=== PATIENT | female | born 1950 | race Caucasian/White ===

== ENCOUNTER 2024-05-22 04:17 | Inpatient (IN) | payer MEDICARE ==
[2024-05-22 04:29] LABS: Glucose,Whole Blood 70 mg/dL (70-110)
[2024-05-22 04:31] VITALS: TEMP 97.7
[2024-05-22] MEDS: SODIUM CHLORIDE 0.9% 1,000 ML IV STA (05:37)
[2024-05-22 05:43] LABS: Basophils % (A) 1 %; Eosinophils % (A) 7 %; HCT 45.9 % (34.0-46.0); HGB 14.8 gm/dL (11.4-16.0); Lymphocytes # (A) 1.2 k/uL (1.0-4.8); Lymphocytes % (A) 15 %; MCH 30.6 pg (25.0-35.0); MCHC 32.4 g/dL (31.0-37.0); MCV 94.7 fL (80.0-100.0); Mean Platelet Volume 9.1; Monocytes # (A) 0.5 k/uL (0-1.0); Monocytes % (A) 7 %; Neutrophils # (A) 5.3 k/uL (1.3-7.7); Neutrophils % (A) 68 %; Platelet Count 304 k/uL (150-450); RBC 4.85 m/uL (3.80-5.40); RDW 13.4 % (11.5-15.5); WBC 7.8 k/uL (3.8-10.6)
[2024-05-22 05:44] LABS: Basophils # (A) 0.1 k/uL (0-0.2); Eosinophils # (A) 0.5 k/uL (0-0.7)
--- NOTE | 2024-05-22 05:48 | ED ---
Weakness HPI <Carlos Lazaro - Last Filed: 05/22/24 09:23> <Deep Brower - Last Filed: 05/23/24 00:20> - General Source: EMS Mode of arrival: EMS <Rosa Condon - Last Filed: 05/23/24 23:30> - General Chief complaint: Weakness Stated complaint: Weakness Time Seen by Provider: 05/22/24 04:54 - History of Present Illness Initial comments: 73-year-old female who presents to the emergency department with weakness. States that it has been increasing over the past couple of weeks. She has been falling daily. Patient states that she is so weak she cannot keep her balance. Tonight her roommate called because she has been so weak. Patient denies any chest pain or shortness of breath. No abdominal pain. Does admit to a mild headache. No vision changes. Patient does not take any medications. Denies any sick contacts. No lateralizing weakness. No changes in her bowel or bladder habits. States that she has a very poor appetite. No other alleviating, precipitating or modifying factors (Rosa Condon) - Related Data Home Medications Medication Instructions Recorded Confirmed No Known Home Medications 05/22/24 05/22/24 Allergies Allergy/AdvReac Type Severity Reaction Status Date / Time iodine Allergy Anaphylaxis Verified 05/22/24 09:49 Review of Systems ROS Other: All systems not noted in ROS Statement are negative. <Carlos Lazaro - Last Filed: 05/22/24 09:23> ROS Other: All systems not noted in ROS Statement are negative. <Deep Brower - Last Filed: 05/23/24 00:20> ROS Other: All systems not noted in ROS Statement are negative. <Rosa Condon - Last Filed: 05/23/24 23:30> ROS Statement: Those systems with pertinent positive or pertinent negative responses have been documented in the HPI. Past Medical History Additional Past Medical History / Comment(s): hypothyroidism History of Any Multi-Drug Resistant Organisms: None Reported Past Surgical History: Tonsillectomy Additional Past Surgical History / Comment(s): Trigeminal nerve decompression 2003 Past Psychological History: Depression Smoking Status: Current some day smoker Past Alcohol Use History: None Reported Past Drug Use History: None Reported <Rosa Condon - Last Filed: 05/23/24 23:30> General Exam General appearance: alert, in no apparent distress Head exam: Present: atraumatic, normocephalic, normal inspection Eye exam: Present: normal appearance, PERRL, EOMI. Absent: scleral icterus, conjunctival injection, periorbital swelling ENT exam: Present: normal exam, mucous membranes moist Neck exam: Present: normal inspection. Absent: tenderness, meningismus, lymphadenopathy Respiratory exam: Present: normal lung sounds bilaterally. Absent: respiratory distress, wheezes, rales, rhonchi, stridor Cardiovascular Exam: Present: regular rate, normal rhythm, normal heart sounds. Absent: systolic murmur, diastolic murmur, rubs, gallop, clicks GI/Abdominal exam: Present: soft, normal bowel sounds. Absent: distended, tenderness, guarding, rebound, rigid Extremities exam: Present: normal inspection, full ROM, normal capillary refill. Absent: tenderness, pedal edema, joint swelling, calf tenderness Back exam: Present: normal inspection Neurological exam: Present: alert, oriented X3, CN II-XII intact Psychiatric exam: Present: normal affect, normal mood Skin exam: Present: warm, dry, intact, normal color. Absent: rash <Rosa Condon - Last Filed: 05/23/24 23:30> Course <Deep Brower - Last Filed: 05/23/24 00:20> Vital Signs 05/22/24 05/22/24 05/22/24 04:20 08:00 10:00 Temperature 97.7 F Pulse Rate 80 55 L 60 Pulse Rate [ Fisheries Technical Officer ] Respiratory 16 16 16 Rate Blood Pressure 131/68 98/55 95/60 O2 Sat by Pulse 94 L 96 98 Oximetry 05/22/24 05/22/24 05/22/24 12:00 13:00 15:00 Temperature Pulse Rate 70 64 68 Pulse Rate [ Fisheries Technical Officer ] Respiratory 16 16 16 Rate Blood Pressure 96/50 106/56 108/57 O2 Sat by Pulse 98 96 98 Oximetry 05/22/24 05/22/24 05/22/24 16:00 16:53 18:00 Temperature Pulse Rate 68 60 68 Pulse Rate [ Fisheries Technical Officer ] Respiratory 16 20 16 Rate Blood Pressure 108/67 104/62 90/46 O2 Sat by Pulse 98 95 96 Oximetry 05/22/24 05/22/24 05/23/24 19:00 23:16 01:38 Temperature Pulse Rate 67 53 L 56 L Pulse Rate [ Fisheries Technical Officer ] Respiratory 20 16 16 Rate Blood Pressure 119/97 87/54 101/54 O2 Sat by Pulse 96 96 Oximetry 05/23/24 05/23/24 05/23/24 05:07 06:14 07:00 Temperature Pulse Rate 49 L 50 L 50 L Pulse Rate [ Fisheries Technical Officer ] Respiratory 16 17 18 Rate Blood Pressure 100/59 110/59 103/52 O2 Sat by Pulse 95 Oximetry 05/23/24 05/23/24 08:00 11:25 Temperature Pulse Rate 48 L Pulse Rate [ 62 Fisheries Technical Officer ] Respiratory 18 18 Rate Blood Pressure 111/61 O2 Sat by Pulse 95 Oximetry - Reevaluation(s) Reevaluation #1: 05/22/24 17:15 I received call from Dr. Arguello regarding patient's head CT that had been ordered by the admitting service. There suspected metastatic lesions with some subfalcine herniation. [employer] message sent for admitting service (Deep Brower) Reevaluation #2: 05/23/24 00:21 mL attempt to facilitate the patient's transfer, and because Dr. Mayers was not in the facility when the CT report came, I did discuss with the patient the findings and asked about choice of transfer hospital, the patient stated she would like to go to [facility] in [place]. I did discuss case with the transfer team, and [facility] did accept the patient for transfer, pending insurance approval. (Deep Brower) Medical Decision Making - Lab Data Result diagrams: 05/22/24 05:26 05/22/24 05:26 <Carlos Lazaro - Last Filed: 05/22/24 09:23> - Lab Data Result diagrams: 05/22/24 05:26 05/22/24 05:26 <Deep Brower - Last Filed: 05/23/24 00:20> - Lab Data Result diagrams: 05/22/24 05:26 05/22/24 05:26 <Rosa Condon - Last Filed: 05/23/24 23:30> - Medical Decision Making CT interpreted by me (1pt min.). @ -Patient CT of the chest abdomen pelvis showed a 6 cm right upper lobe mass U/S interpreted by me (1pt. min.). @ -None done What testing was considered but not performed or refused? (CT, X-rays, U/S, labs)? Why? @ -None What meds were considered but not given or refused? Why? @ -None Did you discuss the management of the patient with other professionals (professionals i.e. , PA, CARCASS WASHER, lab, RT, psych nurse, director of social media marketing, communications technician, teacher, corporate trust officer, manager civil)? Give summary @ -Dr. Mayers agreed to admit the patient after I spoke with him about the case Was smoking cessation discussed for >3mins.? @ -No Was critical care preformed (if so, how long)? @ -No Were there social determinants of health that impacted care today? How? (Homelessness, low income, unemployed, alcoholism, drug addiction, transportation, low edu. Level, literacy, decrease access to med. care, mcc, rehab)? @ -No Was there de-escalation of care discussed even if they declined (Discuss DNR or withdrawal of care, Hospice)? DNR status @ -No What co-morbidities impacted this encounter? (DM, HTN, Smoking, COPD, CAD, Cancer, CVA, ARF, Chemo, Hep., AIDS, mental health diagnosis, sleep apnea, morbid obesity)? @ -None Was patient admitted / discharged? Hospital course, mention meds given and route, prescriptions, significant lab abnormalities, going to OR and other pertinent info. @ -Patient still felt too weak to go home and she states she has been falling at least every day. I spoke with Dr. Mayers he agreed to admit the patient admit the patient recommending orders Undiagnosed new problem with uncertain prognosis? @ -No Drug Therapy requiring intensive monitoring for toxicity (Heparin, Nitro, Insulin, Cardizem)? @ -No Were any procedures done? @ -No Diagnosis/symptom? @ -Lung mass Acute, or Chronic, or Acute on Chronic? @ -Acute Uncomplicated (without systemic symptoms) or Complicated (systemic symptoms)? @ -Complicated Side effects of treatment? @ -No Exacerbation, Progression, or Severe Exacerbation? @ -No Poses a threat to life or bodily function? How? (Chest pain, [place], [place], pneumonia, PE, COPD, DKA, ARF, appy, cholecystitis, CVA, Diverticulitis, Homicidal, Suicidal, threat to staff... and all critical care pts) @ -Yes this could be a neoplasm and lead to metastatic disease. Diagnosis/symptom? @ -Generalized weakness Acute, or Chronic, or Acute on Chronic? @ -Acute Uncomplicated (without systemic symptoms) or Complicated (systemic symptoms)? @ -Complicated Side effects of treatment? @ -None Exacerbation, Progression, or Severe Exacerbation] @ -No Poses a threat to life or bodily function? @ -No Diagnosis/symptom? @ -Multiple falls Acute, or Chronic, or Acute on Chronic? @ -Acute Uncomplicated (without systemic symptoms) or Complicated (systemic symptoms)? @ -Uncomplicated Side effects of treatment? @ -None Exacerbation, Progression, or Severe Exacerbation] @ -No Poses a threat to life or bodily function? @ -No (Carlos Lazaro) Was pt. sent in by a medical professional or institution (, PA, CARCASS WASHER, urgent care, hospital, or detention...) When possible be specific @ -No Did you speak to anyone other than the patient for history (EMS, parent, family, police, friend...)? What history was obtained from this source @ -Spoke with EMS for history Did you review nursing and triage notes (agree or disagree)? Why? @ -I reviewed and agree with nursing and triage notes Were old charts reviewed (outside hosp., previous admission, EMS record, old EKG, old radiological studies, urgent care reports/EKG's, detention records)? Report findings @ -No old charts were reviewed Differential Diagnosis (chest pain, altered mental status, abdominal pain women, abdominal pain men, vaginal bleeding, weakness, fever, dyspnea, syncope, h eadache, dizziness, GI bleed, back pain, seizure, CVA, palpatations, mental health, musculoskeletal)? @ -Differential Weakness: Hypoglycemia, shock, sepsis, hyponatremia, anemia, infection, [place], ETOH, adverse medicine reaction, overdose, stroke, this is not meant to be an all-inclusive list. EKG interpreted by me (3pts min.). @ -Yes and demonstrates sinus rhythm with a rate of 69. FL interval 151. QRS 90. QTc of 442. No acute ST segment elevations or depressions X-rays interpreted by me (1pt min.). @ -Pending at this time CT interpreted by me (1pt min.). @ -None done U/S interpreted by me (1pt. min.). @ -None done What testing was considered but not performed or refused? (CT, X-rays, U/S, labs)? Why? @ -None What meds were considered but not given or refused? Why? @ -None Did you discuss the management of the patient with other professionals (professionals i.e. Dr., PA, CARCASS WASHER, lab, RT, psych nurse, director of social media marketing, communications technician, teacher, corporate trust officer, manager civil)? Give summary @ -Spoke with Dr. Lazaro who will take over care of this patient Was smoking cessation discussed for >3mins.? @ -No Was critical care preformed (if so, how long)? @ -No Were there social determinants of health that impacted care today? How? (Homelessness, low income, unemployed, alcoholism, drug addiction, transportation, low edu. Level, literacy, decrease access to med. care, mcc, rehab)? @ -No Was there de-escalation of care discussed even if they declined (Discuss DNR or withdrawal of care, Hospice)? DNR status @ -No What co-morbidities impacted this encounter? (DM, HTN, Smoking, COPD, CAD, Cancer, CVA, ARF, Chemo, Hep., AIDS, mental health diagnosis, sleep apnea, morbid obesity)? @ -Hypothyroidism Was patient admitted / discharged? Hospital course, mention meds given and route, prescriptions, significant lab abnormalities, going to OR and other pertinent info. @ -Upon arrival patient seen and evaluated in room 18. Thorough history and physical exam was performed. IV access was established. Laboratory studies were conducted. Testing is pending at this time and will be [facility] out [facility] - Lab Data Lab Results 05/22/24 05/22/24 05/22/24 Range/Units 04:27 05:26 05:26 WBC 7.8 (3.8-10.6) k/uL RBC 4.85 (3.80-5.40) m/uL Hgb 14.8 (11.4-16.0) gm/dL Hct 45.9 (34.0-46.0) % MCV 94.7 (80.0-100.0) fL MCH 30.6 (25.0-35.0) pg MCHC 32.4 (31.0-37.0) g/dL RDW 13.4 (11.5-15.5) % Plt Count 304 (150-450) k/uL MPV 9.1 Neutrophils % 68 % Lymphocytes % 15 % Monocytes % 7 % Eosinophils % 7 % Basophils % 1 % Neutrophils # 5.3 (1.3-7.7) k/uL Lymphocytes # 1.2 (1.0-4.8) k/uL Monocytes # 0.5 (0-1.0) k/uL Eosinophils # 0.5 (0-0.7) k/uL Basophils # 0.1 (0-0.2) k/uL PT 10.5 (10.0-12.5) sec INR 1.0 (<1.2) APTT 22.1 (22.0-30.0) sec Sodium (137-145) mmol/L Potassium (3.5-5.1) mmol/L Chloride (98-107) mmol/L Carbon Dioxide (22-30) mmol/L Anion Gap mmol/L BUN (7-17) mg/dL Creatinine (0.52-1.04) mg/dL Est GFR (CKD-EPI)AfAm (>60 ml/min/1.73 sqM) Est GFR (CKD-EPI)NonAf (>60 ml/min/1.73 sqM) Glucose (74-99) mg/dL POC Glucose (mg/dL) 70 (70-110) mg/dL POC Glu [place] Measurer ID Raymond Joyce Plasma Lactic Acid Antonio (0.7-2.0) mmol/L Calcium (8.4-10.2) mg/dL Magnesium (1.6-2.3) mg/dL Total Bilirubin (0.2-1.3) mg/dL AST (14-36) U/L ALT (4-34) U/L Alkaline Phosphatase (38-126) U/L Troponin I (0.000-0.034) ng/mL Total Protein (6.3-8.2) g/dL Albumin (3.5-5.0) g/dL TSH (0.465-4.680) mIU/L Urine Color Urine Appearance (Clear) Urine pH (5.0-8.0) Ur Specific [place] (1.001-1.035) Urine Protein (Negative) Urine Glucose (UA) (Negative) Urine Ketones (Negative) Urine Blood (Negative) Urine Nitrite (Negative) Urine Bilirubin (Negative) Urine Urobilinogen (<2.0) mg/dL Ur Leukocyte Esterase (Negative) Urine WBC (0-5) /hpf Ur Squamous Epith Cells (0-4) /hpf Urine Bacteria (None) /hpf Urine Mucus (None) /hpf Influenza Type A (PCR) (Not Detectd) Influenza Type B (PCR) (Not Detectd) RSV (PCR) (Not Detectd) SARS-CoV-2 (PCR) (Not Detectd) 05/22/24 05/22/24 05/22/24 Range/Units 05:26 05:26 05:26 WBC (3.8-10.6) k/uL RBC (3.80-5.40) m/uL Hgb (11.4-16.0) gm/dL Hct (34.0-46.0) % MCV (80.0-100.0) fL MCH (25.0-35.0) pg MCHC (31.0-37.0) g/dL RDW (11.5-15.5) % Plt Count (150-450) k/uL MPV Neutrophils % % Lymphocytes % % Monocytes % % Eosinophils % % Basophils % % Neutrophils # (1.3-7.7) k/uL Lymphocytes # (1.0-4.8) k/uL Monocytes # (0-1.0) k/uL Eosinophils # (0-0.7) k/uL Basophils # (0-0.2) k/uL PT (10.0-12.5) sec INR (<1.2) APTT (22.0-30.0) sec Sodium 134 L (137-145) mmol/L Potassium 4.2 (3.5-5.1) mmol/L Chloride 106 (98-107) mmol/L Carbon Dioxide 20 L (22-30) mmol/L Anion Gap 8 mmol/L BUN 14 (7-17) mg/dL Creatinine 0.59 (0.52-1.04) mg/dL Est GFR (CKD-EPI)AfAm >90 (>60 ml/min/1.73 sqM) Est GFR (CKD-EPI)NonAf >90 (>60 ml/min/1.73 sqM) Glucose 63 L (74-99) mg/dL POC Glucose (mg/dL) (70-110) mg/dL POC Glu [place] Measurer ID Plasma Lactic Acid Antonio 1.2 (0.7-2.0) mmol/L Calcium 8.9 (8.4-10.2) mg/dL Magnesium 2.0 (1.6-2.3) mg/dL Total Bilirubin 0.9 (0.2-1.3) mg/dL AST 30 (14-36) U/L ALT 13 (4-34) U/L Alkaline Phosphatase 92 (38-126) U/L Troponin I <0.012 (0.000-0.034) ng/mL Total Protein 6.3 (6.3-8.2) g/dL Albumin 4.0 (3.5-5.0) g/dL TSH 2.840 (0.465-4.680) mIU/L Urine Color Urine Appearance (Clear) Urine pH (5.0-8.0) Ur Specific [place] (1.001-1.035) Urine Protein (Negative) Urine Glucose (UA) (Negative) Urine Ketones (Negative) Urine Blood (Negative) Urine Nitrite (Negative) Urine Bilirubin (Negative) Urine Urobilinogen (<2.0) mg/dL Ur Leukocyte Esterase (Negative) Urine WBC (0-5) /hpf Ur Squamous Epith Cells (0-4) /hpf Urine Bacteria (None) /hpf Urine Mucus (None) /hpf Influenza Type A (PCR) (Not Detectd) Influenza Type B (PCR) (Not Detectd) RSV (PCR) (Not Detectd) SARS-CoV-2 (PCR) (Not Detectd) 05/22/24 05/22/24 05/22/24 Range/Units 05:26 05:26 09:31 WBC (3.8-10.6) k/uL RBC (3.80-5.40) m/uL Hgb (11.4-16.0) gm/dL Hct (34.0-46.0) % MCV (80.0-100.0) fL MCH (25.0-35.0) pg MCHC (31.0-37.0) g/dL RDW (11.5-15.5) % Plt Count (150-450) k/uL MPV Neutrophils % % Lymphocytes % % Monocytes % % Eosinophils % % Basophils % % Neutrophils # (1.3-7.7) k/uL Lymphocytes # (1.0-4.8) k/uL Monocytes # (0-1.0) k/uL Eosinophils # (0-0.7) k/uL Basophils # (0-0.2) k/uL PT (10.0-12.5) sec INR (<1.2) APTT (22.0-30.0) sec Sodium (137-145) mmol/L Potassium (3.5-5.1) mmol/L Chloride (98-107) mmol/L Carbon Dioxide (22-30) mmol/L Anion Gap mmol/L BUN (7-17) mg/dL Creatinine (0.52-1.04) mg/dL Est GFR (CKD-EPI)AfAm (>60 ml/min/1.73 sqM) Est GFR (CKD-EPI)NonAf (>60 ml/min/1.73 sqM) Glucose (74-99) mg/dL POC Glucose (mg/dL) 63 L (70-110) mg/dL POC Glu [place] Measurer ID Vin, Robert Plasma Lactic Acid Antonio (0.7-2.0) mmol/L Calcium (8.4-10.2) mg/dL Magnesium (1.6-2.3) mg/dL Total Bilirubin (0.2-1.3) mg/dL AST (14-36) U/L ALT (4-34) U/L Alkaline Phosphatase (38-126) U/L Troponin I (0.000-0.034) ng/mL Total Protein (6.3-8.2) g/dL Albumin (3.5-5.0) g/dL TSH (0.465-4.680) mIU/L Urine Color Light Yellow Urine Appearance Cloudy H (Clear) Urine pH 5.5 (5.0-8.0) Ur Specific [place] 1.014 (1.001-1.035) Urine Protein Negative (Negative) Urine Glucose (UA) Negative (Negative) Urine Ketones 2+ H (Negative) Urine Blood Negative (Negative) Urine Nitrite Negative (Negative) Urine Bilirubin Negative (Negative) Urine Urobilinogen <2.0 (<2.0) mg/dL Ur Leukocyte Esterase Small H (Negative) Urine WBC 5 (0-5) /hpf Ur Squamous Epith Cells <1 (0-4) /hpf Urine Bacteria Many H (None) /hpf Urine Mucus Rare H (None) /hpf Influenza Type A (PCR) Not Detected (Not Detectd) Influenza Type B (PCR) Not Detected (Not Detectd) RSV (PCR) Not Detected (Not Detectd) SARS-CoV-2 (PCR) Not Detected (Not Detectd) Disposition Time of Disposition: 09:25 <Carlos Lazaro - Last Filed: 05/22/24 09:23> <Deep Brower - Last Filed: 05/23/24 00:20> <Rosa Condon - Last Filed: 05/23/24 23:30> Clinical Impression: Multiple falls, Lung mass, Generalized weakness Disposition: ADMITTED IP TO THIS HOSP
[2024-05-22 05:55] LABS: Prothrombin Time 10.5 sec (10.0-12.5)
[2024-05-22 06:02] LABS: ALT 13 U/L (4-34); African American GFR (CKD) >90 (>60 ml/min/1.73 sqM); Anion Gap 8 mmol/L; Blood Urea Nitrogen 14 mg/dL (7-17); Calcium 8.9 mg/dL (8.4-10.2); Carbon Dioxide 20 mmol/L (22-30); Chloride 106 mmol/L (98-107); Glucose 63 mg/dL (74-99); Non-African American GFR(CKD) >90 (>60 ml/min/1.73 sqM); Partial Thromboplastin Time 22.1 sec (22.0-30.0); Sodium 134 mmol/L (137-145); Total Bilirubin 0.9 mg/dL (0.2-1.3); Total Protein 6.3 g/dL (6.3-8.2)
[2024-05-22 06:03] LABS: Potassium 4.2 mmol/L (3.5-5.1)
[2024-05-22 06:04] LABS: AST 30 U/L (14-36); Alkaline Phosphatase 92 U/L (38-126)
--- NOTE | 2024-05-22 06:12 | XR ---
EXAM: XR Chest, 2 Views CLINICAL HISTORY: Pt complains of weakness that has been increasing over the last few weeks and states she has been falling daily for the last month. Pt also complains of a headache x2 days current some day smoker TECHNIQUE: Frontal and lateral views of the chest. COMPARISON: No relevant prior studies available. FINDINGS: Lungs: 6.5 cm mass or consolidation of medial anterior aspect of right upper lobe, arising from or and protruding into the superior mediastinum, highly suspicious for neoplasm/metastasis versus lymphadenopathy. Pleural space: Unremarkable. Mediastinum: Calcified aorta. Bones/joints: No acute findings. Upper abdomen: Moderate dilatation of the colon at hepatic flexure measuring up to 7.5 cm suggest focal ileus and less likely colonic obstruction. IMPRESSION: 1. 6.5 cm mass or consolidation of medial anterior aspect of right upper lobe, arising from or and protruding into the superior mediastinum, highly suspicious for neoplasm/metastasis versus lymphadenopathy. 2. Moderate dilatation of the colon at hepatic flexure measuring up to 7.5 cm suggest focal ileus and less likely colonic obstruction.
[2024-05-22] MEDS: methylPREDNISolone SOD SUCCI 125 MG/2 ML VIAL IV STA (06:34)
[2024-05-22] MEDS: FAMOTIDINE 20 MG/2 ML VIAL IV STA (06:34)
[2024-05-22] MEDS: diphenhydrAMINE 50 MG/ML 1 ML VIAL IVP STA (06:34)
--- NOTE | 2024-05-22 08:44 | CT ---
EXAMINATION TYPE: CT ChestAbdPelvis wo con DATE OF EXAM: 05/22/2024 INDICATION: MASS CHEST COMPARISON: Chest x-ray same date CT DLP: 460.8 mGycm CONTRAST: Performed without Oral Contrast . Due to prior anaphylaxis, no intravenous contrast was utilized toda y. TECHNIQUE: Axial images at 5 mm thick sections. Reconstructed images in the coronal plane. Delayed images through the kidneys. FINDINGS: CT CHEST: Portion of the thyroid visualized is normal. There is a 5.7 x 6.7 cm spiculated mass at the medial right apex suspicious for neoplasm. Some minimal compressive atelectasis may be at the dependent left lung base. There are several scattered small pretracheal lymph nodes present. Enlarged lymphadenopathy by measur ement criteria is not evident. The ascending aorta diameter at the level of the main pulmonary artery is 3.4 cm. The main pulmonary artery diameter at the bifurcation is 2.[address] ABDOMEN: Liver: Normal Spleen: Normal Pancreas: Normal Adrenal glands: The adrenal glands are normal. Gallbladder: Normal Kidneys: No masses are evident. No hydronephrosis is present. There is a large right mid lateral re nal cyst measuring 4.7 cm 3 Hounsfield units. Smaller cortical renal cysts present on the right poste rior inferior pole. Delayed images were obtained through the kidneys, which remain unremarkable. Aorta: After calcifications within the aorta. Inferior vena cava: Normal. CT PELVIS: Loops of bowel within the abdomen and pelvis are normal. Study is without oral contrast limits osvaldo wel evaluation. Appendix: Normal as visualized Urinary bladder: Normal. Genitourinary structures: Uterus is unremarkable. Adnexa are normal. Osseous structures: No suspicious lytic or sclerotic lesions. IMPRESSION: 1. Medial right upper lobe 6 cm mass suspicious for neoplasm. [facility], , 05/22/2024 8:42 AM
[2024-05-22] MEDS: SODIUM CHLORIDE 0.9% 1,000 ML IV ONE (09:33)
[2024-05-22 09:43] LABS: Glucose,Whole Blood 63 mg/dL (70-110)
--- NOTE | 2024-05-22 14:14 | P.CNPUL ---
History of Present Illness Consult date: 05/22/24 Requesting physician: Darren Mayers Reason for consult: abnormal CXR/CT Chief complaint: Weakness, falls History of present illness: This is a 73-year-old female patient with a known history of hypothyroidism, chronic and ongoing tobacco dependence. Over the past several weeks she has been having increasing weakness and daily falls. Her roommate finally called EMS early this morning due to her excessive weakness. 0.8. Platelets 304. Sodium 134. Potassium 4.2. Bicarb 20. BUN 14. Creatinine 0.59. Glucose 63. Troponin negative x 1. TSH 2.84. Viral screen negative. Chest x-ray reveals a 6.5 cm mass or consolidation of medial anterior aspect of the right upper lobe arising from or and protruding into the superior mediastinum, highly suspicious for neoplasm/metastasis versus lymphadenopathy. Moderate dilatation of the colon at hepatic flexure measuring up to 7.5 cm suggest focal ileus and less likely colonic obstruction. CT scan of the chest abdomen pelvis revealed a medial right upper lobe 6 cm mass suspicious for neoplasm. Loops of bowel within the abdomen and pelvis are normal. Normal saline at 75 mL/h. She is seen today in consultation in the emergency department. She is currently resting on the stretcher. She is awake and alert. She is quite disheveled. De nies any specific injury. Denies any shortness of breath. No cough or congestion. No hemoptysis. She is quite frail and cachectic. Review of Systems REVIEW OF SYSTEMS: CONSTITUTIONAL: Generalized weakness and falls. Positive for weight loss. EYES: Denies change in vision. EARS, NOSE, MOUTH, THROAT: Denies headaches, denies sore throat. CARDIOVASCULAR: Denies chest pain, palpitations or syncopal episodes. RESPIRATORY: Denies shortness of breath, cough, congestion or hemoptysis. GASTROINTESTINAL: Denies change in appetite, denies abdominal pain GENITOURINARY: Denies hematuria, denies infections. MUSKULOSKELETAL: Denies pain, denies swelling. INTEGUMENTARY: Denies rash, denies eczema. NEUROLOGICAL: Denies recent memory loss, no recent seizure activity. PSYCHIATRIC: Denies anxiety, denies depression. HEMATOLOGIC/LYMPHATIC: Denies anemia, denies enlarged lymph nodes. Past Medical History Additional Past Medical History / Comment(s): hypothyroidism History of Any Multi-Drug Resistant Organisms: None Reported Past Surgical History: Tonsillectomy Additional Past Surgical History / Comment(s): Trigeminal nerve decompression 2003 Past Psychological History: Depression Smoking Status: Current some day smoker Past Alcohol Use History: None Reported Past Drug Use History: None Reported Medications and Allergies Home Medications Medication Instructions Recorded Confirmed Type No Known Home Medications 05/22/24 05/22/24 History Allergies Allergy/AdvReac Type Severity Reaction Status Date / Time iodine Allergy Anaphylaxis Verified 05/22/24 09:49 Physical Exam Vitals: Vital Signs Temp Pulse Resp BP Pulse Ox 05/22/24 13:00 64 16 106/56 96 05/22/24 12:00 70 16 96/50 98 05/22/24 10:00 60 16 95/60 98 05/22/24 08:00 55 L 16 98/55 96 05/22/24 04:20 97.7 F 80 16 131/68 94 L Intake and Output 05/21/24 05/22/24 05/22/24 22:59 06:59 14:59 Other: Weight 56.699 kg GENERAL EXAM: Alert, disheveled, 73-year-old female, on room air, comfortable in no apparent distress. HEAD: Normocephalic. EYES: Normal reaction of pupils, equal size. NOSE: Clear with pink turbinates. THROAT: No erythema or exudates. NECK: No masses, no JVD. CHEST: No chest wall deformity. LUNGS: Equal air entry with no crackles, wheeze, rhonchi or dullness. CVS: S1 and S2 normal with no audible murmur, regular rhythm. ABDOMEN: No hepatosplenomegaly, normal bowel sounds, no guarding or rigidity. SPINE: No scoliosis or deformity SKIN: No rashes CENTRAL NERVOUS SYSTEM: No focal deficits, tone is normal in all 4 extremities. EXTREMITIES: There is no peripheral edema. No clubbing, no cyanosis. Peripheral pulses are intact. Results - Laboratory Findings CBC and BMP: 05/22/24 05:26 05/22/24 05:26 PT/INR, D-dimer PT 10.5 sec (10.0-12.5) 05/22/24 05:26 INR 1.0 (<1.2) 05/22/24 05:26 Abnormal lab findings: Abnormal Labs 05/22/24 05/22/24 05:26 09:31 Sodium 134 L Carbon Dioxide 20 L Glucose 63 L POC Glucose (mg/dL) 63 L - Diagnostic Findings Chest x-ray: image reviewed CT scan - chest: image reviewed Assessment and Plan Assessment: Generalized weakness and falls suspect secondary to malignancy Lung mass measuring 5.7 x 6.7 cm spiculated at the medial right apex suspicious for neoplasm Chronic and ongoing tobacco dependence Hypothyroidism Plan: The patient was seen and evaluated Chest x-ray, CAT scan, labs and medications reviewed Continue normal saline at 75 mL/h Recommend CT scan of the brain Will need an outpatient PET scan The patient was informed of her lung mass Educated regarding the importance of smoking cessation We will continue to follow and make further recommendations based on his clinical status I have personally seen and examined the patient, performed the documentation and the assessment and plan as written. Number of minutes spent on the visit: 20.
[2024-05-22 14:24] LABS: Appearance,Urine Cloudy (Clear); Bacteria,Urine Many /hpf; Bilirubin,Urine Negative (Negative); Blood,Urine Negative (Negative); Color,Urine Light Yellow; Glucose,Urine (UA) Negative (Negative); Ketones,Urine 2+ (Negative); Leukocyte Esterase,Urine Small (Negative); Mucus,Urine Rare /hpf; Nitrite,Urine Negative (Negative); PH, Urine 5.5 (5.0-8.0); Protein,Urine Negative (Negative); Specific Gravity,Urine 1.014 (1.001-1.035); Squamous Epithelial Cell,Urine <1 /hpf (0-4); Urobilinogen,Urine <2.0 mg/dL (<2.0); WBC,Urine 5 /hpf (0-5)
--- NOTE | 2024-05-22 17:15 | CT ---
EXAMINATION TYPE: CT brain wo con DATE OF EXAM: 05/22/2024 COMPARISON: 07/30/2012 INDICATION: ams DLP: 2178.4 mGycm, Automated exposure control for dose reduction was used. CONTRAST: None CT of the brain is performed utilizing 3 mm thick sections through the posterior fossa and 3 mm thick sections through the remaining calvarium. Study is performed within 24 hours of arrival to the hosp [facility]. There is a large area of vasogenic edema within the right parietal-occipital region. There is effacem ent of the right lateral ventricle. Subfalcine herniation and midline shift is evident estimated at 0.8 cm. There is effacement of the sulci. Some temporal horn surrounding is present suggesting early hydrocephalus. Fourth ventricle is midline. Third ventricle is shifted to the left. Quadrigeminal julee te and ambient cistern are patent. Foramen magnum appears normal. There is some mild. Ventricular white matter changes adjacent to the left lateral ventricle. No tento rial herniation is evident. No acute hemorrhage is identified. No calvarial lytic lesions identified. Note is made of prior crani otomy in the right cerebellar region. Paranasal sinuses and mastoid air cells are clear. IMPRESSION: 1. Large area of vasogenic edema extending through the right proximal temporal lobe, right parietal lobe and extending into the occipital lobe with effacement of sulci and subfalcine herniation with 0 .8 cm of midline shift to the left. Report was called to the emergency room by Dr. Arguello by telepho ernsetina at the time of interpretation. [facility], , 05/22/2024 5:13 PM
[2024-05-22] MEDS: DEXAMETHASONE SOD PHOSPHATE 10 MG/ML 1 ML VIAL IVP STA (18:54)
[2024-05-22] MEDS: levETIRAcetam IV 500 MG/5 ML VIAL IVP STA (19:54)
--- NOTE | 2024-05-22 20:19 | P.CNNES ---
History of Present Illness Consult date: 05/22/24 Requesting physician: Julian Licona Reason for Consult: Brain mass History of Present Illness: Patient is a 73-year-old right-handed female with history of tobacco use, has presented with increased imbalance, and recurrent falls. Patient's significant other was present, who provided with a history. Patient and her significant other mentions that patient has been very unsteady in the last 1 month. However in the last 1 week, patient has been having frequent falls. She has fell about 6 times in the last 1 week. She does not get dizzy or lightheaded, does not pass out, does not blackout but falls. Once she falls to the ground, she has to be picked up from the floor. Patient denies any numbness or tingling. Denies any facial droop, slurred speech. For these frequent falls, patient was brought to the hospital, and arrived today at 4:17 AM. Vital signs on arrival blood pressure 131/68, pulse 83 temperature 97.7. Blood test shows normal CBC, PT PTT, normal potassium, sodium 134. Renal functions are normal. Hepatic panel, troponin is normal. TSH normal. UA shows small amount of leukocyte Estrace. Influenza screen, RSV and coronavirus PCR negative. Patient had an EKG, which revealed sinus rhythm with occasional ventricular premature complexes. Chest x-ray revealed 6 cm mass or con solidation of the medial anterior aspect of the right upper lobe, arising from or and protruding into the superior mediastinum, highly suspicious for neoplasm/metastasis versus lymphadenopathy. Moderate dilation of the colon at the hepatic flexure measuring up to 7.5 cm, suggest focal ileus and less likely a colonic obstruction. CT of the chest abdomen and pelvis revealed medial right upper lobe 6 cm mass suspicious for neoplasm patient was seen by oil tanker captain, and patient underwent CT scan of the head, which revealed large area of vasogenic edema extending through the right proximal temporal lobe, right parietal lobe and extending into the occipital lobe with effacement of the sulci and subfalcine herniation with 0.8 cm of midline shift to the left. Stat neurology consultation was initiated. Patient states that for the last 3 weeks she has been having headache off and on, rating 4.5-5/10. Denies any nausea vomiting dysphagia, dysarthria or any visual disturbance. Patient has history of smoking less than half pack per day since age 15. She did quit for 5 years at 1 point but has resumed smoking in the last 20 years. Does not drink alcohol. Review of Systems As per HPI. All pertinent positive and negatives mentioned. Past Medical History Additional Past Medical History / Comment(s): hypothyroidism History of Any Multi-Drug Resistant Organisms: None Reported Past Surgical History: Tonsillectomy Additional Past Surgical History / Comment(s): Trigeminal nerve decompression 2004 Past Psychological History: Depression Smoking Status: Current some day smoker Past Alcohol Use History: None Reported Past Drug Use History: None Reported Medications and Allergies Home Medications Medication Instructions Recorded Confirmed Type No Known Home Medications 05/22/24 05/22/24 History Allergies Allergy/AdvReac Type Severity Reaction Status Date / Time iodine Allergy Anaphylaxis Verified 05/22/24 09:49 Physical Examination - Vital Signs Vital Signs: Vital Signs Temp Pulse Resp BP Pulse Ox 05/22/24 19:00 67 20 119/97 96 05/22/24 18:00 68 16 90/46 96 05/22/24 16:53 60 20 104/62 95 05/22/24 16:00 68 16 108/67 98 05/22/24 15:00 68 16 108/57 98 05/22/24 13:00 64 16 106/56 96 05/22/24 12:00 70 16 96/50 98 05/22/24 10:00 60 16 95/60 98 05/22/24 08:00 55 L 16 98/55 96 05/22/24 04:20 97.7 F 80 16 131/68 94 L Intake and Output 05/22/24 05/22/24 05/22/24 06:59 14:59 22:59 Other: Weight 56.699 kg Patient is an elderly female, very pleasant, in no acute distress. Patient is alert awake oriented to time place and person. Speech and language functions are normal. Patient can name and repeat very well. No aphasia or d ysarthria. Attention, concentration and fund of knowledge is adequate. On cranial nerve examination, pupils are equal, round and reacting to light, visual maya revealed complete left homonymous hemianopia. Extraocular muscles are intact with no nystagmus. Face is symmetric, tongue protrudes to the midline. Palatal elevation and sensation normal, hearing and shoulder shrug normal, facial sensation normal. On muscle strength testing, there is left sided pronation, with left elbow flexion. Patient has slight weakness of the left deltoid 5-but the biceps, triceps and digital editor are normal. Hip flexion are 4+5-bilaterally, ankle dorsiflexion are normal. Deep tendon reflexes are 2+ at the biceps, 2+ brachioradialis, 2+ at the knees and plantars are flexor. Sensory to touch reveals complete sensory loss on the left side. Cerebellar function showed no ataxia for supfhy-lt-glmi testing. No dysdiadochokinesia. Tone and bulk of muscles normal. Gait deferred.. On general examination, there is no carotid bruit or murmur, S1-S2 audible. Chest is clear on consultation. Abdomen is soft nontender. No organomegaly, bowel sounds present. Peripheral pulses are present. No peripheral edema. Results - Laboratory Findings CBC and BMP: 05/22/24 05:26 05/22/24 05:26 Abnormal Lab Findings: Abnormal Labs 05/22/24 05/22/24 05/22/24 05:26 05:26 09:31 Sodium 134 L Carbon Dioxide 20 L Glucose 63 L POC Glucose (mg/dL) 63 L Urine Appearance Cloudy H Urine Ketones 2+ H Ur Leukocyte Esterase Small H Urine Bacteria Many H Urine Mucus Rare H Assessment and Plan Assessment: * 73-year-old female admitted with worsening balance over past 1 month, and frequent falls, in the last 1 week. Examination reveals left homonymous hemianopia, left sensory loss, and very mild left-sided weakness. CT head revealed large area of vasogenic edema involving the right hemispheric region. Suspect metastatic disease. * Lung mass measuring 5.7 x 6.7 cm, spiculated at the medial right apex, suspicious for neoplasm. * Chronic tobacco use * Hypothyroidism Plan: * Patient given dexamethasone 10 mg IV stat. Patient needs to be continued on dexamethasone 4 mg IV every 6 hours. * Patient given Keppra 1000 mg IV stat, followed by Keppra 500 mg p.o. twice daily. * Patient needs stat MRI of the brain with and without contrast to evaluate for metastatic disease. * Recommend patient transfer to higher level of care for neurosurgical consultation. * Pulmonary medicine also on board, evaluated for possible primary lung cancer. * Recommend complete tobacco cessation. * CT head results reviewed with the patient and family. * Thank you for the consultation. Time with Patient: Greater than 30
[2024-05-23 07:40] VITALS: RESP 18
--- NOTE | 2024-05-23 09:24 | P.HPIM ---
History of Present Illness H&P Date: 05/23/24 This is a 73-year-old female with a history of tobacco use who presented to the emergency department with complaints of recurrent falls over the last month. Patient reports for the last month she has felt very unsteady and noticed an increase in imbalance. More frequent falls have been occurring in the last week. Patient denies any dizziness or lightheadedness, and reports no loss of consciousness. Patient has been not been seen in our office since 2019. Chest x-ray on admission showed 6 cm mass or consolidation of the medial anterior aspect of the right upper lobe, arising from or and protruding into the superior mediastinum, highly suspicious for neoplasm. Patient underwent a CT scan of the head which revealed a large area of vasogenic edema extending through the right proximal temporal lobe, right parietal lobe and extending into the occipital lobe with effacement of the sulci and subfalcine herniation with 0.8 cm of midline shift to the left. Patient has been seen and evaluated by pulmonology and neurology. Neurology is recommending a transfer to a facility with higher level of care. Review of Systems Constitutional: Denies chills, Denies fever Cardiovascular: Denies chest pain, Denies dyspnea on exertion Respiratory: Denies cough, Denies dyspnea Gastrointestinal: Denies abdominal pain, Denies nausea, Denies vomiting Musculoskeletal: Reports frequent falls, Denies arm numbness/tingling, Denies leg numbness/tingling Neurological: Reports balance difficulties, Reports lack of coordination, Denies headaches Past Medical History Additional Past Medical History / Comment(s): hypothyroidism History of Any Multi-Drug Resistant Organisms: None Reported Past Surgical History: Tonsillectomy Additional Past Surgical History / Comment(s): Trigeminal nerve decompression 2004 Past Psychological History: Depression Smoking Status: Current some day smoker Past Alcohol Use History: None Reported Past Drug Use History: None Reported Medications and Allergies Home Medications Medication Instructions Recorded Confirmed Type No Known Home Medications 05/22/24 05/22/24 History Allergies Allergy/AdvReac Type Severity Reaction Status Date / Time iodine Allergy Anaphylaxis Verified 05/22/24 09:49 Physical Exam Vitals: Vital Signs Pulse Resp BP Pulse Ox 05/23/24 07:00 50 L 18 103/52 95 05/23/24 06:14 50 L 17 110/59 05/23/24 05:07 49 L 16 100/59 05/23/24 01:38 56 L 16 101/54 96 05/22/24 23:16 53 L 16 87/54 05/22/24 19:00 67 20 119/97 96 05/22/24 18:00 68 16 90/46 96 05/22/24 16:53 60 20 104/62 95 05/22/24 16:00 68 16 108/67 98 05/22/24 15:00 68 16 108/57 98 05/22/24 13:00 64 16 106/56 96 05/22/24 12:00 70 16 96/50 98 05/22/24 10:00 60 16 95/60 98 - Constitutional General appearance: cooperative, no acute distress - EENT Eyes: PERRLA - Neck Neck: no lymphadenopathy, normal ROM, no rigidity - Respiratory Respiratory: bilateral: CTA - Cardiovascular Rhythm: regular Heart sounds: normal: S1, S2 - Gastrointestinal General gastrointestinal: soft, no tenderness - Integumentary Integumentary: normal, normal turgor - Musculoskeletal Musculoskeletal: generalized weakness - Psychiatric Psychiatric: A&O x's 3 Results CBC & Chem 7: 05/22/24 05:26 05/22/24 05:26 Labs: Abnormal Lab Results - Last 24 Hours (Table) 05/22/24 05/22/24 Range/Units 05:26 09:31 POC Glucose (mg/dL) 63 L (70-110) mg/dL Urine Appearance Cloudy H (Clear) Urine Ketones 2+ H (Negative) Ur Leukocyte Esterase Small H (Negative) Urine Bacteria Many H (None) /hpf Urine Mucus Rare H (None) /hpf Assessment and Plan (1) Generalized weakness Current Visit: Yes Status: Acute Code(s): R53.1 - WEAKNESS SNOMED Code(s): 17933192 (2) Lung mass Current Visit: Yes Status: Acute Code(s): R91.8 - OTHER NONSPECIFIC ABNORMAL FINDING OF LUNG FIELD SNOMED Code(s): 259679024 (3) Multiple falls Current Visit: Yes Status: Acute Code(s): R29.6 - REPEATED FALLS SNOMED Code(s): 875748074 Plan: Will start process of transferring to [facility]. Patient seen and evaluated by nurse practitioner, physician in agreement with plan
--- NOTE | 2024-05-23 09:26 | P.DS ---
Providers Date of admission: 05/22/24 09:25 Attending physician: Darren Mayers Consults: 05/22/24 09:25 Consult Physician Urgent Consulting Provider: Julian Licona Consult Reason/Comments: Lung mass Do you want consulting provider notified?: Yes 05/22/24 20:05 Consult Physician Routine Consulting Provider: Doreen Tang Consult Reason/Comments: Brain mass Do you want consulting provider notified?: Yes, Notify in am Primary care physician: Darren Mayers - Discharge Diagnosis(es) (1) Generalized weakness Current Visit: Yes Status: Acute (2) Lung mass Current Visit: Yes Status: Acute (3) Multiple falls Current Visit: Yes Status: Acute Hospital Course: This is a 73-year-old female with a history of tobacco use who presented to the emergency department with complaints of recurrent falls over the last month. Patient reports for the last month she has felt very unsteady and noticed an increase in imbalance. More frequent falls have been occurring in the last week. Patient denies any dizziness or lightheadedness, and reports no loss of consciousness. Patient has been not been seen in our office since 2019. Chest x-ray on admission showed 6 cm mass or consolidation of the medial anterior aspect of the right upper lobe, arising from or and protruding into the superior mediastinum, highly suspicious for neoplasm. Patient underwent a CT scan of the head which revealed a large area of vasogenic edema extending through the right proximal temporal lobe, right parietal lobe and extending into the occipital lobe with effacement of the sulci and subfalcine herniation with 0.8 cm of midline shift to the left. Patient has been seen and evaluated by pulmonology and neurology. Neurology is recommending a transfer to a facility with higher level of care and patient will be transferred once accepted and bed is available. Plan - Discharge Summary New Discharge Prescriptions: No Action No Known Home Medications Discharge Medication List No Known Home Medications 05/22/24 [History] Follow up Appointment(s)/Referral(s): None,Stated [REFERRING] - 1-2 days Discharge Disposition: OTHER INSTITUTION NOT DEFINED
[2024-05-23] MEDS: DEXAMETHASONE SOD PHOSPHATE 4 MG/ML 1 ML VIAL IVP SCH (11:35)
[2024-05-23] MEDS ORDERED: dexAMETHasone ORAL SOLUTION 4 MG/ML VIAL PO SCH (12:00)
[2024-05-23 13:08] VITALS: BP 116/87; PULSE 52
--- NOTE | 2024-05-23 13:11 | P.PN ---
Subjective Progress Note Date: 05/23/24 This is a 73-year-old female patient with a known history of hypothyroidism, chronic and ongoing tobacco dependence. Over the past several weeks she has been having increasing weakness and daily falls. Her roommate finally called EMS early this morning due to her excessive weakness. 0.8. Platelets 304. Sodium 134. Potassium 4.2. Bicarb 20. BUN 14. Creatinine 0.59. Glucose 63. Troponin negative x 1. TSH 2.84. Viral screen negative. Chest x-ray reveals a 6.5 cm mass or consolidation of medial anterior aspect of the right upper lobe arising from or and protruding into the superior mediastinum, highly suspicious for neoplasm/metastasis versus lymphadenopathy. Moderate dilatation of the colon at hepatic flexure measuring up to 7.5 cm suggest focal ileus and less likely colonic obstruction. CT scan of the chest abdomen pelvis revealed a medial right upper lobe 6 cm mass suspicious for neoplasm. Loops of bowel within the abdomen and pelvis are normal. Normal saline at 75 mL/h. She is seen today in consultation in the emergency department. She is currently resting on the stretcher. She is awake and alert. She is quite disheveled. Denies any specific injury. Denies any shortness of breath. No cough or congestion. No hemoptysis. She is quite frail and cachectic. The patient is seen today May 23, 2024 in follow-up in the emergency department. She is currently awake and alert in no acute distress. She is maintaining O2 saturations in the 90s on room air. She has normal saline at 75 mL/h. She was unfortunately found to have a large area of vasogenic edema extending throughout the right proximal temporal lobe, right parietal lobe and extending into the occipital lobe with effacement of sulci and subfell seen herniation with 0.8 cm of midline shift to the left. She has been seen and evaluated by neurology. The plan is for urgent transfer to a tertiary care facility with neurosurgery backup. She has been initiated on Decadron 4 mg IVP every 6 hours and Keppra 500 mg p.o. every 12 hours. Objective - Vital Signs Vital signs: Vital Signs Temp 97.7 F 05/22/24 04:20 Pulse 48 L 05/23/24 11:25 Resp 18 05/23/24 11:25 BP 111/61 05/23/24 11:25 Pulse Ox 95 05/23/24 11:25 FiO2 - Exam GENERAL EXAM: Alert, 73-year-old female, on room air, fairly comfortable in no apparent distress. HEAD: Normocephalic. EYES: Normal reaction of pupils, equal size. NOSE: Clear with pink turbinates. THROAT: No erythema or exudates. NECK: No masses, no JVD. CHEST: No chest wall deformity. LUNGS: Equal air entry with no crackles, wheeze, rhonchi or dullness. Diminished. CVS: S1 and S2 normal with no audible murmur, regular rhythm. ABDOMEN: No hepatosplenomegaly, normal bowel sounds, no guarding or rigidity. SPINE: No scoliosis or deformity SKIN: No rashes CENTRAL NERVOUS SYSTEM: No focal deficits, tone is normal in all 4 extremities. EXTREMITIES: There is no peripheral edema. No clubbing, no cyanosis. Peripheral pulses are intact. - Labs CBC & Chem 7: 05/22/24 05:26 05/22/24 05:26 Labs: Abnormal Lab Results - Last 24 Hours (Table) 05/22/24 Range/Units 05:26 Urine Appearance Cloudy H (Clear) Urine Ketones 2+ H (Negative) Ur Leukocyte Esterase Small H (Negative) Urine Bacteria Many H (None) /hpf Urine Mucus Rare H (None) /hpf Assessment and Plan Assessment: Generalized weakness and falls suspect secondary to malignancy. CT scan of the brain revealed a large area of vasogenic edema extending throughout the right proximal temporal lobe, right parietal lobe and extending into the occipital lobe with effacement of sulci and subfell seen herniation with 0.8 cm of midline shift to the left Lung mass measuring 5.7 x 6.7 cm spiculated at the medial right apex suspicious for neoplasm Chronic and ongoing tobacco dependence Hypothyroidism Plan: The patient was seen and evaluated CT scan of the brain and medications reviewed Neurology consulted Initiated on Decadron and Keppra Plan is for transfer to [facility] in [place] I have personally seen and examined the patient, performed the documentation and the assessment and plan as written. Number of minutes spent on the visit: 10.
[2024-05-23] MEDS ORDERED: levETIRAcetam 500 MG TAB PO SCH (21:00)
== END 2024-05-23 14:04 | disposition short-term general hospital (02) | DRG 947 ==
LOC: EC 04:17 → 5NMEDONC 09:25 → OBSVTOIN 05-23 09:35
PROVIDERS: ADMIT Family Medicine; ATTEND Family Medicine
DX: R53.1 Weakness (principal); G93.5 Compression of brain; G93.6 Cerebral edema; K59.39 Other megacolon; R64 Cachexia; Z68.1 Body mass index [BMI] 19.9 or less, adult; G93.89 Other specified disorders of brain; R91.8 Other nonspecific abnormal finding of lung field; E03.9 Hypothyroidism, unspecified; F17.210 Nicotine dependence, cigarettes, uncomplicated; F32.A Depression, unspecified; R29.6 Repeated falls; Z79.890 Hormone replacement therapy; Z71.6 Tobacco abuse counseling; Z91.81 History of falling
CPT/HCPCS: 36415; 70450; 71046; 71250; 74176; 80053; 81001; 83605; 83735; 84443; 84484; 85025; 85610; 85730; 87636; 93005; 96361; 96374; 96375; 99285

== ENCOUNTER → 2024-06-30 | Outpatient (CLI) | payer MEDICARE ==
--- NOTE | 2024-06-30 16:34 | PE ---
EXAMINATION TYPE: PET CT fusion skull to thigh DATE OF EXAM: 06/30/2024 CLINICAL INDICATION:Female, 73 years old with history of C34.11 LUNG CANCER; TECHNIQUE: Following the intravenous administration of 13.58 mCi of F-18 FDG, whole body images are performed from the skull base to the midthigh. Images are reviewed on the computer in the coronal, axial, and sagittal planes. Reconstructed rotating images are created on independent workstation and reviewed on the computer. A non-contrast CT is performed in conjunction with the PET scan. Glucose level 91 mg/dL CT DLP: 218.45 mGycm, Automated exposure control for dose reduction was used. COMPARISON: CT 05/22/2024, PET/CT None, MRI: 05/11/2012 FINDINGS: Mediastinal SUV mean is 1.9. Hepatic parenchyma SUV mean is 2.3. SKULL BASE AND NECK: No suspicious radiotracer activity. CHEST, MEDIASTINUM, AND HILAR REGION: Medial right upper lobe spiculated heterogenous 5.7 x 5.6 cm mass redemonstrated which invades into t he mediastinum abutting the brachiocephalic vein and trachea. This demonstrates ringlike FDG radiotra cer activity with a maximum SUV of 14.9. Probable central necrosis. Additional right enlarged pericarinal 1.2 cm enlarged lymph node with a maximum SUV of 9.3. ABDOMEN AND PELVIS: Focus of increased radiotracer activity within the medial right hepatic lobe/right adrenal gland kia on with a maximum SUV of 5.4. No noncontrast CT evidence of a lesion. Scattered regions of physiologic uptake within the bowel. MUSCULOSKELETAL STRUCTURES: No suspicious radiotracer activity. OTHER CT: Postsurgical changes from right occipital craniotomy defect with wedge-shaped low attenuati on region identified. No focal FDG activity in this region. Remainder of the cerebral parenchyma demo nstrates symmetric FDG activity. Bilateral aphakia. Bilateral carotid bulb calcifications. Mild centr ilobular emphysematous changes. Dependent right mid to lower lung atelectatic change. Atherosclerotic calcification of the aorta and its branches. Redemonstration of right exophytic 4.6 cm cyst. IMPRESSION: 1. FDG avid 5.7 cm medial right upper lobe spiculated mass most consistent with reported lung cancer . This partially invades into the mediastinum with abutment of the right brachiocephalic vein and tra isidro. 2. Metastasis with enlarged right pericarinal FDG avid lymph node. 3. Focal FDG avid focus within the medial right hepatic lobe margin/right adrenal gland without defi nitive CT correlate on noncontrast imaging. This demonstrates mild FDG activity above background and could represent metastasis. Consider further evaluation with CT abdomen with IV contrast. 4. Postsurgical changes from right occipital craniotomy with resection of previously seen. No focal FDG activity identified within the surgical bed. Residual disease is not excluded. [facility], , 06/30/2024 4:32 PM
== END | disposition home or self-care (01) ==
LOC: RADPETMAIN 13:20
PROVIDERS: ATTEND Internal Medicine Hematology & Oncology
CPT/HCPCS: 78815

== ENCOUNTER → 2024-07-03 | Outpatient (CLI) | payer MEDICARE, OTHER ==
--- NOTE | 2024-07-05 15:08 | MR ---
EXAMINATION TYPE: MR brain wo/w con DATE OF EXAM: 07/03/2024 8:21 PM COMPARISON: 05/22/2024, MRI 05/11/2012. CLINICAL INDICATION: Female, 73 years old with history of C79.31; PHH, Brain cancer removal , L eft side weakness, Memory loss TECHNIQUE: Multi planar, multi sequence imaging was performed through the brain including: T1, T2, In version recovery, susceptibility weighted imaging and gradient echo imaging and Diffusion weighted im aging. The patient was then given intravenous contrast and multi planar, T1 fat-saturation images wer e obtained. IV Contrast: 6 cc Gadobutrol FINDINGS: Postsurgical changes to the right posterior cerebrum. There is cystic CSF no cavity present measuring 27 x 19 mm. postcontrast imaging demonstrates minimal enhancement along the right lateral wall of the cystic cavity series 701 image 71 measuring 6 x 5 mm. Hemosiderin deposition on susceptib ility weighted imaging is demonstrated. There is some increased FLAIR signal around this region likel y postsurgical in etiology. Diffusion-weighted imaging shows no evidence of restricted diffusion to suggest acute/subacute infarc t. Intracranial arterial flow voids are maintained. Midline structures show no abnormality. Scattered foci of high T2 signal intensity are seen within the periventricular white matter. The bone marrow signal is within normal limits. Paranasal sinuses and mastoid air cells: No significant paranasal sinus disease. Visualized orbits: Orbital contents are intact. IMPRESSION: 1. Post surgical changes with small cystic cavity in the area of prior surgery. There is enhancement along the right lateral margin of this cyst. Consider short-term follow-up recurrence. No evidence o f acute/subacute infarct. 2. Nonspecific white matter changes, likely related to small vessel ischemic disease. [facility], , 07/05/2024 3:06 PM
== END | disposition home or self-care (01) ==
LOC: RADMRIMAIN 19:45
PROVIDERS: ATTEND Radiology Radiation Oncology
DX: C79.31 Secondary malignant neoplasm of brain (principal)
CPT/HCPCS: 70553

== ENCOUNTER → 2024-09-18 | Outpatient (CLI) | payer MEDICARE, OTHER ==
--- NOTE | 2024-09-18 16:39 | MR ---
EXAMINATION TYPE: MR brain wo/w con DATE OF EXAM: 09/18/2024 4:31 PM COMPARISON: 07/03/2024. CLINICAL INDICATION: Female, 74 years old with history of C79.31 SECONDARY MALIGNANT NEOPLASM OF BRAI N; PHH, Brain cancer removal , dizziness, Memory loss TECHNIQUE: Multi planar, multi sequence imaging was performed through the brain including: T1, T2, In version recovery, susceptibility weighted imaging and gradient echo imaging and Diffusion weighted im aging. The patient was then given intravenous contrast and multi planar, T1 fat-saturation images wer e obtained. IV Contrast: 5.5 mL Gadobutrol FINDINGS: FINDINGS: Postsurgical changes to the right posterior cerebrum are not significantly changed from kelvin or. There is cystic CSF signal cavity present measuring 25 x 17 mm, previously 27 x [address] imaging demonstrates decrease in enhancement along the right lateral wall of the cystic cavitycomp ared to prior. Hemosiderin deposition on susceptibility weighted imaging is demonstrated. There is so me increased FLAIR signal around this region likely postsurgical in etiology. Lesions visualized.r Diffusion-weighted imaging shows no evidence of restricted diffusion to suggest acute/subacute infarc t. Intracranial arterial flow voids are maintained. Midline structures show no abnormality. Scattered foci of high T2 signal intensity are seen within the periventricular white matter. The bone marrow signal is within normal limits. Postsurgical changes to the surgical bed in the right posterior skull. Paranasal sinuses and mastoid air cells: No significant paranasal sinus disease. Visualized orbits: Orbital contents are intact. IMPRESSION: 1. Post surgical changes with small cystic cavity in the area of prior surgery. There has been decre ase in enhancement in the area of concern compared to prior. Continued surveillance recommended. No n ew lesions. 2. Nonspecific white matter changes, likely related to small vessel ischemic disease. 3. [facility], , 09/18/2024 4:37 PM
== END | disposition home or self-care (01) ==
LOC: RADMRIMAIN 15:26
PROVIDERS: ATTEND Radiology Radiation Oncology
DX: C79.31 Secondary malignant neoplasm of brain (principal); C77.1 Secondary and unspecified malignant neoplasm of intrathoracic lymph nodes; C34.11 Malignant neoplasm of upper lobe, right bronchus or lung; R90.82 White matter disease, unspecified; Z98.890 Other specified postprocedural states
CPT/HCPCS: 70553; A9585

== ENCOUNTER → 2024-10-05 | Outpatient (CLI) | payer MEDICARE, OTHER ==
--- NOTE | 2024-10-07 15:42 | PE ---
EXAMINATION TYPE: PET CT fusion skull to thigh DATE OF EXAM: 10/05/2024 CLINICAL INDICATION:Female, 74 years old with history of C34.11 LUNG CANCER; TECHNIQUE: Following the intravenous administration of 10.23 mCi of F-18 FDG, whole body images are performed from the skull base to the midthigh. Images are reviewed on the computer in the coronal, axial, and sagittal planes. Reconstructed rotating images are created on independent workstation and reviewed on the computer. A non-contrast CT is performed in conjunction with the PET scan. Glucose level 91 mg/dL CT DLP: 285.05 mGycm, Automated exposure control for dose reduction was used. COMPARISON: CT 05/22/2024, PET/CT 06/30/2024, MRI: 09/18/2024, 07/03/2024 FINDINGS: Mediastinal SUV mean is 1.8. Hepatic parenchyma SUV mean is 2.5. SKULL BASE AND NECK: No suspicious radiotracer activity. CHEST, MEDIASTINUM, AND HILAR REGION: Decreased size of the medial right upper lobe spiculated heterogenous mass measuring 3.5 x 3.4 cm, pr eviously 5.7 x 5.6 cm. There is peripheral FDG activity identified likely due to central necrosis. De monstrates a maximum SUV of 4.3, previously 14.9. Decreased size of right pericarinal lymph node now measuring 0.9 cm short axis, previously 1.2 cm. Th is demonstrates a maximum SUV of 3.8, previously 9.3. Additional smaller right hilar lymph nodes iden tified with a maximum SUV of 3.8. Previously measured 3.7 maximum SUV. There is a focal opacity measuring 0.9 cm along the right major fissure within the right lower lobe w ith FDG activity. This demonstrates a maximum SUV of 5.6. No previous corresponding FDG activity. ABDOMEN AND PELVIS: No suspicious radiotracer activity. Previously seen radiotracer activity within the medial right hepatic lobe/right adrenal gland region is no longer visualized. MUSCULOSKELETAL STRUCTURES: No suspicious radiotracer activity. OTHER CT: Postsurgical changes from right occipital craniotomy defect with wedge-shaped low attenuati on region identified. No focal FDG activity in this region. Remainder of the cerebral parenchyma demo nstrates symmetric FDG activity. Bilateral aphakia. Bilateral carotid bulb calcifications. Mild centr ilobular emphysematous changes. Dependent right mid to lower lung atelectatic change. Atherosclerotic calcification of the aorta and its branches. Redemonstration of right exophytic 4.6 cm cyst. IMPRESSION: 1. Positive response to therapy with decreased size and FDG activity of right upper lobe pulmonary m ass and mediastinal/right hilar adenopathy. However there is a more prominent appearing opacity withi n the right lower lobe abutting the fissure with increasing FDG activity. This may represent an infec tious/inflammatory opacity however new metastasis is not excluded. Follow-up CT chest in 3 months is recommended. 2. No other new suspicious regions of radiotracer uptake identified. [facility], , 10/07/2024 3:39 PM
== END | disposition home or self-care (01) ==
LOC: RADPETMAIN 14:00
PROVIDERS: ATTEND Internal Medicine Hematology & Oncology
DX: C34.11 Malignant neoplasm of upper lobe, right bronchus or lung (principal); R91.8 Other nonspecific abnormal finding of lung field; R59.0 Localized enlarged lymph nodes
CPT/HCPCS: 78815; A9552

== ENCOUNTER 2024-10-17 14:37 | Inpatient (IN) | payer MEDICARE, OTHER ==
[2024-10-17] MEDS: ONDANSETRON 4 MG/2 ML VIAL IVP STA (16:20)
[2024-10-17] MEDS: SODIUM CHLORIDE 0.9% 500 ML 500 ML IV ONE (16:24)
[2024-10-17] MEDS: HYDROmorphone 0.5 MG/0.5 ML SYRINGE IVP STA ×2 (16:26→18:18)
[2024-10-17 16:48] LABS: Anisocytosis Slight; Basophils % (A) 0 %; Eosinophils % (A) 1 %; HCT 29.5 % (34.0-46.0); HGB 9.8 gm/dL (11.4-16.0); Lymphocytes # (A) 0.6 k/uL (1.0-4.8); Lymphocytes % (A) 14 %; MCH 33.6 pg (25.0-35.0); MCHC 33.2 g/dL (31.0-37.0); MCV 101.4 fL (80.0-100.0); Macrocytosis Moderate; Mean Platelet Volume 8.7; Monocytes # (A) 0.4 k/uL (0-1.0); Monocytes % (A) 9 %; Neutrophils # (A) 3.1 k/uL (1.3-7.7); Neutrophils % (A) 73 %; Platelet Count 110 k/uL (150-450); RBC 2.91 m/uL (3.80-5.40); RDW 18.9 % (11.5-15.5); WBC 4.3 k/uL (3.8-10.6)
[2024-10-17 16:52] LABS: AST 37 U/L (14-36); African American GFR (CKD) 74 (>60 ml/min/1.73 sqM); Albumin 3.2 g/dL (3.5-5.0); Alkaline Phosphatase 87 U/L (38-126); Anion Gap 10 mmol/L; Blood Urea Nitrogen 36 mg/dL (7-17); Calcium 7.9 mg/dL (8.4-10.2); Carbon Dioxide 24 mmol/L (22-30); Chloride 98 mmol/L (98-107); Glucose 118 mg/dL (74-99); Lipase 78 U/L (23-300); Non-African American GFR(CKD) 64 (>60 ml/min/1.73 sqM); Potassium 3.3 mmol/L (3.5-5.1); Sodium 132 mmol/L (137-145); Total Bilirubin 0.9 mg/dL (0.2-1.3); Total Protein 5.7 g/dL (6.3-8.2)
--- NOTE | 2024-10-17 16:59 | ED ---
General Adult HPI - General Chief complaint: Abdominal Pain Stated complaint: abd pain Time Seen by Provider: 10/17/24 15:19 Source: patient, RN notes reviewed, old records reviewed Mode of arrival: EMS Limitations: no limitations - History of Present Illness Initial comments: 74-year-old female presenting with generalized abdominal pain over the past s everal days. Several episodes of vomiting and decreased stool output. Patient reports the pain is throughout her entire abdomen. No fever. - Related Data Home Medications Medication Instructions Recorded Confirmed No Known Home Medications 05/22/24 05/22/24 Allergies Allergy/AdvReac Type Severity Reaction Status Date / Time iodine Allergy Anaphylaxis Verified 10/17/24 14:48 Review of Systems ROS Statement: Those systems with pertinent positive or pertinent negative responses have been documented in the HPI. ROS Other: All systems not noted in ROS Statement are negative. Past Medical History Past Medical History: Cancer, Thyroid Disorder Additional Past Medical History / Comment(s): hypothyroidism. lung CA with mets to brain History of Any Multi-Drug Resistant Organisms: None Reported Past Surgical History: Tonsillectomy Additional Past Surgical History / Comment(s): Trigeminal nerve decompression 2003 Past Psychological History: Depression Smoking Status: Current some day smoker Past Alcohol Use History: None Reported Past Drug Use History: None Reported General Exam Limitations: no limitations General appearance: alert, in no apparent distress Head exam: Present: atraumatic, normocephalic Eye exam: Present: normal appearance, PERRL ENT exam: Present: mucous membranes dry Neck exam: Present: normal inspection. Absent: tenderness, meningismus Respiratory exam: Present: normal lung sounds bilaterally. Absent: respiratory distress, wheezes Cardiovascular Exam: Present: regular rate, normal rhythm GI/Abdominal exam: Present: distended, tenderness, guarding Neurological exam: Present: alert, oriented X3, CN II-XII intact. Absent: motor sensory deficit Psychiatric exam: Present: normal affect, normal mood Skin exam: Present: warm, dry Course Vital Signs 10/17/24 10/17/24 14:43 18:24 Temperature 97.9 F 97.9 F Pulse Rate 89 91 Respiratory 18 15 Rate Blood Pressure 116/74 120/82 O2 Sat by Pulse 95 96 Oximetry Medical Decision Making - Medical Decision Making Was pt. sent in by a medical professional or institution (, PA, QUALITY MANAGEMENT COORDINATOR, urgent care, hospital, or half-way...) When possible be specific @ -No Did you speak to anyone other than the patient for history (EMS, parent, family, police, friend...)? What history was obtained from this source @ -No Did you review nursing and triage notes (agree or disagree)? Why? @ -I reviewed and agree with nursing and triage notes Were old charts reviewed (outside hosp., previous admission, EMS record, old EKG, old radiological studies, urgent care reports/EKG's, half-way records)? Report findings @ -No old charts were reviewed Differential Abdominal Pain Women: Appendicitis, Cholecystitis, diverticulosis, ischemic bowel, pancreatitis, hepatitis, UTI, gastroenteritis, AAA, incarcerated hernia, bowel obstruction, constipation, inflammatory bowel, hepatitis, peptic ulcer disease, splenic infarction, perforated viscus, vulvitis, ovarian torsion, PID, kidney stone, placenta abruption, this is not meant to be an all-inclusive list EKG interpreted by me (3pts min.). @ -As above X-rays interpreted by me (1pt min.). @ -None done CT interpreted by me (1pt min.). @ -CT shows small bowel obstruction with intraperitoneal air U/S interpreted by me (1pt. min.). @ -None done What testing was considered but not performed or refused? (CT, X-rays, U/S, labs)? Why? @ -None What meds were considered but not given or refused? Why? @ -None Did you discuss the management of the patient with other professionals (professionals i.e. , PA, QUALITY MANAGEMENT COORDINATOR, lab, RT, psych nurse, social work specialist, police or patrol park officer, teacher, enforcement officer, geriatric case manager)? Give summary @ -Case discussed with Dr. Rojas covering for general surgery able to evaluate the patient in the emergency department Was smoking cessation discussed for >3mins.? @ -No Was critical care preformed (if so, how long)? @ -[Yes, 35 minutes Were there social determinants of health that impacted care today? How? (Homelessness, low income, unemployed, alcoholism, drug addiction, transportation, low edu. Level, literacy, decrease access to med. care, long-term, rehab)? @ -No Was there de-escalation of care discussed even if they declined (Discuss DNR or withdrawal of care, Hospice)? DNR status @ -No What co-morbidities impacted this encounter? (DM, HTN, Smoking, COPD, CAD, Cancer, CVA, ARF, Chemo, Hep., AIDS, mental health diagnosis, sleep apnea, morbid obesity)? @ -None Was patient admitted / discharged? Hospital course, mention meds given and route, prescriptions, significant lab abnormalities, going to OR and other pertinent info. @ -74-year-old female with generalized abdominal pain and distention. Patient has severe abdominal pain, guarding, distention. CT shows small bowel obstruction with intraperitoneal free air. Patient is started on antibiotics Case is discussed with general surgery Dr. Rojas who is able to evaluate the patient in the emergency department. Will be admitted for operative evaluation. Undiagnosed new problem with uncertain prognosis? @ -No Drug Therapy requiring intensive monitoring for toxicity (Heparin, Nitro, Insulin, Cardizem)? @ -No Were any procedures done? @ -No Diagnosis/symptom? @ -Small bowel obstruction, intraperitoneal free air Acute, or Chronic, or Acute on Chronic? @ -[Acute Uncomplicated (without systemic symptoms) or Complicated (systemic symptoms)? @ -Complicated Side effects of treatment? @ -No Exacerbation, Progression, or Severe Exacerbation? @ -No Poses a threat to life or bodily function? How? (Chest pain, USA, AR, pneumonia, PE, COPD, DKA, ARF, appy, cholecystitis, CVA, Diverticulitis, Homicidal, Suicidal, threat to staff... and all critical care pts) @ -Yes, sepsis - Lab Data Result diagrams: 10/17/24 16:15 10/17/24 16:15 Lab Results 10/17/24 10/17/24 10/17/24 Range/Units 16:15 16:15 16:15 WBC 4.3 (3.8-10.6) k/uL RBC 2.91 L (3.80-5.40) m/uL Hgb 9.8 L (11.4-16.0) gm/dL Hct 29.5 L (34.0-46.0) % MCV 101.4 H (80.0-100.0) fL MCH 33.6 (25.0-35.0) pg MCHC 33.2 (31.0-37.0) g/dL RDW 18.9 H (11.5-15.5) % Plt Count 110 L (150-450) k/uL MPV 8.7 Neutrophils % 73 % Lymphocytes % 14 % Monocytes % 9 % Eosinophils % 1 % Basophils % 0 % Neutrophils # 3.1 (1.3-7.7) k/uL Lymphocytes # 0.6 L (1.0-4.8) k/uL Monocytes # 0.4 (0-1.0) k/uL Eosinophils # 0.0 (0-0.7) k/uL Basophils # 0.0 (0-0.2) k/uL Anisocytosis Slight Macrocytosis Moderate Sodium 132 L (137-145) mmol/L Potassium 3.3 L (3.5-5.1) mmol/L Chloride 98 (98-107) mmol/L Carbon Dioxide 24 (22-30) mmol/L Anion Gap 10 mmol/L BUN 36 H (7-17) mg/dL Creatinine 0.89 (0.52-1.04) mg/dL Est GFR (CKD-EPI)AfAm 74 (>60 ml/min/1.73 sqM) Est GFR (CKD-EPI)NonAf 64 (>60 ml/min/1.73 sqM) Glucose 118 H (74-99) mg/dL Plasma Lactic Acid Antonio 2.6 H* (0.7-2.0) mmol/L Calcium 7.9 L (8.4-10.2) mg/dL Total Bilirubin 0.9 (0.2-1.3) mg/dL AST 37 H (14-36) U/L ALT 31 (4-34) U/L Alkaline Phosphatase 87 (38-126) U/L Total Protein 5.7 L (6.3-8.2) g/dL Albumin 3.2 L (3.5-5.0) g/dL Lipase 78 (23-300) U/L Critical Care Time Critical Care Time: Yes Total Critical Care Time: 35 Disposition Clinical Impression: Acute abdomen, Small bowel obstruction, Free intraperitoneal air Disposition: ADMITTED IP TO THIS [facility] Condition: Serious Is patient prescribed a controlled substance at d/c from ED?: No Referrals: None,Stated [Primary Care Provider] - 1-2 days Time of Disposition: 18:38
[2024-10-17 17:02] LABS: ALT 31 U/L (4-34)
[2024-10-17] MEDS: SODIUM CHLORIDE 0.9% 1,000 ML IV SCH (17:37)
[2024-10-17] MEDS: POTASSIUM CHLORIDE 10 MEQ in WATER FOR INJECTION 1 100ML.BAG IVPB SCH (17:46)
--- NOTE | 2024-10-17 18:08 | CT ---
EXAMINATION TYPE: CT abdomen pelvis wo con DATE OF EXAM: 10/17/2024 4:50 PM COMPARISON: None. CLINICAL INDICATION: Female, 74 years old with history of pain and distention, abdominal pain and dis tention TECHNIQUE: Axial images were obtained from above the diaphragm to the pubic rami in the axial plane a t 5 mm thick sections. Reconstructed images are reviewed on the computer in the coronal plane. CONTRAST: mL of . Study performed without Oral Contrast DLP: 419 mGycm, Automated exposure control for dose reduction was used. FINDINGS: Limited CT sections are obtained the lung bases. Minimal atelectasis may be in the posterior left abundio ng base.. CT ABDOMEN: Free air is present adjacent to the liver. Multiple dilated small bowel loops are present . Air-fluid levels are present. Distal ileum is decompressed. Normal-appearing colon is present. The zone of transition is not identified Liver: Normal Spleen: Normal Pancreas: Normal Adrenal glands: The adrenal glands are normal. Gallbladder: Not identified Kidneys: No masses are evident. No hydronephrosis is present. There is a 4.4 cm cyst on the lateral right kidney. Smaller cortical renal cyst measuring 1.9 cm the posterior mid right kidney. No renal stones are evident. Aorta: Vascular calcification is within the aorta. Inferior vena cava: Normal. CT PELVIS: Free air is adjacent to the liver. Multiple small bowel loops are dilated. Some free air appears to b e adjacent to the sigmoid colon. Appendix: Normal as visualized. Urinary bladder: Normal. Genitourinary structures: Uterus appears normal. Adnexa appear within normal limits. Small amount felton e fluid is within the pelvis. Osseous structures: No suspicious lytic or sclerotic lesions. IMPRESSION: 1. Small to moderate amount of free air scattered within the upper abdomen and within the mid pelvis . Report was called to the emergency room by Dr. Arguello by telephone at the time of interpretation. 2. Small amount of free fluid within the pelvis. 3. Dilated small bowel loops to at least the proximal ileum. Partial small bowel obstruction should b e considered. 4 Right renal cysts. [facility], Workstation: [facility], 10/17/2024 6:06 PM
[2024-10-17] MEDS ORDERED: ONDANSETRON 4 MG/2 ML VIAL IVP PRN (18:28)
[2024-10-17] MEDS ORDERED: NALOXONE 0.4 MG/ML 1 ML VIAL IV PRN (18:28)
[2024-10-17 19:42] LABS: INR 0.8 (<1.2); Prothrombin Time 9.4 sec (10.0-12.5)
[2024-10-17 19:53] LABS: Partial Thromboplastin Time 21.3 sec (22.0-30.0)
[2024-10-17] MEDS ORDERED: PROPOFOL 10 MG/ML 20 ML VIAL IV ONE (19:53)
[2024-10-17] MEDS ORDERED: SUCCINYLCHOLINE CHLORIDE 200 MG/10 ML VIAL IV ONE (19:53)
[2024-10-17] MEDS ORDERED: LIDOCAINE 1% INJ 10MG/ML (20 ML MDV) ONE (19:53)
[2024-10-17] MEDS ORDERED: KETAMINE HCL IN 0.9 % NACL 50 MG/5 ML SYRINGE ONE (19:53)
[2024-10-17] MEDS ORDERED: MIDAZOLAM 2 MG/2 ML VIAL ONE (19:53)
[2024-10-17] MEDS: IV FLUID CONTINUATION 1,000 ML IV ONE (19:53)
[2024-10-17] MEDS ORDERED: fentaNYL (PF) 50 MCG/ML 2 ML AMP ONE (19:53)
[2024-10-17] MEDS ORDERED: PHENYLEPHRINE 10 MG/ML VIAL ONE (19:53)
[2024-10-17] MEDS ORDERED: ROCURONIUM 10 MG/ML (5 ML VIAL) IV ONE (19:53)
[2024-10-17] MEDS: LACTATED RINGERS 1,000 ML IV ONE ×2 (20:51→21:32)
--- NOTE | 2024-10-17 21:06 | P.ANPRN ---
Procedure Note - Anesthesia - Invasive Line Right Central Line Time Out Performed: Yes (2014) Date of Procedure: 10/17/24 Time of Procedure: 20:16 Location of Patient: OR Preparation: Sterile Prep, Sterile Dressing Central Line Location: Internal Jugular (right IJ) Ultrasound Used: Yes Purpose - Visualization and Identification of Vasculature: Yes Needle Guage: 18g angio Image Stored and Saved: Yes Narrative: Invasive line placement per sterile protocol utilized. Anesthesia note Procedure: Right internal jugular central venous catheter insertion: Triple- lumen catheter Sterile protocol followed. Right neck prepped. Ultrasound used. Lidocaine 1% used. Using ultrasound local anesthetic was instilled site over right Internal Jugular vein. Angiocath was used to gain access via ultrasound. Once free flow non-pulsatile blood flow was confirmed, 12 inch extension tubing was then placed on Angiocath. Once central venous pressure was confirmed, J-wire was then placed through Angiocath. Angiocath was then withdrawn. Local was instilled at J-wire site. Small skin jayro was then made with provided sterile scalpel. Triple-lumen catheter was then inserted over the wire while maintaining control of wire at all times. Uneventful insertion with dilation. Free flow nonpulsatile blood flow through triple-lumen catheter. All lumens bled and flushed. Hooked up to IV tubing. Secured with suture. Dressings applied. Drapes Removed. Attempts x1.
[2024-10-17 22:08] LABS: Glucose,Whole Blood 109 mg/dL (70-110)
--- NOTE | 2024-10-17 22:15 | P.GSHP ---
History of Present Illness H&P Date: 10/17/24 74-year-old female presents to the emergency department with complaint of abdominal pain over the past 5 days that has been worsening in intensity. She has a history of lung cancer and had last chemotherapy dose about 2 weeks ago. She states that her abdomen is significantly distended. She is very hesitant about allowing anybody to touch her abdomen. States that she has been significantly constipated. CT of the abdomen and pelvis was performed with finding of pneumoperitoneum and distended small bowel. There is concern for rupture near the sigmoid colon. Patient denies any fevers, chills, chest pain or shortness of breath. - Review of Systems All systems: negative Past Medical History Past Medical History: Cancer, Thyroid Disorder Additional Past Medical History / Comment(s): hypothyroidism. lung CA with mets to brain History of Any Multi-Drug Resistant Organisms: None Reported Past Surgical History: Tonsillectomy Additional Past Surgical History / Comment(s): Trigeminal nerve decompression 2003 Past Psychological History: Depression Smoking Status: Current some day smoker Past Alcohol Use History: None Reported Past Drug Use History: None Reported Medications and Allergies Home Medications Medication Instructions Recorded Confirmed Type No Known Home Medications 05/22/24 05/22/24 History Allergies Allergy/AdvReac Type Severity Reaction Status Date / Time iodine Allergy Anaphylaxis Verified 10/17/24 14:48 Surgical - Exam Osteopathic Statement: *. No significant issues noted on an osteopathic structural exam other than those noted in the History and Physical/Consult. Vital Signs Temp Pulse Resp BP Pulse Ox 97.9 F 89 18 116/74 95 10/17/24 14:43 10/17/24 14:43 10/17/24 14:43 10/17/24 14:43 10/17/24 14:43 - General moderate distress - Eyes normal ocular movement - ENT normal mucosa, no hearing loss - Neck trachea midline - Respiratory normal respiratory effort - Abdomen Distended, significant tenderness with rebounding and guarding - Psychiatric oriented to time, oriented to person, oriented to place Results - Labs 10/17/24 16:15 10/17/24 16:15 Abnormal Lab Results - Last 24 Hours (Table) 10/17/24 10/17/24 10/17/24 Range/Units 16:15 16:15 16:15 RBC 2.91 L (3.80-5.40) m/uL Hgb 9.8 L (11.4-16.0) gm/dL Hct 29.5 L (34.0-46.0) % MCV 101.4 H (80.0-100.0) fL RDW 18.9 H (11.5-15.5) % Plt Count 110 L (150-450) k/uL Lymphocytes # 0.6 L (1.0-4.8) k/uL PT (10.0-12.5) sec APTT (22.0-30.0) sec Sodium 132 L (137-145) mmol/L Potassium 3.3 L (3.5-5.1) mmol/L BUN 36 H (7-17) mg/dL Glucose 118 H (74-99) mg/dL Plasma Lactic Acid Antonio 2.6 H* (0.7-2.0) mmol/L Calcium 7.9 L (8.4-10.2) mg/dL AST 37 H (14-36) U/L Total Protein 5.7 L (6.3-8.2) g/dL Albumin 3.2 L (3.5-5.0) g/dL 10/17/24 Range/Units 18:14 RBC (3.80-5.40) m/uL Hgb (11.4-16.0) gm/dL Hct (34.0-46.0) % MCV (80.0-100.0) fL RDW (11.5-15.5) % Plt Count (150-450) k/uL Lymphocytes # (1.0-4.8) k/uL PT 9.4 L (10.0-12.5) sec APTT 21.3 L (22.0-30.0) sec Sodium (137-145) mmol/L Potassium (3.5-5.1) mmol/L BUN (7-17) mg/dL Glucose (74-99) mg/dL Plasma Lactic Acid Antonio (0.7-2.0) mmol/L Calcium (8.4-10.2) mg/dL AST (14-36) U/L Total Protein (6.3-8.2) g/dL Albumin (3.5-5.0) g/dL Diabetes panel 10/17/24 Range/Units 16:15 Sodium 132 L (137-145) mmol/L Potassium 3.3 L (3.5-5.1) mmol/L Chloride 98 (98-107) mmol/L Carbon Dioxide 24 (22-30) mmol/L BUN 36 H (7-17) mg/dL Creatinine 0.89 (0.52-1.04) mg/dL Glucose 118 H (74-99) mg/dL Calcium 7.9 L (8.4-10.2) mg/dL AST 37 H (14-36) U/L ALT 31 (4-34) U/L Alkaline Phosphatase 87 (38-126) U/L Total Protein 5.7 L (6.3-8.2) g/dL Albumin 3.2 L (3.5-5.0) g/dL Calcium panel 10/17/24 Range/Units 16:15 Calcium 7.9 L (8.4-10.2) mg/dL Albumin 3.2 L (3.5-5.0) g/dL Pituitary panel 10/17/24 Range/Units 16:15 Sodium 132 L (137-145) mmol/L Potassium 3.3 L (3.5-5.1) mmol/L Chloride 98 (98-107) mmol/L Carbon Dioxide 24 (22-30) mmol/L BUN 36 H (7-17) mg/dL Creatinine 0.89 (0.52-1.04) mg/dL Glucose 118 H (74-99) mg/dL Calcium 7.9 L (8.4-10.2) mg/dL Adrenal panel 10/17/24 Range/Units 16:15 Sodium 132 L (137-145) mmol/L Potassium 3.3 L (3.5-5.1) mmol/L Chloride 98 (98-107) mmol/L Carbon Dioxide 24 (22-30) mmol/L BUN 36 H (7-17) mg/dL Creatinine 0.89 (0.52-1.04) mg/dL Glucose 118 H (74-99) mg/dL Calcium 7.9 L (8.4-10.2) mg/dL Total Bilirubin 0.9 (0.2-1.3) mg/dL AST 37 H (14-36) U/L ALT 31 (4-34) U/L Alkaline Phosphatase 87 (38-126) U/L Total Protein 5.7 L (6.3-8.2) g/dL Albumin 3.2 L (3.5-5.0) g/dL - Imaging CT scan - abdomen: other (Reviewed CT of the abdomen and pelvis personally with finding of free air and significant bowel distention, concern for perforation at the sigmoid colon as there is significant stool burden at that site) Assessment and Plan Plan: Case discussed in depth with the patient. At this point, with finding of pneumoperitoneum and peritonitis, recommendation is made for exploratory laparotomy. Patient is aware that based on suspicion of sigmoid perforation that she will likely require ostomy placement. She was started on IV antibiotics and kept NPO. Risks, benefits and alternatives were provided to the patient. She is aware that as a patient who has recently received chemotherapy that she does have risk of immunocompromise and risk of surgical complications. Further recommendations after procedure is completed.
[2024-10-17 22:23] LABS: ABG Base Excess -5.3 mmol/L; ABG HCO3 21 mmol/L (21-25); ABG Oxygen Saturation 99.8 % (94-97); ABG PCO2 45 mmHg (35-45); ABG PH 7.28 (7.35-7.45); ABG PO2 363 mmHg (83-108); ABG TCO2 23 mmol/L (19-24); Allen Test Performed? Yes
--- NOTE | 2024-10-17 22:50 | XR ---
EXAMINATION TYPE: XR chest 1V portable DATE OF EXAM: 10/17/2024 10:27 PM COMPARISON: 05/22/2024 CLINICAL INDICATION: Female, 74 years old with history of Tube placement verification, prior abnormal chest x-ray, history of lung cancer TECHNIQUE: XR chest 1V portable view(s) obtained. FINDINGS: The heart size is normal. Superior mediastinum is enlarged on the right. This is diminished in size from the comparison. Right central venous catheter passes through the region with the tip in the supe rior vena cava right atrial junction. The pulmonary vasculature is normal. Lungs are otherwise clear. Endotracheal tube tip is 3 cm above the adriana. Nasogastric tube transverses the thorax with tip in t he left upper quadrant. IMPRESSION: 1. Lines and catheters discussed above. 2. Diminished size of the right medial superior mediastinal mass [facility], Workstation: [facility], 10/17/2024 10:48 PM
[2024-10-17 22:55] LABS: Anisocytosis Slight; HCT 33.6 % (34.0-46.0); HGB 10.8 gm/dL (11.4-16.0); MCH 33.3 pg (25.0-35.0); MCHC 32.1 g/dL (31.0-37.0); MCV 103.7 fL (80.0-100.0); Macrocytosis Marked; Mean Platelet Volume 8.3; Platelet Count 107 k/uL (150-450); RBC 3.24 m/uL (3.80-5.40); RDW 19.3 % (11.5-15.5)
[2024-10-17 23:07] LABS: African American GFR (CKD) 64 (>60 ml/min/1.73 sqM); Anion Gap 10 mmol/L; Blood Urea Nitrogen 34 mg/dL (7-17); Calcium 6.9 mg/dL (8.4-10.2); Carbon Dioxide 23 mmol/L (22-30); Chloride 102 mmol/L (98-107); Glucose 117 mg/dL (74-99); Non-African American GFR(CKD) 55 (>60 ml/min/1.73 sqM); Potassium 3.5 mmol/L (3.5-5.1); Sodium 135 mmol/L (137-145)
--- NOTE | 2024-10-17 23:33 | P.OP ---
Date of Procedure: 10/17/24 Preoperative Diagnosis: Pneumoperitoneum Postoperative Diagnosis: Pneumoperitoneum Ruptured sigmoid colon, possible stercoral ulcer Procedure(s) Performed: Exploratory laparotomy Sigmoid colectomy with end colostomy creation Anesthesia: LEO Surgeon: Lalo Rojas Pathology: other (Sigmoid colon) Condition: critical Disposition: ICU Indications for Procedure: 74-year-old female with history of lung cancer who is currently on chemotherapy with last dose 2 weeks ago presents with 5 days of abdominal pain and abdominal distention. On workup she is found to have pneumoperitoneum and peritonitis on physical exam. Secondary to this, plan is for operative intervention with exploratory laparotomy. Risks, benefits and alternatives were provided to the patient including surgical risks of poor wound healing and immunocompromise secondary to chemotherapy. Operative Findings: Large perforation of the sigmoid colon greater than 50% of the circumference of the sigmoid colon at the rectosigmoid junction with significant hard stool balls noted throughout the colon Description of Procedure: Patient was brought to the operative suite and placed in supine position on the operating table. Sedation was provided by anesthesia and the patient underwent endotracheal intubation. The patient was then prepped and draped in regular sterile fashion. Midline incision was made and dissection was carried to the fascia. The fascia was then incised along the length of the incision. Immediate outpouring of purulent material was noted and cultures were taken. The small bowel was noted to be significantly dilated. Bowel was removed from the abdomen and exam was performed and cindy stool was noted in the pelvis. Significant amount of stool was noted and was scooped out in multiple handfuls. Irrigation was then placed and suctioned in the pelvis for better visualization. On further exam, at the rectosigmoid junction, an extremely large perforation was noted with large stool balls outpouring from the perforated site. Patient was noted to have hard stool throughout the colon. The decision was made to perform a Parada's procedure at this time. Portion of the anticipated proximal and distal ends of specimen were isolated. It was noted that the perforation at the rectosigmoid junction was just abutting the peritoneal reflection. Transection was performed using staple load at the proximal anticipated site and LigaSure device was used to divide the mesentery towards the distal site. Stapler device was then fired across the rectosigmoid junction just at the peritoneal reflection and the specimen was removed. The staple line was ev aluated and a small defect was noted at the rectal stump and multiple interrupted 2-0 Vicryl sutures were placed. At this point copious amounts irrigation was placed throughout the abdomen and suctioned. No further cindy stool was noted. Hemostasis was noted to be maintained in the pelvis. At this point an anticipated ostomy site was noted on the left side of the abdomen and circular incision was made and dissection was carried to the fascia. A cruciate incision was made the muscle was split using hemostat and the peritoneum was entered. The 2 fingers fit easily through the site and the anticipated stoma was delivered through the site. Bowel was reduced back into the abdomen. The fascial site was closed using looped PDS suture. Skin chio were applied. The ostomy was then matured in standard [place] fashion by securing all the cardinal points to the fascia. Ostomy appliance was placed. Sterile dressing was applied. The patient was then taken to ICU and remained intubated per anesthesia.
[2024-10-17] MEDS: PANTOPRAZOLE 40 MG/10 ML VIAL IV SCH (23:57)
[2024-10-17] MEDS: PIPERACILLIN-TAZOBACTAM 3.375 GM in SODIUM CHLORIDE 0.9% 100 ML IVPB SCH (23:58)
[2024-10-18] MEDS ORDERED: Potassium Replacement Protocol 1 EACH MISC MISCELLANE PRN (00:44)
[2024-10-18 00:55] LABS: Band Neutrophils % 10 %; Lymphocytes # (M) 0.64 k/uL (1.0-4.8); Metamyelocytes # (M) 0.04 k/uL (0); Metamyelocytes % 2 %; Monocytes # (M) 0.14 k/uL (0-1.0); Neutrophils % (M) 50 %; Nucleated Red Blood Cells 1 /100 WBC (0-0); Total Cells Counted 200
[2024-10-18 00:59] LABS: Poikilocytosis (M) Present; Polychromasia Present
[2024-10-18] MEDS: SODIUM CHLORIDE 0.9% 500 ML 500 ML IV ONE (01:00)
[2024-10-18] MEDS: POTASSIUM CHLORIDE 20 MEQ in WATER FOR INJECTION 1 100ML.BAG IVPB SCH (02:10)
[2024-10-18] MEDS: CALCIUM GLUCONATE IN NACL 1 GM in SALINE 1 100ML.BAG IVPB ONE (02:10)
[2024-10-18] MEDS: HYDROmorphone 0.5 MG/0.5 ML SYRINGE IVP PRN (04:25)
--- NOTE | 2024-10-18 04:35 | P.CNPUL ---
History of Present Illness Consult date: 10/18/24 Requesting physician: Lalo Rojas Reason for consult: other (ICU management) Chief complaint: Abdominal pain History of present illness: Patient is a 74-year-old female with past medical history significant for hypothyroidism and lung cancer.. Patient is known to have a right upper lobe lung mass, she was seen at our facility May,, and transfered to [facility]. Reportedly, currently undergoing systemic chemotherapy. Patient is intubated and unable to provide information. No family present. Most recent PET scan done 10/05/2024 demonstrating a mixed response to therapy with decrease size and FDG activity of the right upper lobe pulmonary mass and mediastinal/right hilar adenopathy; however, there is a more prominent appearing opacity within the right lower lobe abutting the fissure with increasing FDG activity. Possibly representing an infectious/inflammatory opacity, however, new metastasis was not excluded. Brain CT done back in May, showing a large area of vasogenic edema extending through the right proximal temporal lobe, right parietal lobe, and occipital lobe with effacement of the sulci and subfalcine herniation with 0.8 cm of midline shift to the left. Follow-up brain MRI done 09/18/2024 showing postsurgical changes with a small cystic cavity in the area of prior surgery. No new lesions were noted. Patient presents to the emergency department yesterday afternoon with a chief complaint of abdominal pain. Reportedly, persistent abdominal pain over the last 5 days with increasing intensity. Workup in the emergency department including a abdominal/pelvis CT which demonstrated small to moderate amount of free air scattered within the upper abdomen and within the mid pelvis. Small amount of free fluid within the pelvis. Dilated small bowel loops to at least the proximal ileum. Partial small bowel obstruction should be considered. Late last night, patient taken to the operating room for exploratory laparotomy, a ruptured sigmoid colon and possible stercoral ulcer was found. Patient underwent sigmoid colectomy with end colostomy. Following the procedure, she was transferred to the intensive care unit for recovery. Patient currently being evaluated in the ICU. She remains intubated to the mechanical ventilator, current ventilator settings assist-control, respiratory rate 16, tidal volume 400, FiO2 50%, PEEP of 5. ABG done on these settings and an FiO2 100%; show a PaO2 of 363, pCO2 of 45, pH of 7.28. Chest x-ray showing endotracheal tube 3 cm above the adriana, nasogastric tube coursing below the diaphragm, right mediastinal mass, right IJ central line catheter with tip near the cavoatrial junction. Patient is currently sedated and synchronous with mechanical ventilator. Nonresponsive. On propofol 15 mcg/kg/min. LR is infusing at 75 mL/h. Blood pressure soft at 96/66 mmHg. Mildly tachycardic. Urine output only 60 cc since OR exit. Postoperative labs including a CBC with a WBC count of 2, hemoglobin 10.8, hematocrit 33.6, platelets 107. CMP: Sodium 135, potassium 3.5, chloride 102, serum bicarb 23, BUN 34, creatinine 1.01, glucose 117. Lactic 1.7. Calcium 6.9. Patient is empirically covered on antibiotics in the form of Zosyn. Midline abdominal incision with postoperative dressing intact. Mild shadowing. CORAZON drain with serosanguineous fluid and needs to be emptied. Left upper quadrant stoma is pink. Review of Systems ROS unobtainable: due to endotracheal tube Past Medical History Past Medical History: Cancer, Thyroid Disorder Additional Past Medical History / Comment(s): hypothyroidism. lung CA with mets to brain History of Any Multi-Drug Resistant Organisms: None Reported Past Surgical History: Tonsillectomy Additional Past Surgical History / Comment(s): Trigeminal nerve decompression 2003 Past Psychological History: Depression Smoking Status: Current some day smoker Past Alcohol Use History: None Reported Past Drug Use History: None Reported Medications and Allergies Home Medications Medication Instructions Recorded Confirmed Type No Known Home Medications 05/22/24 05/22/24 History Allergies Allergy/AdvReac Type Severity Reaction Status Date / Time iodine Allergy Anaphylaxis Verified 10/17/24 14:48 Physical Exam Vitals: Vital Signs Temp Pulse Resp BP Pulse Ox FiO2 10/18/24 00:13 50 10/18/24 00:12 50 10/17/24 22:17 100 10/17/24 22:08 100 10/17/24 19:34 96 18 128/80 99 10/17/24 18:24 97.9 F 91 15 120/82 96 10/17/24 14:43 97.9 F 89 18 116/74 95 Intake and Output 10/17/24 10/17/24 10/18/24 14:59 22:59 06:59 Intake Total 1999 Output Total 993 Balance 1007 Intake: IV 1999 Output: Urine 950 Estimated Blood Loss 43 Other: Weight 56.699 kg GENERAL EXAM: Sedated 74-year-old female, intubated mechanical ventilator, synchronous with set rate HEAD: Normocephalic and atraumatic EYES: Normal reaction of pupils, equal size. No nystagmus. Nonicteric sclera. NOSE: Clear with pink turbinates. THROAT: No erythema or exudates. NECK: No masses, no JVD. Right IJ triple-lumen catheter. CHEST: No chest wall deformity. LUNGS: Equal air entry with no crackles, wheeze, rhonchi or dullness. Intubated to the mechanical ventilator. Synchronous with set rate. Minimal endotracheal secretions. Peak pressures 15 CVS: S1 and S2 normal with no audible murmur, regular rhythm. No extra heart sounds ABDOMEN: NG tube to LIS. Postsurgical abdomen with midline abdominal incision and postoperative dressing in place with mild shadowing. CORAZON drain is full serosanguineous fluid is going to be empty. Left upper quadrant stoma is pink. Without any current output. Abdomen is soft. SPINE: No scoliosis or deformity SKIN: No rashes CENTRAL NERVOUS SYSTEM: Sedated, unresponsive to painful stimuli, no gag, positive corneal reflex, bilateral patellar DTRs 1, neutral Babinski bi laterally. EXTREMITIES: There is no peripheral edema, clubbing, or cyanosis. Distal extremities are cold, peripheral pulses are weak and thready. Results - Laboratory Findings CBC and BMP: 10/17/24 22:36 10/17/24 22:36 ABG ABG pH 7.28 (7.35-7.45) L 10/17/24 22:21 ABG pCO2 45 mmHg (35-45) 10/17/24 22:21 ABG pO2 363 mmHg (83-108) H 10/17/24 22:21 ABG O2 Saturation 99.8 % (94-97) H 10/17/24 22:21 PT/INR, D-dimer PT 9.4 sec (10.0-12.5) L 10/17/24 18:14 INR 0.8 (<1.2) 10/17/24 18:14 Abnormal lab findings: Abnormal Labs 10/17/24 10/17/24 10/17/24 16:15 16:15 16:15 WBC RBC 2.91 L Hgb 9.8 L Hct 29.5 L MCV 101.4 H RDW 18.9 H Plt Count 110 L Lymphocytes # 0.6 L Macrocytosis PT APTT ABG pH ABG pO2 ABG O2 Saturation Hemoglobin Sodium 132 L Potassium 3.3 L BUN 36 H Glucose 118 H Plasma Lactic Acid Antonio 2.6 H* Calcium 7.9 L AST 37 H Total Protein 5.7 L Albumin 3.2 L 10/17/24 10/17/24 10/17/24 18:14 22:21 22:36 WBC 2.0 L RBC 3.24 L Hgb 10.8 L Hct 33.6 L MCV 103.7 H RDW 19.3 H Plt Count 107 L Lymphocytes # Macrocytosis Marked A PT 9.4 L APTT 21.3 L ABG pH 7.28 L ABG pO2 363 H ABG O2 Saturation 99.8 H Hemoglobin 10.3 L Sodium Potassium BUN Glucose Plasma Lactic Acid Antonio Calcium AST Total Protein Albumin 10/17/24 22:36 WBC RBC Hgb Hct MCV RDW Plt Count Lymphocytes # Macrocytosis PT APTT ABG pH ABG pO2 ABG O2 Saturation Hemoglobin Sodium 135 L Potassium BUN 34 H Glucose 117 H Plasma Lactic Acid Antonio Calcium 6.9 L AST Total Protein Albumin - Diagnostic Findings Chest x-ray: image reviewed Assessment and Plan Assessment: Pneumoperitoneum Ruptured sigmoid colon with possible stercoral ulcer, status post exploratory laparotomy with sigmoid colectomy and end colostomy Routine postsurgical mechanical ventilator management, secondary to above; posto perative chest x-ray showing endotracheal tube in appropriate position 3 cm above the adriana, nasogastric tube courses below the diaphragm, there is a reduction in the size of previous mentioned right upper lung mass Pancytopenia Hypocalcemia History of lung cancer with metastasis to brain; reportedly on systemic chemotherapy, last treatment 2 weeks ago; recent available PET scan done 10/05/2024 demonstrating a mixed response to therapy with decrease size and FDG activity of the right upper lobe pulmonary mass and mediastinal/right hilar adenopathy; however, there is a more prominent appearing opacity within the right lower lobe abutting the fissure with increasing FDG activity. Possibly representing an infectious/inflammatory opacity, however, new metastasis was not excluded. History of hypothyroidism Tobacco smoker Plan: Patient's medications, labs, imaging reviewed Continue on the mechanical ventilator, increase rate to 20 and wean FiO2 accordingly Repeat ABG in the morning Repeat chest x-ray in the morning Wean sedation for appropriate RASS of 0 to -1 Patient appears hypovolemic, given an additional 500 cc normal saline bolus Monitor and replace electrolytes per protocol Empirically covered on antibiotics, Zosyn Oncology is consulted Pharmacological DVT prophylaxis per surgery. SCDs are on. GI prophylaxis with Protonix We will continue to follow, additional recommendations forthcoming I have personally seen and examined the patient, performed the documentation and the assessment and plan as written. Number of minutes spent on the visit:20 This dictation was produced using [employer] dictation software please excuse grammatical errors Time with Patient: Greater than 30
[2024-10-18] MEDS: SODIUM CHLORIDE 0.9% 1,000 ML IV ONE (04:40)
[2024-10-18 05:22] LABS: ABG HCO3 19 mmol/L (21-25); ABG Oxygen Saturation 99.4 % (94-97); ABG PCO2 38 mmHg (35-45); ABG PO2 209 mmHg (83-108); ABG TCO2 20 mmol/L (19-24); Allen Test Performed? Yes
--- NOTE | 2024-10-18 06:06 | XR ---
EXAMINATION TYPE: XR chest 1V portable DATE OF EXAM: 10/18/2024 CLINICAL HISTORY: Difficulty breathing progress study. History of lung cancer. TECHNIQUE: Single AP portable semiupright view of the chest is obtained. COMPARISON: Chest x-ray from one day earlier FINDINGS: Stable endotracheal and orogastric tubes. Stable right internal jugular central venous cat heter. Persistent medial right upper lung opacity corresponding to known neoplasm. Underlying emphysematous change is redemonstrated. No new focal airspace opacity, pleural effusion, or pneumothorax seen. Card iac silhouette size is stable and within normal limits. Osseous structures are intact. IMPRESSION: Chronic changes without acute pulmonary process. No significant change from [facility]. [facility], , 10/18/2024 6:03 AM
[2024-10-18 07:31] LABS: Anisocytosis Slight; HCT 31.2 % (34.0-46.0); HGB 9.7 gm/dL (11.4-16.0); Hypochromasia Marked; MCH 33.1 pg (25.0-35.0); MCHC 31.1 g/dL (31.0-37.0); MCV 106.7 fL (80.0-100.0); Macrocytosis Marked; Mean Platelet Volume 8.1; RBC 2.93 m/uL (3.80-5.40); RDW 18.6 % (11.5-15.5); WBC 3.9 k/uL (3.8-10.6)
[2024-10-18 07:47] LABS: ALT 15 U/L (4-34); AST 20 U/L (14-36); African American GFR (CKD) 52 (>60 ml/min/1.73 sqM); Albumin 2.4 g/dL (3.5-5.0); Alkaline Phosphatase 57 U/L (38-126); Anion Gap 9 mmol/L; Blood Urea Nitrogen 37 mg/dL (7-17); Calcium 6.9 mg/dL (8.4-10.2); Carbon Dioxide 18 mmol/L (22-30); Chloride 108 mmol/L (98-107); Glucose 127 mg/dL (74-99); Non-African American GFR(CKD) 45 (>60 ml/min/1.73 sqM); Potassium 5.5 mmol/L (3.5-5.1); Sodium 135 mmol/L (137-145); Total Bilirubin 1.7 mg/dL (0.2-1.3); Total Protein 4.4 g/dL (6.3-8.2)
[2024-10-18] MEDS: CHLORHEXIDINE GLUCONATE 15 ML CUP MUCOUS MEM SCH (08:25)
[2024-10-18 09:46] LABS: Platelet Count 97 k/uL (150-450)
[2024-10-18 09:53] LABS: Band Neutrophils % 9 %; Lymphocytes # (M) 0.47 k/uL (1.0-4.8); Metamyelocytes # (M) 0.04 k/uL (0); Metamyelocytes % 1 %; Monocytes # (M) 0.47 k/uL (0-1.0); Neutrophils % (M) 67 %; Nucleated Red Blood Cells 1 /100 WBC (0-0); Total Cells Counted 200
[2024-10-18 11:54] LABS: Glucose,Whole Blood 91 mg/dL (70-110)
--- NOTE | 2024-10-18 12:52 | P.PN ---
Subjective Progress Note Date: 10/18/24 SURGICAL PROGRESS NOTE CHIEF COMPLAINT: Pneumoperitoneum HISTORY OF PRESENT ILLNESS: Patient is postop day #1 status post exploratory laparotomy, sigmoid colectomy with end colostomy for ruptured sigmoid colon, possible stercoral ulcer. Patient remains on mechanical ventilation in the ICU. Afebrile. Mildly tachycardic. Urine output has been low and she is receiving fluid boluses. WBC 3.9 Hgb 9.7 platelets 97 sodium 135 potassium is 5.5 creatinine 1.19 PHYSICAL EXAM: VITAL SIGNS: Reviewed. GENERAL: Well-developed in no acute distress. ABDOMEN: Soft. Mildly distended. Incisional dressing clean dry and intact. Ostomy on the left stoma is pink. Small amount of sanguinous drainage noted in ostomy bag. NEUROLOGIC: Alert and oriented. Cranial nerves II through XII grossly intact. ASSESSMENT: 1. Pneumoperitoneum with ruptured sigmoid colon, possible stercoral ulcer 2. History of lung cancer with brain mets and last chemotherapy about 2 weeks ago 3. Pancytopenia PLAN: -Continue ICU management -Continue supportive care -Continue antibiotics -Continue IV fluids -Keep patient n.p.o. -GI prophylaxis Protonix and DVT prophylaxis SCDs Physician Well Puller note has been reviewed by physician. Signing provider agrees with the documented findings, assessment, and plan of care. Attestation Patient seen and examined at bedside. Postop day #1, exploratory laparotomy sigmoid colectomy with end colostomy. Continue ICU management. Continue IV antibiotics. Continue IV fluid resuscitation. Patient is currently intubated and vent management per ICU team. Lalo Rojas DO Objective - Vital Signs Vital signs: Vital Signs Temp 98.0 F 10/18/24 12:00 Pulse 106 H 10/18/24 12:30 Resp 13 10/18/24 12:30 BP 90/56 10/18/24 12:30 Pulse Ox 99 10/18/24 12:30 FiO2 40 10/18/24 11:01 Intake & Output 10/17/24 10/18/24 10/18/24 18:59 06:59 18:59 Intake Total 4607.035 517.473 Output Total 2093 115 Balance 2514.035 402.473 Weight 56.699 kg 65 kg 65 kg Intake: IV 2000 375 Sodium Chloride 0.9% 1, 375 000 ml @ 75 mls/hr IV . [id number] [facility] Rx#:[id number] Intake, IV Titration 2607.035 142.473 Amount Calcium Gluconate in NaCl 100 1 gm In Saline 1 100ml. bag @ 100 mls/hr IVPB ONCE ONE Rx#:[id number] Piperacillin-Tazobactam 3 100 .375 gm In Sodium Chloride 0.9% 100 ml @ 25 mls/hr IVPB Q8H [facility] Rx#: [id number] Potassium Chloride 20 meq 200 In Water For Injection 1 100ml.bag @ 50 mls/hr IVPB Q2H [facility] Rx#: [id number] Sodium Chloride 0.9% 1, 675 75 000 ml @ 75 mls/hr IV . [id number] [facility] Rx#:[id number] Sodium Chloride 0.9% 1, 1000 000 ml @ 999 mls/hr IV . Q1H1M [facility] Rx#:[id number] Sodium Chloride 0.9% 500 500 ml 500 ml @ 999 mls/hr IV .Q31M [facility] Rx#:[id number] propofoL 1,000 mg In 32.035 67.473 Empty Bag 1 bag @ 15 MCG/ KG/MIN 5.103 mls/hr IV . [id number] [facility] Rx#:[id number] Output: Gastric Drainage 600 Drainage 370 Medial Abdomen 370 Urine 1080 115 Estimated Blood Loss 43 Other: Voiding Method Indwelling Catheter Indwelling Catheter - Labs CBC & Chem 7: 10/18/24 05:23 10/18/24 05:23 Labs: Abnormal Lab Results - Last 24 Hours (Table) 10/17/24 10/17/24 10/17/24 Range/Units 16:15 16:15 16:15 WBC (3.8-10.6) k/uL RBC 2.91 L (3.80-5.40) m/uL Hgb 9.8 L (11.4-16.0) gm/dL Hct 29.5 L (34.0-46.0) % MCV 101.4 H (80.0-100.0) fL RDW 18.9 H (11.5-15.5) % Plt Count 110 L (150-450) k/uL Neutrophils # (Manual) (1.3-7.7) k/uL Lymphocytes # 0.6 L (1.0-4.8) k/uL Lymphocytes # (Manual) (1.0-4.8) k/uL Metamyelocytes # (Man) (0) k/uL Nucleated RBCs (0-0) /100 WBC Macrocytosis PT (10.0-12.5) sec APTT (22.0-30.0) sec ABG pH (7.35-7.45) ABG pO2 (83-108) mmHg ABG HCO3 (21-25) mmol/L ABG O2 Saturation (94-97) % Hemoglobin (11.4-16.0) gm/dL Sodium 132 L (137-145) mmol/L Potassium 3.3 L (3.5-5.1) mmol/L Chloride (98-107) mmol/L Carbon Dioxide (22-30) mmol/L BUN 36 H (7-17) mg/dL Creatinine (0.52-1.04) mg/dL Glucose 118 H (74-99) mg/dL Plasma Lactic Acid Antonio 2.6 H* (0.7-2.0) mmol/L Calcium 7.9 L (8.4-10.2) mg/dL Total Bilirubin (0.2-1.3) mg/dL AST 37 H (14-36) U/L Total Protein 5.7 L (6.3-8.2) g/dL Albumin 3.2 L (3.5-5.0) g/dL 10/17/24 10/17/24 10/17/24 Range/Units 18:14 22:21 22:36 WBC 2.0 L (3.8-10.6) k/uL RBC 3.24 L (3.80-5.40) m/uL Hgb 10.8 L (11.4-16.0) gm/dL Hct 33.6 L (34.0-46.0) % MCV 103.7 H (80.0-100.0) fL RDW 19.3 H (11.5-15.5) % Plt Count 107 L (150-450) k/uL Neutrophils # (Manual) 1.20 L (1.3-7.7) k/uL Lymphocytes # (1.0-4.8) k/uL Lymphocytes # (Manual) 0.64 L (1.0-4.8) k/uL Metamyelocytes # (Man) 0.04 H (0) k/uL Nucleated RBCs 1 H (0-0) /100 WBC Macrocytosis Marked A PT 9.4 L (10.0-12.5) sec APTT 21.3 L (22.0-30.0) sec ABG pH 7.28 L (7.35-7.45) ABG pO2 363 H (83-108) mmHg ABG HCO3 (21-25) mmol/L ABG O2 Saturation 99.8 H (94-97) % Hemoglobin 10.3 L (11.4-16.0) gm/dL Sodium (137-145) mmol/L Potassium (3.5-5.1) mmol/L Chloride (98-107) mmol/L Carbon Dioxide (22-30) mmol/L BUN (7-17) mg/dL Creatinine (0.52-1.04) mg/dL Glucose (74-99) mg/dL Plasma Lactic Acid Antonio (0.7-2.0) mmol/L Calcium (8.4-10.2) mg/dL Total Bilirubin (0.2-1.3) mg/dL AST (14-36) U/L Total Protein (6.3-8.2) g/dL Albumin (3.5-5.0) g/dL 10/17/24 10/18/24 10/18/24 Range/Units 22:36 05:15 05:23 WBC (3.8-10.6) k/uL RBC (3.80-5.40) m/uL Hgb (11.4-16.0) gm/dL Hct (34.0-46.0) % MCV (80.0-100.0) fL RDW (11.5-15.5) % Plt Count (150-450) k/uL Neutrophils # (Manual) (1.3-7.7) k/uL Lymphocytes # (1.0-4.8) k/uL Lymphocytes # (Manual) (1.0-4.8) k/uL Metamyelocytes # (Man) (0) k/uL Nucleated RBCs (0-0) /100 WBC Macrocytosis PT (10.0-12.5) sec APTT (22.0-30.0) sec ABG pH 7.30 L (7.35-7.45) ABG pO2 209 H (83-108) mmHg ABG HCO3 19 L (21-25) mmol/L ABG O2 Saturation 99.4 H (94-97) % Hemoglobin 9.1 L (11.4-16.0) gm/dL Sodium 135 L 135 L (137-145) mmol/L Potassium 5.5 H (3.5-5.1) mmol/L Chloride 108 H (98-107) mmol/L Carbon Dioxide 18 L (22-30) mmol/L BUN 34 H 37 H (7-17) mg/dL Creatinine 1.19 H (0.52-1.04) mg/dL Glucose 117 H 127 H (74-99) mg/dL Plasma Lactic Acid Antonio (0.7-2.0) mmol/L Calcium 6.9 L 6.9 L (8.4-10.2) mg/dL Total Bilirubin 1.7 H (0.2-1.3) mg/dL AST (14-36) U/L Total Protein 4.4 L (6.3-8.2) g/dL Albumin 2.4 L (3.5-5.0) g/dL 10/18/24 Range/Units 05:23 WBC (3.8-10.6) k/uL RBC 2.93 L (3.80-5.40) m/uL Hgb 9.7 L (11.4-16.0) gm/dL Hct 31.2 L (34.0-46.0) % MCV 106.7 H (80.0-100.0) fL RDW 18.6 H (11.5-15.5) % Plt Count 97 L (150-450) k/uL Neutrophils # (Manual) (1.3-7.7) k/uL Lymphocytes # (1.0-4.8) k/uL Lymphocytes # (Manual) 0.47 L (1.0-4.8) k/uL Metamyelocytes # (Man) 0.04 H (0) k/uL Nucleated RBCs 1 H (0-0) /100 WBC Macrocytosis Marked A PT (10.0-12.5) sec APTT (22.0-30.0) sec ABG pH (7.35-7.45) ABG pO2 (83-108) mmHg ABG HCO3 (21-25) mmol/L ABG O2 Saturation (94-97) % Hemoglobin (11.4-16.0) gm/dL Sodium (137-145) mmol/L Potassium (3.5-5.1) mmol/L Chloride (98-107) mmol/L Carbon Dioxide (22-30) mmol/L BUN (7-17) mg/dL Creatinine (0.52-1.04) mg/dL Glucose (74-99) mg/dL Plasma Lactic Acid Antonio (0.7-2.0) mmol/L Calcium (8.4-10.2) mg/dL Total Bilirubin (0.2-1.3) mg/dL AST (14-36) U/L Total Protein (6.3-8.2) g/dL Albumin (3.5-5.0) g/dL Microbiology - Last 24 Hours (Table) 10/17/24 21:47 Gram Stain - Preliminary Abdomen
--- NOTE | 2024-10-18 13:47 | P.CONS ---
History of Present Illness - Reason for Consult Consult date: 10/18/24 - History of Present Illness Patient is a 74-year-old female with history of hypothyroidism and lung cancer with brain mets presenting with pneumoperitoneum and ruptured sigmoid colon status post ex lap with sigmoid colectomy and end colostomy, currently intubated and sedated. She is currently in medical ICU. Physicians consulted for medical management. Patient also being followed by ICU, ID, and oncology. Based on reviewing the data, on original abdomen pelvis CT showed small to moderate amount of free air scattered within the upper abdomen and within the mid pelvis, small amount of free fluid within the pelvis, dilated small bowel loops to release the proximal ileum, partial SBO, right renal cyst. Most recent blood work showed WBC of 3.9, hemoglobin 9.7, platelet 97, with 9% bands, pH 7.3, pCO2 38, bicarb 19, sodium 135, potassium 5.5, chloride 108, bicarb 18, creatinine 1.19, total bili 1.7, AST 20, ALT 15, ALP 57. Patient currently on propofol, mechanically ventilated. Chest x-ray independently interpreted, shows no acute process. Pertinent positives and negatives as discussed in HPI, a complete review of systems was performed and all other systems are negative. Patient seen and examined at bedside. Vital signs reviewed General: Intubated sedated Derm: warm, dry Head: atraumatic, normocephalic, symmetric Eyes: EOMI, no lid lag, anicteric sclera, pupils equal round reactive to light ENT: Nose and ears atraumatic Neck: No thyromegaly, supple Mouth: no lip lesion, mucus membranes moist Cardiovascular: S1S2 reg, no murmur, no edema Lungs: Bilateral rhonchi, mechanically ventilated Abdominal: soft, tender to palpation, grimaces with light touch Ext: no gross muscle atrophy, no contractures Neuro: Sedated Psych: unable to assess Assessment/Plan: Active: Ruptured sigmoid colon secondary to possible stercoral ulcer Pneumoperitoneum Bandemia -Continue IV Zosyn 3.375 g every 8 hours -Surgery note reviewed, maintain NG tube, IV fluids -continue IV Protonix 40 daily -ICU following, wean sedation Lung cancer with metastatic brain disease on active chemotherapy Pancytopenia -Oncology and pulmonology following Mild non-anion gap metabolic acidosis -Switch normal saline to lactated Ringer's at 75 cc an hour -Repeat BMP tomorrow Mild hyperkalemia -Continue to monitor Thank you for allowing us to participate in the care of this pleasant patient. Do not hesitate to contact us with questions. Someone can be reached from the [facility] hospitalist group all hours of the day at [phone] or via [employer]. Past Medical History Past Medical History: Cancer, Thyroid Disorder Additional Past Medical History / Comment(s): hypothyroidism. lung CA with mets to brain, had surgery for brain mets. History of Any Multi-Drug Resistant Organisms: None Reported Past Surgical History: Tonsillectomy Additional Past Surgical History / Comment(s): Trigeminal nerve decompression 2003, had brain mets surgically removed at [place] (june 2024), bilateral lumpectomy. Past Anesthesia/Blood Transfusion Reactions: No Reported Reaction Past Psychological History: Depression Smoking Status: Former smoker Past Alcohol Use History: None Reported Past Drug Use History: None Reported Medications and Allergies Home Medications Medication Instructions Recorded Confirmed Type Folic Acid 1 mg PO DAILY 10/18/24 10/18/24 History levETIRAcetam [Keppra] 500 mg PO Q12HR 10/18/24 10/18/24 History predniSONE 5 mg PO DAILY 10/18/24 10/18/24 History Allergies Allergy/AdvReac Type Severity Reaction Status Date / Time iodine Allergy Anaphylaxis Verified 10/18/24 10:37 Physical Exam Vitals: Vital Signs Temp Pulse Resp BP Pulse Ox FiO2 10/18/24 13:00 100 20 93/58 100 10/18/24 12:30 106 H 13 90/56 99 10/18/24 12:00 98.0 F 104 H 11 L 106/66 99 10/18/24 11:30 108 H 19 86/66 100 10/18/24 11:01 40 10/18/24 11:00 110 H 22 80/64 100 10/18/24 10:30 109 H 25 H 88/59 100 10/18/24 10:00 106 H 24 99/64 100 10/18/24 09:30 107 H 20 82/54 100 10/18/24 09:00 108 H 26 H 99/73 100 10/18/24 08:33 40 10/18/24 08:30 108 H 20 89/66 100 10/18/24 08:00 98.2 F 106 H 20 88/61 99 40 10/18/24 07:30 105 H 22 107/61 100 10/18/24 07:00 104 H 20 95/62 100 10/18/24 06:30 103 H 20 86/61 100 10/18/24 06:00 105 H 20 143/89 100 10/18/24 05:30 107 H 20 124/71 100 40 10/18/24 05:00 105 H 20 90/65 100 10/18/24 04:30 110 H 20 111/75 100 10/18/24 04:03 50 10/18/24 04:00 98.9 F 112 H 22 108/72 100 50 10/18/24 03:30 110 H 21 137/83 100 10/18/24 03:00 112 H 20 106/70 100 10/18/24 02:30 111 H 20 117/78 100 10/18/24 02:00 111 H 20 104/77 100 10/18/24 01:30 105 H 20 105/72 100 10/18/24 01:00 112 H 20 96/70 99 10/18/24 00:30 109 H 20 96/66 100 10/18/24 00:13 50 10/18/24 00:12 50 10/18/24 00:00 97.7 F 106 H 16 131/76 99 50 10/17/24 23:30 107 H 16 99/77 100 10/17/24 23:00 105 H 16 98/67 100 10/17/24 22:30 105 H 16 120/85 100 10/17/24 22:17 100 10/17/24 22:08 100 10/17/24 22:01 97.6 F 105 H 20 100 100 10/17/24 19:34 96 18 128/80 99 10/17/24 18:24 97.9 F 91 15 120/82 96 10/17/24 14:43 97.9 F 89 18 116/74 95 Intake and Output 10/17/24 10/18/24 10/18/24 22:59 06:59 14:59 Intake Total 1999 2607.035 517.473 Output Total 993 1100 115 Balance 1007 1507.035 402.473 Intake: IV 2000 375 Sodium Chloride 0.9% 1, 375 000 ml @ 75 mls/hr IV . [id number] [facility] Rx#:[id number] Intake, IV Titration 2607.035 142.473 Amount Calcium Gluconate in NaCl 100 1 gm In Saline 1 100ml. bag @ 100 mls/hr IVPB ONCE [facility] Rx#:[id number] Piperacillin-Tazobactam 3 100 .375 gm In Sodium Chloride 0.9% 100 ml @ 25 mls/hr IVPB Q8H [facility] Rx#: [id number] Potassium Chloride 20 meq 200 In Water For Injection 1 100ml.bag @ 50 mls/hr IVPB Q2H [facility] Rx#: [id number] Sodium Chloride 0.9% 1, 675 75 000 ml @ 75 mls/hr IV . [id number] [facility] Rx#:[id number] Sodium Chloride 0.9% 1, 1000 000 ml @ 999 mls/hr IV . Q1H1M [facility] Rx#:[id number] Sodium Chloride 0.9% 500 500 ml 500 ml @ 999 mls/hr IV .Q31M [facility] Rx#:[id number] propofoL 1,000 mg In 32.035 67.473 Empty Bag 1 bag @ 15 MCG/ KG/MIN 5.103 mls/hr IV . [id number] [facility] Rx#:[id number] Output: Gastric Drainage 600 Drainage 370 Medial Abdomen 370 Urine 950 130 115 Estimated Blood Loss 43 Other: Voiding Method Indwelling Catheter Indwelling Catheter Weight 65 kg 65 kg Results CBC & Chem 7: 10/18/24 05:23 10/18/24 05:23 Labs: Abnormal Lab Results - Last 24 Hours (Table) 10/17/24 10/17/24 10/17/24 Range/Units 16:15 16:15 16:15 WBC (3.8-10.6) k/uL RBC 2.91 L (3.80-5.40) m/uL Hgb 9.8 L (11.4-16.0) gm/dL Hct 29.5 L (34.0-46.0) % MCV 101.4 H (80.0-100.0) fL RDW 18.9 H (11.5-15.5) % Plt Count 110 L (150-450) k/uL Neutrophils # (Manual) (1.3-7.7) k/uL Lymphocytes # 0.6 L (1.0-4.8) k/uL Lymphocytes # (Manual) (1.0-4.8) k/uL Metamyelocytes # (Man) (0) k/uL Nucleated RBCs (0-0) /100 WBC Macrocytosis PT (10.0-12.5) sec APTT (22.0-30.0) sec ABG pH (7.35-7.45) ABG pO2 (83-108) mmHg ABG HCO3 (21-25) mmol/L ABG O2 Saturation (94-97) % Hemoglobin (11.4-16.0) gm/dL Sodium 132 L (137-145) mmol/L Potassium 3.3 L (3.5-5.1) mmol/L Chloride (98-107) mmol/L Carbon Dioxide (22-30) mmol/L BUN 36 H (7-17) mg/dL Creatinine (0.52-1.04) mg/dL Glucose 118 H (74-99) mg/dL Plasma Lactic Acid Antonio 2.6 H* (0.7-2.0) mmol/L Calcium 7.9 L (8.4-10.2) mg/dL Total Bilirubin (0.2-1.3) mg/dL AST 37 H (14-36) U/L Total Protein 5.7 L (6.3-8.2) g/dL Albumin 3.2 L (3.5-5.0) g/dL 10/17/24 10/17/24 10/17/24 Range/Units 18:14 22:21 22:36 WBC 2.0 L (3.8-10.6) k/uL RBC 3.24 L (3.80-5.40) m/uL Hgb 10.8 L (11.4-16.0) gm/dL Hct 33.6 L (34.0-46.0) % MCV 103.7 H (80.0-100.0) fL RDW 19.3 H (11.5-15.5) % Plt Count 107 L (150-450) k/uL Neutrophils # (Manual) 1.20 L (1.3-7.7) k/uL Lymphocytes # (1.0-4.8) k/uL Lymphocytes # (Manual) 0.64 L (1.0-4.8) k/uL Metamyelocytes # (Man) 0.04 H (0) k/uL Nucleated RBCs 1 H (0-0) /100 WBC Macrocytosis Marked A PT 9.4 L (10.0-12.5) sec APTT 21.3 L (22.0-30.0) sec ABG pH 7.28 L (7.35-7.45) ABG pO2 363 H (83-108) mmHg ABG HCO3 (21-25) mmol/L ABG O2 Saturation 99.8 H (94-97) % Hemoglobin 10.3 L (11.4-16.0) gm/dL Sodium (137-145) mmol/L Potassium (3.5-5.1) mmol/L Chloride (98-107) mmol/L Carbon Dioxide (22-30) mmol/L BUN (7-17) mg/dL Creatinine (0.52-1.04) mg/dL Glucose (74-99) mg/dL Plasma Lactic Acid Antonio (0.7-2.0) mmol/L Calcium (8.4-10.2) mg/dL Total Bilirubin (0.2-1.3) mg/dL AST (14-36) U/L Total Protein (6.3-8.2) g/dL Albumin (3.5-5.0) g/dL 10/17/24 10/18/24 10/18/24 Range/Units 22:36 05:15 05:23 WBC (3.8-10.6) k/uL RBC (3.80-5.40) m/uL Hgb (11.4-16.0) gm/dL Hct (34.0-46.0) % MCV (80.0-100.0) fL RDW (11.5-15.5) % Plt Count (150-450) k/uL Neutrophils # (Manual) (1.3-7.7) k/uL Lymphocytes # (1.0-4.8) k/uL Lymphocytes # (Manual) (1.0-4.8) k/uL Metamyelocytes # (Man) (0) k/uL Nucleated RBCs (0-0) /100 WBC Macrocytosis PT (10.0-12.5) sec APTT (22.0-30.0) sec ABG pH 7.30 L (7.35-7.45) ABG pO2 209 H (83-108) mmHg ABG HCO3 19 L (21-25) mmol/L ABG O2 Saturation 99.4 H (94-97) % Hemoglobin 9.1 L (11.4-16.0) gm/dL Sodium 135 L 135 L (137-145) mmol/L Potassium 5.5 H (3.5-5.1) mmol/L Chloride 108 H (98-107) mmol/L Carbon Dioxide 18 L (22-30) mmol/L BUN 34 H 37 H (7-17) mg/dL Creatinine 1.19 H (0.52-1.04) mg/dL Glucose 117 H 127 H (74-99) mg/dL Plasma Lactic Acid Antonio (0.7-2.0) mmol/L Calcium 6.9 L 6.9 L (8.4-10.2) mg/dL Total Bilirubin 1.7 H (0.2-1.3) mg/dL AST (14-36) U/L Total Protein 4.4 L (6.3-8.2) g/dL Albumin 2.4 L (3.5-5.0) g/dL 10/18/24 Range/Units 05:23 WBC (3.8-10.6) k/uL RBC 2.93 L (3.80-5.40) m/uL Hgb 9.7 L (11.4-16.0) gm/dL Hct 31.2 L (34.0-46.0) % MCV 106.7 H (80.0-100.0) fL RDW 18.6 H (11.5-15.5) % Plt Count 97 L (150-450) k/uL Neutrophils # (Manual) (1.3-7.7) k/uL Lymphocytes # (1.0-4.8) k/uL Lymphocytes # (Manual) 0.47 L (1.0-4.8) k/uL Metamyelocytes # (Man) 0.04 H (0) k/uL Nucleated RBCs 1 H (0-0) /100 WBC Macrocytosis Marked A PT (10.0-12.5) sec APTT (22.0-30.0) sec ABG pH (7.35-7.45) ABG pO2 (83-108) mmHg ABG HCO3 (21-25) mmol/L ABG O2 Saturation (94-97) % Hemoglobin (11.4-16.0) gm/dL Sodium (137-145) mmol/L Potassium (3.5-5.1) mmol/L Chloride (98-107) mmol/L Carbon Dioxide (22-30) mmol/L BUN (7-17) mg/dL Creatinine (0.52-1.04) mg/dL Glucose (74-99) mg/dL Plasma Lactic Acid Antonio (0.7-2.0) mmol/L Calcium (8.4-10.2) mg/dL Total Bilirubin (0.2-1.3) mg/dL AST (14-36) U/L Total Protein (6.3-8.2) g/dL Albumin (3.5-5.0) g/dL Microbiology - Last 24 Hours (Table) 10/17/24 21:47 Gram Stain - Preliminary Abdomen
[2024-10-18] MEDS: HYDROCORTISONE SUCCINATE 100 MG/2 ML VIAL IV SCH (14:42)
[2024-10-18] MEDS: levETIRAcetam IV 500 MG/5 ML VIAL IVP SCH (14:42)
[2024-10-18] MEDS: LACTATED RINGERS 1,000 ML IV SCH (14:42)
--- NOTE | 2024-10-18 16:16 | P.CONS ---
History of Present Illness - Reason for Consult Consult date: 10/18/24 NSCLC on treatment Requesting physician: Lalo Rojas - Chief Complaint abd pain - History of Present Illness Mrs. Farr is a 74-year-old female patient of Dr. Frank with a past medical history of non-squamous, non-small cell lung cancer. Initially presented in May 2024 due to recurrent falls over the prior month. CT of the brain showed a right occipital lobe lesion. CT CAP 05/22/2024 showed a 5.7 x 6.7 cm right upper lobe lung mass, mediastinal LAD, she was transferred to [facility]. MRI of the brain 05/25/2024 revealed a 3.3 cm mass in the right occipital lobe with associated vasogenic edema and midline shift. 05/29/2024 she underwent craniotomy and resection of the brain mass. Pathology positive metastatic adenocarcinoma, IHC consistent with lung primary, PD-L1 90%. Caris showed a K-tarik G12C mutation, TMB was high T p53 and IDH1 mutations. 06/30/2024 staging PET scan showed FDG avid 5.7 cm medial right upper lobe spiculated mass. This partially invaded into the media started him with abutment to the right brachiocephalic vein and trachea, metastasis with enlarging right pericarinal FDG avid lymph nodes, focal FDG avid focus within the medial right hepatic lobe. Patient was given time to recover from craniotomy, she will underwent SBRT. 07/28/2024 she started carbo/Alimta/Keytruda and completed 4 cycles 10/04/2024. Treatment follow-up PET scan 10/05/2024 showed improvement in her disease. Patient was being treated with low-dose prednisone and topical steroids for rash on the chest and back. She was last seen in the office earlier this month with no specific complaints, was feeling well and doing overall well. Plans were to continue with immunotherapy. Patient came to the emergency room yesterday with complaints of abdominal pain over several days, this was associated with vomiting as well as decreased stool output CT of the abdomen and pelvis without contrast reported free air in the upper abdomen and mid pelvis. Dilated bowel loops and partial small bowel obstruction suspected. Patient was assessed by surgery. Pneumoperitoneum diagnosed. She was taken to surgery found to have a ruptured sigmoid colon, she had exploratory laparotomy with sigmoid colectomy and end colostomy creation. When seen today patient is in the intensive care unit, she is intubated but her eyes open to voice. Laboratory workup today showing mild anemia hemoglobin 9.7, platelet counts 97,000, BUN/creatinine 37/1.19 Review of Systems ROS unobtainable: due to endotracheal tube Past Medical History Past Medical History: Cancer, Thyroid Disorder Additional Past Medical History / Comment(s): hypothyroidism. lung CA with mets to brain History of Any Multi-Drug Resistant Organisms: None Reported Past Surgical History: Tonsillectomy Additional Past Surgical History / Comment(s): Trigeminal nerve decompression 2003 Past Psychological History: Depression Smoking Status: Current some day smoker Past Alcohol Use History: None Reported Past Drug Use History: None Reported Medications and Allergies Home Medications Medication Instructions Recorded Confirmed Type Folic Acid 1 mg PO DAILY 10/18/24 10/18/24 History levETIRAcetam [Keppra] 500 mg PO Q12HR 10/18/24 10/18/24 History predniSONE 5 mg PO DAILY 10/18/24 10/18/24 History Allergies Allergy/AdvReac Type Severity Reaction Status Date / Time iodine Allergy Anaphylaxis Verified 10/18/24 10:37 Physical Exam Vitals: Vital Signs Temp Pulse Resp BP Pulse Ox FiO2 10/18/24 09:00 108 H 18 99/73 100 10/18/24 08:33 40 10/18/24 08:30 108 H 20 89/66 100 10/18/24 08:00 98.2 F 106 H 20 88/61 99 40 10/18/24 07:30 105 H 22 107/61 100 10/18/24 07:00 104 H 20 95/62 100 10/18/24 06:30 103 H 20 86/61 100 10/18/24 06:00 105 H 20 143/89 100 10/18/24 05:30 107 H 20 124/71 100 40 10/18/24 05:00 105 H 20 90/65 100 10/18/24 04:30 110 H 20 111/75 100 10/18/24 04:03 50 10/18/24 04:00 98.9 F 112 H 22 108/72 100 50 10/18/24 03:30 110 H 21 137/83 100 10/18/24 03:00 112 H 20 106/70 100 10/18/24 02:30 111 H 20 117/78 100 02/12/25 02:00 111 H 20 104/77 100 10/18/24 01:30 105 H 20 105/72 100 10/18/24 01:00 112 H 20 96/70 99 10/18/24 00:30 109 H 20 96/66 100 10/18/24 00:13 50 10/18/24 00:12 50 10/18/24 00:00 97.7 F 106 H 16 131/76 99 50 10/17/24 23:30 107 H 16 99/77 100 10/17/24 23:00 105 H 16 98/67 100 10/17/24 22:30 105 H 16 120/85 100 10/17/24 22:17 100 10/17/24 22:08 100 10/17/24 22:01 97.6 F 105 H 20 100 100 10/17/24 19:34 96 18 128/80 99 10/17/24 18:24 97.9 F 91 15 120/82 96 10/17/24 14:43 97.9 F 89 18 116/74 95 Intake and Output 10/17/24 10/18/24 10/18/24 22:59 06:59 14:59 Intake Total 1999 2607.035 150 Output Total 993 1100 45 Balance 1007 1507.035 105 Intake: IV 2000 75 Sodium Chloride 0.9% 1, 75 000 ml @ 75 mls/hr IV . [id number] [facility] Rx#:[id number] Intake, IV Titration 2607.035 75 Amount Calcium Gluconate in NaCl 100 1 gm In Saline 1 100ml. bag @ 100 mls/hr IVPB ONCE ONE Rx#:[id number] Piperacillin-Tazobactam 3 100 .375 gm In Sodium Chloride 0.9% 100 ml @ 25 mls/hr IVPB Q8H [facility] Rx#: [id number] Potassium Chloride 20 meq 200 In Water For Injection 1 100ml.bag @ 50 mls/hr IVPB Q2H [facility] Rx#: [id number] Sodium Chloride 0.9% 1, 675 75 000 ml @ 75 mls/hr IV . [id number] [facility] Rx#:[id number] Sodium Chloride 0.9% 1, 1000 000 ml @ 999 mls/hr IV . Q1H1M [facility] Rx#:[id number] Sodium Chloride 0.9% 500 500 ml 500 ml @ 999 mls/hr IV .Q31M [facility] Rx#:[id number] propofoL 1,000 mg In 32.035 Empty Bag 1 bag @ 15 MCG/ KG/MIN 5.103 mls/hr IV . [id number] [facility] Rx#:[id number] Output: Gastric Drainage 600 Drainage 370 Medial Abdomen 370 Urine 950 130 45 Estimated Blood Loss 43 Other: Voiding Method Indwelling Catheter Indwelling Catheter Weight 65 kg - Constitutional General appearance: average body habitus, no acute distress - EENT Eyes: anicteric sclerae ENT: hearing grossly normal - Respiratory Respiratory: bilateral: CTA - Cardiovascular Rhythm: regular Heart sounds: normal: S1, S2 Abnormal Heart Sounds: no systolic murmur, no diastolic murmur, no rub, no S3 Gallop, no S4 Gallop, no click, no other leg Peripheral Edema: bilateral: None - Gastrointestinal incisions are dressed, no bruising, stoma is pink, small amt of serosang fluid in collection bag, 1 bowel sound at 2 min General gastrointestinal: distended, soft - Musculoskeletal Musculoskeletal: no gait normal, no generalized weakness, no strength equal bilaterally, no right sided weakness, no left sided weakness - Psychiatric Psychiatric: no A&O x's 3, no appropriate affect, no intact judgment & insight Results CBC & Chem 7: 10/18/24 05:23 10/18/24 05:23 Labs: Abnormal Lab Results - Last 24 Hours (Table) 10/17/24 10/17/24 10/17/24 Range/Units 16:15 16:15 16:15 WBC (3.8-10.6) k/uL RBC 2.91 L (3.80-5.40) m/uL Hgb 9.8 L (11.4-16.0) gm/dL Hct 29.5 L (34.0-46.0) % MCV 101.4 H (80.0-100.0) fL RDW 18.9 H (11.5-15.5) % Plt Count 110 L (150-450) k/uL Neutrophils # (Manual) (1.3-7.7) k/uL Lymphocytes # 0.6 L (1.0-4.8) k/uL Lymphocytes # (Manual) (1.0-4.8) k/uL Metamyelocytes # (Man) (0) k/uL Nucleated RBCs (0-0) /100 WBC Macrocytosis PT (10.0-12.5) sec APTT (22.0-30.0) sec ABG pH (7.35-7.45) ABG pO2 (83-108) mmHg ABG HCO3 (21-25) mmol/L ABG O2 Saturation (94-97) % Hemoglobin (11.4-16.0) gm/dL Sodium 132 L (137-145) mmol/L Potassium 3.3 L (3.5-5.1) mmol/L Chloride (98-107) mmol/L Carbon Dioxide (22-30) mmol/L BUN 36 H (7-17) mg/dL Creatinine (0.52-1.04) mg/dL Glucose 118 H (74-99) mg/dL Plasma Lactic Acid Antonio 2.6 H* (0.7-2.0) mmol/L Calcium 7.9 L (8.4-10.2) mg/dL Total Bilirubin (0.2-1.3) mg/dL AST 37 H (14-36) U/L Total Protein 5.7 L (6.3-8.2) g/dL Albumin 3.2 L (3.5-5.0) g/dL 10/17/24 10/17/24 10/17/24 Range/Units 18:14 22:21 22:36 WBC 2.0 L (3.8-10.6) k/uL RBC 3.24 L (3.80-5.40) m/uL Hgb 10.8 L (11.4-16.0) gm/dL Hct 33.6 L (34.0-46.0) % MCV 103.7 H (80.0-100.0) fL RDW 19.3 H (11.5-15.5) % Plt Count 107 L (150-450) k/uL Neutrophils # (Manual) 1.20 L (1.3-7.7) k/uL Lymphocytes # (1.0-4.8) k/uL Lymphocytes # (Manual) 0.64 L (1.0-4.8) k/uL Metamyelocytes # (Man) 0.04 H (0) k/uL Nucleated RBCs 1 H (0-0) /100 WBC Macrocytosis Marked A PT 9.4 L (10.0-12.5) sec APTT 21.3 L (22.0-30.0) sec ABG pH 7.28 L (7.35-7.45) ABG pO2 363 H (83-108) mmHg ABG HCO3 (21-25) mmol/L ABG O2 Saturation 99.8 H (94-97) % Hemoglobin 10.3 L (11.4-16.0) gm/dL Sodium (137-145) mmol/L Potassium (3.5-5.1) mmol/L Chloride (98-107) mmol/L Carbon Dioxide (22-30) mmol/L BUN (7-17) mg/dL Creatinine (0.52-1.04) mg/dL Glucose (74-99) mg/dL Plasma Lactic Acid Antonio (0.7-2.0) mmol/L Calcium (8.4-10.2) mg/dL Total Bilirubin (0.2-1.3) mg/dL AST (14-36) U/L Total Protein (6.3-8.2) g/dL Albumin (3.5-5.0) g/dL 10/17/24 10/18/24 10/18/24 Range/Units 22:36 05:15 05:23 WBC (3.8-10.6) k/uL RBC (3.80-5.40) m/uL Hgb (11.4-16.0) gm/dL Hct (34.0-46.0) % MCV (80.0-100.0) fL RDW (11.5-15.5) % Plt Count (150-450) k/uL Neutrophils # (Manual) (1.3-7.7) k/uL Lymphocytes # (1.0-4.8) k/uL Lymphocytes # (Manual) (1.0-4.8) k/uL Metamyelocytes # (Man) (0) k/uL Nucleated RBCs (0-0) /100 WBC Macrocytosis PT (10.0-12.5) sec APTT (22.0-30.0) sec ABG pH 7.30 L (7.35-7.45) ABG pO2 209 H (83-108) mmHg ABG HCO3 19 L (21-25) mmol/L ABG O2 Saturation 99.4 H (94-97) % Hemoglobin 9.1 L (11.4-16.0) gm/dL Sodium 135 L 135 L (137-145) mmol/L Potassium 5.5 H (3.5-5.1) mmol/L Chloride 108 H (98-107) mmol/L Carbon Dioxide 18 L (22-30) mmol/L BUN 34 H 37 H (7-17) mg/dL Creatinine 1.19 H (0.52-1.04) mg/dL Glucose 117 H 127 H (74-99) mg/dL Plasma Lactic Acid Antonio (0.7-2.0) mmol/L Calcium 6.9 L 6.9 L (8.4-10.2) mg/dL Total Bilirubin 1.7 H (0.2-1.3) mg/dL AST (14-36) U/L Total Protein 4.4 L (6.3-8.2) g/dL Albumin 2.4 L (3.5-5.0) g/dL 10/18/24 Range/Units 05:23 WBC (3.8-10.6) k/uL RBC 2.93 L (3.80-5.40) m/uL Hgb 9.7 L (11.4-16.0) gm/dL Hct 31.2 L (34.0-46.0) % MCV 106.7 H (80.0-100.0) fL RDW 18.6 H (11.5-15.5) % Plt Count (150-450) k/uL Neutrophils # (Manual) (1.3-7.7) k/uL Lymphocytes # (1.0-4.8) k/uL Lymphocytes # (Manual) (1.0-4.8) k/uL Metamyelocytes # (Man) (0) k/uL Nucleated RBCs (0-0) /100 WBC Macrocytosis Marked A PT (10.0-12.5) sec APTT (22.0-30.0) sec ABG pH (7.35-7.45) ABG pO2 (83-108) mmHg ABG HCO3 (21-25) mmol/L ABG O2 Saturation (94-97) % Hemoglobin (11.4-16.0) gm/dL Sodium (137-145) mmol/L Potassium (3.5-5.1) mmol/L Chloride (98-107) mmol/L Carbon Dioxide (22-30) mmol/L BUN (7-17) mg/dL Creatinine (0.52-1.04) mg/dL Glucose (74-99) mg/dL Plasma Lactic Acid Antonio (0.7-2.0) mmol/L Calcium (8.4-10.2) mg/dL Total Bilirubin (0.2-1.3) mg/dL AST (14-36) U/L Total Protein (6.3-8.2) g/dL Albumin (3.5-5.0) g/dL CT scan - abdomen: report reviewed CT scan - pelvis: report reviewed Assessment and Plan (1) Small bowel obstruction Current Visit: Yes Status: Acute Code(s): K56.609 - UNSP INTESTNL OBST, UNSP TO PARTIAL VERSUS COMPLETE OBST SNOMED Code(s): 237946311 Plan: Perforated bowel -Status post exploratory laparotomy with sigmoid colectomy and end colostomy -Management of the same per surgery Non-squamous, non-small cell lung adenocarcinoma -Patient completed 4 cycles of chemotherapy/IO just about 2 weeks ago. -Patient had tolerated treatment overall very well, she had no significant cytopenias, she did not require transfusions, she did not require growth factors. Was feeling good her recent appointment -Treatment follow-up PET scan done 10/05 showed improvement in patient's disease. Plan was to continue on immunotherapy alone. -The perforated bowel is not suspected to be r/t chemo or IO. -treatment will be delayed until patient has recovered from her acute condition. She will be reassessed by Medical Oncologist before she proceeds to immunotherapy alone. Doctor attests: I performed a history and physical examination of this patient, developed impression and plan of care. Discussed with dictator. I agree with dictators note, documented as a scribe.
[2024-10-18 18:07] LABS: Glucose,Whole Blood 118 mg/dL (70-110)
[2024-10-18] MEDS ORDERED: levETIRAcetam 500 MG TAB PO SCH (21:00)
--- NOTE | 2024-10-18 22:29 | P.CONS ---
History of Present Illness - Reason for Consult Consult date: 10/18/24 Perforated sigmoid colon/peritonitis Requesting physician: Lalo Rojas - Chief Complaint Abdominal pain x few days - History of Present Illness Patient is a 74-year-old female with a past medical history significant for metastatic lung cancer hypothyroidism has been brought into the hospital for evaluation of generalized abdominal pain that apparently has been getting worse for the last few days patient did have multiple episodes of vomiting and decreased stool output with the symptoms the patient has been evaluated on presentation to the hospital patient was afebrile no fever have been recorded subsequently patient was tachycardic did have a leukopenia CT abdominal pelvis within the upper abdomen small amount of free fluid patient was evaluated by general surgery taken to the OR last night and this patient with evidence of ruptured sigmoid colon possible stercoral ulcer is patient was status post sigmoid colectomy and end colostomy creation patient has been admitted to ICU on the ventilator started empirically on Zosyn infectious he was consulted for further management of antibiotic therapy most information has been obtained from the chart talking to nursing staff the patient is currently intubated on the vent and he cannot provide any history Review of Systems Positive point and negatives has been mentioned in the HPI, complete review of systems was performed and all other systems are negative Past Medical History Past Medical History: Cancer, Thyroid Disorder Additional Past Medical History / Comment(s): hypothyroidism. lung CA with mets to brain History of Any Multi-Drug Resistant Organisms: None Reported Past Surgical History: Tonsillectomy Additional Past Surgical History / Comment(s): Trigeminal nerve decompression 2003 Past Psychological History: Depression Smoking Status: Current some day smoker Past Alcohol Use History: None Reported Past Drug Use History: None Reported Medications and Allergies Home Medications Medication Instructions Recorded Confirmed Type Folic Acid 1 mg PO DAILY 10/18/24 10/18/24 History levETIRAcetam [Keppra] 500 mg PO Q12HR 10/18/24 10/18/24 History predniSONE 5 mg PO DAILY 10/18/24 10/18/24 History Allergies Allergy/AdvReac Type Severity Reaction Status Date / Time iodine Allergy Anaphylaxis Verified 10/18/24 10:37 Physical Exam Vitals: Vital Signs Temp Pulse Resp BP Pulse Ox FiO2 10/18/24 07:30 105 H 22 107/61 100 10/18/24 07:00 104 H 20 95/62 100 10/18/24 06:30 103 H 20 86/61 100 10/18/24 06:00 105 H 20 143/89 100 10/18/24 05:30 107 H 20 124/71 100 40 10/18/24 05:00 105 H 20 90/65 100 10/18/24 04:30 110 H 20 111/75 100 10/18/24 04:03 50 10/18/24 04:00 98.9 F 112 H 22 108/72 100 50 10/18/24 03:30 110 H 21 137/83 100 10/18/24 03:00 112 H 20 106/70 100 10/18/24 02:30 111 H 20 117/78 100 10/18/24 02:00 111 H 20 104/77 100 10/18/24 01:30 105 H 20 105/72 100 10/18/24 01:00 112 H 20 96/70 99 10/18/24 00:30 109 H 20 96/66 100 10/18/24 00:13 50 10/18/24 00:12 50 10/18/24 00:00 97.7 F 106 H 16 131/76 99 50 10/17/24 23:30 107 H 16 99/77 100 10/17/24 23:00 105 H 16 98/67 100 10/17/24 22:30 105 H 16 120/85 100 10/17/24 22:17 100 10/17/24 22:08 100 10/17/24 22:01 97.6 F 105 H 20 100 100 10/17/24 19:34 96 18 128/80 99 10/17/24 18:24 97.9 F 91 15 120/82 96 10/17/24 14:43 97.9 F 89 18 116/74 95 Intake and Output 10/17/24 10/18/24 10/18/24 22:59 06:59 14:59 Intake Total 1999 2607.035 75 Output Total 993 1100 20 Balance 1006 1507.035 55 Intake: IV 1999 Intake, IV Titration 2607.035 75 Amount Calcium Gluconate in NaCl 100 1 gm In Saline 1 100ml. bag @ 100 mls/hr IVPB ONCE [facility] Rx#:[id number] Piperacillin-Tazobactam 3 100 .375 gm In Sodium Chloride 0.9% 100 ml @ 25 mls/hr IVPB Q8H [facility] Rx#: [id number] Potassium Chloride 20 meq 200 In Water For Injection 1 100ml.bag @ 50 mls/hr IVPB Q2H [facility] Rx#: [id number] Sodium Chloride 0.9% 1, 675 75 000 ml @ 75 mls/hr IV . [id number] [facility] Rx#:[id number] Sodium Chloride 0.9% 1, 1000 000 ml @ 999 mls/hr IV . Q1H1M [facility] Rx#:[id number] Sodium Chloride 0.9% 500 500 ml 500 ml @ 999 mls/hr IV .Q31M [facility] Rx#:[id number] propofoL 1,000 mg In 32.035 Empty Bag 1 bag @ 15 MCG/ KG/MIN 5.103 mls/hr IV . [id number] [facility] Rx#:[id number] Output: Gastric Drainage 600 Drainage 370 Medial Abdomen 370 Urine 950 130 20 Estimated Blood Loss 43 Other: Voiding Method Indwelling Catheter Weight 65 kg GENERAL DESCRIPTION: Elderly female intubated on the vent HEENT: Shows Pallor , no scleral icterus. Oral mucous membrane is dry. NECK: Trachea central, no thyromegaly. LUNGS: Unlabored breathing. Decreased breath sounds at the base HEART: S1, S2, regular rate and rhythm. No loud murmur ABDOMEN: Soft, no tenderness , guarding or rigidity, no organomegaly EXTREMITIES: No edema of feet. SKIN: No rash, no masses palpable. NEUROLOGICAL: The patient is sedated on the vent Results CBC & Chem 7: 10/18/24 05:23 10/18/24 05:23 Labs: Abnormal Lab Results - Last 24 Hours (Table) 10/17/24 10/17/24 10/17/24 Range/Units 16:15 16:15 16:15 WBC (3.8-10.6) k/uL RBC 2.91 L (3.80-5.40) m/uL Hgb 9.8 L (11.4-16.0) gm/dL Hct 29.5 L (34.0-46.0) % MCV 101.4 H (80.0-100.0) fL RDW 18.9 H (11.5-15.5) % Plt Count 110 L (150-450) k/uL Neutrophils # (Manual) (1.3-7.7) k/uL Lymphocytes # 0.6 L (1.0-4.8) k/uL Lymphocytes # (Manual) (1.0-4.8) k/uL Metamyelocytes # (Man) (0) k/uL Nucleated RBCs (0-0) /100 WBC Macrocytosis PT (10.0-12.5) sec APTT (22.0-30.0) sec ABG pH (7.35-7.45) ABG pO2 (83-108) mmHg ABG HCO3 (21-25) mmol/L ABG O2 Saturation (94-97) % Hemoglobin (11.4-16.0) gm/dL Sodium 132 L (137-145) mmol/L Potassium 3.3 L (3.5-5.1) mmol/L Chloride (98-107) mmol/L Carbon Dioxide (22-30) mmol/L BUN 36 H (7-17) mg/dL Creatinine (0.52-1.04) mg/dL Glucose 118 H (74-99) mg/dL Plasma Lactic Acid Antonio 2.6 H* (0.7-2.0) mmol/L Calcium 7.9 L (8.4-10.2) mg/dL Total Bilirubin (0.2-1.3) mg/dL AST 37 H (14-36) U/L Total Protein 5.7 L (6.3-8.2) g/dL Albumin 3.2 L (3.5-5.0) g/dL 10/17/24 10/17/24 10/17/24 Range/Units 18:14 22:21 22:36 WBC 2.0 L (3.8-10.6) k/uL RBC 3.24 L (3.80-5.40) m/uL Hgb 10.8 L (11.4-16.0) gm/dL Hct 33.6 L (34.0-46.0) % MCV 103.7 H (80.0-100.0) fL RDW 19.3 H (11.5-15.5) % Plt Count 107 L (150-450) k/uL Neutrophils # (Manual) 1.20 L (1.3-7.7) k/uL Lymphocytes # (1.0-4.8) k/uL Lymphocytes # (Manual) 0.64 L (1.0-4.8) k/uL Metamyelocytes # (Man) 0.04 H (0) k/uL Nucleated RBCs 1 H (0-0) /100 WBC Macrocytosis Marked A PT 9.4 L (10.0-12.5) sec APTT 21.3 L (22.0-30.0) sec ABG pH 7.28 L (7.35-7.45) ABG pO2 363 H (83-108) mmHg ABG HCO3 (21-25) mmol/L ABG O2 Saturation 99.8 H (94-97) % Hemoglobin 10.3 L (11.4-16.0) gm/dL Sodium (137-145) mmol/L Potassium (3.5-5.1) mmol/L Chloride (98-107) mmol/L Carbon Dioxide (22-30) mmol/L BUN (7-17) mg/dL Creatinine (0.52-1.04) mg/dL Glucose (74-99) mg/dL Plasma Lactic Acid Antonio (0.7-2.0) mmol/L Calcium (8.4-10.2) mg/dL Total Bilirubin (0.2-1.3) mg/dL AST (14-36) U/L Total Protein (6.3-8.2) g/dL Albumin (3.5-5.0) g/dL 10/17/24 10/18/24 10/18/24 Range/Units 22:36 05:15 05:23 WBC (3.8-10.6) k/uL RBC (3.80-5.40) m/uL Hgb (11.4-16.0) gm/dL Hct (34.0-46.0) % MCV (80.0-100.0) fL RDW (11.5-15.5) % Plt Count (150-450) k/uL Neutrophils # (Manual) (1.3-7.7) k/uL Lymphocytes # (1.0-4.8) k/uL Lymphocytes # (Manual) (1.0-4.8) k/uL Metamyelocytes # (Man) (0) k/uL Nucleated RBCs (0-0) /100 WBC Macrocytosis PT (10.0-12.5) sec APTT (22.0-30.0) sec ABG pH 7.30 L (7.35-7.45) ABG pO2 209 H (83-108) mmHg ABG HCO3 19 L (21-25) mmol/L ABG O2 Saturation 99.4 H (94-97) % Hemoglobin 9.1 L (11.4-16.0) gm/dL Sodium 135 L 135 L (137-145) mmol/L Potassium 5.5 H (3.5-5.1) mmol/L Chloride 108 H (98-107) mmol/L Carbon Dioxide 18 L (22-30) mmol/L BUN 34 H 37 H (7-17) mg/dL Creatinine 1.19 H (0.52-1.04) mg/dL Glucose 117 H 127 H (74-99) mg/dL Plasma Lactic Acid Antonio (0.7-2.0) mmol/L Calcium 6.9 L 6.9 L (8.4-10.2) mg/dL Total Bilirubin 1.7 H (0.2-1.3) mg/dL AST (14-36) U/L Total Protein 4.4 L (6.3-8.2) g/dL Albumin 2.4 L (3.5-5.0) g/dL Assessment and Plan (1) Perforated sigmoid colon Current Visit: Yes Status: Acute Code(s): K63.1 - PERFORATION OF INTESTINE (NONTRAUMATIC) SNOMED Code(s): 995028606 (2) Leukopenia Current Visit: Yes Status: Acute Code(s): D72.819 - DECREASED WHITE BLOOD CELL COUNT, UNSPECIFIED SNOMED Code(s): 35718827 (3) Peritonitis Current Visit: Yes Status: Acute Code(s): K65.9 - PERITONITIS, UNSPECIFIED SNOMED Code(s): 53273297 Plan: 1patient presented to hospital with abdominal pain generalized nausea vomiting with evidence of free air on the CT in this patient with status post laparotomy with evidence of sigmoid colon perforation status post sigmoid colectomy and end colostomy we will need to cover for the enteric gram-negative both aerobes and anaerobes 2-patient did have abdominal blood culture done and results will be followed 3-leukopenia could be related to chemo versus sepsis 4-patient be treated with Zosyn while waiting for the culture to finalize We will follow on clinical condition and cultures to further adjust medication if needed Thank you for this consultation we will follow the patient along with you Dictation was produced using [employer] dictation software. please excuse any grammatical, word or spelling errors. Time with Patient: Greater than 30
[2024-10-19 00:32] LABS: Glucose,Whole Blood 104 mg/dL (70-110)
--- NOTE | 2024-10-19 06:38 | XR ---
EXAMINATION TYPE: XR chest 1V portable DATE OF EXAM: 10/19/2024 CLINICAL HISTORY: Difficulty breathing progress study. TECHNIQUE: Single AP portable semiupright view of the chest is obtained. COMPARISON: Chest x-ray from one day earlier FINDINGS: Interval extubation with removal of endotracheal tube. Stable orogastric tube. Stable righ t internal jugular central venous catheter. Persistent medial right upper lung opacity corresponding to known neoplasm. Underlying emphysematous change is redemonstrated. No new focal airspace opacity, pleural effusion, or pneumothorax seen. Card iac silhouette size is stable and within normal limits with atherosclerotic thoracic aorta redemonstr ated. Osseous structures are intact. IMPRESSION: Interval extubation. Chronic changes without new acute pulmonary process. [facility], , 10/19/2024 6:36 AM
[2024-10-19 07:13] LABS: ALT 12 U/L (4-34); AST 23 U/L (14-36); African American GFR (CKD) 34 (>60 ml/min/1.73 sqM); Albumin 2.2 g/dL (3.5-5.0); Alkaline Phosphatase 60 U/L (38-126); Anion Gap 10 mmol/L; Blood Urea Nitrogen 42 mg/dL (7-17); Calcium 6.9 mg/dL (8.4-10.2); Carbon Dioxide 18 mmol/L (22-30); Chloride 109 mmol/L (98-107); Glucose 86 mg/dL (74-99); Magnesium 2.3 mg/dL (1.6-2.3); Non-African American GFR(CKD) 29 (>60 ml/min/1.73 sqM); Sodium 137 mmol/L (137-145); Total Bilirubin 0.8 mg/dL (0.2-1.3); Total Protein 4.1 g/dL (6.3-8.2)
[2024-10-19 07:31] LABS: Anisocytosis Slight; Basophils % (A) 0 %; Eosinophils % (A) 0 %; HCT 20.2 % (34.0-46.0); Hypochromasia Slight; Lymphocytes # (A) 0.5 k/uL (1.0-4.8); Lymphocytes % (A) 8 %; MCH 34.1 pg (25.0-35.0); MCHC 32.2 g/dL (31.0-37.0); MCV 105.7 fL (80.0-100.0); Macrocytosis Marked; Monocytes # (A) 0.3 k/uL (0-1.0); Monocytes % (A) 4 %; Neutrophils # (A) 5.5 k/uL (1.3-7.7); Neutrophils % (A) 85 %; Platelet Count 114 k/uL (150-450); RBC 1.91 m/uL (3.80-5.40); RDW 19.7 % (11.5-15.5); WBC 6.5 k/uL (3.8-10.6)
[2024-10-19 07:32] LABS: HGB 6.5 gm/dL (11.4-16.0)
--- NOTE | 2024-10-19 10:26 | P.PN ---
Subjective Progress Note Date: 10/19/24 SURGICAL PROGRESS NOTE CHIEF COMPLAINT: Pneumoperitoneum HISTORY OF PRESENT ILLNESS: Patient is postop day #2 status post exploratory laparotomy, sigmoid colectomy with end colostomy for ruptured sigmoid colon, possible stercoral ulcer. Patient was extubated yesterday. No stool output from her ostomy. Denies any nausea or vomiting. She is thirsty. Her urine output is improving. CORAZON drain with 200 mL serosanguineous output. Afebrile. Mildly hypotensive. WBC is 6.5 Hgb did drop from 9.7-6.5 platelets 114 PHYSICAL EXAM: VITAL SIGNS: Reviewed. GENERAL: Well-developed in no acute distress. ABDOMEN: Soft. Mildly distended. Incisional dressing clean dry and intact. Ostomy on the left stoma is pink with serosanguineous output. CORAZON drain with serosanguineous output NEUROLOGIC: Alert and oriented. Cranial nerves II through XII grossly intact. ASSESSMENT: 1. Pneumoperitoneum with ruptured sigmoid colon, possible stercoral ulcer 2. History of lung cancer with brain mets and last chemotherapy about 2 weeks ago 3. Pancytopenia PLAN: -Add IV Tylenol for pain management -Transfuse 1 unit of blood for hemoglobin of 6.5 -Continue to monitor CORAZON drain output -Continue ICU management and supportive care -Continue antibiotics -Keep patient n.p.o. -Continue IV fluids -GI prophylaxis Protonix and DVT prophylaxis SCDs Physician Site Safety Coordinator note has been reviewed by physician. Signing provider agrees with the documented findings, assessment, and plan of care. Attestation Patient seen and examined at bedside. Postoperative #2 exploratory laparotomy with sigmoid colectomy and end colostomy creation. CORAZON drain with about 200 cc of serosanguineous output. No significant ostomy output as of yet. Patient's hemoglobin 6.5 and transfusion of 1 unit packed red blood cell. Keep patient NPO. Continue nasogastric tube. Continue IV fluids. Continue ICU management. Lalo Rojas DO Objective - Vital Signs Vital signs: Vital Signs Temp 98.2 F 10/19/24 10:14 Pulse 80 10/19/24 10:14 Resp 18 10/19/24 10:14 BP 101/59 10/19/24 10:14 Pulse Ox 100 10/19/24 10:14 FiO2 40 10/18/24 11:01 Intake & Output 10/18/24 10/19/24 10/19/24 18:59 06:59 18:59 Intake Total 1042.473 825 410 Output Total 475 865 345 Balance 567.473 -40 65 Weight 65 kg 64.5 kg Intake: IV 900 825 410 Lactated Ringers 1,000 ml 450 825 335 @ 130 mls/hr IV .[id number] [facility] Rx#:[id number] Sodium Chloride 0.9% 1, 450 75 000 ml @ 75 mls/hr IV . [id number] [facility] Rx#:[id number] Intake, IV Titration 142.473 Amount Sodium Chloride 0.9% 1, 75 000 ml @ 75 mls/hr IV . [id number] [facility] Rx#:[id number] propofoL 1,000 mg In 67.473 Empty Bag 1 bag @ 15 MCG/ KG/MIN 5.103 mls/hr IV . [id number] [facility] Rx#:[id number] Blood Product 0 Rc Pheresis As-3 Unit 0 [id number] Output: Gastric Drainage 50 Drainage 100 200 80 Medial Abdomen 100 200 80 Urine 375 665 215 Other: Voiding Method Indwelling Catheter Indwelling Catheter Indwelling Catheter - Labs CBC & Chem 7: 10/19/24 13:49 10/19/24 05:31 Labs: Abnormal Lab Results - Last 24 Hours (Table) 10/18/24 10/19/24 10/19/24 Range/Units 18:05 05:31 05:31 RBC 1.91 L (3.80-5.40) m/uL Hgb 6.5 L* D (11.4-16.0) gm/dL Hct 20.2 L (34.0-46.0) % MCV 105.7 H (80.0-100.0) fL RDW 19.7 H (11.5-15.5) % Plt Count 114 L (150-450) k/uL Lymphocytes # 0.5 L (1.0-4.8) k/uL Macrocytosis Marked A Chloride 109 H (98-107) mmol/L Carbon Dioxide 18 L (22-30) mmol/L BUN 42 H (7-17) mg/dL Creatinine 1.71 H (0.52-1.04) mg/dL POC Glucose (mg/dL) 118 H (70-110) mg/dL Calcium 6.9 L (8.4-10.2) mg/dL Total Protein 4.1 L (6.3-8.2) g/dL Albumin 2.2 L (3.5-5.0) g/dL Crossmatch 10/19/24 Range/Units 08:00 RBC (3.80-5.40) m/uL Hgb (11.4-16.0) gm/dL Hct (34.0-46.0) % MCV (80.0-100.0) fL RDW (11.5-15.5) % Plt Count (150-450) k/uL Lymphocytes # (1.0-4.8) k/uL Macrocytosis Chloride (98-107) mmol/L Carbon Dioxide (22-30) mmol/L BUN (7-17) mg/dL Creatinine (0.52-1.04) mg/dL POC Glucose (mg/dL) (70-110) mg/dL Calcium (8.4-10.2) mg/dL Total Protein (6.3-8.2) g/dL Albumin (3.5-5.0) g/dL Crossmatch See Detail Microbiology - Last 24 Hours (Table) 10/17/24 21:47 Gram Stain - Preliminary Abdomen 10/17/24 21:47 Gram Stain - Preliminary Abdomen
--- NOTE | 2024-10-19 10:43 | P.NPCON ---
History of Present Illness - Reason for Consult acute renal failure - History of Present Illness Reason for consultation: Acute kidney injury History of present illness: Patient is a 74-year-old female seen in renal consultation for acute kidney injury. Creatinine was 0.18 on admission and is up to 1.71 today. Patient came to the hospital in October 17, 2024 with generalized weakness along with vomit ing. Patient was noted to have pneumoperitoneum and underwent exploratory laparotomy with sigmoid colectomy with end colostomy creation on October 17, 2024. She currently has an NG tube in place. Also has a colostomy and CORAZON drain. She is receiving IV fluids. The rate was increased to 130 cc/h this morning. She is not on any vasopressors. Nonoliguric. Hemoglobin 6.5 this morning and she is scheduled receive a unit of blood. Resting in bed. She is awake and alert. Denies regular use of nonsteroidals. Denies history of diabetes or coronary artery disease. Denies personal or family history of kidney disease. Vital signs are stable. General: No acute distress. HEENT: Head exam is unremarkable. LUNGS: No audible rhonchi or wheezes. HEART: Rate and Rhythm are regular. ABDOMEN: Colostomy and CORAZON drain noted. EXTREMITITES: No edema. Past Medical History Past Medical History: Cancer, Thyroid Disorder Additional Past Medical History / Comment(s): hypothyroidism. lung CA with mets to brain History of Any Multi-Drug Resistant Organisms: None Reported Past Surgical History: Tonsillectomy Additional Past Surgical History / Comment(s): Trigeminal nerve decompression 2003 Past Anesthesia/Blood Transfusion Reactions: No Reported Reaction Past Psychological History: Depression Smoking Status: Current some day smoker Past Alcohol Use History: None Reported Past Drug Use History: None Reported Medications and Allergies Home Medications Medication Instructions Recorded Confirmed Type Folic Acid 1 mg PO DAILY 10/18/24 10/18/24 History levETIRAcetam [Keppra] 500 mg PO Q12HR 10/18/24 10/18/24 History predniSONE 5 mg PO DAILY 10/18/24 10/18/24 History Allergies Allergy/AdvReac Type Severity Reaction Status Date / Time iodine Allergy Anaphylaxis Verified 10/18/24 10:37 Physical Exam Vitals: Vital Signs Temp Pulse Resp BP Pulse Ox FiO2 10/19/24 10:14 98.2 F 80 18 101/59 100 10/19/24 10:04 97.7 F 86 14 107/52 100 10/19/24 10:00 87 17 98/54 99 10/19/24 09:30 78 14 93/52 99 10/19/24 09:00 81 13 99/45 98 10/19/24 08:30 77 15 104/57 98 10/19/24 08:00 97.6 F 83 20 97/51 100 10/19/24 07:30 81 14 104/58 98 10/19/24 07:00 81 14 89/45 98 10/19/24 06:30 85 15 99/50 98 10/19/24 06:00 84 20 97/53 99 10/19/24 05:30 84 17 89/48 100 10/19/24 05:00 87 15 98/51 98 10/19/24 04:30 85 22 93/49 99 10/19/24 04:00 98.1 F 84 13 93/49 98 10/19/24 03:30 86 16 95/68 99 10/19/24 03:00 90 13 87/48 97 10/19/24 02:30 87 16 86/47 98 10/19/24 02:00 89 15 85/47 98 10/19/24 01:30 91 13 88/51 96 10/19/24 01:00 90 13 111/55 95 10/19/24 00:30 94 17 97/40 99 10/19/24 00:02 96 17 97/40 100 10/19/24 00:00 98.2 F 98 17 95/51 99 10/18/24 23:30 91 14 86/46 100 10/18/24 23:00 92 14 109/43 99 10/18/24 22:30 93 13 92/50 100 10/18/24 22:00 92 11 L 98/55 100 10/18/24 21:30 92 13 97/54 100 10/18/24 21:00 93 12 98/86 99 10/18/24 20:30 93 12 97/68 100 10/18/24 20:00 98.0 F 93 17 103/56 99 10/18/24 19:30 94 18 97/52 100 10/18/24 19:00 93 14 93/55 99 10/18/24 18:30 96 20 73/57 100 10/18/24 18:00 96 12 102/54 100 10/18/24 17:30 98 18 92/51 100 10/18/24 17:00 98 13 101/62 100 10/18/24 16:30 98 16 87/50 99 10/18/24 16:00 98.2 F 97 11 L 97/57 98 10/18/24 15:30 98 21 86/53 96 10/18/24 15:00 100 13 108/62 94 L 10/18/24 14:30 103 H 16 104/59 96 10/18/24 14:00 103 H 19 105/58 99 10/18/24 13:30 102 H 25 H 134/104 98 10/18/24 13:00 100 20 93/58 100 10/18/24 12:30 106 H 13 90/56 99 10/18/24 12:00 98.0 F 104 H 11 L 106/66 99 10/18/24 11:30 108 H 19 86/66 100 10/18/24 11:01 40 10/18/24 11:00 110 H 22 80/64 100 Intake and Output 10/18/24 10/19/24 10/19/24 22:59 06:59 14:59 Intake Total 600 600 410 Output Total 505 560 345 Balance 95 40 65 Intake: IV 600 600 410 Lactated Ringers 1,000 ml 600 600 335 @ 130 mls/hr IV .[id number] [facility] Rx#:[id number] Sodium Chloride 0.9% 1, 75 000 ml @ 75 mls/hr IV . [id number] [facility] Rx#:[id number] Blood Product 0 Rc Pheresis As-3 Unit 0 [id number] Output: Gastric Drainage 50 Drainage 100 100 80 Medial Abdomen 100 100 80 Urine 405 460 215 Other: Voiding Method Indwelling Catheter Indwelling Catheter Indwelling Catheter Weight 64.5 kg Results - Lab Results Most recent lab results ABG pH 7.30 (7.35-7.45) L 10/18/24 05:15 ABG pCO2 38 mmHg (35-45) 10/18/24 05:15 ABG pO2 209 mmHg (83-108) H 10/18/24 05:15 ABG HCO3 19 mmol/L (21-25) L 10/18/24 05:15 ABG O2 Saturation 99.4 % (94-97) H 10/18/24 05:15 Calcium 6.9 mg/dL (8.4-10.2) L 10/19/24 05:31 Magnesium 2.3 mg/dL (1.6-2.3) 10/19/24 05:31 10/19/24 05:31 10/19/24 05:31 Assessment and Plan Plan: Assessment: 1. Acute kidney injury secondary to ATN secondary to severe sepsis. Baseline creatinine near 1 and is up to 1.7 today. Nonoliguric. No hydronephrosis noted on CT. 2. Metabolic acidosis secondary to acute kidney injury and IV fluids. 3. Sepsis secondary to pneumoperitoneum and antibiotics. 4. Pneumoperitoneum status post exploratory laparotomy with sigmoid colectomy, end colostomy creation. 5. Acute blood loss anemia scheduled to receive a unit of blood today. Plan: Maintain IV fluids. 2 A of sodium bicarb IV push today Blood transfusion today. Avoid nephrotoxins. Continue to monitor renal function and urine output. Thank you for the consultation. I will continue to follow the patient with you during her hospital stay.
[2024-10-19] MEDS: SODIUM BICARB 8.4% 50 ML SYR (1 MEQ/ML) IV STA (11:01)
--- NOTE | 2024-10-19 11:30 | P.PN ---
Subjective Progress Note Date: 10/19/24 Principal diagnosis: Abdominal pain. Patient is a 74-year-old female with past medical history significant for hypothyroidism and lung cancer.. Patient is known to have a right upper lobe lung mass, she was seen at our facility May,, and transfered to [facility]. Reportedly, currently undergoing systemic chemotherapy. Patient is intubated and unable to provide information. No family present. Most recent PET scan done 10/05/2024 demonstrating a mixed response to therapy with decrease size and FDG activity of the right upper lobe pulmonary mass and mediastinal/right hilar adenopathy; however, there is a more prominent appearing opacity within the right lower lobe abutting the fissure with increasing FDG activity. Possibly representing an infectious/inflammatory opacity, however, new metastasis was not excluded. Brain CT done back in May, showing a large area of vasogenic edema extending through the right proximal temporal lo be, right parietal lobe, and occipital lobe with effacement of the sulci and subfalcine herniation with 0.8 cm of midline shift to the left. Follow-up brain MRI done 09/18/2024 showing postsurgical changes with a small cystic cavity in the area of prior surgery. No new lesions were noted. Patient presents to the emergency department yesterday afternoon with a chief complaint of abdominal pain. Reportedly, persistent abdominal pain over the last 5 days with increasing intensity. Workup in the emergency department including a abdominal/pelvis CT which demonstrated small to moderate amount of free air scattered within the upper abdomen and within the mid pelvis. Small amount of free fluid within the pelvis. Dilated small bowel loops to at least the proximal ileum. Partial small bowel obstruction should be considered. Late last night, patient taken to the operating room for exploratory laparotomy, a ruptured sigmoid colon and possible stercoral ulcer was found. Patient underwent sigmoid colectomy with end colostomy. Following the procedure, she was transferred to the intensive care unit for recovery. Patient currently being evaluated in the ICU. She remains intubated to the mechanical ventilator, current ventilator settings assist-control, respiratory rate 16, tidal volume 400, FiO2 50%, PEEP of 5. ABG done on these settings and an FiO2 100%; show a PaO2 of 363, pCO2 of 45, pH of 7.28. Chest x-ray showing endotracheal tube 3 cm above the adriana, nasogastric tube coursing below the diaphragm, right mediastinal mass, right IJ central line catheter with tip near the cavoatrial junction. Patient is currently sedated and synchronous with mechanical ventilator. Nonresponsive. On propofol 15 mcg/kg/min. LR is infusing at 75 mL/h. Blood pressure soft at 96/66 mmHg. Mildly tachycardic. Urine output only 60 cc since OR exit. Postoperative labs including a CBC with a WBC count of 2, hemoglobin 10.8, hematocrit 33.6, platelets 107. CMP: Sodium 135, potassium 3.5, chloride 102, serum bicarb 23, BUN 34, creatinine 1.01, glucose 117. Lactic 1.7. Calcium 6.9. Patient is empirically covered on antibiotics in the form of Zosyn. Midline abdominal incision with postoperative dressing intact. Mild shadowing. CORAZON drain with serosanguineous fluid and needs to be emptied. Left upper quadrant stoma is pink. Progress note dated October 19, 2024. 74-year-old female seen today in room 251. She is postoperative day #2, status post exploratory laparotomy, sigmoid colectomy, with end colostomy. Currently, the patient was on 2 L of oxygen. She has an NG tube in place. She is getting lactated Ringer's at 130 cc an hour. She was extubated successfully yesterday, October 18. She continues on Zosyn. We did order an incentive spirometer for her. Current labs include a white count of 6.5, hemoglobin 6.5, hematocrit 20.2, and a platelet count of 114,000. Sodium 137, potassium 4, chlorides 109, CO2 18, BUN 42, and creatinine 1.71. Calcium is 6.9. Albumin 2.2. Cultures are thus far negative. Chest x-ray shows chronic changes, without an acute process. Objective - Vital Signs Vital signs: Vital Signs Temp 97.9 F 10/19/24 10:34 Pulse 80 10/19/24 11:00 Resp 18 10/19/24 11:00 BP 108/59 10/19/24 11:00 Pulse Ox 100 10/19/24 11:00 FiO2 40 10/18/24 11:01 Intake & Output 10/18/24 10/19/24 10/19/24 18:59 06:59 18:59 Intake Total 1042.473 825 410 Output Total 475 865 345 Balance 567.473 -40 65 Weight 65 kg 64.5 kg Intake: IV 900 825 410 Lactated Ringers 1,000 ml 450 825 335 @ 130 mls/hr IV .Q7H42M [facility] Rx#:[id number] Sodium Chloride 0.9% 1, 450 75 000 ml @ 75 mls/hr IV . [id number] [facility] Rx#:[id number] Intake, IV Titration 142.473 Amount Sodium Chloride 0.9% 1, 75 000 ml @ 75 mls/hr IV . [id number] [facility] Rx#:[id number] propofoL 1,000 mg In 67.473 Empty Bag 1 bag @ 15 MCG/ KG/MIN 5.103 mls/hr IV . [id number] [facility] Rx#:[id number] Blood Product 0 Rc Pheresis As-3 Unit 0 [id number] Output: Gastric Drainage 50 Drainage 100 200 80 Medial Abdomen 100 200 80 Urine 375 665 215 Other: Voiding Method Indwelling Catheter Indwelling Catheter Indwelling Catheter - Exam No acute distress, oriented 3. No respiratory distress. Nasal O2 noted. NG tube in place. HEENT examination is grossly unremarkable. Mucous membranes are moist. No oral lesions. Neck supple. Full range of motion. No adenopathy thyromegaly or neck vein distention. Cardiovascular examination reveals regular rhythm rate. S1-S2 normal. No S3 or S4. No discernible murmur noted. Lungs reveal minimal scattered rhonchi. No wheezes. No crackles. Breath sounds equal bilaterally. Abdomen soft without bowel sounds. Left upper quadrant stoma is noted. Extremities are intact. No cyanosis clubbing or edema. Skin is without rash or lesion. Neurologic examination is brief but nonfocal. - Labs CBC & Chem 7: 10/19/24 05:31 10/19/24 05:31 Labs: Abnormal Lab Results - Last 24 Hours (Table) 10/18/24 10/19/24 10/19/24 Range/Units 18:05 05:31 05:31 RBC 1.91 L (3.80-5.40) m/uL Hgb 6.5 L* D (11.4-16.0) gm/dL Hct 20.2 L (34.0-46.0) % MCV 105.7 H (80.0-100.0) fL RDW 19.7 H (11.5-15.5) % Plt Count 114 L (150-450) k/uL Lymphocytes # 0.5 L (1.0-4.8) k/uL Macrocytosis Marked A Chloride 109 H (98-107) mmol/L Carbon Dioxide 18 L (22-30) mmol/L BUN 42 H (7-17) mg/dL Creatinine 1.71 H (0.52-1.04) mg/dL POC Glucose (mg/dL) 118 H (70-110) mg/dL Calcium 6.9 L (8.4-10.2) mg/dL Total Protein 4.1 L (6.3-8.2) g/dL Albumin 2.2 L (3.5-5.0) g/dL Crossmatch 10/19/24 Range/Units 08:00 RBC (3.80-5.40) m/uL Hgb (11.4-16.0) gm/dL Hct (34.0-46.0) % MCV (80.0-100.0) fL RDW (11.5-15.5) % Plt Count (150-450) k/uL Lymphocytes # (1.0-4.8) k/uL Macrocytosis Chloride (98-107) mmol/L Carbon Dioxide (22-30) mmol/L BUN (7-17) mg/dL Creatinine (0.52-1.04) mg/dL POC Glucose (mg/dL) (70-110) mg/dL Calcium (8.4-10.2) mg/dL Total Protein (6.3-8.2) g/dL Albumin (3.5-5.0) g/dL Crossmatch See Detail Microbiology - Last 24 Hours (Table) 10/17/24 21:47 Gram Stain - Preliminary Abdomen 10/17/24 21:47 Gram Stain - Preliminary Abdomen Assessment and Plan Assessment: Pneumoperitoneum. Ruptured sigmoid colon with possible stercoral ulcer, status post exploratory laparotomy with sigmoid colectomy and end colostomy, operative day #2. Routine postoperative ventilator management, S/P extubation on October 18, 2024. Pancytopenia. Hypocalcemia. History of lung cancer with metastasis to brain. History of hypothyroidism. Tobacco smoker. Plan: Plan dated October 19, 2024. The patient is seen today in room 255. She is currently doing relatively well. Today's postoperative day #2. She had an exploratory laparotomy, sigmoid colectomy, and end colostomy. She was extubated successfully yesterday. She is getting lactated Ringer's at 130 cc an hour. She continues on Zosyn. She has got an NG tube in place. All labs, x-rays, and medications are reviewed. We do recommend that she start using an incentive spirometer, every hour while awake. Clinically, the patient appears to be doing relatively well. She denies any shortness of breath, cough, wheezing, chest tightness, or phlegm production. 50 minutes was spent with this patient, which included taking history, examining the patient, reviewing pertinent laboratory data, x-rays, medications, as well as discussing the diagnosis, treatment, prognosis, with the patient, nursing staff, pharmacy, respiratory therapy, and dietary. Dictation was produced using [employer]im[employer] dictation software. Please excuse any grammatical, word or spelling errors. Time with Patient: Greater than 30
[2024-10-19 12:03] LABS: Glucose,Whole Blood 92 mg/dL (70-110)
[2024-10-19] MEDS: ACETAMINOPHEN IV (For NPO) 1,000 MG in EMPTY BAG 1 BAG IVPB SCH (12:14)
--- NOTE | 2024-10-19 13:07 | P.PN ---
Subjective Progress Note Date: 10/19/24 Subjective: Patient seen and examined at bedside. No acute events overnight. Urine output slightly improved. Extubated. NG output low. Still having output from CORAZON drain, no significant output from ostomy. Pertinent positives and negatives as discussed above, a complete review of systems was performed and all other systems are negative. Vitals Signs Reviewed. General: Nontoxic, no distress, appears at stated age, Cooper catheter in place Derm: Warm, dry Head: Atraumatic, normocephalic, symmetric Eyes: EOMI, no lid lag, anicteric sclera Mouth: No lip lesion, mucus membranes moist Cardiovascular: S1S2 reg, no murmur Lungs: CTA bilateral, no rhonchi, no rales, no accessory muscle use, supplemental oxygen Abdominal: Soft, nontender to palpation, no guarding, no appreciable organo megaly, ostomy and CORAZON drain in place, NG tube in place Ext: No gross muscle atrophy, no edema, no contractures Neuro: CN II-XI grossly intact, no focal neuro deficits Psych: Alert, oriented, appropriate affect Data Reviewed Today: Pertinent Labs: Hemoglobin 6.5, platelet 114, bicarb 18, creatinine 1.71 blood glucose range between 86-1 18, calcium 6.9 Imaging: Chest x-ray independently interpreted, no new opacities Assessment and Plan: Active: Ruptured sigmoid colon secondary to possible stercoral ulcer status post sigmoid colectomy with end colostomy Pneumoperitoneum secondary to above Sepsis secondary to above Bandemia Microcytic anemia, likely acute blood loss Mild thrombocytopenia -Continue IV Zosyn 3.375 g every 8 hours -Surgery note reviewed, maintain NG tube, IV fluids, IV Tylenol, IV Dilaudid PRN For pain control -continue IV Protonix 40 daily -ICU note reviewed, continue current therapy -1 unit PRBCs today -Patient previously on steroids, continue hydrocortisone 50 IV every 6 hours for now Lung cancer with metastatic brain disease on active chemotherapy -Oncology and pulmonology following -Continue Keppra IV 500 every 12 hours Nonoliguric FRANK, likely prerenal Mild non-anion gap metabolic acidosis -Lactated Ringer increased to 130 cc an hour -Nephrology note reviewed, given 2 amp of bicarb -Repeat BMP tomorrow Mild hyperkalemia, resolved Thank you for allowing us to participate in the care of this pleasant patient. Do not hesitate to contact us with questions. Someone can be reached from the [facility] hospitalist group all hours of the day at [phone] or via perfect serve. Objective - Vital Signs Vital signs: Vital Signs Temp 98.0 F 10/19/24 12:07 Pulse 82 10/19/24 12:07 Resp 16 10/19/24 12:07 BP 105/56 10/19/24 12:07 Pulse Ox 100 10/19/24 12:07 FiO2 40 10/18/24 11:01 Intake & Output 10/18/24 10/19/24 10/19/24 18:59 06:59 18:59 Intake Total 1042.473 825 688 Output Total 475 865 345 Balance 567.473 -40 343 Weight 65 kg 64.5 kg Intake: IV 900 825 410 Lactated Ringers 1,000 ml 450 825 335 @ 130 mls/hr IV .[id number] [facility] Rx#:[id number] Sodium Chloride 0.9% 1, 450 75 000 ml @ 75 mls/hr IV . [id number] [facility] Rx#:[id number] Intake, IV Titration 142.473 Amount Sodium Chloride 0.9% 1, 75 000 ml @ 75 mls/hr IV . [id number] [facility] Rx#:[id number] propofoL 1,000 mg In 67.473 Empty Bag 1 bag @ 15 MCG/ KG/MIN 5.103 mls/hr IV . [id number] [facility] Rx#:[id number] Blood Product 278 Rc Pheresis As-3 Unit 278 [id number] Output: Gastric Drainage 50 Drainage 100 200 80 Medial Abdomen 100 200 80 Urine 375 665 215 Other: Voiding Method Indwelling Catheter Indwelling Catheter Indwelling Catheter - Labs CBC & Chem 7: 10/19/24 05:31 10/19/24 05:31 Labs: Abnormal Lab Results - Last 24 Hours (Table) 10/18/24 10/19/24 10/19/24 Range/Units 18:05 05:31 05:31 RBC 1.91 L (3.80-5.40) m/uL Hgb 6.5 L* D (11.4-16.0) gm/dL Hct 20.2 L (34.0-46.0) % MCV 105.7 H (80.0-100.0) fL RDW 19.7 H (11.5-15.5) % Plt Count 114 L (150-450) k/uL Lymphocytes # 0.5 L (1.0-4.8) k/uL Macrocytosis Marked A Chloride 109 H (98-107) mmol/L Carbon Dioxide 18 L (22-30) mmol/L BUN 42 H (7-17) mg/dL Creatinine 1.71 H (0.52-1.04) mg/dL POC Glucose (mg/dL) 118 H (70-110) mg/dL Calcium 6.9 L (8.4-10.2) mg/dL Total Protein 4.1 L (6.3-8.2) g/dL Albumin 2.2 L (3.5-5.0) g/dL Crossmatch 10/19/24 Range/Units 08:00 RBC (3.80-5.40) m/uL Hgb (11.4-16.0) gm/dL Hct (34.0-46.0) % MCV (80.0-100.0) fL RDW (11.5-15.5) % Plt Count (150-450) k/uL Lymphocytes # (1.0-4.8) k/uL Macrocytosis Chloride (98-107) mmol/L Carbon Dioxide (22-30) mmol/L BUN (7-17) mg/dL Creatinine (0.52-1.04) mg/dL POC Glucose (mg/dL) (70-110) mg/dL Calcium (8.4-10.2) mg/dL Total Protein (6.3-8.2) g/dL Albumin (3.5-5.0) g/dL Crossmatch See Detail Microbiology - Last 24 Hours (Table) 10/17/24 21:47 Gram Stain - Preliminary Abdomen 10/17/24 21:47 Gram Stain - Preliminary Abdomen
--- NOTE | 2024-10-19 14:15 | P.PN ---
Subjective Progress Note Date: 10/19/24 Principal diagnosis: Reason for follow-up is perforated sigmoid colon/peritonitis Patient is a 74-year-old female with a past medical history significant for metastatic lung cancer hypothyroidism has been brought into the hospital for evaluation of generalized abdominal pain patient has been diagnosed with perforated sigmoid colon status post laparotomy sigmoid colectomy diverting colostomy. On today's evaluation that is 10/19/2024,the patient remains to be afebrile, patient is on 2 L nasal cannula supplemental oxygen and denies any shortness of breath no chest pain or cough.Patient denies having any nausea or vomiting, is becoming almost abdominal pain no output in the colostomy. Patient white count 6.5 creatinine 1.71 abdominal cultures currently pending Objective - Vital Signs Vital signs: Vital Signs Temp 97.7 F 10/19/24 10:04 Pulse 86 10/19/24 10:04 Resp 14 10/19/24 10:04 BP 107/52 10/19/24 10:04 Pulse Ox 100 10/19/24 10:04 FiO2 40 10/18/24 11:01 Intake & Output 10/18/24 10/19/24 10/19/24 18:59 06:59 18:59 Intake Total 1042.473 825 410 Output Total 475 865 345 Balance 567.473 -40 65 Weight 65 kg 64.5 kg Intake: IV 900 825 410 Lactated Ringers 1,000 ml 450 825 335 @ 130 mls/hr IV .Q7H42M [facility] Rx#:[id number] Sodium Chloride 0.9% 1, 450 75 000 ml @ 75 mls/hr IV . [id number] [facility] Rx#:[id number] Intake, IV Titration 142.473 Amount Sodium Chloride 0.9% 1, 75 000 ml @ 75 mls/hr IV . [id number] [facility] Rx#:[id number] propofoL 1,000 mg In 67.473 Empty Bag 1 bag @ 15 MCG/ KG/MIN 5.103 mls/hr IV . [id number] [facility] Rx#:[id number] Blood Product 0 Rc Pheresis As-3 Unit 0 [id number] Output: Gastric Drainage 50 Drainage 100 200 80 Medial Abdomen 100 200 80 Urine 375 665 215 Other: Voiding Method Indwelling Catheter Indwelling Catheter Indwelling Catheter - Exam GENERAL DESCRIPTION: An elderly male lying in bed in no distress RESPIRATORY SYSTEM: Unlabored breathing , decreased breath sounds at bases HEART: S1 S2 regular rate and rhythm , ABDOMEN: Soft , mild tenderness EXTREMITIES: No edema feet - Labs CBC & Chem 7: 10/19/24 05:31 10/19/24 05:31 Labs: Abnormal Lab Results - Last 24 Hours (Table) 10/18/24 10/19/24 10/19/24 Range/Units 18:05 05:31 05:31 RBC 1.91 L (3.80-5.40) m/uL Hgb 6.5 L* D (11.4-16.0) gm/dL Hct 20.2 L (34.0-46.0) % MCV 105.7 H (80.0-100.0) fL RDW 19.7 H (11.5-15.5) % Plt Count 114 L (150-450) k/uL Lymphocytes # 0.5 L (1.0-4.8) k/uL Macrocytosis Marked A Chloride 109 H (98-107) mmol/L Carbon Dioxide 18 L (22-30) mmol/L BUN 42 H (7-17) mg/dL Creatinine 1.71 H (0.52-1.04) mg/dL POC Glucose (mg/dL) 118 H (70-110) mg/dL Calcium 6.9 L (8.4-10.2) mg/dL Total Protein 4.1 L (6.3-8.2) g/dL Albumin 2.2 L (3.5-5.0) g/dL Crossmatch 10/19/24 Range/Units 08:00 RBC (3.80-5.40) m/uL Hgb (11.4-16.0) gm/dL Hct (34.0-46.0) % MCV (80.0-100.0) fL RDW (11.5-15.5) % Plt Count (150-450) k/uL Lymphocytes # (1.0-4.8) k/uL Macrocytosis Chloride (98-107) mmol/L Carbon Dioxide (22-30) mmol/L BUN (7-17) mg/dL Creatinine (0.52-1.04) mg/dL POC Glucose (mg/dL) (70-110) mg/dL Calcium (8.4-10.2) mg/dL Total Protein (6.3-8.2) g/dL Albumin (3.5-5.0) g/dL Crossmatch See Detail Microbiology - Last 24 Hours (Table) 10/17/24 21:47 Gram Stain - Preliminary Abdomen 10/17/24 21:47 Gram Stain - Preliminary Abdomen Assessment and Plan (1) Perforated sigmoid colon Current Visit: Yes Status: Acute Code(s): K63.1 - PERFORATION OF INTESTINE (NONTRAUMATIC) SNOMED Code(s): 113261309 (2) Leukopenia Current Visit: Yes Status: Acute Code(s): D72.819 - DECREASED WHITE BLOOD CELL COUNT, UNSPECIFIED SNOMED Code(s): 50051203 (3) Peritonitis Current Visit: Yes Status: Acute Code(s): K65.9 - PERITONITIS, UNSPECIFIED SNOMED Code(s): 99220593 Plan: 1patient presented to hospital with abdominal pain generalized nausea vomiting with evidence of free air on the CT in this patient with status post laparotomy with evidence of sigmoid colon perforation status post sigmoid colectomy and end colostomy we will need to cover for the enteric gram-negative both aerobes and anaerobes 2-patient did have abdominal, blood culture done which are currently pending 3-patient has been extubated, patient will be treated with Zosyn while waiting for the culture to finalize Dictation was produced using [employer] dictation software. please excuse any grammatical, word or spelling errors. Time with Patient: Less than 30
[2024-10-19 14:22] LABS: Phosphorus 4.6 mg/dL (2.5-4.5)
[2024-10-19 14:23] LABS: Anisocytosis Slight; HCT 24.6 % (34.0-46.0); HGB 7.9 gm/dL (11.4-16.0); Hypochromasia Moderate; MCH 32.5 pg (25.0-35.0); MCHC 31.9 g/dL (31.0-37.0); MCV 101.9 fL (80.0-100.0); Macrocytosis Marked; Mean Platelet Volume 8.3; Platelet Count 108 k/uL (150-450); RBC 2.42 m/uL (3.80-5.40); RDW 19.7 % (11.5-15.5); WBC 8.7 k/uL (3.8-10.6)
[2024-10-19 15:42] LABS: Appearance,Urine Turbid (Clear); Bacteria,Urine Rare /hpf; Bilirubin,Urine Negative (Negative); Blood,Urine Small (Negative); Color,Urine Colorless; Glucose,Urine (UA) Negative (Negative); Hyaline Casts,Urine 3 /lpf (0-2); Ketones,Urine 1+ (Negative); Leukocyte Esterase,Urine Negative (Negative); Mucus,Urine Rare /hpf; Nitrite,Urine Negative (Negative); PH, Urine 5.5 (5.0-8.0); Protein,Urine 1+ (Negative); RBC,Urine 2 /hpf (0-5); Specific Gravity,Urine 1.013 (1.001-1.035); Squamous Epithelial Cell,Urine 1 /hpf (0-4); Urobilinogen,Urine <2.0 mg/dL (<2.0); WBC,Urine 8 /hpf (0-5)
--- NOTE | 2024-10-19 17:05 | P.PN ---
Subjective Progress Note Date: 10/19/24 Principal diagnosis: Perforated bowel In f/u today patient is extubated, she is very thirsty, complains of mildly irritated throat and oral mucosa, no unusual abdominal discomfort Objective - Vital Signs Vital signs: Vital Signs Temp 98.3 F 10/19/24 16:00 Pulse 77 10/19/24 16:00 Resp 16 10/19/24 16:00 BP 86/70 10/19/24 16:00 Pulse Ox 99 10/19/24 16:00 FiO2 40 10/18/24 11:01 Intake & Output 10/18/24 10/19/24 10/19/24 18:59 06:59 18:59 Intake Total 1042.473 825 688 Output Total 475 865 345 Balance 567.473 -40 343 Weight 65 kg 64.5 kg 64.5 kg Intake: IV 900 825 410 Lactated Ringers 1,000 ml 450 825 335 @ 130 mls/hr IV .Q7H42M [facility] Rx#:[id number] Sodium Chloride 0.9% 1, 450 75 000 ml @ 75 mls/hr IV . [id number] [facility] Rx#:[id number] Intake, IV Titration 142.473 Amount Sodium Chloride 0.9% 1, 75 000 ml @ 75 mls/hr IV . [id number] [facility] Rx#:[id number] propofoL 1,000 mg In 67.473 Empty Bag 1 bag @ 15 MCG/ KG/MIN 5.103 mls/hr IV . [id number] [facility] Rx#:[id number] Blood Product 278 Rc Pheresis As-3 Unit 278 [id number] Output: Gastric Drainage 50 Drainage 100 200 80 Medial Abdomen 100 200 80 Urine 375 665 215 Other: Voiding Method Indwelling Catheter Indwelling Catheter Indwelling Catheter - Constitutional General appearance: Present: average body habitus, cooperative, no acute distress - EENT Eyes: Present: anicteric sclerae, EOMI ENT: Present: hearing grossly normal - Respiratory Details: Respirations unlabored at rest - Cardiovascular Details: Skin warm, well-perfused - Peripheral edema leg Peripheral Edema: bilateral: None - Gastrointestinal General gastrointestinal: Present: soft - Neurologic Neurologic: Present: CNII-XII intact - Musculoskeletal Musculoskeletal: Present: generalized weakness - Psychiatric Psychiatric: Present: A&O x's 3, appropriate affect, intact judgment & insight - Labs CBC & Chem 7: 10/19/24 13:49 10/19/24 05:31 Labs: Abnormal Lab Results - Last 24 Hours (Table) 10/18/24 10/19/24 10/19/24 Range/Units 18:05 05:31 05:31 RBC 1.91 L (3.80-5.40) m/uL Hgb 6.5 L* D (11.4-16.0) gm/dL Hct 20.2 L (34.0-46.0) % MCV 105.7 H (80.0-100.0) fL RDW 19.7 H (11.5-15.5) % Plt Count 114 L (150-450) k/uL Lymphocytes # 0.5 L (1.0-4.8) k/uL Macrocytosis Marked A Chloride 109 H (98-107) mmol/L Carbon Dioxide 18 L (22-30) mmol/L BUN 42 H (7-17) mg/dL Creatinine 1.71 H (0.52-1.04) mg/dL POC Glucose (mg/dL) 118 H (70-110) mg/dL Calcium 6.9 L (8.4-10.2) mg/dL Phosphorus (2.5-4.5) mg/dL Total Protein 4.1 L (6.3-8.2) g/dL Albumin 2.2 L (3.5-5.0) g/dL Urine Appearance (Clear) Urine Protein (Negative) Urine Ketones (Negative) Urine Blood (Negative) Urine WBC (0-5) /hpf Urine Bacteria (None) /hpf Hyaline Casts (0-2) /lpf Urine Mucus (None) /hpf Crossmatch 10/19/24 10/19/24 10/19/24 Range/Units 08:00 13:49 13:49 RBC 2.42 L (3.80-5.40) m/uL Hgb 7.9 L (11.4-16.0) gm/dL Hct 24.6 L (34.0-46.0) % MCV 101.9 H (80.0-100.0) fL RDW 19.7 H (11.5-15.5) % Plt Count 108 L (150-450) k/uL Lymphocytes # (1.0-4.8) k/uL Macrocytosis Marked A Chloride (98-107) mmol/L Carbon Dioxide (22-30) mmol/L BUN (7-17) mg/dL Creatinine (0.52-1.04) mg/dL POC Glucose (mg/dL) (70-110) mg/dL Calcium (8.4-10.2) mg/dL Phosphorus 4.6 H (2.5-4.5) mg/dL Total Protein (6.3-8.2) g/dL Albumin (3.5-5.0) g/dL Urine Appearance (Clear) Urine Protein (Negative) Urine Ketones (Negative) Urine Blood (Negative) Urine WBC (0-5) /hpf Urine Bacteria (None) /hpf Hyaline Casts (0-2) /lpf Urine Mucus (None) /hpf Crossmatch See Detail 10/19/24 Range/Units 15:11 RBC (3.80-5.40) m/uL Hgb (11.4-16.0) gm/dL Hct (34.0-46.0) % MCV (80.0-100.0) fL RDW (11.5-15.5) % Plt Count (150-450) k/uL Lymphocytes # (1.0-4.8) k/uL Macrocytosis Chloride (98-107) mmol/L Carbon Dioxide (22-30) mmol/L BUN (7-17) mg/dL Creatinine (0.52-1.04) mg/dL POC Glucose (mg/dL) (70-110) mg/dL Calcium (8.4-10.2) mg/dL Phosphorus (2.5-4.5) mg/dL Total Protein (6.3-8.2) g/dL Albumin (3.5-5.0) g/dL Urine Appearance Turbid H (Clear) Urine Protein 1+ H (Negative) Urine Ketones 1+ H (Negative) Urine Blood Small H (Negative) Urine WBC 8 H (0-5) /hpf Urine Bacteria Rare H (None) /hpf Hyaline Casts 3 H (0-2) /lpf Urine Mucus Rare H (None) /hpf Crossmatch Microbiology - Last 24 Hours (Table) 10/17/24 21:47 Gram Stain - Preliminary Abdomen 10/17/24 21:47 Gram Stain - Preliminary Abdomen Assessment and Plan (1) Small bowel obstruction Current Visit: Yes Status: Acute Priority: High Code(s): K56.609 - UNSP INTESTNL OBST, UNSP TO PARTIAL VERSUS COMPLETE OBST SNOMED Code(s): 464002580 (2) Non-small cell lung cancer Current Visit: No Status: Acute Priority: Medium Code(s): C34.90 - MALIGNANT NEOPLASM OF UNSP PART OF UNSP BRONCHUS OR LUNG SNOMED Code(s): 628395803 Plan: Perforated bowel -Status post exploratory laparotomy with sigmoid colectomy and end colostomy -Pt doing well today -Management of the same per surgery Non-squamous, non-small cell lung adenocarcinoma -Patient completed 4 cycles of chemotherapy/IO just about 2 weeks ago. -Patient had tolerated treatment overall very well, she had no significant cytopenias, she did not require transfusions, she did not require growth factors. Was feeling good her recent appointment -Treatment follow-up PET scan done 10/05 showed improvement in patient's disease, results were reviewed with pt. Plan is to continue on immunotherapy alone once pt has recovered from surgery. -The perforated bowel is not suspected to be r/t chemo or IO-path pending. -treatment will be delayed until patient has recovered from her acute condition. She will be reassessed by Medical Oncologist before she proceeds to immunotherapy alone. Doctor attests: I performed a history and physical examination of this patient, developed impression and plan of care. Discussed with dictator. I agree with dictators note, documented as a scribe.
[2024-10-19 18:15] LABS: Glucose,Whole Blood 83 mg/dL (70-110)
[2024-10-19] MEDS: MVI, ADULT NO.4 WITH VIT K 10 ML, TRACE (CONC-1ML/DOSE) 1 ML, SODIUM ACETATE 30 MEQ, MA... IV ONE (18:20)
[2024-10-20 00:48] LABS: Glucose,Whole Blood 164 mg/dL (70-110)
[2024-10-20 06:21] LABS: Glucose,Whole Blood 174 mg/dL (70-110)
[2024-10-20 06:51] LABS: Anisocytosis Moderate; Basophils # (A) 0.1 k/uL (0-0.2); Basophils % (A) 1 %; Eosinophils % (A) 0 %; HCT 23.2 % (34.0-46.0); HGB 7.4 gm/dL (11.4-16.0); Hypochromasia Slight; Lymphocytes # (A) 0.6 k/uL (1.0-4.8); Lymphocytes % (A) 7 %; MCH 32.5 pg (25.0-35.0); MCHC 31.8 g/dL (31.0-37.0); Macrocytosis Marked; Mean Platelet Volume 9.2; Monocytes # (A) 0.2 k/uL (0-1.0); Monocytes % (A) 3 %; Neutrophils # (A) 7.5 k/uL (1.3-7.7); Neutrophils % (A) 86 %; Platelet Count 104 k/uL (150-450); Poikilocytosis Slight; RBC 2.27 m/uL (3.80-5.40); RDW 20.6 % (11.5-15.5); WBC 8.7 k/uL (3.8-10.6)
[2024-10-20 06:55] LABS: Ionized Calcium 4.1 mg/dL (4.5-5.3)
[2024-10-20 07:01] LABS: African American GFR (CKD) 32 (>60 ml/min/1.73 sqM); Anion Gap 7 mmol/L; Blood Urea Nitrogen 49 mg/dL (7-17); Calcium 6.8 mg/dL (8.4-10.2); Carbon Dioxide 24 mmol/L (22-30); Chloride 107 mmol/L (98-107); Glucose 149 mg/dL (74-99); Magnesium 2.3 mg/dL (1.6-2.3); Non-African American GFR(CKD) 27 (>60 ml/min/1.73 sqM); Phosphorus 3.9 mg/dL (2.5-4.5); Potassium 3.1 mmol/L (3.5-5.1); Sodium 138 mmol/L (137-145)
--- NOTE | 2024-10-20 09:08 | XR ---
EXAMINATION TYPE: XR chest 1V portable DATE OF EXAM: 10/20/2024 6:57 AM COMPARISON: None. CLINICAL INDICATION: Female, 74 years old with history of Tube placement, TECHNIQUE: XR chest 1V portable view(s) obtained. FINDINGS: The heart size is normal. The pulmonary vasculature is upper limits of normal. Mild diffuse increased lung markings are present. Correlate for pulmonary edema and volume overload Nasogastric tube tip is in the left upper quadrant of the abdomen. Right central venous catheter tip is in superior vena cava region. IMPRESSION: 1. Mild diffuse increased lung markings. Correlate for volume overload. 2. Lines and catheters discussed above [facility], , 10/20/2024 9:06 AM
[2024-10-20] MEDS: POTASSIUM CHLORIDE 10 MEQ in WATER FOR INJECTION 1 100ML.BAG IVPB SCH (09:14)
[2024-10-20] MEDS: FAT EMULSION 20% 250 ML in EMPTY BAG 1 BAG IV SCH (10:56)
[2024-10-20 11:13] LABS: Glucose,Whole Blood 149 mg/dL (70-110)
--- NOTE | 2024-10-20 11:17 | P.PN ---
Subjective Progress Note Date: 10/20/24 SURGICAL PROGRESS NOTE CHIEF COMPLAINT: Pneumoperitoneum HISTORY OF PRESENT ILLNESS: Patient is postop day #3 status post exploratory laparotomy, sigmoid colectomy with end colostomy for ruptured sigmoid colon, possible stercoral ulcer. patient is transferred out of the ICU yesterday to the cardiac floor. Patient lying in bed comfortably. She does report spasms of abdominal pain. Her ostomy is beginning to function. She denies any nausea or vomiting. afebrile. WBC 8.7. Hgb from 6.5-7.9 after blood transfusion. hemoglobin today 7.4. sodium is 138 potassium 3.1 creatinine is increasing to 1.8. Minimal output through NG tube.. CORAZON drain still a significant output 260ml output this AM PHYSICAL EXAM: VITAL SIGNS: Reviewed. GENERAL: Well-developed in no acute distress. ABDOMEN: Soft. Mildly distended. Incisional dressing clean dry and intact. Ostomy on the left stoma is pink with serosanguineous output. CORAZON drain with serosanguineous output NEUROLOGIC: Alert and oriented. Cranial nerves II through XII grossly intact. ASSESSMENT: 1. Pneumoperitoneum with ruptured sigmoid colon, possible stercoral ulcer 2. History of lung cancer with brain mets and last chemotherapy about 2 weeks ago 3. Pancytopenia due to recent chemo PLAN: -discontinue NG tube -Nursing staff to perform bedside swallow eval -advance diet to sips of clear liquids -Agree with Nephrology consult for worsening kidney function. -potassium being replaced -Continue TPN for nutrition support at this time -Tylenol and/or [place] added for oral pain medication -Continue to monitor CORAZON drain output -Continue antibiotics -Continue IV fluids -GI prophylaxis Protonix and DVT prophylaxis SCDs Physician Electrolysist note has been reviewed by physician. Signing provider agrees with the documented findings, assessment, and plan of care. Objective - Vital Signs Vital signs: Vital Signs Temp 97.8 F 10/20/24 04:00 Pulse 60 10/20/24 04:00 Resp 16 10/20/24 04:00 BP 104/54 10/20/24 04:00 Pulse Ox 95 10/20/24 04:00 FiO2 40 10/18/24 11:01 Intake & Output 10/19/24 10/20/24 10/20/24 18:59 06:59 18:59 Intake Total 1018 1780 Output Total 960 280 40 Balance 58 1500 -40 Weight 64.5 kg 64.5 kg Intake: IV 540 1780 ACETAMINOPHEN IV (For NPO 400 ) 1,000 mg In Empty Bag 1 bag @ 400 mls/hr IVPB Q6HR [facility] Rx#:[id number] Lactated Ringers 1,000 ml 465 1040 @ 130 mls/hr IV .Q7H42M [facility] Rx#:[id number] Mvi, Adult No.4 with Vit 240 K 10 ml Trace (Conc-1Ml/ Dose) 1 ml Sodium Acetate 30 meq Magnesium Sulfate gm 0.5 gm Calcium Gluconate 1 gm In Amino Acids 5 %/Dextrose 20 % 1 ,000 ml @ 30 mls/hr IV . Q24H [facility] Rx#:[id number] Piperacillin-Tazobactam 3 100 .375 gm In Sodium Chloride 0.9% 100 ml @ 25 mls/hr IVPB Q8H [facility] Rx#: [id number] Sodium Chloride 0.9% 1, 75 000 ml @ 75 mls/hr IV . [id number] [facility] Rx#:[id number] Intake, IV Titration 200 Amount ACETAMINOPHEN IV (For NPO 100 ) 1,000 mg In Empty Bag 1 bag @ 400 mls/hr IVPB Q6HR [facility] Rx#:[id number] Piperacillin-Tazobactam 3 100 .375 gm In Sodium Chloride 0.9% 100 ml @ 25 mls/hr IVPB Q8H [facility] Rx#: [id number] Blood Product 278 Rc Pheresis As-3 Unit 278 [id number] Output: Gastric Drainage 50 Drainage 260 280 40 Medial Abdomen 260 280 40 Urine 650 Other: Voiding Method Indwelling Catheter Indwelling Catheter - Labs CBC & Chem 7: 10/20/24 06:22 10/20/24 06:22 Labs: Abnormal Lab Results - Last 24 Hours (Table) 10/19/24 10/19/24 10/19/24 Range/Units 08:00 13:49 13:49 RBC 2.42 L (3.80-5.40) m/uL Hgb 7.9 L (11.4-16.0) gm/dL Hct 24.6 L (34.0-46.0) % MCV 101.9 H (80.0-100.0) fL RDW 19.7 H (11.5-15.5) % Plt Count 108 L (150-450) k/uL Lymphocytes # (1.0-4.8) k/uL Macrocytosis Marked A Potassium (3.5-5.1) mmol/L BUN (7-17) mg/dL Creatinine (0.52-1.04) mg/dL Glucose (74-99) mg/dL POC Glucose (mg/dL) (70-110) mg/dL Calcium (8.4-10.2) mg/dL Ionized Calcium Shannan (4.5-5.3) mg/dL Phosphorus 4.6 H (2.5-4.5) mg/dL Triglycerides 241.00 H (0.00-149.00) mg/dL Urine Appearance (Clear) Urine Protein (Negative) Urine Ketones (Negative) Urine Blood (Negative) Urine WBC (0-5) /hpf Urine Bacteria (None) /hpf Hyaline Casts (0-2) /lpf Urine Mucus (None) /hpf Crossmatch See Detail 10/19/24 10/20/24 10/20/24 Range/Units 15:11 00:46 06:15 RBC (3.80-5.40) m/uL Hgb (11.4-16.0) gm/dL Hct (34.0-46.0) % MCV (80.0-100.0) fL RDW (11.5-15.5) % Plt Count (150-450) k/uL Lymphocytes # (1.0-4.8) k/uL Macrocytosis Potassium (3.5-5.1) mmol/L BUN (7-17) mg/dL Creatinine (0.52-1.04) mg/dL Glucose (74-99) mg/dL POC Glucose (mg/dL) 164 H 174 H (70-110) mg/dL Calcium (8.4-10.2) mg/dL Ionized Calcium Shannan (4.5-5.3) mg/dL Phosphorus (2.5-4.5) mg/dL Triglycerides (0.00-149.00) mg/dL Urine Appearance Turbid H (Clear) Urine Protein 1+ H (Negative) Urine Ketones 1+ H (Negative) Urine Blood Small H (Negative) Urine WBC 8 H (0-5) /hpf Urine Bacteria Rare H (None) /hpf Hyaline Casts 3 H (0-2) /lpf Urine Mucus Rare H (None) /hpf Crossmatch 10/20/24 10/20/24 Range/Units 06:22 06:22 RBC 2.27 L (3.80-5.40) m/uL Hgb 7.4 L (11.4-16.0) gm/dL Hct 23.2 L (34.0-46.0) % MCV 102.0 H (80.0-100.0) fL RDW 20.6 H (11.5-15.5) % Plt Count 104 L (150-450) k/uL Lymphocytes # 0.6 L (1.0-4.8) k/uL Macrocytosis Marked A Potassium 3.1 L (3.5-5.1) mmol/L BUN 49 H (7-17) mg/dL Creatinine 1.80 H (0.52-1.04) mg/dL Glucose 149 H (74-99) mg/dL POC Glucose (mg/dL) (70-110) mg/dL Calcium 6.8 L (8.4-10.2) mg/dL Ionized Calcium Shannan 4.1 L (4.5-5.3) mg/dL Phosphorus (2.5-4.5) mg/dL Triglycerides (0.00-149.00) mg/dL Urine Appearance (Clear) Urine Protein (Negative) Urine Ketones (Negative) Urine Blood (Negative) Urine WBC (0-5) /hpf Urine Bacteria (None) /hpf Hyaline Casts (0-2) /lpf Urine Mucus (None) /hpf Crossmatch Assessment and Plan Assessment: 74 yo female s/p perforated colon -remove nasogastric tube -start clearliquid diet Time with Patient: Less than 30
--- NOTE | 2024-10-20 11:26 | P.PN ---
Subjective Patient is seen in f/u for Cristian. Renal fx fairly stable. Non-oliguric. On TPN and IVFs. Vital signs are stable. General: No acute distress. HEENT: Head exam is unremarkable. LUNGS: No audible rhonchi or wheezes. HEART: Rate and Rhythm are regular. ABDOMEN: Colostomy and CORAZON drain noted. EXTREMITITES: No edema. Objective - Vital Signs Vital signs: Vital Signs Temp 96.9 F L 10/20/24 09:05 Pulse 76 10/20/24 09:05 Resp 16 10/20/24 09:43 BP 132/54 10/20/24 09:05 Pulse Ox 95 10/20/24 09:43 FiO2 40 10/18/24 11:01 Intake & Output 10/19/24 10/20/24 10/20/24 18:59 06:59 18:59 Intake Total 1018 1780 2670 Output Total 960 280 100 Balance 58 1500 2570 Weight 64.5 kg 64.5 kg Intake: IV 540 1780 2270 .9@ 20 240 .9@ 20 #2 240 ACETAMINOPHEN IV (For NPO 400 ) 1,000 mg In Empty Bag 1 bag @ 400 mls/hr IVPB Q6HR [facility] Rx#:[id number] Invasive Line 1 20 Invasive Line 3 10 Lactated Ringers 1,000 ml 465 1040 1560 @ 130 mls/hr IV .Q7H42M [facility] Rx#:[id number] Mvi, Adult No.4 with Vit 240 K 10 ml Trace (Conc-1Ml/ Dose) 1 ml Sodium Acetate 30 meq Magnesium Sulfate gm 0.5 gm Calcium Gluconate 1 gm In Amino Acids 5 %/Dextrose 20 % 1 ,000 ml @ 30 mls/hr IV . Q24H [facility] Rx#:[id number] Piperacillin-Tazobactam 3 100 200 .375 gm In Sodium Chloride 0.9% 100 ml @ 25 mls/hr IVPB Q8H [facility] Rx#: [id number] Sodium Chloride 0.9% 1, 75 000 ml @ 75 mls/hr IV . [id number] [facility] Rx#:[id number] Intake, IV Titration 200 400 Amount ACETAMINOPHEN IV (For NPO 100 ) 1,000 mg In Empty Bag 1 bag @ 400 mls/hr IVPB Q6HR [facility] Rx#:[id number] Piperacillin-Tazobactam 3 100 .375 gm In Sodium Chloride 0.9% 100 ml @ 25 mls/hr IVPB Q8H [facility] Rx#: [id number] Potassium Chloride 10 meq 400 In Water For Injection 1 100ml.bag @ 100 mls/hr IVPB Q1HR [facility] Rx#: [id number] Blood Product 278 Rc Pheresis As-3 Unit 278 [id number] Output: Gastric Drainage 50 Drainage 260 280 100 Medial Abdomen 260 280 100 Urine 650 Other: Voiding Method Indwelling Catheter Indwelling Catheter Indwelling Catheter - Labs CBC & Chem 7: 10/20/24 06:22 10/20/24 06:22 Labs: Abnormal Lab Results - Last 24 Hours (Table) 10/19/24 10/19/24 10/19/24 Range/Units 08:00 13:49 13:49 RBC 2.42 L (3.80-5.40) m/uL Hgb 7.9 L (11.4-16.0) gm/dL Hct 24.6 L (34.0-46.0) % MCV 101.9 H (80.0-100.0) fL RDW 19.7 H (11.5-15.5) % Plt Count 108 L (150-450) k/uL Lymphocytes # (1.0-4.8) k/uL Macrocytosis Marked A Potassium (3.5-5.1) mmol/L BUN (7-17) mg/dL Creatinine (0.52-1.04) mg/dL Glucose (74-99) mg/dL POC Glucose (mg/dL) (70-110) mg/dL Calcium (8.4-10.2) mg/dL Ionized Calcium Shannan (4.5-5.3) mg/dL Phosphorus 4.6 H (2.5-4.5) mg/dL Triglycerides 241.00 H (0.00-149.00) mg/dL Urine Appearance (Clear) Urine Protein (Negative) Urine Ketones (Negative) Urine Blood (Negative) Urine WBC (0-5) /hpf Urine Bacteria (None) /hpf Hyaline Casts (0-2) /lpf Urine Mucus (None) /hpf Crossmatch See Detail 10/19/24 10/20/24 10/20/24 Range/Units 15:11 00:46 06:15 RBC (3.80-5.40) m/uL Hgb (11.4-16.0) gm/dL Hct (34.0-46.0) % MCV (80.0-100.0) fL RDW (11.5-15.5) % Plt Count (150-450) k/uL Lymphocytes # (1.0-4.8) k/uL Macrocytosis Potassium (3.5-5.1) mmol/L BUN (7-17) mg/dL Creatinine (0.52-1.04) mg/dL Glucose (74-99) mg/dL POC Glucose (mg/dL) 164 H 174 H (70-110) mg/dL Calcium (8.4-10.2) mg/dL Ionized Calcium Shannan (4.5-5.3) mg/dL Phosphorus (2.5-4.5) mg/dL Triglycerides (0.00-149.00) mg/dL Urine Appearance Turbid H (Clear) Urine Protein 1+ H (Negative) Urine Ketones 1+ H (Negative) Urine Blood Small H (Negative) Urine WBC 8 H (0-5) /hpf Urine Bacteria Rare H (None) /hpf Hyaline Casts 3 H (0-2) /lpf Urine Mucus Rare H (None) /hpf Crossmatch 10/20/24 10/20/24 10/20/24 Range/Units 06:22 06:22 11:11 RBC 2.27 L (3.80-5.40) m/uL Hgb 7.4 L (11.4-16.0) gm/dL Hct 23.2 L (34.0-46.0) % MCV 102.0 H (80.0-100.0) fL RDW 20.6 H (11.5-15.5) % Plt Count 104 L (150-450) k/uL Lymphocytes # 0.6 L (1.0-4.8) k/uL Macrocytosis Marked A Potassium 3.1 L (3.5-5.1) mmol/L BUN 49 H (7-17) mg/dL Creatinine 1.80 H (0.52-1.04) mg/dL Glucose 149 H (74-99) mg/dL POC Glucose (mg/dL) 149 H (70-110) mg/dL Calcium 6.8 L (8.4-10.2) mg/dL Ionized Calcium Shannan 4.1 L (4.5-5.3) mg/dL Phosphorus (2.5-4.5) mg/dL Triglycerides (0.00-149.00) mg/dL Urine Appearance (Clear) Urine Protein (Negative) Urine Ketones (Negative) Urine Blood (Negative) Urine WBC (0-5) /hpf Urine Bacteria (None) /hpf Hyaline Casts (0-2) /lpf Urine Mucus (None) /hpf Crossmatch Microbiology - Last 24 Hours (Table) 10/17/24 21:47 Gram Stain - Final Abdomen Wound Culture - Final Escherichia coli 10/17/24 21:47 Gram Stain - Final Abdomen Wound Culture - Final Escherichia coli Assessment and Plan Plan: Assessment: 1. Acute kidney injury secondary to ATN secondary to severe sepsis. Baseline creatinine near 1 and is up to 1.8 today. Nonoliguric. No hydronephrosis noted on CT. 2. Metabolic acidosis secondary to acute kidney injury and IV fluids. Improved. 3. Sepsis secondary to pneumoperitoneum and antibiotics. 4. Pneumoperitoneum status post exploratory laparotomy with sigmoid colectomy, end colostomy creation. 5. Acute blood loss anemia s/p prbc this admission. 6. Hypokalemia from poor intake. Plan: Maintain IV fluids. Decrease rate to 75 cc/hr. TPN per surgery. Avoid nephrotoxins. Continue to monitor renal function and urine output. Replace potassium.
--- NOTE | 2024-10-20 14:56 | P.PN ---
Subjective Progress Note Date: 10/20/24 Subjective: Patient seen and examined at bedside. No acute events overnight. Cooper catheter in place, still having output from CORAZON drain, has some output from ostomy. NG tube has been removed Pertinent positives and negatives as discussed above, a complete review of systems was performed and all other systems are negative. Vitals Signs Reviewed. General: Nontoxic, no distress, appears at stated age, Cooper catheter in place Derm: Warm, dry Head: Atraumatic, normocephalic, symmetric Eyes: EOMI, no lid lag, anicteric sclera Mouth: No lip lesion, mucus membranes moist Cardiovascular: S1S2 reg, no murmur Lungs: CTA bilateral, no rhonchi, no rales, no accessory muscle use, supplemental oxygen Abdominal: Soft, nontender to palpation, no guarding, no appreciable organomegaly, ostomy and CORAZON drain in place Ext: No gross muscle atrophy, no edema, no contractures Neuro: CN II-XI grossly intact, no focal neuro deficits Psych: Alert, oriented, appropriate affect Data Reviewed Today: Pertinent Labs: Hemoglobin 7.4, platelet 104, potassium 3.1, creatinine 1.8, ionized calcium 4.1, blood sugars range between 1 49-1 74 Imaging: Chest x-ray independently interpreted, interstitial opacities at the bases bilaterally more pronounced on the right Assessment and Plan: Active: Ruptured sigmoid colon secondary to possible stercoral ulcer status post sigmoid colectomy with end colostomy Pneumoperitoneum secondary to above Sepsis secondary to above Bandemia Microcytic anemia, likely acute blood loss, status post 1 unit of PRBCs Mild thrombocytopenia -Surgery note reviewed, continue IV fluids, patient also on TPN, diet advanced to clears -Pain control per surgery -Continue IV Zosyn 3.375 g every 8 hours -continue IV Protonix 40 daily -ICU also following -Patient previously on steroids, continue hydrocortisone 50 IV every 6 hours for now, consider decreasing tomorrow 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 Do not hesitate to contact us with questions. Someone can be reached from the [facility] hospitalist group all hours of the day at [phone] or via perfect serve. Objective - Vital Signs Vital signs: Vital Signs Temp 97.4 F L 10/20/24 11:26 Pulse 64 10/20/24 11:26 Resp 16 10/20/24 11:26 BP 113/56 10/20/24 11:26 Pulse Ox 95 10/20/24 11:26 FiO2 40 10/18/24 11:01 Intake & Output 10/19/24 10/20/24 10/20/24 18:59 06:59 18:59 Intake Total 1018 1780 2700 Output Total 445 387 8504 Balance 58 1500 1560 Weight 64.5 kg 64.5 kg Intake: IV 540 1780 2300 .9@ 20 240 .9@ 20 #2 240 ACETAMINOPHEN IV (For NPO 400 ) 1,000 mg In Empty Bag 1 bag @ 400 mls/hr IVPB Q6HR [facility] Rx#:[id number] Invasive Line 1 40 Invasive Line 3 20 Lactated Ringers 1,000 ml 465 1040 1560 @ 75 mls/hr IV .[id number] [facility] Rx#:[id number] Mvi, Adult No.4 with Vit 240 K 10 ml Trace (Conc-1Ml/ Dose) 1 ml Sodium Acetate 30 meq Magnesium Sulfate gm 0.5 gm Calcium Gluconate 1 gm In Amino Acids 5 %/Dextrose 20 % 1 ,000 ml @ 30 mls/hr IV . Q24H [facility] Rx#:[id number] Piperacillin-Tazobactam 3 100 200 .375 gm In Sodium Chloride 0.9% 100 ml @ 25 mls/hr IVPB Q8H [facility] Rx#: [id number] Sodium Chloride 0.9% 1, 75 000 ml @ 75 mls/hr IV . [id number] [facility] Rx#:[id number] Intake, IV Titration 200 400 Amount ACETAMINOPHEN IV (For NPO 100 ) 1,000 mg In Empty Bag 1 bag @ 400 mls/hr IVPB Q6HR [facility] Rx#:[id number] Piperacillin-Tazobactam 3 100 .375 gm In Sodium Chloride 0.9% 100 ml @ 25 mls/hr IVPB Q8H [facility] Rx#: [id number] Potassium Chloride 10 meq 400 In Water For Injection 1 100ml.bag @ 100 mls/hr IVPB Q1HR [facility] Rx#: [id number] Blood Product 278 Rc Pheresis As-3 Unit 278 [id number] Output: Gastric Drainage 50 Drainage 260 280 340 Medial Abdomen 260 280 340 Urine 650 750 Uretheral (Cooper) 750 Stool 50 Other: Voiding Method Indwelling Catheter Indwelling Catheter Indwelling Catheter - Labs CBC & Chem 7: 10/20/24 06:22 10/20/24 06:22 Labs: Abnormal Lab Results - Last 24 Hours (Table) 10/19/24 10/19/24 10/20/24 Range/Units 13:49 15:11 00:46 RBC (3.80-5.40) m/uL Hgb (11.4-16.0) gm/dL Hct (34.0-46.0) % MCV (80.0-100.0) fL RDW (11.5-15.5) % Plt Count (150-450) k/uL Lymphocytes # (1.0-4.8) k/uL Macrocytosis Potassium (3.5-5.1) mmol/L BUN (7-17) mg/dL Creatinine (0.52-1.04) mg/dL Glucose (74-99) mg/dL POC Glucose (mg/dL) 164 H (70-110) mg/dL Calcium (8.4-10.2) mg/dL Ionized Calcium Shannan (4.5-5.3) mg/dL Triglycerides 241.00 H (0.00-149.00) mg/dL Urine Appearance Turbid H (Clear) Urine Protein 1+ H (Negative) Urine Ketones 1+ H (Negative) Urine Blood Small H (Negative) Urine WBC 8 H (0-5) /hpf Urine Bacteria Rare H (None) /hpf Hyaline Casts 3 H (0-2) /lpf Urine Mucus Rare H (None) /hpf 10/20/24 10/20/24 10/20/24 Range/Units 06:15 06:22 06:22 RBC 2.27 L (3.80-5.40) m/uL Hgb 7.4 L (11.4-16.0) gm/dL Hct 23.2 L (34.0-46.0) % MCV 102.0 H (80.0-100.0) fL RDW 20.6 H (11.5-15.5) % Plt Count 104 L (150-450) k/uL Lymphocytes # 0.6 L (1.0-4.8) k/uL Macrocytosis Marked A Potassium 3.1 L (3.5-5.1) mmol/L BUN 49 H (7-17) mg/dL Creatinine 1.80 H (0.52-1.04) mg/dL Glucose 149 H (74-99) mg/dL POC Glucose (mg/dL) 174 H (70-110) mg/dL Calcium 6.8 L (8.4-10.2) mg/dL Ionized Calcium Shannan 4.1 L (4.5-5.3) mg/dL Triglycerides (0.00-149.00) mg/dL Urine Appearance (Clear) Urine Protein (Negative) Urine Ketones (Negative) Urine Blood (Negative) Urine WBC (0-5) /hpf Urine Bacteria (None) /hpf Hyaline Casts (0-2) /lpf Urine Mucus (None) /hpf 10/20/24 Range/Units 11:11 RBC (3.80-5.40) m/uL Hgb (11.4-16.0) gm/dL Hct (34.0-46.0) % MCV (80.0-100.0) fL RDW (11.5-15.5) % Plt Count (150-450) k/uL Lymphocytes # (1.0-4.8) k/uL Macrocytosis Potassium (3.5-5.1) mmol/L BUN (7-17) mg/dL Creatinine (0.52-1.04) mg/dL Glucose (74-99) mg/dL POC Glucose (mg/dL) 149 H (70-110) mg/dL Calcium (8.4-10.2) mg/dL Ionized Calcium Shannan (4.5-5.3) mg/dL Triglycerides (0.00-149.00) mg/dL Urine Appearance (Clear) Urine Protein (Negative) Urine Ketones (Negative) Urine Blood (Negative) Urine WBC (0-5) /hpf Urine Bacteria (None) /hpf Hyaline Casts (0-2) /lpf Urine Mucus (None) /hpf Microbiology - Last 24 Hours (Table) 10/17/24 21:47 Anaerobic Culture - Preliminary Abdominal Fluid 10/17/24 21:47 Anaerobic Culture - Preliminary Abdominal Fluid Parabacteroides distasonis 10/17/24 21:47 Gram Stain - Final Abdomen Wound Culture - Final Escherichia coli 10/17/24 21:47 Gram Stain - Final Abdomen Wound Culture - Final Escherichia coli
--- NOTE | 2024-10-20 15:20 | P.PN ---
Subjective Progress Note Date: 10/20/24 Principal diagnosis: Abdominal pain. Patient is a 74-year-old female with past medical history significant for hypothyroidism and lung cancer.. Patient is known to have a right upper lobe lung mass, she was seen at our facility May,, and transfered to [facility]. Reportedly, currently undergoing systemic chemotherapy. Patient is intubated and unable to provide information. No family present. Most recent PET scan done 10/05/2024 demonstrating a mixed response to therapy with decrease size and FDG activity of the right upper lobe pulmonary mass and mediastinal/right hilar adenopathy; however, there is a more prominent appearing opacity within the right lower lobe abutting the fissure with increasing FDG activity. Possibly representing an infectious/inflammatory opacity, however, new metastasis was not excluded. Brain CT done back in May, showing a large area of vasogenic edema extending through the right proximal temporal lo be, right parietal lobe, and occipital lobe with effacement of the sulci and subfalcine herniation with 0.8 cm of midline shift to the left. Follow-up brain MRI done 09/18/2024 showing postsurgical changes with a small cystic cavity in the area of prior surgery. No new lesions were noted. Patient presents to the emergency department yesterday afternoon with a chief complaint of abdominal pain. Reportedly, persistent abdominal pain over the last 5 days with increasing intensity. Workup in the emergency department including a abdominal/pelvis CT which demonstrated small to moderate amount of free air scattered within the upper abdomen and within the mid pelvis. Small amount of free fluid within the pelvis. Dilated small bowel loops to at least the proximal ileum. Partial small bowel obstruction should be considered. Late last night, patient taken to the operating room for exploratory laparotomy, a ruptured sigmoid colon and possible stercoral ulcer was found. Patient underwent sigmoid colectomy with end colostomy. Following the procedure, she was transferred to the intensive care unit for recovery. Patient currently being evaluated in the ICU. She remains intubated to the mechanical ventilator, current ventilator settings assist-control, respiratory rate 16, tidal volume 400, FiO2 50%, PEEP of 5. ABG done on these settings and an FiO2 100%; show a PaO2 of 363, pCO2 of 45, pH of 7.28. Chest x-ray showing endotracheal tube 3 cm above the adriana, nasogastric tube coursing below the diaphragm, right mediastinal mass, right IJ central line catheter with tip near the cavoatrial junction. Patient is currently sedated and synchronous with mechanical ventilator. Nonresponsive. On propofol 15 mcg/kg/min. LR is infusing at 75 mL/h. Blood pressure soft at 96/66 mmHg. Mildly tachycardic. Urine output only 60 cc since OR exit. Postoperative labs including a CBC with a WBC count of 2, hemoglobin 10.8, hematocrit 33.6, platelets 107. CMP: Sodium 135, potassium 3.5, chloride 102, serum bicarb 23, BUN 34, creatinine 1.01, glucose 117. Lactic 1.7. Calcium 6.9. Patient is empirically covered on antibiotics in the form of Zosyn. Midline abdominal incision with postoperative dressing intact. Mild shadowing. CORAZON drain with serosanguineous fluid and needs to be emptied. Left upper quadrant stoma is pink. Progress note dated October 19, 2024. 74-year-old female seen today in room 251. She is postoperative day #2, status post exploratory laparotomy, sigmoid colectomy, with end colostomy. Currently, the patient was on 2 L of oxygen. She has an NG tube in place. She is getting lactated Ringer's at 130 cc an hour. She was extubated successfully yesterday, October 18. She continues on Zosyn. We did order an incentive spirometer for her. Current labs include a white count of 6.5, hemoglobin 6.5, hematocrit 20.2, and a platelet count of 114,000. Sodium 137, potassium 4, chlorides 109, CO2 18, BUN 42, and creatinine 1.71. Calcium is 6.9. Albumin 2.2. Cultures are thus far negative. Chest x-ray shows chronic changes, without an acute process. Progress note dated October 20, 2024. 74-year-old female who was seen in the ICU yesterday. She is postoperative day #3, status post exploratory laparotomy, sigmoid colectomy, with end colostomy. The patient is currently on room air. She is getting TPN at 30 cc an hour. She is also getting lactated Ringer's at 75 cc an hour. Current laboratory data includes a white count 8.7, hemoglobin 7.4, hematocrit 23.2, and a platelet count of 104,000. Sodium 138, potassium 3.1, chlorides 107, CO2 24, BUN 49, and creatinine 1.8. Glucose is 149. Magnesium 2.3. Clinically, the patient is doing well, and she states that she feels well. I encouraged her to use her incentive spirometer, hourly. Wound cultures of the abdomen were positive for Escherichia coli. Abdominal fluid cultures were positive for Para- b.acteroides species. The patient is currently on Zosyn. Objective - Vital Signs Vital signs: Vital Signs Temp 97.4 F L 10/20/24 11:26 Pulse 64 10/20/24 11:26 Resp 16 10/20/24 11:26 BP 113/56 10/20/24 11:26 Pulse Ox 95 10/20/24 11:26 FiO2 40 10/18/24 11:01 Intake & Output 10/19/24 10/20/24 10/20/24 18:59 06:59 18:59 Intake Total 1018 1780 2700 Output Total 682 426 3076 Balance 58 1500 1560 Weight 64.5 kg 64.5 kg 64.5 kg Intake: IV 540 1780 2300 .9@ 20 240 .9@ 20 #2 240 ACETAMINOPHEN IV (For NPO 400 ) 1,000 mg In Empty Bag 1 bag @ 400 mls/hr IVPB Q6HR [facility] Rx#:[id number] Invasive Line 1 40 Invasive Line 3 20 Lactated Ringers 1,000 ml 465 1040 1560 @ 75 mls/hr IV .[id number] [facility] Rx#:[id number] Mvi, Adult No.4 with Vit 240 K 10 ml Trace (Conc-1Ml/ Dose) 1 ml Sodium Acetate 30 meq Magnesium Sulfate gm 0.5 gm Calcium Gluconate 1 gm In Amino Acids 5 %/Dextrose 20 % 1 ,000 ml @ 30 mls/hr IV . Q24H [facility] Rx#:[id number] Piperacillin-Tazobactam 3 100 200 .375 gm In Sodium Chloride 0.9% 100 ml @ 25 mls/hr IVPB Q8H [facility] Rx#: [id number] Sodium Chloride 0.9% 1, 75 000 ml @ 75 mls/hr IV . [id number] [facility] Rx#:[id number] Intake, IV Titration 200 400 Amount ACETAMINOPHEN IV (For NPO 100 ) 1,000 mg In Empty Bag 1 bag @ 400 mls/hr IVPB Q6HR [facility] Rx#:[id number] Piperacillin-Tazobactam 3 100 .375 gm In Sodium Chloride 0.9% 100 ml @ 25 mls/hr IVPB Q8H [facility] Rx#: [id number] Potassium Chloride 10 meq 400 In Water For Injection 1 100ml.bag @ 100 mls/hr IVPB Q1HR [facility] Rx#: [id number] Blood Product 278 Rc Pheresis As-3 Unit 278 [id number] Output: Gastric Drainage 50 Drainage 260 280 340 Medial Abdomen 260 280 340 Urine 650 750 Uretheral (Cooper) 750 Stool 50 Other: Voiding Method Indwelling Catheter Indwelling Catheter Indwelling Catheter - Exam No acute distress, oriented 3. No respiratory distress. Currently on room air. HEENT examination is grossly unremarkable. Mucous membranes are moist. No oral lesions. Neck supple. Full range of motion. No adenopathy thyromegaly or neck vein distention. Cardiovascular examination reveals regular rhythm rate. S1-S2 normal. No S3 or S4. No discernible murmur noted. Lungs reveal minimal scattered rhonchi. No wheezes. No crackles. Breath sounds equal bilaterally. Abdomen soft without bowel sounds. Left upper quadrant stoma is noted. Extremities are intact. No cyanosis clubbing or edema. Skin is without rash or lesion. Neurologic examination is brief but nonfocal. - Labs CBC & Chem 7: 10/20/24 06:22 10/20/24 06:22 Labs: Abnormal Lab Results - Last 24 Hours (Table) 10/19/24 10/19/24 10/20/24 Range/Units 13:49 15:11 00:46 RBC (3.80-5.40) m/uL Hgb (11.4-16.0) gm/dL Hct (34.0-46.0) % MCV (80.0-100.0) fL RDW (11.5-15.5) % Plt Count (150-450) k/uL Lymphocytes # (1.0-4.8) k/uL Macrocytosis Potassium (3.5-5.1) mmol/L BUN (7-17) mg/dL Creatinine (0.52-1.04) mg/dL Glucose (74-99) mg/dL POC Glucose (mg/dL) 164 H (70-110) mg/dL Calcium (8.4-10.2) mg/dL Ionized Calcium Shannan (4.5-5.3) mg/dL Triglycerides 241.00 H (0.00-149.00) mg/dL Urine Appearance Turbid H (Clear) Urine Protein 1+ H (Negative) Urine Ketones 1+ H (Negative) Urine Blood Small H (Negative) Urine WBC 8 H (0-5) /hpf Urine Bacteria Rare H (None) /hpf Hyaline Casts 3 H (0-2) /lpf Urine Mucus Rare H (None) /hpf 10/20/24 10/20/24 10/20/24 Range/Units 06:15 06:22 06:22 RBC 2.27 L (3.80-5.40) m/uL Hgb 7.4 L (11.4-16.0) gm/dL Hct 23.2 L (34.0-46.0) % MCV 102.0 H (80.0-100.0) fL RDW 20.6 H (11.5-15.5) % Plt Count 104 L (150-450) k/uL Lymphocytes # 0.6 L (1.0-4.8) k/uL Macrocytosis Marked A Potassium 3.1 L (3.5-5.1) mmol/L BUN 49 H (7-17) mg/dL Creatinine 1.80 H (0.52-1.04) mg/dL Glucose 149 H (74-99) mg/dL POC Glucose (mg/dL) 174 H (70-110) mg/dL Calcium 6.8 L (8.4-10.2) mg/dL Ionized Calcium Shannan 4.1 L (4.5-5.3) mg/dL Triglycerides (0.00-149.00) mg/dL Urine Appearance (Clear) Urine Protein (Negative) Urine Ketones (Negative) Urine Blood (Negative) Urine WBC (0-5) /hpf Urine Bacteria (None) /hpf Hyaline Casts (0-2) /lpf Urine Mucus (None) /hpf 10/20/24 Range/Units 11:11 RBC (3.80-5.40) m/uL Hgb (11.4-16.0) gm/dL Hct (34.0-46.0) % MCV (80.0-100.0) fL RDW (11.5-15.5) % Plt Count (150-450) k/uL Lymphocytes # (1.0-4.8) k/uL Macrocytosis Potassium (3.5-5.1) mmol/L BUN (7-17) mg/dL Creatinine (0.52-1.04) mg/dL Glucose (74-99) mg/dL POC Glucose (mg/dL) 149 H (70-110) mg/dL Calcium (8.4-10.2) mg/dL Ionized Calcium Shannan (4.5-5.3) mg/dL Triglycerides (0.00-149.00) mg/dL Urine Appearance (Clear) Urine Protein (Negative) Urine Ketones (Negative) Urine Blood (Negative) Urine WBC (0-5) /hpf Urine Bacteria (None) /hpf Hyaline Casts (0-2) /lpf Urine Mucus (None) /hpf Microbiology - Last 24 Hours (Table) 10/17/24 21:47 Anaerobic Culture - Preliminary Abdominal Fluid 10/17/24 21:47 Anaerobic Culture - Preliminary Abdominal Fluid Parabacteroides distasonis 10/17/24 21:47 Gram Stain - Final Abdomen Wound Culture - Final Escherichia coli 10/17/24 21:47 Gram Stain - Final Abdomen Wound Culture - Final Escherichia coli Assessment and Plan Assessment: Pneumoperitoneum. Ruptured sigmoid colon with possible stercoral ulcer, status post exploratory laparotomy with sigmoid colectomy and end colostomy, operative day # 3. Wound cultures positive for Escherichia coli. Routine postoperative ventilator management, S/P extubation on October 18, 2024. Pancytopenia. Hypocalcemia. History of lung cancer with metastasis to brain. History of hypothyroidism. Tobacco smoker. Plan: Plan dated October 19, 2024. The patient is seen today in room 255. She is currently doing relatively well. Today's postoperative day #2. She had an exploratory laparotomy, sigmoid colectomy, and end colostomy. She was extubated successfully yesterday. She is getting lactated Ringer's at 130 cc an hour. She continues on Zosyn. She has got an NG tube in place. All labs, x-rays, and medications are reviewed. We do recommend that she start using an incentive spirometer, every hour while awake. Clinically, the patient appears to be doing relatively well. She denies any shortness of breath, cough, wheezing, chest tightness, or phlegm production. 50 minutes was spent with this patient, which included taking history, examining the patient, reviewing pertinent laboratory data, x-rays, medications, as well as discussing the diagnosis, treatment, prognosis, with the patient, nursing staff, pharmacy, respiratory therapy, and dietary. Dictation was produced using [employer] software. Please excuse any grammatical, word or spelling errors. Plan dated October 20, 2024. The patient was seen yesterday in the intensive care unit, room 255. She is postoperative day #3. Wound cultures were positive for Escherichia coli. The patient continues on Zosyn. Labs, x-rays, and medications are reviewed. The patient appears to be doing better. She is on room air. The patient is getting TPN at 30 cc an hour, and lactated Ringer's at 75 cc an hour. We will continue to follow the patient, make recommendations where appropriate. 15 minutes was spent with this patient, including time spent taking her history, examining the patient, reviewing pertinent laboratory data, x-rays, medications, as well as discussing the diagnosis, treatment, prognosis with the patient, and the patient's nursing staff. Dictation was produced using [employer] software. Please excuse any grammatical, word or spelling errors. Time with Patient: Greater than 30
--- NOTE | 2024-10-20 15:21 | P.PN ---
Subjective Progress Note Date: 10/20/24 Principal diagnosis: Reason for follow-up is perforated sigmoid colon/peritonitis Patient is a 74-year-old female with a past medical history significant for metastatic lung cancer hypothyroidism has been brought into the hospital for evaluation of generalized abdominal pain patient has been diagnosed with perforated sigmoid colon status post laparotomy sigmoid colectomy diverting colostomy. On today's evaluation that is 10/20/2024, the patient continues to be afebrile, the patient is on room air and breathing comfortably, the Pt denies having any chest pain or cough, the patient denies having any nausea vomiting abdominal pain has decreased in intensity feeling slightly better. The patient white count is 8.7 creatinine is 1.80 abdominal cultures with parabacteroids and E. coli that is a sensitive pathogen Objective - Vital Signs Vital signs: Vital Signs Temp 97.4 F L 10/20/24 11:26 Pulse 64 10/20/24 11:26 Resp 16 10/20/24 11:26 BP 113/56 10/20/24 11:26 Pulse Ox 95 10/20/24 11:26 FiO2 40 10/18/24 11:01 Intake & Output 10/19/24 10/20/24 10/20/24 18:59 06:59 18:59 Intake Total 1018 1780 2670 Output Total 143 771 6521 Balance 58 1500 1650 Weight 64.5 kg 64.5 kg Intake: IV 540 1780 2270 .9@ 20 240 .9@ 20 #2 240 ACETAMINOPHEN IV (For NPO 400 ) 1,000 mg In Empty Bag 1 bag @ 400 mls/hr IVPB Q6HR [facility] Rx#:[id number] Invasive Line 1 20 Invasive Line 3 10 Lactated Ringers 1,000 ml 465 1040 1560 @ 75 mls/hr IV .[id number] [facility] Rx#:[id number] Mvi, Adult No.4 with Vit 240 K 10 ml Trace (Conc-1Ml/ Dose) 1 ml Sodium Acetate 30 meq Magnesium Sulfate gm 0.5 gm Calcium Gluconate 1 gm In Amino Acids 5 %/Dextrose 20 % 1 ,000 ml @ 30 mls/hr IV . Q24H [facility] Rx#:[id number] Piperacillin-Tazobactam 3 100 200 .375 gm In Sodium Chloride 0.9% 100 ml @ 25 mls/hr IVPB Q8H [facility] Rx#: [id number] Sodium Chloride 0.9% 1, 75 000 ml @ 75 mls/hr IV . [id number] [facility] Rx#:[id number] Intake, IV Titration 200 400 Amount ACETAMINOPHEN IV (For NPO 100 ) 1,000 mg In Empty Bag 1 bag @ 400 mls/hr IVPB Q6HR [facility] Rx#:[id number] Piperacillin-Tazobactam 3 100 .375 gm In Sodium Chloride 0.9% 100 ml @ 25 mls/hr IVPB Q8H [facility] Rx#: [id number] Potassium Chloride 10 meq 400 In Water For Injection 1 100ml.bag @ 100 mls/hr IVPB Q1HR [facility] Rx#: [id number] Blood Product 278 Rc Pheresis As-3 Unit 278 [id number] Output: Gastric Drainage 50 Drainage 260 280 220 Medial Abdomen 260 280 220 Urine 650 750 Uretheral (Cooper) 750 Stool 50 Other: Voiding Method Indwelling Catheter Indwelling Catheter Indwelling Catheter - Exam GENERAL DESCRIPTION: An elderly female lying in bed in no distress RESPIRATORY SYSTEM: Unlabored breathing , decreased breath sounds at bases HEART: S1 S2 regular rate and rhythm , ABDOMEN: Soft , mild tenderness EXTREMITIES: No edema feet - Labs CBC & Chem 7: 10/20/24 06:22 10/20/24 06:22 Labs: Abnormal Lab Results - Last 24 Hours (Table) 10/19/24 10/19/24 10/19/24 Range/Units 13:49 13:49 15:11 RBC 2.42 L (3.80-5.40) m/uL Hgb 7.9 L (11.4-16.0) gm/dL Hct 24.6 L (34.0-46.0) % MCV 101.9 H (80.0-100.0) fL RDW 19.7 H (11.5-15.5) % Plt Count 108 L (150-450) k/uL Lymphocytes # (1.0-4.8) k/uL Macrocytosis Marked A Potassium (3.5-5.1) mmol/L BUN (7-17) mg/dL Creatinine (0.52-1.04) mg/dL Glucose (74-99) mg/dL POC Glucose (mg/dL) (70-110) mg/dL Calcium (8.4-10.2) mg/dL Ionized Calcium Shannan (4.5-5.3) mg/dL Phosphorus 4.6 H (2.5-4.5) mg/dL Triglycerides 241.00 H (0.00-149.00) mg/dL Urine Appearance Turbid H (Clear) Urine Protein 1+ H (Negative) Urine Ketones 1+ H (Negative) Urine Blood Small H (Negative) Urine WBC 8 H (0-5) /hpf Urine Bacteria Rare H (None) /hpf Hyaline Casts 3 H (0-2) /lpf Urine Mucus Rare H (None) /hpf 10/20/24 10/20/24 10/20/24 Range/Units 00:46 06:15 06:22 RBC (3.80-5.40) m/uL Hgb (11.4-16.0) gm/dL Hct (34.0-46.0) % MCV (80.0-100.0) fL RDW (11.5-15.5) % Plt Count (150-450) k/uL Lymphocytes # (1.0-4.8) k/uL Macrocytosis Potassium 3.1 L (3.5-5.1) mmol/L BUN 49 H (7-17) mg/dL Creatinine 1.80 H (0.52-1.04) mg/dL Glucose 149 H (74-99) mg/dL POC Glucose (mg/dL) 164 H 174 H (70-110) mg/dL Calcium 6.8 L (8.4-10.2) mg/dL Ionized Calcium Shannan 4.1 L (4.5-5.3) mg/dL Phosphorus (2.5-4.5) mg/dL Triglycerides (0.00-149.00) mg/dL Urine Appearance (Clear) Urine Protein (Negative) Urine Ketones (Negative) Urine Blood (Negative) Urine WBC (0-5) /hpf Urine Bacteria (None) /hpf Hyaline Casts (0-2) /lpf Urine Mucus (None) /hpf 10/20/24 10/20/24 Range/Units 06:22 11:11 RBC 2.27 L (3.80-5.40) m/uL Hgb 7.4 L (11.4-16.0) gm/dL Hct 23.2 L (34.0-46.0) % MCV 102.0 H (80.0-100.0) fL RDW 20.6 H (11.5-15.5) % Plt Count 104 L (150-450) k/uL Lymphocytes # 0.6 L (1.0-4.8) k/uL Macrocytosis Marked A Potassium (3.5-5.1) mmol/L BUN (7-17) mg/dL Creatinine (0.52-1.04) mg/dL Glucose (74-99) mg/dL POC Glucose (mg/dL) 149 H (70-110) mg/dL Calcium (8.4-10.2) mg/dL Ionized Calcium Shannan (4.5-5.3) mg/dL Phosphorus (2.5-4.5) mg/dL Triglycerides (0.00-149.00) mg/dL Urine Appearance (Clear) Urine Protein (Negative) Urine Ketones (Negative) Urine Blood (Negative) Urine WBC (0-5) /hpf Urine Bacteria (None) /hpf Hyaline Casts (0-2) /lpf Urine Mucus (None) /hpf Microbiology - Last 24 Hours (Table) 10/17/24 21:47 Gram Stain - Final Abdomen Wound Culture - Final Escherichia coli 10/17/24 21:47 Gram Stain - Final Abdomen Wound Culture - Final Escherichia coli Assessment and Plan (1) Perforated sigmoid colon Current Visit: Yes Status: Acute Code(s): K63.1 - PERFORATION OF INTESTINE (NONTRAUMATIC) SNOMED Code(s): 958446429 (2) Leukopenia Current Visit: Yes Status: Acute Code(s): D72.819 - DECREASED WHITE BLOOD CELL COUNT, UNSPECIFIED SNOMED Code(s): 95197896 (3) Peritonitis Current Visit: Yes Status: Acute Code(s): K65.9 - PERITONITIS, UNSPECIFIED SNOMED Code(s): 29312378 Plan: 1patient presented to hospital with abdominal pain generalized nausea vomiting with evidence of free air on the CT in this patient with status post laparotomy with evidence of sigmoid colon perforation status post sigmoid colectomy and end colostomy we will need to cover for the enteric gram-negative both aerobes and anaerobes 2-patient did have abdominal, blood culture which are negative abdominal cultures with Bacteroides and E. coli is a sensitive pathogen 3-patient Zosyn will be discontinued patient will be started on Unasyn and monitor clinical course closely Dictation was produced using [employer] dictation software. please excuse any gra mmatical, word or spelling errors. Time with Patient: Less than 30
[2024-10-20 16:09] LABS: Glucose,Whole Blood 236 mg/dL (70-110)
[2024-10-20] MEDS: AMPICILLIN-SULBACTAM 3 GM in SODIUM CHLORIDE 0.9% 100 ML IVPB SCH (17:02)
[2024-10-20] MEDS: 1: MVI, ADULT NO.4 WITH VIT K 10 ML, TRACE (CONC-1ML/DOSE) 1 ML, SODIUM ACETATE 30 MEQ, IV SCH (17:02)
[2024-10-21 00:17] LABS: Glucose,Whole Blood 239 mg/dL (70-110)
[2024-10-21 06:16] LABS: Glucose,Whole Blood 243 mg/dL (70-110)
[2024-10-21 07:31] LABS: ALT 15 U/L (4-34); AST 24 U/L (14-36); African American GFR (CKD) 40 (>60 ml/min/1.73 sqM); Albumin 2.1 g/dL (3.5-5.0); Alkaline Phosphatase 93 U/L (38-126); Anion Gap 5 mmol/L; Blood Urea Nitrogen 48 mg/dL (7-17); Calcium 6.9 mg/dL (8.4-10.2); Carbon Dioxide 23 mmol/L (22-30); Chloride 103 mmol/L (98-107); Glucose 208 mg/dL (74-99); Non-African American GFR(CKD) 35 (>60 ml/min/1.73 sqM); Phosphorus 2.3 mg/dL (2.5-4.5); Potassium 3.1 mmol/L (3.5-5.1); Sodium 131 mmol/L (137-145); Total Bilirubin 0.4 mg/dL (0.2-1.3); Total Protein 4.2 g/dL (6.3-8.2)
[2024-10-21] MEDS: POTASSIUM CHLORIDE 10 MEQ in WATER FOR INJECTION 1 100ML.BAG IVPB SCH (08:42)
[2024-10-21] MEDS: HYDROCORTISONE SUCCINATE 100 MG/2 ML VIAL IV SCH (08:43)
[2024-10-21 11:14] LABS: Glucose,Whole Blood 238 mg/dL (70-110)
--- NOTE | 2024-10-21 11:27 | P.PN ---
Subjective Patient is seen for follow-up for acute kidney injury. Maintained on TPN. Renal function has improved with serum creatinine down to 1.4 mg/dL. No significant complaints today. Objective - Vital Signs Vital signs: Vital Signs Temp 97.7 F 10/21/24 08:59 Pulse 69 10/21/24 08:59 Resp 16 10/21/24 08:59 BP 116/62 10/21/24 08:59 Pulse Ox 93 L 10/21/24 08:59 FiO2 40 10/18/24 11:01 Intake & Output 10/20/24 10/21/24 10/21/24 18:59 06:59 18:59 Intake Total 2580 340 1890 Output Total 1410 920 900 Balance 1170 -580 990 Weight 64.5 kg 64 kg Intake: IV 2180 70 1290 .9@ 10 120 120 .9@ 20 #2 240 240 Invasive Line 1 40 60 20 Invasive Line 3 20 Invasive Line 4 10 10 Lactated Ringers 1,000 ml 1560 900 @ 75 mls/hr IV .[id number] [facility] Rx#:[id number] Piperacillin-Tazobactam 3 200 .375 gm In Sodium Chloride 0.9% 100 ml @ 25 mls/hr IVPB Q8H [facility] Rx#: [id number] Intake, IV Titration 400 600 Amount Ampicillin-Sulbactam 3 gm 200 In Sodium Chloride 0.9% 100 ml @ 200 mls/hr IVPB Q8HR [facility] Rx#:[id number] Potassium Chloride 10 meq 400 In Water For Injection 1 100ml.bag @ 100 mls/hr IVPB Q1HR [facility] Rx#: [id number] Potassium Chloride 10 meq 400 In Water For Injection 1 100ml.bag @ 100 mls/hr IVPB Q1HR [facility] Rx#: [id number] Oral 270 Output: Drainage 460 320 100 Medial Abdomen 460 320 100 Urine 875 600 800 Uretheral (Cooper) 875 800 Stool 75 Other: Voiding Method Indwelling Catheter Indwelling Catheter Indwelling Catheter - Exam Patient is awake, comfortable, no acute distress. Examination of the heart S1 and S2 Examination of the lungs bilateral breath sounds are heard Abdomen is soft Examination lower extremities shows no significant edema - Labs CBC & Chem 7: 10/20/24 06:22 10/21/24 06:40 Labs: Abnormal Lab Results - Last 24 Hours (Table) 10/20/24 10/21/24 10/21/24 Range/Units 16:06 00:16 06:15 Sodium (137-145) mmol/L Potassium (3.5-5.1) mmol/L BUN (7-17) mg/dL Creatinine (0.52-1.04) mg/dL Glucose (74-99) mg/dL POC Glucose (mg/dL) 236 H 239 H 243 H (70-110) mg/dL Calcium (8.4-10.2) mg/dL Phosphorus (2.5-4.5) mg/dL Total Protein (6.3-8.2) g/dL Albumin (3.5-5.0) g/dL 10/21/24 10/21/24 Range/Units 06:40 11:12 Sodium 131 L (137-145) mmol/L Potassium 3.1 L (3.5-5.1) mmol/L BUN 48 H (7-17) mg/dL Creatinine 1.48 H (0.52-1.04) mg/dL Glucose 208 H (74-99) mg/dL POC Glucose (mg/dL) 238 H (70-110) mg/dL Calcium 6.9 L (8.4-10.2) mg/dL Phosphorus 2.3 L (2.5-4.5) mg/dL Total Protein 4.2 L (6.3-8.2) g/dL Albumin 2.1 L (3.5-5.0) g/dL Microbiology - Last 24 Hours (Table) 10/17/24 21:47 Anaerobic Culture - Preliminary Abdominal Fluid 10/17/24 21:47 Anaerobic Culture - Preliminary Abdominal Fluid Parabacteroides distasonis 10/17/24 21:47 Gram Stain - Final Abdomen Wound Culture - Final Escherichia coli 10/17/24 21:47 Gram Stain - Final Abdomen Wound Culture - Final Escherichia coli Assessment and Plan Assessment: 1. Acute kidney injury secondary to ATN secondary to severe sepsis. Baseline creatinine near 1 and is 1.4 today. Nonoliguric. No hydronephrosis noted on CT. 2. Metabolic acidosis secondary to acute kidney injury and IV fluids. Improved. 3. Sepsis secondary to pneumoperitoneum and antibiotics. 4. Pneumoperitoneum status post exploratory laparotomy with sigmoid colectomy, end colostomy creation. 5. Acute blood loss anemia s/p prbc this admission. 6. Hypokalemia from poor intake. Plan: Okay to continue Ringer lactate along with TPN for now. Repeat labs in a.m. Replace potassium
--- NOTE | 2024-10-21 11:40 | P.PN ---
Progress Note - Text Progress Note Date: 10/21/24 CHIEF COMPLAINT: Pneumoperitoneum HISTORY OF PRESENT ILLNESS: Patient is postop day #4 s/p exploratory laparotomy, sigmoid colectomy with end colostomy for ruptured sigmoid colon, possible stercoral ulcer. She is doing well this AM. She is tolerating CLD. She is having ostomy output. She does have a productive cough. PHYSICAL EXAM: VITAL SIGNS: Reviewed. GENERAL: Well-developed in no acute distress. ABDOMEN: Soft. Mildly distended. Incisional dressing clean dry and intact. Ostomy on the left stoma is pink with serosanguineous output. CORAZON drain with serosanguineous output NEUROLOGIC: Alert and oriented. Cranial nerves II through XII grossly intact. ASSESSMENT: 1. Pneumoperitoneum with ruptured sigmoid colon, possible stercoral ulcer 2. History of lung cancer with brain mets and last chemotherapy about 2 weeks ago 3. Pancytopenia due to recent chemo PLAN: -Advanced to Full Liquid Diet -Nephrology recs for worsening kidney function. -Continue TPN for nutrition support at this time -Pain Control -Continue to monitor CORAZON drain output -Continue antibiotics -Continue IV fluids -GI prophylaxis Protonix and DVT prophylaxis SCDs Rolando Garcia DO [facility] [phone]
--- NOTE | 2024-10-21 13:16 | P.PN ---
Subjective Progress Note Date: 10/21/24 Principal diagnosis: Reason for follow-up is perforated sigmoid colon/peritonitis Patient is a 74-year-old female with a past medical history significant for metastatic lung cancer hypothyroidism has been brought into the hospital for evaluation of generalized abdominal pain patient has been diagnosed with perforated sigmoid colon status post laparotomy sigmoid colectomy diverting colostomy. On today's evaluation that is 10/21/2024, patient did not have any fever and denies any chills, patient is breathing comfortably on room air, patient with no chest pain or cough patient abdominal pain is currently controlled did have output in her colostomy 1 to take a shower. Patient did have a creatinine 1.48 no CBC was done today Objective - Vital Signs Vital signs: Vital Signs Temp 98.0 F 10/21/24 12:09 Pulse 65 10/21/24 12:09 Resp 16 10/21/24 12:09 BP 126/63 10/21/24 12:09 Pulse Ox 92 L 10/21/24 12:09 FiO2 40 10/18/24 11:01 Intake & Output 10/20/24 10/21/24 10/21/24 18:59 06:59 18:59 Intake Total 2580 340 1920 Output Total 8958 113 4953 Balance 1170 -580 470 Weight 64.5 kg 64 kg Intake: IV 2180 70 1320 .9@ 10 120 120 .9@ 20 #2 240 240 Invasive Line 1 40 60 40 Invasive Line 3 20 Invasive Line 4 10 20 Lactated Ringers 1,000 ml 1560 900 @ 75 mls/hr IV .[id number] [facility] Rx#:[id number] Piperacillin-Tazobactam 3 200 .375 gm In Sodium Chloride 0.9% 100 ml @ 25 mls/hr IVPB Q8H [facility] Rx#: [id number] Intake, IV Titration 400 600 Amount Ampicillin-Sulbactam 3 gm 200 In Sodium Chloride 0.9% 100 ml @ 200 mls/hr IVPB Q8HR [facility] Rx#:[id number] Potassium Chloride 10 meq 400 In Water For Injection 1 100ml.bag @ 100 mls/hr IVPB Q1HR [facility] Rx#: [id number] Potassium Chloride 10 meq 400 In Water For Injection 1 100ml.bag @ 100 mls/hr IVPB Q1HR [facility] Rx#: [id number] Oral 270 Output: Drainage 460 320 200 Medial Abdomen 460 320 200 Urine 047 129 2254 Uretheral (Cooper) 875 1250 Stool 75 Other: Voiding Method Indwelling Catheter Indwelling Catheter Indwelling Catheter - Exam GENERAL DESCRIPTION: An elderly female lying in bed in no distress RESPIRATORY SYSTEM: Unlabored breathing , decreased breath sounds at bases HEART: S1 S2 regular rate and rhythm , ABDOMEN: Soft , mild tenderness EXTREMITIES: No edema feet - Labs CBC & Chem 7: 10/20/24 06:22 10/21/24 06:40 Labs: Abnormal Lab Results - Last 24 Hours (Table) 10/20/24 10/21/24 10/21/24 Range/Units 16:06 00:16 06:15 Sodium (137-145) mmol/L Potassium (3.5-5.1) mmol/L BUN (7-17) mg/dL Creatinine (0.52-1.04) mg/dL Glucose (74-99) mg/dL POC Glucose (mg/dL) 236 H 239 H 243 H (70-110) mg/dL Calcium (8.4-10.2) mg/dL Phosphorus (2.5-4.5) mg/dL Total Protein (6.3-8.2) g/dL Albumin (3.5-5.0) g/dL 10/21/24 10/21/24 Range/Units 06:40 11:12 Sodium 131 L (137-145) mmol/L Potassium 3.1 L (3.5-5.1) mmol/L BUN 48 H (7-17) mg/dL Creatinine 1.48 H (0.52-1.04) mg/dL Glucose 208 H (74-99) mg/dL POC Glucose (mg/dL) 238 H (70-110) mg/dL Calcium 6.9 L (8.4-10.2) mg/dL Phosphorus 2.3 L (2.5-4.5) mg/dL Total Protein 4.2 L (6.3-8.2) g/dL Albumin 2.1 L (3.5-5.0) g/dL Microbiology - Last 24 Hours (Table) 10/17/24 21:47 Anaerobic Culture - Preliminary Abdominal Fluid 10/17/24 21:47 Anaerobic Culture - Preliminary Abdominal Fluid Parabacteroides distasonis 10/17/24 21:47 Gram Stain - Final Abdomen Wound Culture - Final Escherichia coli 10/17/24 21:47 Gram Stain - Final Abdomen Wound Culture - Final Escherichia coli Assessment and Plan (1) Perforated sigmoid colon Current Visit: Yes Status: Acute Code(s): K63.1 - PERFORATION OF INTESTINE (NONTRAUMATIC) SNOMED Code(s): 872507358 (2) Leukopenia Current Visit: Yes Status: Acute Code(s): D72.819 - DECREASED WHITE BLOOD CELL COUNT, UNSPECIFIED SNOMED Code(s): 43519566 (3) Peritonitis Current Visit: Yes Status: Acute Code(s): K65.9 - PERITONITIS, UNSPECIFIED SNOMED Code(s): 81618322 Plan: 1patient presented to hospital with abdominal pain generalized nausea vomiting with evidence of free air on the CT in this patient with status post laparotomy with evidence of sigmoid colon perforation status post sigmoid colectomy and end colostomy we will need to cover for the enteric gram-negative both aerobes and anaerobes 2-patient blood culture which are negative abdominal cultures with Bacteroides and E. coli is a sensitive pathogen 3-patient currently being treated with Unasyn and monitor clinical course closely Dictation was produced using [employer] dictation software. please excuse any grammatical, word or spelling errors. Time with Patient: Less than 30
--- NOTE | 2024-10-21 13:29 | P.PN ---
Subjective Progress Note Date: 10/21/24 Principal diagnosis: Abdominal pain. Patient is a 74-year-old female with past medical history significant for hypothyroidism and lung cancer.. Patient is known to have a right upper lobe lung mass, she was seen at our facility May,, and transfered to [facility]. Reportedly, currently undergoing systemic chemotherapy. Patient is intubated and unable to provide information. No family present. Most recent PET scan done 10/05/2024 demonstrating a mixed response to therapy with decrease size and FDG activity of the right upper lobe pulmonary mass and mediastinal/right hilar adenopathy; however, there is a more prominent appearing opacity within the right lower lobe abutting the fissure with increasing FDG activity. Possibly representing an infectious/inflammatory opacity, however, new metastasis was not excluded. Brain CT done back in May, showing a large area of vasogenic edema extending through the right proximal temporal lo be, right parietal lobe, and occipital lobe with effacement of the sulci and subfalcine herniation with 0.8 cm of midline shift to the left. Follow-up brain MRI done 09/18/2024 showing postsurgical changes with a small cystic cavity in the area of prior surgery. No new lesions were noted. Patient presents to the emergency department yesterday afternoon with a chief complaint of abdominal pain. Reportedly, persistent abdominal pain over the last 5 days with increasing intensity. Workup in the emergency department including a abdominal/pelvis CT which demonstrated small to moderate amount of free air scattered within the upper abdomen and within the mid pelvis. Small amount of free fluid within the pelvis. Dilated small bowel loops to at least the proximal ileum. Partial small bowel obstruction should be considered. Late last night, patient taken to the operating room for exploratory laparotomy, a ruptured sigmoid colon and possible stercoral ulcer was found. Patient underwent sigmoid colectomy with end colostomy. Following the procedure, she was transferred to the intensive care unit for recovery. Patient currently being evaluated in the ICU. She remains intubated to the mechanical ventilator, current ventilator settings assist-control, respiratory rate 16, tidal volume 400, FiO2 50%, PEEP of 5. ABG done on these settings and an FiO2 100%; show a PaO2 of 363, pCO2 of 45, pH of 7.28. Chest x-ray showing endotracheal tube 3 cm above the adriana, nasogastric tube coursing below the diaphragm, right mediastinal mass, right IJ central line catheter with tip near the cavoatrial junction. Patient is currently sedated and synchronous with mechanical ventilator. Nonresponsive. On propofol 15 mcg/kg/min. LR is infusing at 75 mL/h. Blood pressure soft at 96/66 mmHg. Mildly tachycardic. Urine output only 60 cc since OR exit. Postoperative labs including a CBC with a WBC count of 2, hemoglobin 10.8, hematocrit 33.6, platelets 107. CMP: Sodium 135, potassium 3.5, chloride 102, serum bicarb 23, BUN 34, creatinine 1.01, glucose 117. Lactic 1.7. Calcium 6.9. Patient is empirically covered on antibiotics in the form of Zosyn. Midline abdominal incision with postoperative dressing intact. Mild shadowing. CORAZON drain with serosanguineous fluid and needs to be emptied. Left upper quadrant stoma is pink. Progress note dated October 19, 2024. 74-year-old female seen today in room 251. She is postoperative day #2, status post exploratory laparotomy, sigmoid colectomy, with end colostomy. Currently, the patient was on 2 L of oxygen. She has an NG tube in place. She is getting lactated Ringer's at 130 cc an hour. She was extubated successfully yesterday, October 18. She continues on Zosyn. We did order an incentive spirometer for her. Current labs include a white count of 6.5, hemoglobin 6.5, hematocrit 20.2, and a platelet count of 114,000. Sodium 137, potassium 4, chlorides 109, CO2 18, BUN 42, and creatinine 1.71. Calcium is 6.9. Albumin 2.2. Cultures are thus far negative. Chest x-ray shows chronic changes, without an acute process. Progress note dated October 20, 2024. 74-year-old female who was seen in the ICU yesterday. She is postoperative day #3, status post exploratory laparotomy, sigmoid colectomy, with end colostomy. The patient is currently on room air. She is getting TPN at 30 cc an hour. She is also getting lactated Ringer's at 75 cc an hour. Current laboratory data includes a white count 8.7, hemoglobin 7.4, hematocrit 23.2, and a platelet count of 104,000. Sodium 138, potassium 3.1, chlorides 107, CO2 24, BUN 49, and creatinine 1.8. Glucose is 149. Magnesium 2.3. Clinically, the patient is doing well, and she states that she feels well. I encouraged her to use her incentive spirometer, hourly. Wound cultures of the abdomen were positive for Escherichia coli. Abdominal fluid cultures were positive for Para- b.acteroides species. The patient is currently on Zosyn. Progress note dated October 21, 2024. 74-year-old female seen in room 366. The patient was previously in the intensive care unit. Currently, the patient is on room air. She is receiving lactated Ringer's at 75 cc an hour, lipids at 21 cc, and TPN at 80 cc an hour. The patient appears not to be having any respiratory distress or difficulty. She has no specific complaints. She is awake and alert. She is laying flat in bed. Current laboratory data includes a sodium 131, potassium 3.1, chlorides 103, CO2 23, BUN 48, and creatinine 1.48. Glucose is 238. Calcium 6.9, phosphorus 2.3. Albumin 2.1. Wound cultures, revealed evidence of Escherichia coli. Abdominal fluid cultures are positive for parabacteroides species. Objective - Vital Signs Vital signs: Vital Signs Temp 98.0 F 10/21/24 12:09 Pulse 65 10/21/24 12:09 Resp 16 10/21/24 12:09 BP 126/63 10/21/24 12:09 Pulse Ox 92 L 10/21/24 12:09 FiO2 40 10/18/24 11:01 Intake & Output 10/20/24 10/21/24 10/21/24 18:59 06:59 18:59 Intake Total 2580 340 1920 Output Total 5691 981 5364 Balance 1170 -580 470 Weight 64.5 kg 64 kg Intake: IV 2180 70 1320 .9@ 10 120 120 .9@ 20 #2 240 240 Invasive Line 1 40 60 40 Invasive Line 3 20 Invasive Line 4 10 20 Lactated Ringers 1,000 ml 1560 900 @ 75 mls/hr IV .[id number] [facility] Rx#:[id number] Piperacillin-Tazobactam 3 200 .375 gm In Sodium Chloride 0.9% 100 ml @ 25 mls/hr IVPB Q8H [facility] Rx#: [id number] Intake, IV Titration 400 600 Amount Ampicillin-Sulbactam 3 gm 200 In Sodium Chloride 0.9% 100 ml @ 200 mls/hr IVPB Q8HR [facility] Rx#:[id number] Potassium Chloride 10 meq 400 In Water For Injection 1 100ml.bag @ 100 mls/hr IVPB Q1HR [facility] Rx#: [id number] Potassium Chloride 10 meq 400 In Water For Injection 1 100ml.bag @ 100 mls/hr IVPB Q1HR [facility] Rx#: [id number] Oral 270 Output: Drainage 460 320 200 Medial Abdomen 460 320 200 Urine 970 242 7467 Uretheral (Cooper) 875 1250 Stool 75 Other: Voiding Method Indwelling Catheter Indwelling Catheter Indwelling Catheter - Exam No acute distress, oriented 3. No respiratory distress. Currently on room air. HEENT examination is grossly unremarkable. Mucous membranes are moist. No oral lesions. Neck supple. Full range of motion. No adenopathy thyromegaly or neck vein distention. Cardiovascular examination reveals regular rhythm rate. S1-S2 normal. No S3 or S4. No discernible murmur noted. Lungs reveal minimal scattered rhonchi. No wheezes. No crackles. Breath sounds equal bilaterally. Abdomen soft without bowel sounds. Left upper quadrant stoma is noted. Extremities are intact. No cyanosis clubbing or edema. Skin is without rash or lesion. Neurologic examination is brief but nonfocal. - Labs CBC & Chem 7: 10/20/24 06:22 10/21/24 06:40 Labs: Abnormal Lab Results - Last 24 Hours (Table) 10/20/24 10/21/24 10/21/24 Range/Units 16:06 00:16 06:15 Sodium (137-145) mmol/L Potassium (3.5-5.1) mmol/L BUN (7-17) mg/dL Creatinine (0.52-1.04) mg/dL Glucose (74-99) mg/dL POC Glucose (mg/dL) 236 H 239 H 243 H (70-110) mg/dL Calcium (8.4-10.2) mg/dL Phosphorus (2.5-4.5) mg/dL Total Protein (6.3-8.2) g/dL Albumin (3.5-5.0) g/dL 10/21/24 10/21/24 Range/Units 06:40 11:12 Sodium 131 L (137-145) mmol/L Potassium 3.1 L (3.5-5.1) mmol/L BUN 48 H (7-17) mg/dL Creatinine 1.48 H (0.52-1.04) mg/dL Glucose 208 H (74-99) mg/dL POC Glucose (mg/dL) 238 H (70-110) mg/dL Calcium 6.9 L (8.4-10.2) mg/dL Phosphorus 2.3 L (2.5-4.5) mg/dL Total Protein 4.2 L (6.3-8.2) g/dL Albumin 2.1 L (3.5-5.0) g/dL Microbiology - Last 24 Hours (Table) 10/17/24 21:47 Anaerobic Culture - Preliminary Abdominal Fluid 10/17/24 21:47 Anaerobic Culture - Preliminary Abdominal Fluid Parabacteroides distasonis 10/17/24 21:47 Gram Stain - Final Abdomen Wound Culture - Final Escherichia coli 10/17/24 21:47 Gram Stain - Final Abdomen Wound Culture - Final Escherichia coli Assessment and Plan Assessment: Pneumoperitoneum. Ruptured sigmoid colon with possible stercoral ulcer, status post exploratory laparotomy with sigmoid colectomy and end colostomy, operative day # 4. Wound cultures positive for Escherichia coli. Routine postoperative ventilator management, S/P extubation on October 18, 2024. Pancytopenia. Hypocalcemia. History of lung cancer with metastasis to brain. History of hypothyroidism. Tobacco smoker. Plan: Plan dated October 19, 2024. The patient is seen today in room 255. She is currently doing relatively well. Today's postoperative day #2. She had an exploratory laparotomy, sigmoid colectomy, and end colostomy. She was extubated successfully yesterday. She is getting lactated Ringer's at 130 cc an hour. She continues on Zosyn. She has got an NG tube in place. All labs, x-rays, and medications are reviewed. We do recommend that she start using an incentive spirometer, every hour while awake. Clinically, the patient appears to be doing relatively well. She denies any shortness of breath, cough, wheezing, chest tightness, or phlegm production. 50 minutes was spent with this patient, which included taking history, examining the patient, reviewing pertinent laboratory data, x-rays, medications, as well as discussing the diagnosis, treatment, prognosis, with the patient, nursing staff, pharmacy, respiratory therapy, and dietary. Dictation was produced using [employer] dictation software. Please excuse any grammatical, word or spelling errors. Plan dated October 20, 2024. The patient was seen yesterday in the intensive care unit, room 255. She is postoperative day #3. Wound cultures were positive for Escherichia coli. The patient continues on Zosyn. Labs, x-rays, and medications are reviewed. The patient appears to be doing better. She is on room air. The patient is getting TPN at 30 cc an hour, and lactated Ringer's at 75 cc an hour. We will continue to follow the patient, make recommendations where appropriate. 50 minutes was spent with this patient, including time spent taking her history, examining the patient, reviewing pertinent laboratory data, x-rays, medications, as well as discussing the diagnosis, treatment, prognosis with the patient, and the patient's nursing staff. Dictation was produced using [employer] software. Please excuse any grammatical, word or spelling errors. Plan dated October 21, 2024. The patient is seen today in room 366. She is postoperative day #4. Wound cultures were positive for Escherichia coli. The patient continues on Zosyn. All labs, x-rays, and medications are reviewed. We will continue to follow the patient, make recommendations along the way. The patient continues on lactated Ringer's at 75 cc an hour, TPN at 80 cc an hour, and lipids at 21 cc an hour. The patient is not requiring any supplemental oxygen. 50 minutes was spent with this patient, including time spent taking her history, examining the patient, reviewing pertinent laboratory data, x-rays, and medications, as well as discussing the diagnosis, treatment, and prognosis with this patient, and the patient's nurse. We will continue to follow make recommendations. Prognosis is guarded. Dictation was produced using [employer] software. Please excuse any grammatical, word or spelling errors. Time with Patient: Greater than 30
--- NOTE | 2024-10-21 13:56 | P.PN ---
Subjective Progress Note Date: 10/21/24 Subjective: Patient seen and examined at bedside. No acute events overnight. Cooper catheter in place, still having output from CORAZON drain, has some output from ostomy. Pertinent positives and negatives as discussed above, a complete review of systems was performed and all other systems are negative. Vitals Signs Reviewed. General: Nontoxic, no distress, appears at stated age, Cooper catheter in place Derm: Warm, dry Head: Atraumatic, normocephalic, symmetric Eyes: EOMI, no lid lag, anicteric sclera Mouth: No lip lesion, mucus membranes moist Cardiovascular: S1S2 reg, no murmur Lungs: CTA bilateral, no rhonchi, no rales, no accessory muscle use, supplemental oxygen Abdominal: Soft, nontender to palpation, no guarding, no appreciable organomegaly, ostomy and CORAZON drain in place Ext: No gross muscle atrophy, no edema, no contractures Neuro: CN II-XI grossly intact, no focal neuro deficits Psych: Alert, oriented, appropriate affect Data Reviewed Today: Pertinent Labs: Sodium 131, potassium 3.1, creatinine 1.48, magnesium 2.3, blood sugars range between 208 to 239 Imaging: No new imaging Assessment and Plan: Active: Ruptured sigmoid colon secondary to possible stercoral ulcer status post sigmoid colectomy with end colostomy Pneumoperitoneum secondary to above Sepsis secondary to above Bandemia Microcytic anemia, likely acute blood loss, status post 1 unit of PRBCs Mild thrombocytopenia -Surgery note reviewed, patient also on TPN, diet advanced to full liquid -Pain control per surgery -continue IV Protonix 40 daily -ICU note reviewed, continue current management -ID note reviewed, patient started on Unasyn 3 g IV every 8 hours -Patient previously on steroids, hydrocortisone decreased to 50 every 12 hours IV, continue to wean Lung cancer with metastatic brain disease on active chemotherapy -Oncology following -Continue Keppra IV 500 every 12 hours Nonoliguric FRANK, likely prerenal, resolving Mild non-anion gap metabolic acidosis Hypokalemia Hyponatremia -Lactated Ringer at 75 cc an hour -Nephrology note reviewed, continue fluids -Repeat BMP tomorrow -Potassium replaced, 40 mill equivalent IV potassium given today Mild hyperkalemia, resolved Thank you for allowing us to participate in the care of this pleasant patient. Do not hesitate to contact us with questions. Someone can be reached from the [facility] hospitalist group all hours of the day at [phone] or via perfect serve. Objective - Vital Signs Vital signs: Vital Signs Temp 98.0 F 10/21/24 12:09 Pulse 65 10/21/24 12:09 Resp 16 10/21/24 12:09 BP 126/63 10/21/24 12:09 Pulse Ox 92 L 10/21/24 12:09 FiO2 40 10/18/24 11:01 Intake & Output 10/20/24 10/21/24 10/21/24 18:59 06:59 18:59 Intake Total 2580 340 1920 Output Total 7489 783 2317 Balance 1170 -580 470 Weight 64.5 kg 64 kg Intake: IV 2180 70 1320 .9@ 10 120 120 .9@ 20 #2 240 240 Invasive Line 1 40 60 40 Invasive Line 3 20 Invasive Line 4 10 20 Lactated Ringers 1,000 ml 1560 900 @ 75 mls/hr IV .[id number] [facility] Rx#:[id number] Piperacillin-Tazobactam 3 200 .375 gm In Sodium Chloride 0.9% 100 ml @ 25 mls/hr IVPB Q8H [facility] Rx#: [id number] Intake, IV Titration 400 600 Amount Ampicillin-Sulbactam 3 gm 200 In Sodium Chloride 0.9% 100 ml @ 200 mls/hr IVPB Q8HR [facility] Rx#:[id number] Potassium Chloride 10 meq 400 In Water For Injection 1 100ml.bag @ 100 mls/hr IVPB Q1HR [facility] Rx#: [id number] Potassium Chloride 10 meq 400 In Water For Injection 1 100ml.bag @ 100 mls/hr IVPB Q1HR [facility] Rx#: [id number] Oral 270 Output: Drainage 460 320 200 Medial Abdomen 460 320 200 Urine 905 754 1224 Uretheral (Cooper) 875 1250 Stool 75 Other: Voiding Method Indwelling Catheter Indwelling Catheter Indwelling Catheter - Labs CBC & Chem 7: 10/20/24 06:22 10/21/24 06:40 Labs: Abnormal Lab Results - Last 24 Hours (Table) 10/20/24 10/21/24 10/21/24 Range/Units 16:06 00:16 06:15 Sodium (137-145) mmol/L Potassium (3.5-5.1) mmol/L BUN (7-17) mg/dL Creatinine (0.52-1.04) mg/dL Glucose (74-99) mg/dL POC Glucose (mg/dL) 236 H 239 H 243 H (70-110) mg/dL Calcium (8.4-10.2) mg/dL Phosphorus (2.5-4.5) mg/dL Total Protein (6.3-8.2) g/dL Albumin (3.5-5.0) g/dL 10/21/24 10/21/24 Range/Units 06:40 11:12 Sodium 131 L (137-145) mmol/L Potassium 3.1 L (3.5-5.1) mmol/L BUN 48 H (7-17) mg/dL Creatinine 1.48 H (0.52-1.04) mg/dL Glucose 208 H (74-99) mg/dL POC Glucose (mg/dL) 238 H (70-110) mg/dL Calcium 6.9 L (8.4-10.2) mg/dL Phosphorus 2.3 L (2.5-4.5) mg/dL Total Protein 4.2 L (6.3-8.2) g/dL Albumin 2.1 L (3.5-5.0) g/dL Microbiology - Last 24 Hours (Table) 10/17/24 21:47 Anaerobic Culture - Preliminary Abdominal Fluid 10/17/24 21:47 Anaerobic Culture - Preliminary Abdominal Fluid Parabacteroides distasonis 10/17/24 21:47 Gram Stain - Final Abdomen Wound Culture - Final Escherichia coli 10/17/24 21:47 Gram Stain - Final Abdomen Wound Culture - Final Escherichia coli
[2024-10-21] MEDS: SODIUM PHOSPHATE 15 MMOL in DEXTROSE 5% IN WATER 250 ML IVPB ONE (14:01)
[2024-10-21 16:13] LABS: Glucose,Whole Blood 217 mg/dL (70-110)
[2024-10-22 00:21] LABS: Glucose,Whole Blood 183 mg/dL (70-110)
[2024-10-22] MEDS: HYDROcodone/APAP 5-325MG 1 EACH TAB PO PRN (03:47)
[2024-10-22 06:25] LABS: Glucose,Whole Blood 160 mg/dL (70-110)
[2024-10-22 09:17] LABS: Anisocytosis Slight; Basophils # (A) 0.1 k/uL (0-0.2); Basophils % (A) 1 %; Eosinophils % (A) 0 %; HCT 27.9 % (34.0-46.0); HGB 8.7 gm/dL (11.4-16.0); Hypochromasia Slight; Lymphocytes # (A) 1.7 k/uL (1.0-4.8); Lymphocytes % (A) 12 %; MCH 31.6 pg (25.0-35.0); MCHC 31.1 g/dL (31.0-37.0); MCV 101.6 fL (80.0-100.0); Macrocytosis Moderate; Mean Platelet Volume 9.3; Monocytes # (A) 0.5 k/uL (0-1.0); Monocytes % (A) 4 %; Neutrophils # (A) 11.5 k/uL (1.3-7.7); Neutrophils % (A) 81 %; RBC 2.75 m/uL (3.80-5.40); RDW 18.8 % (11.5-15.5); WBC 14.2 k/uL (3.8-10.6)
[2024-10-22 09:28] LABS: ALT 125 U/L (4-34); AST 140 U/L (14-36); African American GFR (CKD) 46 (>60 ml/min/1.73 sqM); Alkaline Phosphatase 164 U/L (38-126); Anion Gap 6 mmol/L; Blood Urea Nitrogen 45 mg/dL (7-17); Calcium 7.4 mg/dL (8.4-10.2); Carbon Dioxide 27 mmol/L (22-30); Chloride 102 mmol/L (98-107); Glucose 125 mg/dL (74-99); Magnesium 1.7 mg/dL (1.6-2.3); Non-African American GFR(CKD) 40 (>60 ml/min/1.73 sqM); Phosphorus 2.3 mg/dL (2.5-4.5); Sodium 135 mmol/L (137-145); Total Bilirubin 0.6 mg/dL (0.2-1.3); Total Protein 4.3 g/dL (6.3-8.2)
[2024-10-22 09:45] LABS: Platelet Count 158 k/uL (150-450)
[2024-10-22 10:42] LABS: Potassium 2.5 mmol/L (3.5-5.1)
[2024-10-22 10:58] LABS: Glucose,Whole Blood 149 mg/dL (70-110)
--- NOTE | 2024-10-22 11:09 | P.PN ---
Subjective Progress Note Date: 10/22/24 Subjective: Patient seen and examined at bedside. No acute events overnight. Cooper catheter in place, still having output from CORAZON drain, has some output from ostomy. Pertinent positives and negatives as discussed above, a complete review of systems was performed and all other systems are negative. Vitals Signs Reviewed. General: Nontoxic, no distress, appears at stated age, Cooper catheter in place Derm: Warm, dry Head: Atraumatic, normocephalic, symmetric Eyes: EOMI, no lid lag, anicteric sclera Mouth: No lip lesion, mucus membranes moist Cardiovascular: S1S2 reg, no murmur Lungs: CTA bilateral, no rhonchi, no rales, no accessory muscle use, supplemental oxygen Abdominal: Soft, nontender to palpation, no guarding, no appreciable organomegaly, ostomy and CORAZON drain in place Ext: No gross muscle atrophy, no edema, no contractures Neuro: CN II-XI grossly intact, no focal neuro deficits Psych: Alert, oriented, appropriate affect Data Reviewed Today: Pertinent Labs: WBC 14.2, hemoglobin 8.7, platelet 158, sodium 135, potassium 2.5, creatinine 1.31, blood sugars range between 1 49-1 83, magnesium 1.7, total bili 0.6, ALP 164, AST 140 ALT Imaging: No new imaging Assessment and Plan: Active: Ruptured sigmoid colon secondary to possible stercoral ulcer status post sigmoid colectomy with end colostomy Pneumoperitoneum secondary to above Sepsis secondary to above Bandemia, resolved Microcytic anemia, likely acute blood loss, status post 1 unit of PRBCs Mild thrombocytopenia, resolved -Surgery following, patient also on TPN, diet advanced to full liquid -Pain control per surgery -continue IV Protonix 40 daily -Pulmonology following, and ID following, on Unasyn 3 g IV every 8 hours -Patient previously on steroids, hydrocortisone decreased to 50 daily IV, continue with Lung cancer with metastatic brain disease on active chemotherapy -Oncology following -Continue Keppra IV 500 every 12 hours Nonoliguric FRANK, likely prerenal, resolving Mild non-anion gap metabolic acidosis Hypokalemia Hyponatremia -Lactated Ringer at 75 cc an hour -Nephrology note reviewed, continue fluids -Repeat BMP tomorrow -Potassium replaced, 60 mill equivalent IV potassium given today -2 g of magnesium sulfate also given Transaminitis -Hepatitis panel as well as right upper quadrant ultrasound ordered Mild hyperkalemia, resolved Thank you for allowing us to participate in the care of this pleasant patient. Do not hesitate to contact us with questions. Someone can be reached from the [facility] hospitalist group all hours of the day at [phone] or via perfect serve. Objective - Vital Signs Vital signs: Vital Signs Temp 97.8 F 10/22/24 08:40 Pulse 68 10/22/24 08:40 Resp 16 10/22/24 08:40 BP 128/66 10/22/24 08:40 Pulse Ox 92 L 10/22/24 08:40 FiO2 40 10/18/24 11:01 Intake & Output 10/21/24 10/22/24 10/22/24 18:59 06:59 18:59 Intake Total 3607 300 1290 Output Total 2550 2670 380 Balance 1057 -2370 910 Weight 64 kg Intake: IV 1320 60 1290 .9@ 10 120 120 .9@ 20 #2 240 240 Invasive Line 1 40 40 20 Invasive Line 4 20 20 10 Lactated Ringers 1,000 ml 900 900 @ 75 mls/hr IV .[id number] [facility] Rx#:[id number] Intake, IV Titration 1887 Amount Ampicillin-Sulbactam 3 gm 200 In Sodium Chloride 0.9% 100 ml @ 200 mls/hr IVPB Q8HR [facility] Rx#:[id number] Mvi, Adult No.4 with Vit 1037 K 10 ml Trace (Conc-1Ml/ Dose) 1 ml Sodium Acetate 30 meq Magnesium Sulfate gm 0.5 gm Calcium Gluconate 1 gm In Amino Acids 5 %/Dextrose 20 % 1 ,000 ml @ 80 mls/hr IV . BY DURATION [facility] Rx#: [id number] Potassium Chloride 10 meq 400 In Water For Injection 1 100ml.bag @ 100 mls/hr IVPB Q1HR [facility] Rx#: [id number] Sodium Phosphate 15 mmol 250 In Dextrose 5% in Water 250 ml @ 127.5 mls/hr [facility] Rx#: [id number] Oral 400 240 Output: Drainage 500 320 80 Medial Abdomen 500 320 80 Urine 2050 2350 250 Uretheral (Cooper) 2050 250 Stool 50 Other: Voiding Method Indwelling Catheter Indwelling Catheter Indwelling Catheter # Bowel Movements 1 - Labs CBC & Chem 7: 10/22/24 09:02 10/22/24 09:02 Labs: Abnormal Lab Results - Last 24 Hours (Table) 10/21/24 10/21/24 10/22/24 Range/Units 11:12 16:12 00:19 WBC (3.8-10.6) k/uL RBC (3.80-5.40) m/uL Hgb (11.4-16.0) gm/dL Hct (34.0-46.0) % MCV (80.0-100.0) fL RDW (11.5-15.5) % Neutrophils # (1.3-7.7) k/uL Sodium (137-145) mmol/L Potassium (3.5-5.1) mmol/L BUN (7-17) mg/dL Creatinine (0.52-1.04) mg/dL Glucose (74-99) mg/dL POC Glucose (mg/dL) 238 H 217 H 183 H (70-110) mg/dL Calcium (8.4-10.2) mg/dL Phosphorus (2.5-4.5) mg/dL AST (14-36) U/L ALT (4-34) U/L Alkaline Phosphatase (38-126) U/L Total Protein (6.3-8.2) g/dL Albumin (3.5-5.0) g/dL 10/22/24 10/22/24 10/22/24 Range/Units 06:21 09:02 09:02 WBC 14.2 H (3.8-10.6) k/uL RBC 2.75 L (3.80-5.40) m/uL Hgb 8.7 L (11.4-16.0) gm/dL Hct 27.9 L (34.0-46.0) % MCV 101.6 H (80.0-100.0) fL RDW 18.8 H (11.5-15.5) % Neutrophils # 11.5 H (1.3-7.7) k/uL Sodium 135 L (137-145) mmol/L Potassium 2.5 L* (3.5-5.1) mmol/L BUN 45 H (7-17) mg/dL Creatinine 1.31 H (0.52-1.04) mg/dL Glucose 125 H (74-99) mg/dL POC Glucose (mg/dL) 160 H (70-110) mg/dL Calcium 7.4 L (8.4-10.2) mg/dL Phosphorus 2.3 L (2.5-4.5) mg/dL AST 140 H (14-36) U/L ALT 125 H (4-34) U/L Alkaline Phosphatase 164 H (38-126) U/L Total Protein 4.3 L (6.3-8.2) g/dL Albumin 2.0 L (3.5-5.0) g/dL 10/22/24 Range/Units 10:56 WBC (3.8-10.6) k/uL RBC (3.80-5.40) m/uL Hgb (11.4-16.0) gm/dL Hct (34.0-46.0) % MCV (80.0-100.0) fL RDW (11.5-15.5) % Neutrophils # (1.3-7.7) k/uL Sodium (137-145) mmol/L Potassium (3.5-5.1) mmol/L BUN (7-17) mg/dL Creatinine (0.52-1.04) mg/dL Glucose (74-99) mg/dL POC Glucose (mg/dL) 149 H (70-110) mg/dL Calcium (8.4-10.2) mg/dL Phosphorus (2.5-4.5) mg/dL AST (14-36) U/L ALT (4-34) U/L Alkaline Phosphatase (38-126) U/L Total Protein (6.3-8.2) g/dL Albumin (3.5-5.0) g/dL Microbiology - Last 24 Hours (Table) 10/17/24 21:47 Anaerobic Culture - Preliminary Abdominal Fluid Eggerthella species
[2024-10-22] MEDS: POTASSIUM CHLORIDE 10 MEQ in WATER FOR INJECTION 1 100ML.BAG IVPB SCH (11:18)
[2024-10-22] MEDS: MAGNESIUM SULFATE-D5W PMX 1 GM in DEXTROSE/WATER 1 100ML.BAG IVPB SCH (11:18)
--- NOTE | 2024-10-22 11:53 | P.PN ---
Subjective Progress Note Date: 10/22/24 Principal diagnosis: Abdominal pain. Patient is a 74-year-old female with past medical history significant for hypothyroidism and lung cancer.. Patient is known to have a right upper lobe lung mass, she was seen at our facility May,, and transfered to [facility]. Reportedly, currently undergoing systemic chemotherapy. Patient is intubated and unable to provide information. No family present. Most recent PET scan done 10/05/2024 demonstrating a mixed response to therapy with decrease size and FDG activity of the right upper lobe pulmonary mass and mediastinal/right hilar adenopathy; however, there is a more prominent appearing opacity within the right lower lobe abutting the fissure with increasing FDG activity. Possibly representing an infectious/inflammatory opacity, however, new metastasis was not excluded. Brain CT done back in May, showing a large area of vasogenic edema extending through the right proximal temporal lo be, right parietal lobe, and occipital lobe with effacement of the sulci and subfalcine herniation with 0.8 cm of midline shift to the left. Follow-up brain MRI done 09/18/2024 showing postsurgical changes with a small cystic cavity in the area of prior surgery. No new lesions were noted. Patient presents to the emergency department yesterday afternoon with a chief complaint of abdominal pain. Reportedly, persistent abdominal pain over the last 5 days with increasing intensity. Workup in the emergency department including a abdominal/pelvis CT which demonstrated small to moderate amount of free air scattered within the upper abdomen and within the mid pelvis. Small amount of free fluid within the pelvis. Dilated small bowel loops to at least the proximal ileum. Partial small bowel obstruction should be considered. Late last night, patient taken to the operating room for exploratory laparotomy, a ruptured sigmoid colon and possible stercoral ulcer was found. Patient underwent sigmoid colectomy with end colostomy. Following the procedure, she was transferred to the intensive care unit for recovery. Patient currently being evaluated in the ICU. She remains intubated to the mechanical ventilator, current ventilator settings assist-control, respiratory rate 16, tidal volume 400, FiO2 50%, PEEP of 5. ABG done on these settings and an FiO2 100%; show a PaO2 of 363, pCO2 of 45, pH of 7.28. Chest x-ray showing endotracheal tube 3 cm above the adriana, nasogastric tube coursing below the diaphragm, right mediastinal mass, right IJ central line catheter with tip near the cavoatrial junction. Patient is currently sedated and synchronous with mechanical ventilator. Nonresponsive. On propofol 15 mcg/kg/min. LR is infusing at 75 mL/h. Blood pressure soft at 96/66 mmHg. Mildly tachycardic. Urine output only 60 cc since OR exit. Postoperative labs including a CBC with a WBC count of 2, hemoglobin 10.8, hematocrit 33.6, platelets 107. CMP: Sodium 135, potassium 3.5, chloride 102, serum bicarb 23, BUN 34, creatinine 1.01, glucose 117. Lactic 1.7. Calcium 6.9. Patient is empirically covered on antibiotics in the form of Zosyn. Midline abdominal incision with postoperative dressing intact. Mild shadowing. CORAZON drain with serosanguineous fluid and needs to be emptied. Left upper quadrant stoma is pink. Progress note dated October 19, 2024. 74-year-old female seen today in room 251. She is postoperative day #2, status post exploratory laparotomy, sigmoid colectomy, with end colostomy. Currently, the patient was on 2 L of oxygen. She has an NG tube in place. She is getting lactated Ringer's at 130 cc an hour. She was extubated successfully yesterday, October 18. She continues on Zosyn. We did order an incentive spirometer for her. Current labs include a white count of 6.5, hemoglobin 6.5, hematocrit 20.2, and a platelet count of 114,000. Sodium 137, potassium 4, chlorides 109, CO2 18, BUN 42, and creatinine 1.71. Calcium is 6.9. Albumin 2.2. Cultures are thus far negative. Chest x-ray shows chronic changes, without an acute process. Progress note dated October 20, 2024. 74-year-old female who was seen in the ICU yesterday. She is postoperative day #3, status post exploratory laparotomy, sigmoid colectomy, with end colostomy. The patient is currently on room air. She is getting TPN at 30 cc an hour. She is also getting lactated Ringer's at 75 cc an hour. Current laboratory data includes a white count 8.7, hemoglobin 7.4, hematocrit 23.2, and a platelet count of 104,000. Sodium 138, potassium 3.1, chlorides 107, CO2 24, BUN 49, and creatinine 1.8. Glucose is 149. Magnesium 2.3. Clinically, the patient is doing well, and she states that she feels well. I encouraged her to use her incentive spirometer, hourly. Wound cultures of the abdomen were positive for Escherichia coli. Abdominal fluid cultures were positive for Para- b.acteroides species. The patient is currently on Zosyn. Progress note dated October 21, 2024. 74-year-old female seen in room 366. The patient was previously in the intensive care unit. Currently, the patient is on room air. She is receiving lactated Ringer's at 75 cc an hour, lipids at 21 cc, and TPN at 80 cc an hour. The patient appears not to be having any respiratory distress or difficulty. She has no specific complaints. She is awake and alert. She is laying flat in bed. Current laboratory data includes a sodium 131, potassium 3.1, chlorides 103, CO2 23, BUN 48, and creatinine 1.48. Glucose is 238. Calcium 6.9, phosphorus 2.3. Albumin 2.1. Wound cultures, revealed evidence of Escherichia coli. Abdominal fluid cultures are positive for parabacteroides species. Progress note dated October 22, 2024. 74-year-old female seen today in room 366. The patient is currently on room air. The patient does continue with lactated Ringer's at 75 cc an hour, saline at 10 cc an hour, and TPN at 80 cc an hour. She has no specific complaints today. She denies any chest pain or pressure. She denies any shortness of breath, cough, wheezing, chest tightness, or phlegm production. Laboratory data includes a white count of 14.2, hemoglobin 8.7, hematocrit 27.9, and platelet count of 158,000. Sodium 135, potassium 2.5, chlorides 102, CO2 27, BUN 45, creatinine 1.31. Glucose 149. Calcium 7.4. Albumin is 2. Abdominal cultures, reveal evidence of E. coli, Eggerthella species, and parabacteroides species. Objective - Vital Signs Vital signs: Vital Signs Temp 97.8 F 10/22/24 08:40 Pulse 68 10/22/24 08:40 Resp 16 10/22/24 08:40 BP 128/66 10/22/24 08:40 Pulse Ox 92 L 10/22/24 08:40 FiO2 40 10/18/24 11:01 Intake & Output 10/21/24 10/22/24 10/22/24 18:59 06:59 18:59 Intake Total 3607 300 1290 Output Total 2550 2670 380 Balance 1057 -2370 910 Weight 64 kg Intake: IV 1320 60 1290 .9@ 10 120 120 .9@ 20 #2 240 240 Invasive Line 1 40 40 20 Invasive Line 4 20 20 10 Lactated Ringers 1,000 ml 900 900 @ 75 mls/hr IV .[id number] [facility] Rx#:[id number] Intake, IV Titration 1887 Amount Ampicillin-Sulbactam 3 gm 200 In Sodium Chloride 0.9% 100 ml @ 200 mls/hr IVPB Q8HR [facility] Rx#:[id number] Mvi, Adult No.4 with Vit 1037 K 10 ml Trace (Conc-1Ml/ Dose) 1 ml Sodium Acetate 30 meq Magnesium Sulfate gm 0.5 gm Calcium Gluconate 1 gm In Amino Acids 5 %/Dextrose 20 % 1 ,000 ml @ 80 mls/hr IV . BY DURATION [facility] Rx#: [id number] Potassium Chloride 10 meq 400 In Water For Injection 1 100ml.bag @ 100 mls/hr IVPB Q1HR [facility] Rx#: [id number] Sodium Phosphate 15 mmol 250 In Dextrose 5% in Water 250 ml @ 127.5 mls/hr IVPB ONCE ONE Rx#: [id number] Oral 400 240 Output: Drainage 500 320 80 Medial Abdomen 500 320 80 Urine 2050 2350 250 Uretheral (Cooper) 2050 250 Stool 50 Other: Voiding Method Indwelling Catheter Indwelling Catheter Indwelling Catheter # Bowel Movements 1 - Exam No acute distress, oriented 3. No respiratory distress. Currently on room air. HEENT examination is grossly unremarkable. Mucous membranes are moist. No oral lesions. Neck supple. Full range of motion. No adenopathy thyromegaly or neck vein distention. Cardiovascular examination reveals regular rhythm rate. S1-S2 normal. No S3 or S4. No discernible murmur noted. Lungs reveal minimal scattered rhonchi. No wheezes. No crackles. Breath sounds equal bilaterally. Abdomen soft without bowel sounds. Left upper quadrant stoma is noted. Extremities are intact. No cyanosis clubbing or edema. Skin is without rash or lesion. Neurologic examination is brief but nonfocal. - Labs CBC & Chem 7: 10/22/24 09:02 10/22/24 09:02 Labs: Abnormal Lab Results - Last 24 Hours (Table) 10/21/24 10/22/24 10/22/24 Range/Units 16:12 00:19 06:21 WBC (3.8-10.6) k/uL RBC (3.80-5.40) m/uL Hgb (11.4-16.0) gm/dL Hct (34.0-46.0) % MCV (80.0-100.0) fL RDW (11.5-15.5) % Neutrophils # (1.3-7.7) k/uL Sodium (137-145) mmol/L Potassium (3.5-5.1) mmol/L BUN (7-17) mg/dL Creatinine (0.52-1.04) mg/dL Glucose (74-99) mg/dL POC Glucose (mg/dL) 217 H 183 H 160 H (70-110) mg/dL Calcium (8.4-10.2) mg/dL Phosphorus (2.5-4.5) mg/dL AST (14-36) U/L ALT (4-34) U/L Alkaline Phosphatase (38-126) U/L Total Protein (6.3-8.2) g/dL Albumin (3.5-5.0) g/dL 10/22/24 10/22/24 10/22/24 Range/Units 09:02 09:02 10:56 WBC 14.2 H (3.8-10.6) k/uL RBC 2.75 L (3.80-5.40) m/uL Hgb 8.7 L (11.4-16.0) gm/dL Hct 27.9 L (34.0-46.0) % MCV 101.6 H (80.0-100.0) fL RDW 18.8 H (11.5-15.5) % Neutrophils # 11.5 H (1.3-7.7) k/uL Sodium 135 L (137-145) mmol/L Potassium 2.5 L* (3.5-5.1) mmol/L BUN 45 H (7-17) mg/dL Creatinine 1.31 H (0.52-1.04) mg/dL Glucose 125 H (74-99) mg/dL POC Glucose (mg/dL) 149 H (70-110) mg/dL Calcium 7.4 L (8.4-10.2) mg/dL Phosphorus 2.3 L (2.5-4.5) mg/dL AST 140 H (14-36) U/L ALT 125 H (4-34) U/L Alkaline Phosphatase 164 H (38-126) U/L Total Protein 4.3 L (6.3-8.2) g/dL Albumin 2.0 L (3.5-5.0) g/dL Microbiology - Last 24 Hours (Table) 10/17/24 21:47 Anaerobic Culture - Preliminary Abdominal Fluid Eggerthella species Assessment and Plan Assessment: Pneumoperitoneum. Ruptured sigmoid colon with possible stercoral ulcer, status post exploratory laparotomy with sigmoid colectomy and end colostomy, operative day # 5. Wound cultures positive for Escherichia coli. Routine postoperative ventilator management, S/P extubation on October 18, 2024. Pancytopenia. Hypocalcemia. History of lung cancer with metastasis to brain. History of hypothyroidism. Tobacco smoker. Plan: Plan dated October 19, 2024. The patient is seen today in room 255. She is currently doing relatively well. Today's postoperative day #2. She had an exploratory laparotomy, sigmoid colectomy, and end colostomy. She was extubated successfully yesterday. She is getting lactated Ringer's at 130 cc an hour. She continues on Zosyn. She has got an NG tube in place. All labs, x-rays, and medications are reviewed. We do recommend that she start using an incentive spirometer, every hour while awake. Clinically, the patient appears to be doing relatively well. She denies any shortness of breath, cough, wheezing, chest tightness, or phlegm production. 50 minutes was spent with this patient, which included taking history, examining the patient, reviewing pertinent laboratory data, x-rays, medications, as well as discussing the diagnosis, treatment, prognosis, with the patient, nursing staff, pharmacy, respiratory therapy, and dietary. Dictation was produced using [employer] software. Please excuse any grammatical, word or spelling errors. Plan dated October 20, 2024. The patient was seen yesterday in the intensive care unit, room 255. She is postoperative day #3. Wound cultures were positive for Escherichia coli. The patient continues on Zosyn. Labs, x-rays, and medications are reviewed. The patient appears to be doing better. She is on room air. The patient is getting TPN at 30 cc an hour, and lactated Ringer's at 75 cc an hour. We will continue to follow the patient, make recommendations where appropriate. 50 minutes was spent with this patient, including time spent taking her history, examining the patient, reviewing pertinent laboratory data, x-rays, medications, as well as discussing the diagnosis, treatment, prognosis with the patient, and the patient's nursing staff. Dictation was produced using [employer] software. Please excuse any grammatical, word or spelling errors. Plan dated October 21, 2024. The patient is seen today in room 366. She is postoperative day #4. Wound cultures were positive for Escherichia coli. The patient continues on Zosyn. All labs, x-rays, and medications are reviewed. We will continue to follow the patient, make recommendations along the way. The patient continues on lactated Ringer's at 75 cc an hour, TPN at 80 cc an hour, and lipids at 21 cc an hour. The patient is not requiring any supplemental oxygen. 50 minutes was spent with this patient, including time spent taking her history, examining the patient, reviewing pertinent laboratory data, x-rays, and medications, as well as discussing the diagnosis, treatment, and prognosis with this patient, and the patient's nurse. We will continue to follow make recommendations. Prognosis is guarded. Dictation was produced using [employer] software. Please excuse any grammatical, word or spelling errors. Plan dated October 22, 2024. The patient is seen today in room 366. The patient continues on room air. The patient is receiving lactated Ringer's at 75 cc an hour, TPN at 80 cc an hour, saline at 10 cc an hour. She has no specific complaints today. Labs, x-rays, and all medications are reviewed. Clinically, the patient appears stable. She is flat in bed. She is awake and alert. 50 minutes was spent with the patient, which included time spent taking additional history, examining the patient, reviewing pertinent laboratory data, x-rays, medications, as well as discussing the diagnosis, treatment, prognosis, with the patient, and the patient's bedside nurse. We will continue to follow with patient, make recommendations. Dictation was produced using [employer] dictation software. Please excuse any grammatical, word or spelling errors. Time with Patient: Greater than 30
--- NOTE | 2024-10-22 13:43 | P.PN ---
Progress Note - Text Progress Note Date: 10/22/24 HISTORY OF PRESENT ILLNESS: Patient is postop day #5 s/p exploratory laparotomy, sigmoid colectomy with end colostomy for ruptured sigmoid colon, possible stercoral ulcer. She is having some discomfort when eating. She is having ostomy output. She does have a productive cough. PHYSICAL EXAM: VITAL SIGNS: Reviewed. GENERAL: Well-developed in no acute distress. ABDOMEN: Soft. Mildly distended. Incisional dressing clean dry and intact. Ostomy on the left stoma is pink with serosanguineous output. CORAZON drain with serosanguineous output NEUROLOGIC: Alert and oriented. Cranial nerves II through XII grossly intact. ASSESSMENT: 1. Pneumoperitoneum with ruptured sigmoid colon, possible stercoral ulcer 2. History of lung cancer with brain mets and last chemotherapy about 2 weeks ago 3. Pancytopenia due to recent chemo PLAN: -Advanced to Full Liquid Diet -Nephrology recs for worsening kidney function. -Continue TPN for nutrition support at this time -Liver US ordered for elevated LFTS -Pain Control -Continue to monitor CORAZON drain output -Continue antibiotics -Continue IV fluids -GI prophylaxis Protonix and DVT prophylaxis SCDs Rolando Garcia DO [facility] [phone]
--- NOTE | 2024-10-22 14:10 | US ---
EXAMINATION TYPE: US abdomen limited DATE OF EXAM: 10/22/2024 COMPARISON: NONE CLINICAL INDICATION: Female, 74 years old with history of transaminitis; TECHNIQUE: Grayscale and color Doppler imaging of the right upper quadrant was performed. FINDINGS: EXAM MEASUREMENTS: Liver Length: 16.2 cm Gallbladder Wall: 0.1 cm CBD: 0.3 cm Right Kidney: 11.0 x 4.6 x 5.2 cm KLYSTROM TUBE TESTER NOTES:Limited due to bowel gas Pancreas: Obscured by bowel gas Liver: wnl Gallbladder: Limited visualization due to bowel gas. Unable to obtain LLD images Evidence for sonographic Puri's sign: neg CBD: wnl Right Kidney: Limited visualization. Multiple cystic lesions, largest lateral inferior = 4.9 x 4.8 x 4.3 cm IMPRESSION: 1. No evidence for acute process. 2. The liver has mild coarsened echotexture 3. Right renal cortical simple appearing cyst. [facility], , 10/22/2024 2:08 PM
[2024-10-22 16:16] LABS: Glucose,Whole Blood 165 mg/dL (70-110)
--- NOTE | 2024-10-22 16:53 | P.PN ---
Subjective Progress Note Date: 10/22/24 Principal diagnosis: Reason for follow-up is perforated sigmoid colon/peritonitis Patient is a 74-year-old female with a past medical history significant for metastatic lung cancer hypothyroidism has been brought into the hospital for evaluation of generalized abdominal pain patient has been diagnosed with perforated sigmoid colon status post laparotomy sigmoid colectomy diverting colostomy. On today's evaluation that is 10/22/2024, Patient is afebrile patient is c urrently on room air and denies having any shortness of breath, the patient denies any chest pain or cough, the patient did have some nausea but no vomiting abdominal pain is currently controlled did have some output in the colostomy. Patient white count is slightly up to 14.2 today creatinine is 1.31 Objective - Vital Signs Vital signs: Vital Signs Temp 98.0 F 10/22/24 15:17 Pulse 77 10/22/24 15:17 Resp 16 10/22/24 15:17 BP 134/71 10/22/24 15:17 Pulse Ox 92 L 10/22/24 15:17 FiO2 40 10/18/24 11:01 Intake & Output 10/21/24 10/22/24 10/22/24 18:59 06:59 18:59 Intake Total 3607 300 1320 Output Total 2550 2670 2430 Balance 1057 -2370 -1110 Weight 64 kg Intake: IV 1320 60 1320 .9@ 10 120 120 .9@ 20 #2 240 240 Invasive Line 1 40 40 40 Invasive Line 4 20 20 20 Lactated Ringers 1,000 ml 900 900 @ 75 mls/hr IV .[id number] [facility] Rx#:[id number] Intake, IV Titration 1887 Amount Ampicillin-Sulbactam 3 gm 200 In Sodium Chloride 0.9% 100 ml @ 200 mls/hr IVPB Q8HR [facility] Rx#:[id number] Mvi, Adult No.4 with Vit 1037 K 10 ml Trace (Conc-1Ml/ Dose) 1 ml Sodium Acetate 30 meq Magnesium Sulfate gm 0.5 gm Calcium Gluconate 1 gm In Amino Acids 5 %/Dextrose 20 % 1 ,000 ml @ 80 mls/hr IV . BY DURATION [facility] Rx#: [id number] Potassium Chloride 10 meq 400 In Water For Injection 1 100ml.bag @ 100 mls/hr IVPB Q1HR [facility] Rx#: [id number] Sodium Phosphate 15 mmol 250 In Dextrose 5% in Water 250 ml @ 127.5 mls/hr IVPB ONCE ONE Rx#: [id number] Oral 400 240 Output: Drainage 500 320 280 Medial Abdomen 500 320 280 Urine 2049 2350 2100 Uretheral (Cooper) 2049 1200 Stool 50 Other: Voiding Method Indwelling Catheter Indwelling Catheter Indwelling Catheter # Bowel Movements 1 - Exam GENERAL DESCRIPTION: An elderly female lying in bed in no distress RESPIRATORY SYSTEM: Unlabored breathing , decreased breath sounds at bases HEART: S1 S2 regular rate and rhythm , ABDOMEN: Soft , mild tenderness EXTREMITIES: No edema feet - Labs CBC & Chem 7: 10/22/24 09:02 10/22/24 09:02 Labs: Abnormal Lab Results - Last 24 Hours (Table) 10/22/24 10/22/24 10/22/24 Range/Units 00:19 06:21 09:02 WBC (3.8-10.6) k/uL RBC (3.80-5.40) m/uL Hgb (11.4-16.0) gm/dL Hct (34.0-46.0) % MCV (80.0-100.0) fL RDW (11.5-15.5) % Neutrophils # (1.3-7.7) k/uL Sodium 135 L (137-145) mmol/L Potassium 2.5 L* (3.5-5.1) mmol/L BUN 45 H (7-17) mg/dL Creatinine 1.31 H (0.52-1.04) mg/dL Glucose 125 H (74-99) mg/dL POC Glucose (mg/dL) 183 H 160 H (70-110) mg/dL Calcium 7.4 L (8.4-10.2) mg/dL Phosphorus 2.3 L (2.5-4.5) mg/dL AST 140 H (14-36) U/L ALT 125 H (4-34) U/L Alkaline Phosphatase 164 H (38-126) U/L Total Protein 4.3 L (6.3-8.2) g/dL Albumin 2.0 L (3.5-5.0) g/dL 10/22/24 10/22/24 10/22/24 Range/Units 09:02 10:56 16:14 WBC 14.2 H (3.8-10.6) k/uL RBC 2.75 L (3.80-5.40) m/uL Hgb 8.7 L (11.4-16.0) gm/dL Hct 27.9 L (34.0-46.0) % MCV 101.6 H (80.0-100.0) fL RDW 18.8 H (11.5-15.5) % Neutrophils # 11.5 H (1.3-7.7) k/uL Sodium (137-145) mmol/L Potassium (3.5-5.1) mmol/L BUN (7-17) mg/dL Creatinine (0.52-1.04) mg/dL Glucose (74-99) mg/dL POC Glucose (mg/dL) 149 H 165 H (70-110) mg/dL Calcium (8.4-10.2) mg/dL Phosphorus (2.5-4.5) mg/dL AST (14-36) U/L ALT (4-34) U/L Alkaline Phosphatase (38-126) U/L Total Protein (6.3-8.2) g/dL Albumin (3.5-5.0) g/dL Microbiology - Last 24 Hours (Table) 10/17/24 21:47 Anaerobic Culture - Final Abdominal Fluid Parabacteroides distasonis 10/17/24 21:47 Anaerobic Culture - Final Abdominal Fluid Eggerthella species Assessment and Plan (1) Perforated sigmoid colon Current Visit: Yes Status: Acute Code(s): K63.1 - PERFORATION OF INTESTINE (NONTRAUMATIC) SNOMED Code(s): 178393344 (2) Leukopenia Current Visit: Yes Status: Acute Code(s): D72.819 - DECREASED WHITE BLOOD CELL COUNT, UNSPECIFIED SNOMED Code(s): 49326763 (3) Peritonitis Current Visit: Yes Status: Acute Code(s): K65.9 - PERITONITIS, UNSPECIFIED SNOMED Code(s): 46207320 Plan: 1patient presented to hospital with abdominal pain generalized nausea vomiting with evidence of free air on the CT in this patient with status post laparotomy with evidence of sigmoid colon perforation status post sigmoid colectomy and end colostomy we will need to cover for the enteric gram-negative both aerobes and anaerobes 2-patient blood culture which are negative abdominal cultures with Bacteroides and E. coli is a sensitive pathogen 3-patient white count slightly up today we will monitor closely for now continue with Unasyn and monitor clinical course closely Dictation was produced using [employer] dictation software. please excuse any grammatical, word or spelling errors. Time with Patient: Less than 30
[2024-10-22] MEDS: [UNRECOGNIZED DRUG - REMARK] IV SCH (19:01)
[2024-10-22 19:53] LABS: Glucose,Whole Blood 126 mg/dL (70-110)
--- NOTE | 2024-10-22 21:42 | P.PN ---
Subjective Patient is seen for follow-up for acute kidney injury. Maintained on TPN and Ringer lactate. Renal function has improved with serum creatinine down to 1.4 mg/dL yesterday. No significant complaints today. Objective - Vital Signs Vital signs: Vital Signs Temp 97.8 F 10/22/24 20:15 Pulse 77 10/22/24 20:15 Resp 17 10/22/24 20:15 BP 149/57 10/22/24 20:15 Pulse Ox 93 L 10/22/24 20:15 FiO2 40 10/18/24 11:01 Intake & Output 10/22/24 10/22/24 10/23/24 06:59 18:59 06:59 Intake Total 300 1320 30 Output Total 2670 2430 920 Balance -2370 -1110 -890 Weight 64 kg Intake: IV 60 1320 30 .9@ 10 120 .9@ 20 #2 240 Invasive Line 1 40 40 20 Invasive Line 4 20 20 10 Lactated Ringers 1,000 ml 900 @ 75 mls/hr IV .[id number] [facility] Rx#:[id number] Oral 240 Output: Drainage 320 280 120 Medial Abdomen 320 280 120 Urine 2350 2100 800 Uretheral (Cooper) 1200 Stool 50 Other: Voiding Method Indwelling Catheter Indwelling Catheter Indwelling Catheter # Bowel Movements 1 - Exam Patient is awake, comfortable, no acute distress. 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 - Labs CBC & Chem 7: 10/22/24 09:02 10/22/24 09:02 Labs: Abnormal Lab Results - Last 24 Hours (Table) 10/22/24 10/22/24 10/22/24 Range/Units 00:19 06:21 09:02 WBC (3.8-10.6) k/uL RBC (3.80-5.40) m/uL Hgb (11.4-16.0) gm/dL Hct (34.0-46.0) % MCV (80.0-100.0) fL RDW (11.5-15.5) % Neutrophils # (1.3-7.7) k/uL Sodium 135 L (137-145) mmol/L Potassium 2.5 L* (3.5-5.1) mmol/L BUN 45 H (7-17) mg/dL Creatinine 1.31 H (0.52-1.04) mg/dL Glucose 125 H (74-99) mg/dL POC Glucose (mg/dL) 183 H 160 H (70-110) mg/dL Calcium 7.4 L (8.4-10.2) mg/dL Phosphorus 2.3 L (2.5-4.5) mg/dL AST 140 H (14-36) U/L ALT 125 H (4-34) U/L Alkaline Phosphatase 164 H (38-126) U/L Total Protein 4.3 L (6.3-8.2) g/dL Albumin 2.0 L (3.5-5.0) g/dL 10/22/24 10/22/24 10/22/24 Range/Units 09:02 10:56 16:14 WBC 14.2 H (3.8-10.6) k/uL RBC 2.75 L (3.80-5.40) m/uL Hgb 8.7 L (11.4-16.0) gm/dL Hct 27.9 L (34.0-46.0) % MCV 101.6 H (80.0-100.0) fL RDW 18.8 H (11.5-15.5) % Neutrophils # 11.5 H (1.3-7.7) k/uL Sodium (137-145) mmol/L Potassium (3.5-5.1) mmol/L BUN (7-17) mg/dL Creatinine (0.52-1.04) mg/dL Glucose (74-99) mg/dL POC Glucose (mg/dL) 149 H 165 H (70-110) mg/dL Calcium (8.4-10.2) mg/dL Phosphorus (2.5-4.5) mg/dL AST (14-36) U/L ALT (4-34) U/L Alkaline Phosphatase (38-126) U/L Total Protein (6.3-8.2) g/dL Albumin (3.5-5.0) g/dL 10/22/24 Range/Units 19:50 WBC (3.8-10.6) k/uL RBC (3.80-5.40) m/uL Hgb (11.4-16.0) gm/dL Hct (34.0-46.0) % MCV (80.0-100.0) fL RDW (11.5-15.5) % Neutrophils # (1.3-7.7) k/uL Sodium (137-145) mmol/L Potassium (3.5-5.1) mmol/L BUN (7-17) mg/dL Creatinine (0.52-1.04) mg/dL Glucose (74-99) mg/dL POC Glucose (mg/dL) 126 H (70-110) mg/dL Calcium (8.4-10.2) mg/dL Phosphorus (2.5-4.5) mg/dL AST (14-36) U/L ALT (4-34) U/L Alkaline Phosphatase (38-126) U/L Total Protein (6.3-8.2) g/dL Albumin (3.5-5.0) g/dL Microbiology - Last 24 Hours (Table) 10/17/24 21:47 Anaerobic Culture - Final Abdominal Fluid Parabacteroides distasonis 10/17/24 21:47 Anaerobic Culture - Final Abdominal Fluid Eggerthella species Assessment and Plan Assessment: 1. Acute kidney injury secondary to ATN secondary to severe sepsis. Baseline creatinine near 1 and is 1.4 yesterday. Nonoliguric. No hydronephrosis noted on CT. 2. Metabolic acidosis secondary to acute kidney injury and IV fluids. Improved. 3. Sepsis secondary to pneumoperitoneum and antibiotics. 4. Pneumoperitoneum status post exploratory laparotomy with sigmoid colectomy, end colostomy creation. 5. Acute blood loss anemia s/p prbc this admission. 6. Hypokalemia from poor intake. Plan: Okay to continue Ringer lactate along with TPN for now. Repeat labs in a.m. Replace potassium
[2024-10-23 00:02] LABS: Glucose,Whole Blood 121 mg/dL (70-110)
[2024-10-23 06:17] LABS: Glucose,Whole Blood 207 mg/dL (70-110)
[2024-10-23 07:43] LABS: Anisocytosis Slight; Basophils # (A) 0.1 k/uL (0-0.2); Basophils % (A) 1 %; Eosinophils # (A) 0.1 k/uL (0-0.7); Eosinophils % (A) 0 %; HCT 25.2 % (34.0-46.0); HGB 7.9 gm/dL (11.4-16.0); Lymphocytes # (A) 1.4 k/uL (1.0-4.8); Lymphocytes % (A) 11 %; MCH 31.7 pg (25.0-35.0); MCHC 31.5 g/dL (31.0-37.0); MCV 100.4 fL (80.0-100.0); Macrocytosis Moderate; Mean Platelet Volume 9.7; Monocytes # (A) 0.4 k/uL (0-1.0); Monocytes % (A) 3 %; Neutrophils # (A) 11.2 k/uL (1.3-7.7); Neutrophils % (A) 84 %; Platelet Count 171 k/uL (150-450); RBC 2.51 m/uL (3.80-5.40); RDW 19.2 % (11.5-15.5); WBC 13.4 k/uL (3.8-10.6)
[2024-10-23 08:21] LABS: ALT 158 U/L (4-34); AST 114 U/L (14-36); African American GFR (CKD) 55 (>60 ml/min/1.73 sqM); Alkaline Phosphatase 192 U/L (38-126); Anion Gap 3 mmol/L; Blood Urea Nitrogen 43 mg/dL (7-17); Calcium 7.5 mg/dL (8.4-10.2); Carbon Dioxide 29 mmol/L (22-30); Chloride 102 mmol/L (98-107); Glucose 107 mg/dL (74-99); Magnesium 1.9 mg/dL (1.6-2.3); Non-African American GFR(CKD) 48 (>60 ml/min/1.73 sqM); Phosphorus 2.5 mg/dL (2.5-4.5); Sodium 134 mmol/L (137-145); Total Bilirubin 0.6 mg/dL (0.2-1.3); Total Protein 4.2 g/dL (6.3-8.2)
[2024-10-23] MEDS: HYDROCORTISONE SUCCINATE 100 MG/2 ML VIAL IV SCH (08:27)
--- NOTE | 2024-10-23 09:05 | P.PN ---
Subjective Progress Note Date: 10/23/24 Subjective: Patient seen and examined at bedside. No acute events overnight. Cooper catheter in place, still having output from CORAZON drain, has some output from ostomy. Complaining of abdominal pain, generalized, also having reflux. Pertinent positives and negatives as discussed above, a complete review of systems was performed and all other systems are negative. Vitals Signs Reviewed. General: Nontoxic, no distress, appears at stated age, Cooper catheter in place Derm: Warm, dry Head: Atraumatic, normocephalic, symmetric Eyes: EOMI, no lid lag, anicteric sclera Mouth: No lip lesion, mucus membranes moist Cardiovascular: S1S2 reg, no murmur Lungs: CTA bilateral, no rhonchi, no rales, no accessory muscle use, supplemental oxygen Abdominal: Soft, tender to palpation throughout, no guarding, no appreciable organomegaly, ostomy and CORAZON drain in place Ext: No gross muscle atrophy, no edema, no contractures Neuro: CN II-XI grossly intact, no focal neuro deficits Psych: Alert, oriented, appropriate affect Data Reviewed Today: Pertinent Labs: WBC 13.4, hemoglobin 7.9, platelet 171, sodium 134, potassium 3, creatinine 1.4, magnesium 1.9, blood sugars range between 10 7-2 7, total bili 0.6, AST 114, ALT 158, ALP 192 Imaging: Liver ultrasound showed liver within normal limits, CBD within normal limits, no acute process. Assessment and Plan: Active: Ruptured sigmoid colon secondary to possible stercoral ulcer status post sigmoid colectomy with end colostomy Pneumoperitoneum secondary to above Sepsis secondary to above Bandemia, resolved Microcytic anemia, likely acute blood loss, status post 1 unit of PRBCs Mild thrombocytopenia, resolved -Surgery following, patient also on TPN, also on full liquid -Pain control per surgery -continue IV Protonix 40 daily -Pulmonology following, and ID following, on Unasyn 3 g IV every 8 hours -Patient previously on steroids, hydrocortisone decreased to 50 daily IV, continue with current dose 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 Do not hesitate to contact us with questions. Someone can be reached from the [facility] hospitalist group all hours of the day at [phone] or via perfect serve. Objective - Vital Signs Vital signs: Vital Signs Temp 98.4 F 10/23/24 08:16 Pulse 83 10/23/24 08:16 Resp 18 10/23/24 08:16 BP 123/69 10/23/24 08:16 Pulse Ox 94 L 10/23/24 08:16 FiO2 40 10/18/24 11:01 Intake & Output 10/22/24 10/23/24 10/23/24 18:59 06:59 18:59 Intake Total 1320 60 Output Total 2430 2930 1000 Balance -1110 -2870 -1000 Intake: IV 1320 60 .9@ 10 120 .9@ 20 #2 240 Invasive Line 1 40 40 Invasive Line 4 20 20 Lactated Ringers 1,000 ml 900 @ 75 mls/hr IV .[id number] [facility] Rx#:[id number] Output: Drainage 280 310 Medial Abdomen 280 310 Urine 2100 2600 1000 Uretheral (Cooper) 1200 Stool 50 20 Other: Voiding Method Indwelling Catheter Indwelling Catheter # Bowel Movements 1 - Labs CBC & Chem 7: 10/23/24 06:46 10/23/24 06:46 Labs: Abnormal Lab Results - Last 24 Hours (Table) 10/22/24 10/22/24 10/22/24 Range/Units 09:02 09:02 10:56 WBC 14.2 H (3.8-10.6) k/uL RBC 2.75 L (3.80-5.40) m/uL Hgb 8.7 L (11.4-16.0) gm/dL Hct 27.9 L (34.0-46.0) % MCV 101.6 H (80.0-100.0) fL RDW 18.8 H (11.5-15.5) % Neutrophils # 11.5 H (1.3-7.7) k/uL Sodium 135 L (137-145) mmol/L Potassium 2.5 L* (3.5-5.1) mmol/L BUN 45 H (7-17) mg/dL Creatinine 1.31 H (0.52-1.04) mg/dL Glucose 125 H (74-99) mg/dL POC Glucose (mg/dL) 149 H (70-110) mg/dL Calcium 7.4 L (8.4-10.2) mg/dL Phosphorus 2.3 L (2.5-4.5) mg/dL AST 140 H (14-36) U/L ALT 125 H (4-34) U/L Alkaline Phosphatase 164 H (38-126) U/L Total Protein 4.3 L (6.3-8.2) g/dL Albumin 2.0 L (3.5-5.0) g/dL 10/22/24 10/22/24 10/22/24 Range/Units 16:14 19:50 23:59 WBC (3.8-10.6) k/uL RBC (3.80-5.40) m/uL Hgb (11.4-16.0) gm/dL Hct (34.0-46.0) % MCV (80.0-100.0) fL RDW (11.5-15.5) % Neutrophils # (1.3-7.7) k/uL Sodium (137-145) mmol/L Potassium (3.5-5.1) mmol/L BUN (7-17) mg/dL Creatinine (0.52-1.04) mg/dL Glucose (74-99) mg/dL POC Glucose (mg/dL) 165 H 126 H 121 H (70-110) mg/dL Calcium (8.4-10.2) mg/dL Phosphorus (2.5-4.5) mg/dL AST (14-36) U/L ALT (4-34) U/L Alkaline Phosphatase (38-126) U/L Total Protein (6.3-8.2) g/dL Albumin (3.5-5.0) g/dL 10/23/24 10/23/24 10/23/24 Range/Units 06:13 06:46 06:46 WBC 13.4 H (3.8-10.6) k/uL RBC 2.51 L (3.80-5.40) m/uL Hgb 7.9 L (11.4-16.0) gm/dL Hct 25.2 L (34.0-46.0) % MCV 100.4 H (80.0-100.0) fL RDW 19.2 H (11.5-15.5) % Neutrophils # 11.2 H (1.3-7.7) k/uL Sodium 134 L (137-145) mmol/L Potassium 3.0 L (3.5-5.1) mmol/L BUN 43 H (7-17) mg/dL Creatinine 1.14 H (0.52-1.04) mg/dL Glucose 107 H (74-99) mg/dL POC Glucose (mg/dL) 207 H (70-110) mg/dL Calcium 7.5 L (8.4-10.2) mg/dL Phosphorus (2.5-4.5) mg/dL AST 114 H (14-36) U/L ALT 158 H (4-34) U/L Alkaline Phosphatase 192 H (38-126) U/L Total Protein 4.2 L (6.3-8.2) g/dL Albumin 2.0 L (3.5-5.0) g/dL Microbiology - Last 24 Hours (Table) 10/17/24 21:47 Anaerobic Culture - Final Abdominal Fluid Parabacteroides distasonis 10/17/24 21:47 Anaerobic Culture - Final Abdominal Fluid Eggerthella species
[2024-10-23] MEDS: POTASSIUM CHLORIDE 10 MEQ in WATER FOR INJECTION 1 100ML.BAG IVPB SCH (10:00)
[2024-10-23 11:06] LABS: Hepatitis A Antibody IgM Nonreactive (Nonreactive); Hepatitis B Core IgM Nonreactive (Nonreactive); Hepatitis B Surface Antigen Nonreactive (Nonreactive); Hepatitis C IgG Antibody Nonreactive (Nonreactive)
[2024-10-23 11:23] LABS: Glucose,Whole Blood 153 mg/dL (70-110)
--- NOTE | 2024-10-23 12:38 | P.PN ---
Subjective Patient is seen for follow-up for acute kidney injury. Maintained on TPN and Ringer lactate. Renal function has improved with serum creatinine down to 1.14 mg/dL No significant complaints today. Objective - Vital Signs Vital signs: Vital Signs Temp 98.3 F 10/23/24 11:28 Pulse 82 10/23/24 11:28 Resp 16 10/23/24 11:28 BP 119/58 10/23/24 11:28 Pulse Ox 94 L 10/23/24 11:28 FiO2 40 10/18/24 11:01 Intake & Output 10/22/24 10/23/24 10/23/24 18:59 06:59 18:59 Intake Total 1320 60 10 Output Total 2430 2930 2030 Balance -111 -2869 Intake: IV 1320 60 10 .9@ 10 120 .9@ 20 #2 240 Invasive Line 1 40 40 Invasive Line 4 20 20 10 Lactated Ringers 1,000 ml 900 @ 75 mls/hr IV .[id number] [facility] Rx#:[id number] Oral 0 Output: Drainage 280 310 30 Medial Abdomen 280 310 30 Urine 2100 2600 2000 Uretheral (Cooper) 1200 Stool 50 20 Other: Voiding Method Indwelling Catheter Indwelling Catheter Indwelling Catheter # Bowel Movements 1 - Exam Patient is awake, comfortable, no acute distress. 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 - Labs CBC & Chem 7: 10/23/24 06:46 10/23/24 06:46 Labs: Abnormal Lab Results - Last 24 Hours (Table) 10/22/24 10/22/24 10/22/24 Range/Units 16:14 19:50 23:59 WBC (3.8-10.6) k/uL RBC (3.80-5.40) m/uL Hgb (11.4-16.0) gm/dL Hct (34.0-46.0) % MCV (80.0-100.0) fL RDW (11.5-15.5) % Neutrophils # (1.3-7.7) k/uL Sodium (137-145) mmol/L Potassium (3.5-5.1) mmol/L BUN (7-17) mg/dL Creatinine (0.52-1.04) mg/dL Glucose (74-99) mg/dL POC Glucose (mg/dL) 165 H 126 H 121 H (70-110) mg/dL Calcium (8.4-10.2) mg/dL AST (14-36) U/L ALT (4-34) U/L Alkaline Phosphatase (38-126) U/L Total Protein (6.3-8.2) g/dL Albumin (3.5-5.0) g/dL 10/23/24 10/23/24 10/23/24 Range/Units 06:13 06:46 06:46 WBC 13.4 H (3.8-10.6) k/uL RBC 2.51 L (3.80-5.40) m/uL Hgb 7.9 L (11.4-16.0) gm/dL Hct 25.2 L (34.0-46.0) % MCV 100.4 H (80.0-100.0) fL RDW 19.2 H (11.5-15.5) % Neutrophils # 11.2 H (1.3-7.7) k/uL Sodium 134 L (137-145) mmol/L Potassium 3.0 L (3.5-5.1) mmol/L BUN 43 H (7-17) mg/dL Creatinine 1.14 H (0.52-1.04) mg/dL Glucose 107 H (74-99) mg/dL POC Glucose (mg/dL) 207 H (70-110) mg/dL Calcium 7.5 L (8.4-10.2) mg/dL AST 114 H (14-36) U/L ALT 158 H (4-34) U/L Alkaline Phosphatase 192 H (38-126) U/L Total Protein 4.2 L (6.3-8.2) g/dL Albumin 2.0 L (3.5-5.0) g/dL 10/23/24 Range/Units 11:18 WBC (3.8-10.6) k/uL RBC (3.80-5.40) m/uL Hgb (11.4-16.0) gm/dL Hct (34.0-46.0) % MCV (80.0-100.0) fL RDW (11.5-15.5) % Neutrophils # (1.3-7.7) k/uL Sodium (137-145) mmol/L Potassium (3.5-5.1) mmol/L BUN (7-17) mg/dL Creatinine (0.52-1.04) mg/dL Glucose (74-99) mg/dL POC Glucose (mg/dL) 153 H (70-110) mg/dL Calcium (8.4-10.2) mg/dL AST (14-36) U/L ALT (4-34) U/L Alkaline Phosphatase (38-126) U/L Total Protein (6.3-8.2) g/dL Albumin (3.5-5.0) g/dL Microbiology - Last 24 Hours (Table) 10/17/24 21:47 Anaerobic Culture - Final Abdominal Fluid Parabacteroides distasonis 10/17/24 21:47 Anaerobic Culture - Final Abdominal Fluid Eggerthella species Assessment and Plan Assessment: 1. Acute kidney injury secondary to ATN secondary to severe sepsis. Baseline creatinine near 1, improved. Nonoliguric. No hydronephrosis noted on CT. 2. Metabolic acidosis secondary to acute kidney injury and IV fluids. Improved. 3. Sepsis secondary to pneumoperitoneum and antibiotics. 4. Pneumoperitoneum status post exploratory laparotomy with sigmoid colectomy, end colostomy creation. 5. Acute blood loss anemia s/p prbc this admission. 6. Hypokalemia from poor intake. Plan: Okay to continue Ringer lactate along with TPN for now. Repeat labs in a.m. Replace potassium aggressively
--- NOTE | 2024-10-23 12:38 | P.PN ---
Subjective Progress Note Date: 10/23/24 SURGICAL PROGRESS NOTE CHIEF COMPLAINT: Pneumoperitoneum HISTORY OF PRESENT ILLNESS: Patient is postop day #6 status post exploratory laparotomy, sigmoid colectomy with end colostomy for ruptured sigmoid colon, possible stercoral ulcer. Patient complains of reflux. She also is requesting gum. Her ostomy is functioning. She did complain of nausea. No vomiting. Oral intake is decreased she had an abdominal ultrasound completed due to elevated LFTs results reported no acute findings and liver has mild coarsened echotexture. Right renal cortical simple appearing cyst. Afebrile. WBC down from 14.2-13.4 Hgb 7.9 platelets 171 potassium is 3.0 total bilirubin 0.6 AST down from 1 40-1 14 ALT 125 up to 158 alk phos 164 up to 192. CORAZON drain with 190 mL serosanguineous output through the night PHYSICAL EXAM: VITAL SIGNS: Reviewed. GENERAL: Well-developed in no acute distress. ABDOMEN: Soft. Nondistended. Incisional dressing clean dry and intact. Ostomy with stool output CORAZON drain with serosanguineous output NEUROLOGIC: Alert and oriented. Cranial nerves II through XII grossly intact. ASSESSMENT: 1. Pneumoperitoneum with ruptured sigmoid colon, possible stercoral ulcer 2. History of lung cancer with brain mets and last chemotherapy about 2 weeks ago 3. Pancytopenia due to recent chemo PLAN: -Continue full liquid diet -Increase Protonix to twice a day due to reflux -Encourage patient to sit up while eating and at least 30 minutes after eating -Potassium being replaced -Continue TPN for nutrition support until oral intake increases -Continue antibiotics -Continue IV fluids -Pain management -Consult ostomy nurse for ostomy teaching -Increase activity level -GI prophylaxis Protonix and DVT prophylaxis SCDs Physician Filing Writer note has been reviewed by physician. Signing provider agrees with the documented findings, assessment, and plan of care. Objective - Vital Signs Vital signs: Vital Signs Temp 98.3 F 10/23/24 11:28 Pulse 82 10/23/24 11:28 Resp 16 10/23/24 11:28 BP 119/58 10/23/24 11:28 Pulse Ox 94 L 10/23/24 11:28 FiO2 40 10/18/24 11:01 Intake & Output 10/22/24 10/23/24 10/23/24 18:59 06:59 18:59 Intake Total 1320 60 10 Output Total 2430 2930 2029 Balance -1109 Intake: IV 1320 60 10 .9@ 10 120 .9@ 20 #2 240 Invasive Line 1 40 40 Invasive Line 4 20 20 10 Lactated Ringers 1,000 ml 900 @ 75 mls/hr IV .[id number] [facility] Rx#:[id number] Oral 0 Output: Drainage 280 310 30 Medial Abdomen 280 310 30 Urine 2100 2600 2000 Uretheral (Cooper) 1200 Stool 50 20 Other: Voiding Method Indwelling Catheter Indwelling Catheter Indwelling Catheter # Bowel Movements 1 - Labs CBC & Chem 7: 10/23/24 06:46 10/23/24 06:46 Labs: Abnormal Lab Results - Last 24 Hours (Table) 10/22/24 10/22/24 10/22/24 Range/Units 16:14 19:50 23:59 WBC (3.8-10.6) k/uL RBC (3.80-5.40) m/uL Hgb (11.4-16.0) gm/dL Hct (34.0-46.0) % MCV (80.0-100.0) fL RDW (11.5-15.5) % Neutrophils # (1.3-7.7) k/uL Sodium (137-145) mmol/L Potassium (3.5-5.1) mmol/L BUN (7-17) mg/dL Creatinine (0.52-1.04) mg/dL Glucose (74-99) mg/dL POC Glucose (mg/dL) 165 H 126 H 121 H (70-110) mg/dL Calcium (8.4-10.2) mg/dL AST (14-36) U/L ALT (4-34) U/L Alkaline Phosphatase (38-126) U/L Total Protein (6.3-8.2) g/dL Albumin (3.5-5.0) g/dL 10/23/24 10/23/24 10/23/24 Range/Units 06:13 06:46 06:46 WBC 13.4 H (3.8-10.6) k/uL RBC 2.51 L (3.80-5.40) m/uL Hgb 7.9 L (11.4-16.0) gm/dL Hct 25.2 L (34.0-46.0) % MCV 100.4 H (80.0-100.0) fL RDW 19.2 H (11.5-15.5) % Neutrophils # 11.2 H (1.3-7.7) k/uL Sodium 134 L (137-145) mmol/L Potassium 3.0 L (3.5-5.1) mmol/L BUN 43 H (7-17) mg/dL Creatinine 1.14 H (0.52-1.04) mg/dL Glucose 107 H (74-99) mg/dL POC Glucose (mg/dL) 207 H (70-110) mg/dL Calcium 7.5 L (8.4-10.2) mg/dL AST 114 H (14-36) U/L ALT 158 H (4-34) U/L Alkaline Phosphatase 192 H (38-126) U/L Total Protein 4.2 L (6.3-8.2) g/dL Albumin 2.0 L (3.5-5.0) g/dL 10/23/24 Range/Units 11:18 WBC (3.8-10.6) k/uL RBC (3.80-5.40) m/uL Hgb (11.4-16.0) gm/dL Hct (34.0-46.0) % MCV (80.0-100.0) fL RDW (11.5-15.5) % Neutrophils # (1.3-7.7) k/uL Sodium (137-145) mmol/L Potassium (3.5-5.1) mmol/L BUN (7-17) mg/dL Creatinine (0.52-1.04) mg/dL Glucose (74-99) mg/dL POC Glucose (mg/dL) 153 H (70-110) mg/dL Calcium (8.4-10.2) mg/dL AST (14-36) U/L ALT (4-34) U/L Alkaline Phosphatase (38-126) U/L Total Protein (6.3-8.2) g/dL Albumin (3.5-5.0) g/dL Microbiology - Last 24 Hours (Table) 10/17/24 21:47 Anaerobic Culture - Final Abdominal Fluid Parabacteroides distasonis 10/17/24 21:47 Anaerobic Culture - Final Abdominal Fluid Eggerthella species
[2024-10-23] MEDS: POTASSIUM CHLORIDE ER 20 MEQ TAB.ER PO STA ×2 (13:40→14:02)
[2024-10-23] MEDS: ENOXAPARIN 40 MG/0.4 ML SYRINGE SQ SCH (15:24)
[2024-10-23 16:25] LABS: Glucose,Whole Blood 146 mg/dL (70-110)
--- NOTE | 2024-10-23 17:47 | CDI ---
Documentation Clarification Form Date: 10/23/2024 04:37:10 PM From: Allyssa Flanagan RN, CCDS Phone: [phone] Admit Date: 10/17/2024 06:28:00 PM Patient Name: Nona Farr Visit Number: [id number] Discharge Date: ATTENTION: The Clinical Documentation Specialists (CDI) and [facility] Coding Staff appreciate your assistance in clarifying documentation. Please respond to the clarification below the line at the bottom and electronically sign. The CDI & [facility] Coding staff will review the response and follow-up if needed. Please note: Queries are made part of the Legal Health Record. If you have any questions, please contact the author of this message via ITS. Provider: Sharlene Santana PA-C The patient present with pulse 96, 105, WBC 4.3, 2.0 Neutrophils 1.20. Based on this information and the findings below, is there an additional diagnosis that is clinically appropriate for this patient? History/Risk Factors: Thyroid Disorder, lung CA with mets to brain Clinical Indicators: 74-year-old female present with abdominal pain nausea and vomiting with evidence of free air on the CT. Ruled in for ruptured sigmoid colon secondary to possible stercoral ulcer, 211 Lactic acid: 10/10 211 Vital signs: (19:34) 128/80 96 18 99% 10/18 ID Consult: Peritonitis, Leukopenia, sigmoid colon perforation status post sigmoid colectomy and colostomy. Leukopenia could be related to chemo versus sepsis 10/19 Nephrology -consult: Acute kidney injury secondary to ATN secondary to severe sepsis. Treatment: Cardiac, Telemetry Monitoring Zosyn 3.375 GM IVPB Q 8 HRS change to Unasyn 3GM IVPB .9NS 1,000 IV Bolus X 2 Is there an additional diagnosis that is clinically appropriate for this patient? [ x ] Sepsis, present on admission secondary to perforated sigmoid colon with peritonitis [ ] Sepsis ruled out [ ] No additional diagnosis/not clinically significant [ ] Other, please specify [ ] Unable to determine SIRS Criteria: 2 or more of the following may indicate SIRS Temperature < 96.8F (36C) or > 101.0F (38.3C) Heart Rate > 90 bpm Respiratory Rate > 20 breaths/min or PaCO2 < 32 mmHg White Blood Cell Count > 12,000 or < 4,000 cells/mm3 or > 10% bands (Template Last Reviewed: September 2022) MTDD
--- NOTE | 2024-10-23 17:48 | P.PN ---
Subjective Progress Note Date: 10/23/24 Principal diagnosis: Perforated bowel In f/u today patient is seen on medical floor, she is on clears, not very hungry, frustrated with her hospital course. No new symptoms to report. Objective - Vital Signs Vital signs: Vital Signs Temp 97.6 F 10/23/24 15:38 Pulse 81 10/23/24 15:38 Resp 19 10/23/24 15:38 BP 133/65 10/23/24 15:38 Pulse Ox 93 L 10/23/24 15:38 FiO2 40 10/18/24 11:01 Intake & Output 10/22/24 10/23/24 10/23/24 18:59 06:59 18:59 Intake Total 1320 60 260 Output Total 2430 2930 3890 Balance -1110 -3150 -3630 Weight 64 kg Intake: IV 1320 60 20 .9@ 10 120 .9@ 20 #2 240 Invasive Line 1 40 40 Invasive Line 4 20 20 20 Lactated Ringers 1,000 ml 900 @ 75 mls/hr IV .[id number] [facility] Rx#:[id number] Oral 240 Output: Drainage 280 310 170 Medial Abdomen 280 310 170 Urine 2100 2600 3700 Uretheral (Cooper) 1200 Stool 50 20 20 Other: Voiding Method Indwelling Catheter Indwelling Catheter Indwelling Catheter # Bowel Movements 1 - Constitutional General appearance: Present: average body habitus, cooperative, no acute distress - EENT Eyes: Present: anicteric sclerae, EOMI ENT: Present: hearing grossly normal, normal oropharynx - Respiratory Details: resp unlabored - Cardiovascular Rhythm: regular - Peripheral edema leg Peripheral Edema: bilateral: None - Gastrointestinal General gastrointestinal: Present: soft - Neurologic Neurologic: Present: CNII-XII intact - Musculoskeletal Musculoskeletal: Present: generalized weakness - Psychiatric Psychiatric: Present: A&O x's 3, appropriate affect, intact judgment & insight - Labs CBC & Chem 7: 10/23/24 06:46 10/23/24 06:46 Labs: Abnormal Lab Results - Last 24 Hours (Table) 10/22/24 10/22/24 10/23/24 Range/Units 19:50 23:59 06:13 WBC (3.8-10.6) k/uL RBC (3.80-5.40) m/uL Hgb (11.4-16.0) gm/dL Hct (34.0-46.0) % MCV (80.0-100.0) fL RDW (11.5-15.5) % Neutrophils # (1.3-7.7) k/uL Sodium (137-145) mmol/L Potassium (3.5-5.1) mmol/L BUN (7-17) mg/dL Creatinine (0.52-1.04) mg/dL Glucose (74-99) mg/dL POC Glucose (mg/dL) 126 H 121 H 207 H (70-110) mg/dL Calcium (8.4-10.2) mg/dL AST (14-36) U/L ALT (4-34) U/L Alkaline Phosphatase (38-126) U/L Total Protein (6.3-8.2) g/dL Albumin (3.5-5.0) g/dL 10/23/24 10/23/24 10/23/24 Range/Units 06:46 06:46 11:18 WBC 13.4 H (3.8-10.6) k/uL RBC 2.51 L (3.80-5.40) m/uL Hgb 7.9 L (11.4-16.0) gm/dL Hct 25.2 L (34.0-46.0) % MCV 100.4 H (80.0-100.0) fL RDW 19.2 H (11.5-15.5) % Neutrophils # 11.2 H (1.3-7.7) k/uL Sodium 134 L (137-145) mmol/L Potassium 3.0 L (3.5-5.1) mmol/L BUN 43 H (7-17) mg/dL Creatinine 1.14 H (0.52-1.04) mg/dL Glucose 107 H (74-99) mg/dL POC Glucose (mg/dL) 153 H (70-110) mg/dL Calcium 7.5 L (8.4-10.2) mg/dL AST 114 H (14-36) U/L ALT 158 H (4-34) U/L Alkaline Phosphatase 192 H (38-126) U/L Total Protein 4.2 L (6.3-8.2) g/dL Albumin 2.0 L (3.5-5.0) g/dL 10/23/24 Range/Units 16:22 WBC (3.8-10.6) k/uL RBC (3.80-5.40) m/uL Hgb (11.4-16.0) gm/dL Hct (34.0-46.0) % MCV (80.0-100.0) fL RDW (11.5-15.5) % Neutrophils # (1.3-7.7) k/uL Sodium (137-145) mmol/L Potassium (3.5-5.1) mmol/L BUN (7-17) mg/dL Creatinine (0.52-1.04) mg/dL Glucose (74-99) mg/dL POC Glucose (mg/dL) 146 H (70-110) mg/dL Calcium (8.4-10.2) mg/dL AST (14-36) U/L ALT (4-34) U/L Alkaline Phosphatase (38-126) U/L Total Protein (6.3-8.2) g/dL Albumin (3.5-5.0) g/dL Assessment and Plan (1) Small bowel obstruction Current Visit: Yes Status: Acute Priority: High Code(s): K56.609 - UNSP INTESTNL OBST, UNSP TO PARTIAL VERSUS COMPLETE OBST SNOMED Code(s): 300047455 (2) Non-small cell lung cancer Current Visit: No Status: Acute Priority: Medium Code(s): C34.90 - MALIGNANT NEOPLASM OF UNSP PART OF UNSP BRONCHUS OR LUNG SNOMED Code(s): 656138847 Plan: Perforated bowel -Status post exploratory laparotomy with sigmoid colectomy and end colostomy -Pt doing well today -Management of the same per surgery -tissue neg for malignancy-reviewed this with pt Non-squamous, non-small cell lung adenocarcinoma -Patient completed 4 cycles of chemotherapy/IO just about 2 weeks ago. -Patient had tolerated treatment overall very well, she had no significant cytopenias, she did not require transfusions, she did not require growth factors. Was feeling good her recent appointment -Treatment follow-up PET scan done 10/05 showed improvement in patient's disease, results were reviewed with pt. Plan is to continue on immunotherapy alone once pt has recovered from surgery. -The perforated bowel is not suspected to be r/t chemo or IO. Neg for malignancy. -treatment will be delayed until patient has recovered from her acute condition. She will be reassessed by Medical Oncologist before she proceeds to immunotherapy alone.
--- NOTE | 2024-10-23 19:52 | P.PN ---
Subjective Progress Note Date: 10/23/24 Patient is a 74-year-old female with past medical history significant for hypothyroidism and lung cancer.. Patient is known to have a right upper lobe lung mass, she was seen at our facility May,, and transfered to [facility]. Reportedly, currently undergoing systemic chemotherapy. Patient is intubated and unable to provide information. No family present. Most recent PET scan done 10/05/2024 demonstrating a mixed response to therapy with decrease size and FDG activity of the right upper lobe pulmonary mass and mediastinal/right hilar adenopathy; however, there is a more prominent appearing opacity within the right lower lobe abutting the fissure with increasing FDG a ctivity. Possibly representing an infectious/inflammatory opacity, however, new metastasis was not excluded. Brain CT done back in May, showing a large area of vasogenic edema extending through the right proximal temporal lobe, right parietal lobe, and occipital lobe with effacement of the sulci and subfalcine herniation with 0.8 cm of midline shift to the left. Follow-up brain MRI done 09/18/2024 showing postsurgical changes with a small cystic cavity in the area of prior surgery. No new lesions were noted. Patient presents to the emergency department yesterday afternoon with a chief complaint of abdominal pain. Reportedly, persistent abdominal pain over the last 5 days with increasing intensity. Workup in the emergency department including a abdominal/pelvis CT which demonstrated small to moderate amount of free air scattered within the upper abdomen and within the mid pelvis. Small amount of free fluid within the pelvis. Dilated small bowel loops to at least the proximal ileum. Partial small bowel obstruction should be considered. Late last night, patient taken to the operating room for exploratory laparotomy, a ruptured sigmoid colon and possible stercoral ulcer was found. Patient underwent sigmoid colectomy with end colostomy. Following the procedure, she was transferred to the intensive care unit for recovery. Patient currently being evaluated in the ICU. She remains intubated to the mechanical ventilator, current ventilator settings assist-control, respiratory rate 16, tidal volume 400, FiO2 50%, PEEP of 5. ABG done on these settings and an FiO2 100%; show a PaO2 of 363, pCO2 of 45, pH of 7.28. Chest x-ray showing endotracheal tube 3 cm above the adriana, nasogastric tube coursing below the diaphragm, right mediastinal mass, right IJ central line catheter with tip near the cavoatrial junction. Patient is currently sedated and synchronous with mechanical ventilator. Nonresponsive. On propofol 15 mcg/kg/min. LR is infusing at 75 m L/h. Blood pressure soft at 96/66 mmHg. Mildly tachycardic. Urine output only 60 cc since OR exit. Postoperative labs including a CBC with a WBC count of 2, hemoglobin 10.8, hematocrit 33.6, platelets 107. CMP: Sodium 135, potassium 3.5, chloride 102, serum bicarb 23, BUN 34, creatinine 1.01, glucose 117. Lactic 1.7. Calcium 6.9. Patient is empirically covered on antibiotics in the form of Zosyn. Midline abdominal incision with postoperative dressing intact. Mild shadowing. CORAZON drain with serosanguineous fluid and needs to be emptied. Left upper quadrant stoma is pink. Progress note dated October 19, 2024. 74-year-old female seen today in room 251. She is postoperative day #2, status post exploratory laparotomy, sigmoid colectomy, with end colostomy. Currently, the patient was on 2 L of oxygen. She has an NG tube in place. She is getting lactated Ringer's at 130 cc an hour. She was extubated successfully yesterday, October 18. She continues on Zosyn. We did order an incentive spirometer for her. Current labs include a white count of 6.5, hemoglobin 6.5, hematocrit 20.2, and a platelet count of 114,000. Sodium 137, potassium 4, chlorides 109, CO2 18, BUN 42, and creatinine 1.71. Calcium is 6.9. Albumin 2.2. Cultures are thus far negative. Chest x-ray shows chronic changes, without an acute process. Progress note dated October 20, 2024. 74-year-old female who was seen in the ICU yesterday. She is postoperative day #3, status post exploratory laparotomy, sigmoid colectomy, with end colostomy. The patient is currently on room air. She is getting TPN at 30 cc an hour. She is also getting lactated Ringer's at 75 cc an hour. Current laboratory data includes a white count 8.7, hemoglobin 7.4, hematocrit 23.2, and a platelet count of 104,000. Sodium 138, potassium 3.1, chlorides 107, CO2 24, BUN 49, and creatinine 1.8. Glucose is 149. Magnesium 2.3. Clinically, the patient is doing well, and she states that she feels well. I encouraged her to use her incentive spirometer, hourly. Wound cultures of the abdomen were positive for Escherichia coli. Abdominal fluid cultures were positive for Para- b.acteroides species. The patient is currently on Zosyn. Progress note dated October 21, 2024. 74-year-old female seen in room 366. The patient was previously in the intensive care unit. Currently, the patient is on room air. She is receiving lactated Ringer's at 75 cc an hour, lipids at 21 cc, and TPN at 80 cc an hour. The patient appears not to be having any respiratory distress or difficulty. She has no specific complaints. She is awake and alert. She is laying flat in bed. Current laboratory data includes a sodium 131, potassium 3.1, chlorides 103, CO2 23, BUN 48, and creatinine 1.48. Glucose is 238. Calcium 6.9, phosphorus 2.3. Albumin 2.1. Wound cultures, revealed evidence of Escherichia coli. Abdominal fluid cultures are positive for parabacteroides species. Progress note dated October 22, 2024. 74-year-old female seen today in room 366. The patient is currently on room air. The patient does continue with lactated Ringer's at 75 cc an hour, saline at 10 cc an hour, and TPN at 80 cc an hour. She has no specific complaints today. She denies any chest pain or pressure. She denies any shortness of breath, cough, wheezing, chest tightness, or phlegm production. Laboratory data includes a white count of 14.2, hemoglobin 8.7, hematocrit 27.9, and platelet count of 158,000. Sodium 135, potassium 2.5, chlorides 102, CO2 27, BUN 45, creatinine 1.31. Glucose 149. Calcium 7.4. Albumin is 2. Abdominal cultures, reveal evidence of E. coli, Eggerthella species, and parabacteroides species. On 10/23/2024, the patient is being seen for a follow-up. The patient is currently postop day #6 following a expiratory laparotomy and sigmoid colectomy and end colostomy. The patient had a ruptured sigmoid colon with secondary pneumoperitoneum. The patient is recovering reasonably well for now. The patient has no significant respiratory difficulties. The patient is currently on room air oxygen with a pulse ox of 94%. The patient is taking some full liquid diet. She still on TPN for nutritional support. IV antibiotics are in the form of Unasyn and the intra-abdominal cultures were positive for E. coli and anaerobes. The colostomy is functional. Output from the CORAZON drain is being monitored and output is serosanguineous. The white cell count of 13.4 with a hemoglobin 7.9 and platelet count of 171. BUN is 43 with a creatinine of 1.1. Sodium levels at 134 and a potassium level is at 3. There is some elevation of the liver function test with an AST of 114, ALT of 158 and alkaline phosphatase of 192. Triglyceride level was at 241. General surgery remains on the case. Noted the patient has also history of non-small cell lung cancer/adenocarcinoma. The patient has completed 4 cycles of chemotherapy last being approximately 2 weeks ago. Most recent PET/CT from 10/05/2024 showed improvement in the patient's disease and the patient will continue with therapy once she is fully recovered from surgery. Objective - Vital Signs Vital signs: Vital Signs Temp 98.3 F 10/23/24 11:28 Pulse 82 10/23/24 11:28 Resp 16 10/23/24 14:00 BP 119/58 10/23/24 11:28 Pulse Ox 94 L 10/23/24 11:28 FiO2 40 10/18/24 11:01 Intake & Output 10/22/24 10/23/24 10/23/24 18:59 06:59 18:59 Intake Total 1320 60 20 Output Total 2430 2930 2049 Balance -1109 -2869 -2029 Intake: IV 1320 60 20 .9@ 10 120 .9@ 20 #2 240 Invasive Line 1 40 40 Invasive Line 4 20 20 20 Lactated Ringers 1,000 ml 900 @ 75 mls/hr IV .[id number] [facility] Rx#:[id number] Oral 0 Output: Drainage 280 310 30 Medial Abdomen 280 310 30 Urine 2100 2600 2000 Uretheral (Cooper) 1200 Stool 50 20 20 Other: Voiding Method Indwelling Catheter Indwelling Catheter Indwelling Catheter # Bowel Movements 1 - Exam GENERAL EXAM: Sedated 74-year-old female, awake and alert currently on room air oxygen. Communicating. HEAD: Normocephalic and atraumatic EYES: Normal reaction of pupils, equal size. No nystagmus. Nonicteric sclera. NOSE: Clear with pink turbinates. THROAT: No erythema or exudates. NECK: No masses, no JVD. Right IJ triple-lumen catheter. CHEST: No chest wall deformity. LUNGS: Equal air entry with no crackles, wheeze, rhonchi or dullness. CVS: S1 and S2 normal with no audible murmur, regular rhythm. No extra heart sounds ABDOMEN: CORAZON drain is still in place.. Left upper quadrant stoma is pink. Positive output in the colostomy bag and the patient's abdomen is soft. Surgical wound site is dry clean and intact. No direct tenderness, no rebound tenderness or guarding. SPINE: No scoliosis or deformity SKIN: No rashes CENTRAL NERVOUS SYSTEM: Neurologically, the patient is awake and alert and the patient does not have any focal neurological deficit. Cranial nerves are essentially intact. EXTREMITIES: There is no peripheral edema, clubbing, or cyanosis. Distal extremities are cold, peripheral pulses are weak and thready. - Labs CBC & Chem 7: 10/23/24 06:46 10/23/24 06:46 Labs: Abnormal Lab Results - Last 24 Hours (Table) 10/22/24 10/22/24 10/22/24 Range/Units 16:14 19:50 23:59 WBC (3.8-10.6) k/uL RBC (3.80-5.40) m/uL Hgb (11.4-16.0) gm/dL Hct (34.0-46.0) % MCV (80.0-100.0) fL RDW (11.5-15.5) % Neutrophils # (1.3-7.7) k/uL Sodium (137-145) mmol/L Potassium (3.5-5.1) mmol/L BUN (7-17) mg/dL Creatinine (0.52-1.04) mg/dL Glucose (74-99) mg/dL POC Glucose (mg/dL) 165 H 126 H 121 H (70-110) mg/dL Calcium (8.4-10.2) mg/dL AST (14-36) U/L ALT (4-34) U/L Alkaline Phosphatase (38-126) U/L Total Protein (6.3-8.2) g/dL Albumin (3.5-5.0) g/dL 10/23/24 10/23/24 10/23/24 Range/Units 06:13 06:46 06:46 WBC 13.4 H (3.8-10.6) k/uL RBC 2.51 L (3.80-5.40) m/uL Hgb 7.9 L (11.4-16.0) gm/dL Hct 25.2 L (34.0-46.0) % MCV 100.4 H (80.0-100.0) fL RDW 19.2 H (11.5-15.5) % Neutrophils # 11.2 H (1.3-7.7) k/uL Sodium 134 L (137-145) mmol/L Potassium 3.0 L (3.5-5.1) mmol/L BUN 43 H (7-17) mg/dL Creatinine 1.14 H (0.52-1.04) mg/dL Glucose 107 H (74-99) mg/dL POC Glucose (mg/dL) 207 H (70-110) mg/dL Calcium 7.5 L (8.4-10.2) mg/dL AST 114 H (14-36) U/L ALT 158 H (4-34) U/L Alkaline Phosphatase 192 H (38-126) U/L Total Protein 4.2 L (6.3-8.2) g/dL Albumin 2.0 L (3.5-5.0) g/dL 10/23/24 Range/Units 11:18 WBC (3.8-10.6) k/uL RBC (3.80-5.40) m/uL Hgb (11.4-16.0) gm/dL Hct (34.0-46.0) % MCV (80.0-100.0) fL RDW (11.5-15.5) % Neutrophils # (1.3-7.7) k/uL Sodium (137-145) mmol/L Potassium (3.5-5.1) mmol/L BUN (7-17) mg/dL Creatinine (0.52-1.04) mg/dL Glucose (74-99) mg/dL POC Glucose (mg/dL) 153 H (70-110) mg/dL Calcium (8.4-10.2) mg/dL AST (14-36) U/L ALT (4-34) U/L Alkaline Phosphatase (38-126) U/L Total Protein (6.3-8.2) g/dL Albumin (3.5-5.0) g/dL Microbiology - Last 24 Hours (Table) 10/17/24 21:47 Anaerobic Culture - Final Abdominal Fluid Parabacteroides distasonis 10/17/24 21:47 Anaerobic Culture - Final Abdominal Fluid Eggerthella species Assessment and Plan Plan: Acute abdomen/pneumoperitoneum secondary to a ruptured sigmoid colon and the patient is status post exploratory laparotomy with sigmoid colectomy and end colostomy, operative day # 6 Abdominal sepsis with abdominal cultures being positive for E. coli and anaerobes, currently on IV Unasyn Acute hypoxic respiratory failure, recovered and the patient is currently on room air oxygen. The patient is S/P extubation on October 18, 2024. Pancytopenia, likely related to previous chemotherapy intake, improved Stage IV pulm adenocarcinoma. Initially presented in May 2024 due to recurrent falls over the prior month. CT of the brain showed a right occipital lobe lesion. CT CAP 05/22/2024 showed a 5.7 x 6.7 cm right upper lobe lung mass, mediastinal LAD, she was transferred to [facility]. MRI of the brain 05/25/2024 revealed a 3.3 cm mass in the right occipital lobe with associated vasogenic edema and midline shift. 05/29/2024 she underwent craniotomy and resection of the brain mass. Pathology positive metastatic adenocarcinoma, IHC consistent with lung primary, PD-L1 90%. Caris showed a K-tarik G12C mutation, TMB was high T p53 and IDH1 mutations. 06/30/2024 staging PET scan showed FDG avid 5.7 cm medial right upper lobe spiculated mass. This partially invaded into the media started him with abutment to the right brachiocephalic vein and trachea, metastasis with enlarging right pericarinal FDG avid lymph nodes, focal FDG avid focus within the medial right hepatic lobe. Patient was given time to recover from craniotomy, she will underwent SBRT. 07/28/2024 she started carbo/Alimta/Keytruda and completed 4 cycles 10/04/2024. Treatment follow-up PET scan 10/05/2024 showed improvement in her disease. History of hypothyroidism. Tobacco smoker. Plan: Patient currently on room air oxygen Continue TPN for nutritional support Advance diet and the patient is currently on full liquid diet Colostomy is functional Patient has a right IJ triple-lumen catheter Monitor CORAZON drain output IV Unasyn General Surgery follow-up Oncology follow-up Will involve physical therapy Will continue to follow
[2024-10-23 20:28] LABS: Glucose,Whole Blood 108 mg/dL (70-110)
[2024-10-23] MEDS: PANTOPRAZOLE 40 MG/10 ML VIAL IV SCH (20:41)
[2024-10-23] MEDS: 1: MVI, ADULT NO.4 WITH VIT K 10 ML, TRACE (CONC-1ML/DOSE) 1 ML, SODIUM PHOSPHATE 9 MMOL IV SCH (21:09)
[2024-10-24 00:07] LABS: Glucose,Whole Blood 121 mg/dL (70-110)
[2024-10-24 06:23] LABS: Glucose,Whole Blood 132 mg/dL (70-110)
[2024-10-24 07:28] LABS: Anisocytosis Slight; Basophils # (A) 0.1 k/uL (0-0.2); Basophils % (A) 1 %; Eosinophils # (A) 0.1 k/uL (0-0.7); Eosinophils % (A) 1 %; HCT 26.3 % (34.0-46.0); HGB 8.4 gm/dL (11.4-16.0); Hypochromasia Slight; Lymphocytes # (A) 1.2 k/uL (1.0-4.8); Lymphocytes % (A) 7 %; MCH 32.8 pg (25.0-35.0); MCHC 32.1 g/dL (31.0-37.0); MCV 102.1 fL (80.0-100.0); Macrocytosis Moderate; Mean Platelet Volume 9.3; Monocytes # (A) 0.8 k/uL (0-1.0); Monocytes % (A) 5 %; Neutrophils # (A) 14.8 k/uL (1.3-7.7); Neutrophils % (A) 86 %; Platelet Count 174 k/uL (150-450); RBC 2.58 m/uL (3.80-5.40); RDW 18.8 % (11.5-15.5); WBC 17.2 k/uL (3.8-10.6)
[2024-10-24 07:51] LABS: ALT 113 U/L (4-34); AST 63 U/L (14-36); African American GFR (CKD) 53 (>60 ml/min/1.73 sqM); Albumin 2.1 g/dL (3.5-5.0); Alkaline Phosphatase 170 U/L (38-126); Anion Gap 2 mmol/L; Blood Urea Nitrogen 42 mg/dL (7-17); Calcium 7.9 mg/dL (8.4-10.2); Carbon Dioxide 35 mmol/L (22-30); Chloride 100 mmol/L (98-107); Glucose 121 mg/dL (74-99); Magnesium 1.5 mg/dL (1.6-2.3); Non-African American GFR(CKD) 46 (>60 ml/min/1.73 sqM); Phosphorus 3.5 mg/dL (2.5-4.5); Potassium 3.5 mmol/L (3.5-5.1); Sodium 137 mmol/L (137-145); Total Bilirubin 0.5 mg/dL (0.2-1.3); Total Protein 4.4 g/dL (6.3-8.2)
[2024-10-24] MEDS: MAGNESIUM SULFATE-D5W PMX 1 GM in DEXTROSE/WATER 1 100ML.BAG IVPB SCH (09:10)
--- NOTE | 2024-10-24 10:32 | P.PN ---
Subjective Progress Note Date: 10/24/24 Subjective: Patient seen and examined at bedside. No acute events overnight. Cooper catheter in place, still having output from CORAZON drain, has some output from ostomy. Complaining of abdominal pain, generalized, also having reflux. Pertinent positives and negatives as discussed above, a complete review of systems was performed and all other systems are negative. Vitals Signs Reviewed. General: Nontoxic, no distress, appears at stated age, Cooper catheter in place Derm: Warm, dry Head: Atraumatic, normocephalic, symmetric Eyes: EOMI, no lid lag, anicteric sclera Mouth: No lip lesion, mucus membranes moist Cardiovascular: S1S2 reg, no murmur Lungs: CTA bilateral, no rhonchi, no rales, no accessory muscle use, supplemental oxygen Abdominal: Soft, tender to palpation throughout, no guarding, no appreciable organomegaly, ostomy and CORAZON drain in place Ext: No gross muscle atrophy, no edema, no contractures Neuro: CN II-XI grossly intact, no focal neuro deficits Psych: Alert, oriented, appropriate affect Data Reviewed Today: Pertinent Labs: WBC 17.2, hemoglobin 8.4, platelet 174, creatinine 1.17, magnesium 1.5, potassium 3.5, blood sugars running between 1 21-1 32, total bili 0.5, AST 63, ALT 113, ALP 170 Imaging: No new imaging Assessment and Plan: Active: Ruptured sigmoid colon secondary to possible stercoral ulcer status post sigmoid colectomy with end colostomy Pneumoperitoneum secondary to above Sepsis secondary to above Bandemia, resolved Microcytic anemia, likely acute blood loss, status post 1 unit of PRBCs, improving Mild thrombocytopenia, resolved -Surgery following, patient on TPN, also on full liquid -Pain control per surgery -continue IV Protonix increased to 40 twice daily -Pulmonology following, and ID following, on Unasyn 3 g IV every 8 hours -Patient previously on steroids, hydrocortisone decreased to 50 daily IV, continue with current dose Lung cancer with metastatic brain disease on active chemotherapy -Oncology following -Continue Keppra IV 500 every 12 hours Nonoliguric FRANK, likely prerenal, resolving Mild non-anion gap metabolic acidosis, resolved Hypokalemia, resolved Hyponatremia, resolved Hypomagnesemia -Lactated Ringer at 75 cc an hour -Nephrology following -Repeat BMP tomorrow -Potassium replaced, 60 mill equivalent IV potassium given today - Mag sulfate 3 g IV today Transaminitis, stable, improving -No acute process on liver ultrasound -Acute hepatitis panel pending Mild hyperkalemia, resolved Thank you for allowing us to participate in the care of this pleasant patient. Do not hesitate to contact us with questions. Someone can be reached from the [facility] hospitalist group all hours of the day at [phone] or via perfect serve. Objective - Vital Signs Vital signs: Vital Signs Temp 98.3 F 10/24/24 08:00 Pulse 93 10/24/24 08:00 Resp 18 10/24/24 08:00 BP 134/70 10/24/24 08:00 Pulse Ox 94 L 10/24/24 08:00 FiO2 40 10/18/24 11:01 Intake & Output 10/23/24 10/24/24 10/24/24 18:59 06:59 18:59 Intake Total 260 20 Output Total 3970 3235 1300 Balance -0007 -0381 -1300 Weight 64 kg 64 kg Intake: IV 20 20 Invasive Line 4 20 20 Oral 240 Output: Drainage 250 120 Medial Abdomen 250 120 Urine 3700 3075 1300 Stool 20 40 Other: Voiding Method Indwelling Catheter Indwelling Catheter - Labs CBC & Chem 7: 10/24/24 06:37 10/24/24 06:37 Labs: Abnormal Lab Results - Last 24 Hours (Table) 10/23/24 10/23/24 10/24/24 Range/Units 11:18 16:22 00:04 WBC (3.8-10.6) k/uL RBC (3.80-5.40) m/uL Hgb (11.4-16.0) gm/dL Hct (34.0-46.0) % MCV (80.0-100.0) fL RDW (11.5-15.5) % Neutrophils # (1.3-7.7) k/uL Carbon Dioxide (22-30) mmol/L BUN (7-17) mg/dL Creatinine (0.52-1.04) mg/dL Glucose (74-99) mg/dL POC Glucose (mg/dL) 153 H 146 H 121 H (70-110) mg/dL Calcium (8.4-10.2) mg/dL Magnesium (1.6-2.3) mg/dL AST (14-36) U/L ALT (4-34) U/L Alkaline Phosphatase (38-126) U/L Total Protein (6.3-8.2) g/dL Albumin (3.5-5.0) g/dL 10/24/24 10/24/24 10/24/24 Range/Units 05:56 06:37 06:37 WBC 17.2 H (3.8-10.6) k/uL RBC 2.58 L (3.80-5.40) m/uL Hgb 8.4 L (11.4-16.0) gm/dL Hct 26.3 L (34.0-46.0) % MCV 102.1 H (80.0-100.0) fL RDW 18.8 H (11.5-15.5) % Neutrophils # 14.8 H (1.3-7.7) k/uL Carbon Dioxide 35 H (22-30) mmol/L BUN 42 H (7-17) mg/dL Creatinine 1.17 H (0.52-1.04) mg/dL Glucose 121 H (74-99) mg/dL POC Glucose (mg/dL) 132 H (70-110) mg/dL Calcium 7.9 L (8.4-10.2) mg/dL Magnesium 1.5 L (1.6-2.3) mg/dL AST 63 H (14-36) U/L ALT 113 H (4-34) U/L Alkaline Phosphatase 170 H (38-126) U/L Total Protein 4.4 L (6.3-8.2) g/dL Albumin 2.1 L (3.5-5.0) g/dL
[2024-10-24 11:23] LABS: Glucose,Whole Blood 219 mg/dL (70-110)
--- NOTE | 2024-10-24 11:34 | P.PN ---
Subjective Patient is seen for follow-up for acute kidney injury. Maintained on TPN and Ringer lactate. Renal function has improved with serum creatinine down to 1.17 mg/dL No significant complaints today. Objective - Vital Signs Vital signs: Vital Signs Temp 98.3 F 10/24/24 08:00 Pulse 93 10/24/24 08:00 Resp 18 10/24/24 08:00 BP 134/70 10/24/24 08:00 Pulse Ox 94 L 10/24/24 08:00 FiO2 40 10/18/24 11:01 Intake & Output 10/23/24 10/24/24 10/24/24 18:59 06:59 18:59 Intake Total 260 20 Output Total 3970 3235 1300 Balance -3710 -3215 -1300 Weight 64 kg 64 kg Intake: IV 20 20 Invasive Line 4 20 20 Oral 240 Output: Drainage 250 120 Medial Abdomen 250 120 Urine 3700 3075 1300 Stool 20 40 Other: Voiding Method Indwelling Catheter Indwelling Catheter - Exam Patient is awake, comfortable, no acute distress. Examination of the heart S1 and S2 Examination of the lungs bilateral breath sounds are heard Abdomen is soft, CORAZON drain and colostomy noted Examination lower extremities shows no significant edema [employer] exam grossly intact - Labs CBC & Chem 7: 10/24/24 06:37 10/24/24 06:37 Labs: Abnormal Lab Results - Last 24 Hours (Table) 10/23/24 10/24/24 10/24/24 Range/Units 16:22 00:04 05:56 WBC (3.8-10.6) k/uL RBC (3.80-5.40) m/uL Hgb (11.4-16.0) gm/dL Hct (34.0-46.0) % MCV (80.0-100.0) fL RDW (11.5-15.5) % Neutrophils # (1.3-7.7) k/uL Carbon Dioxide (22-30) mmol/L BUN (7-17) mg/dL Creatinine (0.52-1.04) mg/dL Glucose (74-99) mg/dL POC Glucose (mg/dL) 146 H 121 H 132 H (70-110) mg/dL Calcium (8.4-10.2) mg/dL Magnesium (1.6-2.3) mg/dL AST (14-36) U/L ALT (4-34) U/L Alkaline Phosphatase (38-126) U/L Total Protein (6.3-8.2) g/dL Albumin (3.5-5.0) g/dL 10/24/24 10/24/24 10/24/24 Range/Units 06:37 06:37 11:22 WBC 17.2 H (3.8-10.6) k/uL RBC 2.58 L (3.80-5.40) m/uL Hgb 8.4 L (11.4-16.0) gm/dL Hct 26.3 L (34.0-46.0) % MCV 102.1 H (80.0-100.0) fL RDW 18.8 H (11.5-15.5) % Neutrophils # 14.8 H (1.3-7.7) k/uL Carbon Dioxide 35 H (22-30) mmol/L BUN 42 H (7-17) mg/dL Creatinine 1.17 H (0.52-1.04) mg/dL Glucose 121 H (74-99) mg/dL POC Glucose (mg/dL) 219 H (70-110) mg/dL Calcium 7.9 L (8.4-10.2) mg/dL Magnesium 1.5 L (1.6-2.3) mg/dL AST 63 H (14-36) U/L ALT 113 H (4-34) U/L Alkaline Phosphatase 170 H (38-126) U/L Total Protein 4.4 L (6.3-8.2) g/dL Albumin 2.1 L (3.5-5.0) g/dL Assessment and Plan Assessment: 1. Acute kidney injury secondary to ATN secondary to severe sepsis. Baseline creatinine near 1, improved. Nonoliguric. No hydronephrosis noted on CT. 2. Metabolic acidosis secondary to acute kidney injury and IV fluids. Improved. 3. Sepsis secondary to pneumoperitoneum and antibiotics. 4. Pneumoperitoneum status post exploratory laparotomy with sigmoid colectomy, end colostomy creation. 5. Acute blood loss anemia s/p prbc this admission. 6. Hypokalemia from poor intake. Plan: Okay to continue Ringer lactate along with TPN for now. Repeat labs in a.m. Replace potassium aggressively. TPN has been adjusted as well.
[2024-10-24] MEDS ORDERED: DEXTROSE 50% SYRINGE 50 ML IVP PRN ×2 (12:14)
[2024-10-24] MEDS: POTASSIUM CHLORIDE ER 20 MEQ TAB.ER PO STA (12:40)
[2024-10-24] MEDS: INSULIN ASPART (NovoLOG) 100 UNIT/ML VIAL SQ SCH (12:41)
--- NOTE | 2024-10-24 13:13 | P.PN ---
Subjective Progress Note Date: 10/23/24 Principal diagnosis: Reason for follow-up is perforated sigmoid colon/peritonitis Patient is a 74-year-old female with a past medical history significant for metastatic lung cancer hypothyroidism has been brought into the hospital for evaluation of generalized abdominal pain patient has been diagnosed with perforated sigmoid colon status post laparotomy sigmoid colectomy diverting colostomy. On today's evaluation that is 10/23/2024, patient has been afebrile, patient is breathing comfortably and is currently on room air, patient denies having any significant cough no chest pain, patient has been complaining of some reflux and nausea abdominal pain is currently controlled did have output in her colostomy. Patient white count is 13.4 creat is 1.14 Objective - Vital Signs Vital signs: Vital Signs Temp 98.3 F 10/23/24 11:28 Pulse 82 10/23/24 11:28 Resp 16 10/23/24 11:28 BP 119/58 10/23/24 11:28 Pulse Ox 94 L 10/23/24 11:28 FiO2 40 10/18/24 11:01 Intake & Output 10/22/24 10/23/24 10/23/24 18:59 06:59 18:59 Intake Total 1320 60 10 Output Total 2430 2930 2030 Balance -1109 Intake: IV 1320 60 10 .9@ 10 120 .9@ 20 #2 240 Invasive Line 1 40 40 Invasive Line 4 20 20 10 Lactated Ringers 1,000 ml 900 @ 75 mls/hr IV .[id number] [facility] Rx#:[id number] Oral 0 Output: Drainage 280 310 30 Medial Abdomen 280 310 30 Urine 2100 2600 2000 Uretheral (Cooper) 1200 Stool 50 20 Other: Voiding Method Indwelling Catheter Indwelling Catheter Indwelling Catheter # Bowel Movements 1 - Exam GENERAL DESCRIPTION: An elderly female lying in bed in no distress RESPIRATORY SYSTEM: Unlabored breathing , decreased breath sounds at bases HEART: S1 S2 regular rate and rhythm , ABDOMEN: Soft , mild tenderness EXTREMITIES: No edema feet - Labs CBC & Chem 7: 10/24/24 06:37 10/24/24 06:37 Labs: Abnormal Lab Results - Last 24 Hours (Table) 10/22/24 10/22/24 10/22/24 Range/Units 16:14 19:50 23:59 WBC (3.8-10.6) k/uL RBC (3.80-5.40) m/uL Hgb (11.4-16.0) gm/dL Hct (34.0-46.0) % MCV (80.0-100.0) fL RDW (11.5-15.5) % Neutrophils # (1.3-7.7) k/uL Sodium (137-145) mmol/L Potassium (3.5-5.1) mmol/L BUN (7-17) mg/dL Creatinine (0.52-1.04) mg/dL Glucose (74-99) mg/dL POC Glucose (mg/dL) 165 H 126 H 121 H (70-110) mg/dL Calcium (8.4-10.2) mg/dL AST (14-36) U/L ALT (4-34) U/L Alkaline Phosphatase (38-126) U/L Total Protein (6.3-8.2) g/dL Albumin (3.5-5.0) g/dL 10/23/24 10/23/24 10/23/24 Range/Units 06:13 06:46 06:46 WBC 13.4 H (3.8-10.6) k/uL RBC 2.51 L (3.80-5.40) m/uL Hgb 7.9 L (11.4-16.0) gm/dL Hct 25.2 L (34.0-46.0) % MCV 100.4 H (80.0-100.0) fL RDW 19.2 H (11.5-15.5) % Neutrophils # 11.2 H (1.3-7.7) k/uL Sodium 134 L (137-145) mmol/L Potassium 3.0 L (3.5-5.1) mmol/L BUN 43 H (7-17) mg/dL Creatinine 1.14 H (0.52-1.04) mg/dL Glucose 107 H (74-99) mg/dL POC Glucose (mg/dL) 207 H (70-110) mg/dL Calcium 7.5 L (8.4-10.2) mg/dL AST 114 H (14-36) U/L ALT 158 H (4-34) U/L Alkaline Phosphatase 192 H (38-126) U/L Total Protein 4.2 L (6.3-8.2) g/dL Albumin 2.0 L (3.5-5.0) g/dL 10/23/24 Range/Units 11:18 WBC (3.8-10.6) k/uL RBC (3.80-5.40) m/uL Hgb (11.4-16.0) gm/dL Hct (34.0-46.0) % MCV (80.0-100.0) fL RDW (11.5-15.5) % Neutrophils # (1.3-7.7) k/uL Sodium (137-145) mmol/L Potassium (3.5-5.1) mmol/L BUN (7-17) mg/dL Creatinine (0.52-1.04) mg/dL Glucose (74-99) mg/dL POC Glucose (mg/dL) 153 H (70-110) mg/dL Calcium (8.4-10.2) mg/dL AST (14-36) U/L ALT (4-34) U/L Alkaline Phosphatase (38-126) U/L Total Protein (6.3-8.2) g/dL Albumin (3.5-5.0) g/dL Microbiology - Last 24 Hours (Table) 10/17/24 21:47 Anaerobic Culture - Final Abdominal Fluid Parabacteroides distasonis 10/17/24 21:47 Anaerobic Culture - Final Abdominal Fluid Eggerthella species Assessment and Plan (1) Perforated sigmoid colon Current Visit: Yes Status: Acute Code(s): K63.1 - PERFORATION OF INTESTINE (NONTRAUMATIC) SNOMED Code(s): 131798064 (2) Leukopenia Current Visit: Yes Status: Acute Code(s): D72.819 - DECREASED WHITE BLOOD CELL COUNT, UNSPECIFIED SNOMED Code(s): 39453042 (3) Peritonitis Current Visit: Yes Status: Acute Code(s): K65.9 - PERITONITIS, UNSPECIFIED SNOMED Code(s): 13197956 Plan: 1patient presented to hospital with abdominal pain generalized nausea vomiting with evidence of free air on the CT in this patient with status post laparotomy with evidence of sigmoid colon perforation status post sigmoid colectomy and end colostomy we will need to cover for the enteric gram-negative both aerobes and anaerobes 2-patient blood culture which are negative abdominal cultures with Bacteroides and E. coli is a sensitive pathogen 3-patient currently being treated with Unasyn leukocytosis questionably due to the right IJ which should be discontinued Dictation was produced using [employer] software. please excuse any grammatical, word or spelling errors.
--- NOTE | 2024-10-24 13:14 | P.PN ---
Subjective Progress Note Date: 10/24/24 Principal diagnosis: Reason for follow-up is perforated sigmoid colon/peritonitis Patient is a 74-year-old female with a past medical history significant for metastatic lung cancer hypothyroidism has been brought into the hospital for evaluation of generalized abdominal pain patient has been diagnosed with perforated sigmoid colon status post laparotomy sigmoid colectomy diverting colostomy. On today's evaluation that is 10/24/2024, Patient is afebrile this morning patient denies having any chest pain shortness of breath or cough, the patient is currently on room air, patient did have some nausea but no vomiting abdominal pain is controlled output in colostomy. Patient white count is up to 17.2, creat is 1.17 Objective - Vital Signs Vital signs: Vital Signs Temp 98.6 F 10/24/24 11:49 Pulse 81 10/24/24 11:49 Resp 18 10/24/24 11:49 BP 125/96 10/24/24 11:49 Pulse Ox 94 L 10/24/24 11:49 FiO2 40 10/18/24 11:01 Intake & Output 10/23/24 10/24/24 10/24/24 18:59 06:59 18:59 Intake Total 260 20 Output Total 3970 3235 0 Balance -3709 -3214 Weight 64 kg 64 kg Intake: IV 20 20 Invasive Line 4 20 20 Oral 240 Output: Drainage 250 120 20 Medial Abdomen 250 120 20 Urine 3700 3075 2000 Stool 20 40 50 Other: Voiding Method Indwelling Catheter Indwelling Catheter Indwelling Catheter - Exam GENERAL DESCRIPTION: An elderly female lying in bed in no distress RESPIRATORY SYSTEM: Unlabored breathing , decreased breath sounds at bases HEART: S1 S2 regular rate and rhythm , ABDOMEN: Soft , mild tenderness EXTREMITIES: No edema feet - Labs CBC & Chem 7: 10/24/24 06:37 10/24/24 06:37 Labs: Abnormal Lab Results - Last 24 Hours (Table) 10/23/24 10/24/24 10/24/24 Range/Units 16:22 00:04 05:56 WBC (3.8-10.6) k/uL RBC (3.80-5.40) m/uL Hgb (11.4-16.0) gm/dL Hct (34.0-46.0) % MCV (80.0-100.0) fL RDW (11.5-15.5) % Neutrophils # (1.3-7.7) k/uL Carbon Dioxide (22-30) mmol/L BUN (7-17) mg/dL Creatinine (0.52-1.04) mg/dL Glucose (74-99) mg/dL POC Glucose (mg/dL) 146 H 121 H 132 H (70-110) mg/dL Calcium (8.4-10.2) mg/dL Magnesium (1.6-2.3) mg/dL AST (14-36) U/L ALT (4-34) U/L Alkaline Phosphatase (38-126) U/L Total Protein (6.3-8.2) g/dL Albumin (3.5-5.0) g/dL 10/24/24 10/24/24 10/24/24 Range/Units 06:37 06:37 11:22 WBC 17.2 H (3.8-10.6) k/uL RBC 2.58 L (3.80-5.40) m/uL Hgb 8.4 L (11.4-16.0) gm/dL Hct 26.3 L (34.0-46.0) % MCV 102.1 H (80.0-100.0) fL RDW 18.8 H (11.5-15.5) % Neutrophils # 14.8 H (1.3-7.7) k/uL Carbon Dioxide 35 H (22-30) mmol/L BUN 42 H (7-17) mg/dL Creatinine 1.17 H (0.52-1.04) mg/dL Glucose 121 H (74-99) mg/dL POC Glucose (mg/dL) 219 H (70-110) mg/dL Calcium 7.9 L (8.4-10.2) mg/dL Magnesium 1.5 L (1.6-2.3) mg/dL AST 63 H (14-36) U/L ALT 113 H (4-34) U/L Alkaline Phosphatase 170 H (38-126) U/L Total Protein 4.4 L (6.3-8.2) g/dL Albumin 2.1 L (3.5-5.0) g/dL Assessment and Plan (1) Perforated sigmoid colon Current Visit: Yes Status: Acute Code(s): K63.1 - PERFORATION OF INTESTINE (NONTRAUMATIC) SNOMED Code(s): 123870423 (2) Leukopenia Current Visit: Yes Status: Acute Code(s): D72.819 - DECREASED WHITE BLOOD CELL COUNT, UNSPECIFIED SNOMED Code(s): 04624583 (3) Peritonitis Current Visit: Yes Status: Acute Code(s): K65.9 - PERITONITIS, UNSPECIFIED SNOMED Code(s): 58527361 Plan: 1patient presented to hospital with abdominal pain generalized nausea vomiting with evidence of free air on the CT in this patient with status post laparotomy with evidence of sigmoid colon perforation status post sigmoid colectomy and end colostomy we will need to cover for the enteric gram-negative both aerobes and anaerobes 2-patient blood culture which are negative abdominal cultures with Bacteroides and E. coli is a sensitive pathogen 3-patient worsening leukocytosis questionably due to the right IJ which should be discontinued we will obtain a PICC line this was discussed with the nursing staff for now continue with Unasyn Dictation was produced using [email or web address] dictation software. please excuse any grammatical, word or spelling errors. Time with Patient: Less than 30
[2024-10-24 18:39] LABS: Glucose,Whole Blood 146 mg/dL (70-110)
--- NOTE | 2024-10-24 18:46 | P.PN ---
Subjective Progress Note Date: 10/24/24 Patient is a 74-year-old female with past medical history significant for hypothyroidism and lung cancer.. Patient is known to have a right upper lobe lung mass, she was seen at our facility May,, and transfered to [facility]. Reportedly, currently undergoing systemic chemotherapy. Patient is intubated and unable to provide information. No family present. Most recent PET scan done 10/05/2024 demonstrating a mixed response to therapy with decrease size and FDG activity of the right upper lobe pulmonary mass and mediastinal/right hilar adenopathy; however, there is a more prominent appearing opacity within the right lower lobe abutting the fissure with increasing FDG a ctivity. Possibly representing an infectious/inflammatory opacity, however, new metastasis was not excluded. Brain CT done back in May, showing a large area of vasogenic edema extending through the right proximal temporal lobe, right parietal lobe, and occipital lobe with effacement of the sulci and subfalcine herniation with 0.8 cm of midline shift to the left. Follow-up brain MRI done 09/18/2024 showing postsurgical changes with a small cystic cavity in the area of prior surgery. No new lesions were noted. Patient presents to the emergency department yesterday afternoon with a chief complaint of abdominal pain. Reportedly, persistent abdominal pain over the last 5 days with increasing intensity. Workup in the emergency department including a abdominal/pelvis CT which demonstrated small to moderate amount of free air scattered within the upper abdomen and within the mid pelvis. Small amount of free fluid within the pelvis. Dilated small bowel loops to at least the proximal ileum. Partial small bowel obstruction should be considered. Late last night, patient taken to the operating room for exploratory laparotomy, a ruptured sigmoid colon and possible stercoral ulcer was found. Patient underwent sigmoid colectomy with end colostomy. Following the procedure, she was transferred to the intensive care unit for recovery. Patient currently being evaluated in the ICU. She remains intubated to the mechanical ventilator, current ventilator settings assist-control, respiratory rate 16, tidal volume 400, FiO2 50%, PEEP of 5. ABG done on these settings and an FiO2 100%; show a PaO2 of 363, pCO2 of 45, pH of 7.28. Chest x-ray showing endotracheal tube 3 cm above the adriana, nasogastric tube coursing below the diaphragm, right mediastinal mass, right IJ central line catheter with tip near the cavoatrial junction. Patient is currently sedated and synchronous with mechanical ventilator. Nonresponsive. On propofol 15 mcg/kg/min. LR is infusing at 75 m L/h. Blood pressure soft at 96/66 mmHg. Mildly tachycardic. Urine output only 60 cc since OR exit. Postoperative labs including a CBC with a WBC count of 2, hemoglobin 10.8, hematocrit 33.6, platelets 107. CMP: Sodium 135, potassium 3.5, chloride 102, serum bicarb 23, BUN 34, creatinine 1.01, glucose 117. Lactic 1.7. Calcium 6.9. Patient is empirically covered on antibiotics in the form of Zosyn. Midline abdominal incision with postoperative dressing intact. Mild shadowing. CORAZON drain with serosanguineous fluid and needs to be emptied. Left upper quadrant stoma is pink. Progress note dated October 19, 2024. 74-year-old female seen today in room 251. She is postoperative day #2, status post exploratory laparotomy, sigmoid colectomy, with end colostomy. Currently, the patient was on 2 L of oxygen. She has an NG tube in place. She is getting lactated Ringer's at 130 cc an hour. She was extubated successfully yesterday, October 18. She continues on Zosyn. We did order an incentive spirometer for her. Current labs include a white count of 6.5, hemoglobin 6.5, hematocrit 20.2, and a platelet count of 114,000. Sodium 137, potassium 4, chlorides 109, CO2 18, BUN 42, and creatinine 1.71. Calcium is 6.9. Albumin 2.2. Cultures are thus far negative. Chest x-ray shows chronic changes, without an acute process. Progress note dated October 20, 2024. 74-year-old female who was seen in the ICU yesterday. She is postoperative day #3, status post exploratory laparotomy, sigmoid colectomy, with end colostomy. The patient is currently on room air. She is getting TPN at 30 cc an hour. She is also getting lactated Ringer's at 75 cc an hour. Current laboratory data includes a white count 8.7, hemoglobin 7.4, hematocrit 23.2, and a platelet count of 104,000. Sodium 138, potassium 3.1, chlorides 107, CO2 24, BUN 49, and creatinine 1.8. Glucose is 149. Magnesium 2.3. Clinically, the patient is doing well, and she states that she feels well. I encouraged her to use her incentive spirometer, hourly. Wound cultures of the abdomen were positive for Escherichia coli. Abdominal fluid cultures were positive for Para- b.acteroides species. The patient is currently on Zosyn. Progress note dated October 21, 2024. 74-year-old female seen in room 366. The patient was previously in the intensive care unit. Currently, the patient is on room air. She is receiving lactated Ringer's at 75 cc an hour, lipids at 21 cc, and TPN at 80 cc an hour. The patient appears not to be having any respiratory distress or difficulty. She has no specific complaints. She is awake and alert. She is laying flat in bed. Current laboratory data includes a sodium 131, potassium 3.1, chlorides 103, CO2 23, BUN 48, and creatinine 1.48. Glucose is 238. Calcium 6.9, phosphorus 2.3. Albumin 2.1. Wound cultures, revealed evidence of Escherichia coli. Abdominal fluid cultures are positive for parabacteroides species. Progress note dated October 22, 2024. 74-year-old female seen today in room 366. The patient is currently on room air. The patient does continue with lactated Ringer's at 75 cc an hour, saline at 10 cc an hour, and TPN at 80 cc an hour. She has no specific complaints today. She denies any chest pain or pressure. She denies any shortness of breath, cough, wheezing, chest tightness, or phlegm production. Laboratory data includes a white count of 14.2, hemoglobin 8.7, hematocrit 27.9, and platelet count of 158,000. Sodium 135, potassium 2.5, chlorides 102, CO2 27, BUN 45, creatinine 1.31. Glucose 149. Calcium 7.4. Albumin is 2. Abdominal cultures, reveal evidence of E. coli, Eggerthella species, and parabacteroides species. On 10/23/2024, the patient is being seen for a follow-up. The patient is currently postop day #6 following a expiratory laparotomy and sigmoid colectomy and end colostomy. The patient had a ruptured sigmoid colon with secondary pneumoperitoneum. The patient is recovering reasonably well for now. The patient has no significant respiratory difficulties. The patient is currently on room air oxygen with a pulse ox of 94%. The patient is taking some full liquid diet. She still on TPN for nutritional support. IV antibiotics are in the form of Unasyn and the intra-abdominal cultures were positive for E. coli and anaerobes. The colostomy is functional. Output from the CORAZON drain is being monitored and output is serosanguineous. The white cell count of 13.4 with a hemoglobin 7.9 and platelet count of 171. BUN is 43 with a creatinine of 1.1. Sodium levels at 134 and a potassium level is at 3. There is some elevation of the liver function test with an AST of 114, ALT of 158 and alkaline phosphatase of 192. Triglyceride level was at 241. General surgery remains on the case. Noted the patient has also history of non-small cell lung cancer/adenocarcinoma. The patient has completed 4 cycles of chemotherapy last being approximately 2 weeks ago. Most recent PET/CT from 10/05/2024 showed improvement in the patient's disease and the patient will continue with therapy once she is fully recovered from surgery. On 10/24/2024, the patient is being seen for a follow-up. The patient is postop day #7. She is complaining of excessive fatigue. Laying comfortably in bed. Colostomy is functional. Her oral intake remains minimal. She has been provided full liquid diet and she remains on TPN for nutritional support. The patient's white cell count is currently at 17.2 and this has not improved and the patient continues to have ongoing leukocytosis. White cell count is at 17.2 with a hemoglobin 8.4 and a platelet count of 174. BUN is 42 with a creatinine 1.1 and sodium is at 137. LFTs remain abnormal although improved compared to yesterday. Albumin level is at 2.1. Remains on a IV Unasyn and remains on IV hydrocortisone and TPN for nutritional support. In terms of respiratory status, she is on 2 L of oxygen by nasal cannula with a pulse ox of 94%. Colostomy site is intact and functional and she is positive bowel sounds. Objective - Vital Signs Vital signs: Vital Signs Temp 98.6 F 10/24/24 11:49 Pulse 81 10/24/24 11:49 Resp 18 10/24/24 11:49 BP 125/96 10/24/24 11:49 Pulse Ox 94 L 10/24/24 11:49 FiO2 40 10/18/24 11:01 Intake & Output 10/23/24 10/24/24 10/24/24 18:59 06:59 18:59 Intake Total 260 20 Output Total 3970 3235 2069 Balance -0933 -9154 -2069 Weight 64 kg 64 kg Intake: IV 20 20 Invasive Line 4 20 20 Oral 240 Output: Drainage 250 120 20 Medial Abdomen 250 120 20 Urine 3700 3075 2000 Stool 20 40 50 Other: Voiding Method Indwelling Catheter Indwelling Catheter Indwelling Catheter - Exam GENERAL EXAM: Sedated 74-year-old female, awake and alert currently on 2 L O2 nasal cannula communicating. HEAD: Normocephalic and atraumatic EYES: Normal reaction of pupils, equal size. No nystagmus. Nonicteric sclera. NOSE: Clear with pink turbinates. THROAT: No erythema or exudates. NECK: No masses, no JVD. Right IJ triple-lumen catheter. CHEST: No chest wall deformity. LUNGS: Equal air entry with no crackles, wheeze, rhonchi or dullness. CVS: S1 and S2 normal with no audible murmur, regular rhythm. No extra heart sounds ABDOMEN: CORAZON drain is still in place.. Left upper quadrant stoma is pink. Positive output in the colostomy bag and the patient's abdomen is soft. Surgical wound site is dry clean and intact. No direct tenderness, no rebound tenderness or guarding. SPINE: No scoliosis or deformity SKIN: No rashes CENTRAL NERVOUS SYSTEM: Neurologically, the patient is awake and alert and the patient does not have any focal neurological deficit. Cranial nerves are essentially intact. EXTREMITIES: There is no peripheral edema, clubbing, or cyanosis. Distal extremities are cold, peripheral pulses are weak and thready. - Labs CBC & Chem 7: 10/24/24 06:37 10/24/24 06:37 Labs: Abnormal Lab Results - Last 24 Hours (Table) 10/23/24 10/24/24 10/24/24 Range/Units 16:22 00:04 05:56 WBC (3.8-10.6) k/uL RBC (3.80-5.40) m/uL Hgb (11.4-16.0) gm/dL Hct (34.0-46.0) % MCV (80.0-100.0) fL RDW (11.5-15.5) % Neutrophils # (1.3-7.7) k/uL Carbon Dioxide (22-30) mmol/L BUN (7-17) mg/dL Creatinine (0.52-1.04) mg/dL Glucose (74-99) mg/dL POC Glucose (mg/dL) 146 H 121 H 132 H (70-110) mg/dL Calcium (8.4-10.2) mg/dL Magnesium (1.6-2.3) mg/dL AST (14-36) U/L ALT (4-34) U/L Alkaline Phosphatase (38-126) U/L Total Protein (6.3-8.2) g/dL Albumin (3.5-5.0) g/dL 10/24/24 10/24/24 10/24/24 Range/Units 06:37 06:37 11:22 WBC 17.2 H (3.8-10.6) k/uL RBC 2.58 L (3.80-5.40) m/uL Hgb 8.4 L (11.4-16.0) gm/dL Hct 26.3 L (34.0-46.0) % MCV 102.1 H (80.0-100.0) fL RDW 18.8 H (11.5-15.5) % Neutrophils # 14.8 H (1.3-7.7) k/uL Carbon Dioxide 35 H (22-30) mmol/L BUN 42 H (7-17) mg/dL Creatinine 1.17 H (0.52-1.04) mg/dL Glucose 121 H (74-99) mg/dL POC Glucose (mg/dL) 219 H (70-110) mg/dL Calcium 7.9 L (8.4-10.2) mg/dL Magnesium 1.5 L (1.6-2.3) mg/dL AST 63 H (14-36) U/L ALT 113 H (4-34) U/L Alkaline Phosphatase 170 H (38-126) U/L Total Protein 4.4 L (6.3-8.2) g/dL Albumin 2.1 L (3.5-5.0) g/dL Assessment and Plan Plan: Acute abdomen/pneumoperitoneum secondary to a ruptured sigmoid colon and the patient is status post exploratory laparotomy with sigmoid colectomy and end colostomy, operative day # 7. Continues to have some abdominal tenderness. Colostomy is functional. Maintained on IV Unasyn. Maintained on TPN. Abdominal sepsis with abdominal cultures being positive for E. coli and anaerobes, currently on IV Unasyn Acute hypoxic respiratory failure, recovered and the patient is currently on room air oxygen. The patient is S/P extubation on October 18, 2024. Pancytopenia, likely related to previous chemotherapy intake, improved Stage IV pulm adenocarcinoma. Initially presented in May 2024 due to recurrent falls over the prior month. CT of the brain showed a right occipital lobe lesion. CT CAP 05/22/2024 showed a 5.7 x 6.7 cm right upper lobe lung mass, mediastinal LAD, she was transferred to [facility]. MRI of the brain 05/25/2024 revealed a 3.3 cm mass in the right occipital lobe with associated vasogenic edema and midline shift. 05/29/2024 she underwent craniotomy and resection of the brain mass. Pathology positive metastatic adenocarcinoma, IHC consistent with lung primary, PD-L1 90%. Caris showed a K-tarik G12C mutation, TMB was high T p53 and IDH1 mutations. 06/30/2024 staging PET scan showed FDG avid 5.7 cm medial right upper lobe spiculated mass. This partially invaded into the media started him with abutment to the right brachiocephalic vein and trachea, metastasis with enlarging right pericarinal FDG avid lymph nodes, focal FDG avid focus within the medial right hepatic lobe. Patient was given time to recover from craniotomy, she will underwent SBRT. 07/28/2024 she started carbo/Alimta/Keytruda and completed 4 cycles 10/04/2024. Treatment follow-up PET scan 10/05/2024 showed improvement in her disease. History of hypothyroidism. Tobacco smoker. Plan: Patient currently on 2 L of O2 nasal cannula Continue TPN for nutritional support Advance diet and the patient is currently on full liquid diet Colostomy is functional Patient has a right IJ triple-lumen catheter Monitor CORAZON drain output IV Unasyn General Surgery follow-up Oncology follow-up Will involve physical therapy Will continue to follow
[2024-10-24] MEDS: 1: MVI, ADULT NO.4 WITH VIT K 10 ML, TRACE (CONC-1ML/DOSE) 1 ML, SODIUM PHOSPHATE 9 MMOL IV SCH (23:14)
[2024-10-25 00:04] LABS: Glucose,Whole Blood 150 mg/dL (70-110)
[2024-10-25 06:18] LABS: Glucose,Whole Blood 147 mg/dL (70-110)
--- NOTE | 2024-10-25 06:52 | P.PN ---
Subjective Patient seen and evaluated at bedside. patient still complaining of abdominal pain, denies nausea, vomiting, fevers, chills, shortness of breath or chest pain. Objective - Vital Signs Vital signs: Vital Signs Temp 98.1 F 10/24/24 23:12 Pulse 74 10/25/24 03:27 Resp 16 10/25/24 03:27 BP 116/70 10/25/24 03:27 Pulse Ox 97 10/25/24 03:27 FiO2 40 10/18/24 11:01 Intake & Output 10/24/24 10/24/24 10/25/24 06:59 18:59 06:59 Intake Total 20 2150 200 Output Total 3235 4000 2805 Balance -0171 -6462 -5246 Weight 64 kg 66 kg Intake: IV 20 750 Invasive Line 4 20 Lactated Ringers 1,000 ml 750 @ 75 mls/hr IV .[id number] [facility] Rx#:[id number] Intake, IV Titration 1400 Amount Ampicillin-Sulbactam 3 gm 100 In Sodium Chloride 0.9% 100 ml @ 200 mls/hr IVPB Q8HR [facility] Rx#:[id number] Magnesium Sulfate-D5w Pmx 300 1 gm In Dextrose/Water 1 100ml.bag @ 100 mls/hr IVPB Q1H [facility] Rx#: [id number] Mvi, Adult No.4 with Vit 1000 K 10 ml Trace (Conc-1Ml/ Dose) 1 ml Sodium Phosphate 9 mmol Potassium Chloride 20 meq Sodium Chloride 4Meq/ml Vial 34 meq Magnesium Sulfate gm 1 gm Calcium Gluconate 1 gm In Amino Acids 5 %/Dextrose 20 % 1 ,000 ml @ 80 mls/hr IV . BY DURATION [facility] Rx#: [id number] Oral 200 Output: Drainage 120 50 30 Medial Abdomen 120 50 30 Urine 3075 3900 2775 Stool 40 50 0 Other: Voiding Method Indwelling Catheter Indwelling Catheter Indwelling Catheter - Exam general no acute distress Cardiovascular regular in rhythm Pulmonary nonlabored breathing Abdomen is soft nondistended tender to palpation no guarding or rebound tenderness ostomy producing a small amount of stool - Labs CBC & Chem 7: 10/24/24 06:37 10/24/24 06:37 Labs: Abnormal Lab Results - Last 24 Hours (Table) 10/24/24 10/24/24 10/24/24 Range/Units 06:37 06:37 11:22 WBC 17.2 H (3.8-10.6) k/uL RBC 2.58 L (3.80-5.40) m/uL Hgb 8.4 L (11.4-16.0) gm/dL Hct 26.3 L (34.0-46.0) % MCV 102.1 H (80.0-100.0) fL RDW 18.8 H (11.5-15.5) % Neutrophils # 14.8 H (1.3-7.7) k/uL Carbon Dioxide 35 H (22-30) mmol/L BUN 42 H (7-17) mg/dL Creatinine 1.17 H (0.52-1.04) mg/dL Glucose 121 H (74-99) mg/dL POC Glucose (mg/dL) 219 H (70-110) mg/dL Calcium 7.9 L (8.4-10.2) mg/dL Magnesium 1.5 L (1.6-2.3) mg/dL AST 63 H (14-36) U/L ALT 113 H (4-34) U/L Alkaline Phosphatase 170 H (38-126) U/L Total Protein 4.4 L (6.3-8.2) g/dL Albumin 2.1 L (3.5-5.0) g/dL 10/24/24 10/25/24 10/25/24 Range/Units 18:37 00:02 06:16 WBC (3.8-10.6) k/uL RBC (3.80-5.40) m/uL Hgb (11.4-16.0) gm/dL Hct (34.0-46.0) % MCV (80.0-100.0) fL RDW (11.5-15.5) % Neutrophils # (1.3-7.7) k/uL Carbon Dioxide (22-30) mmol/L BUN (7-17) mg/dL Creatinine (0.52-1.04) mg/dL Glucose (74-99) mg/dL POC Glucose (mg/dL) 146 H 150 H 147 H (70-110) mg/dL Calcium (8.4-10.2) mg/dL Magnesium (1.6-2.3) mg/dL AST (14-36) U/L ALT (4-34) U/L Alkaline Phosphatase (38-126) U/L Total Protein (6.3-8.2) g/dL Albumin (3.5-5.0) g/dL Assessment and Plan Assessment: 74-year-old female status post colostomy creation Started to have a small bowel movement Advance diet to soft Continue to monitor for abdominal pain Time with Patient: Less than 30
[2024-10-25 08:38] LABS: Anisocytosis Slight; Basophils % (A) 0 %; Eosinophils # (A) 0.1 k/uL (0-0.7); Eosinophils % (A) 1 %; HCT 24.2 % (34.0-46.0); HGB 7.9 gm/dL (11.4-16.0); Lymphocytes # (A) 1.3 k/uL (1.0-4.8); Lymphocytes % (A) 8 %; MCH 33.2 pg (25.0-35.0); MCHC 32.8 g/dL (31.0-37.0); MCV 101.4 fL (80.0-100.0); Macrocytosis Moderate; Mean Platelet Volume 9.3; Monocytes # (A) 0.8 k/uL (0-1.0); Monocytes % (A) 5 %; Neutrophils # (A) 14.1 k/uL (1.3-7.7); Neutrophils % (A) 86 %; Platelet Count 212 k/uL (150-450); RBC 2.39 m/uL (3.80-5.40); RDW 18.9 % (11.5-15.5); WBC 16.5 k/uL (3.8-10.6)
[2024-10-25 08:58] LABS: ALT 149 U/L (4-34); AST 105 U/L (14-36); African American GFR (CKD) 69 (>60 ml/min/1.73 sqM); Albumin 2.2 g/dL (3.5-5.0); Alkaline Phosphatase 160 U/L (38-126); Anion Gap 4 mmol/L; Blood Urea Nitrogen 42 mg/dL (7-17); Calcium 7.9 mg/dL (8.4-10.2); Carbon Dioxide 33 mmol/L (22-30); Chloride 98 mmol/L (98-107); Glucose 125 mg/dL (74-99); Magnesium 1.9 mg/dL (1.6-2.3); Non-African American GFR(CKD) 60 (>60 ml/min/1.73 sqM); Phosphorus 4.5 mg/dL (2.5-4.5); Potassium 3.1 mmol/L (3.5-5.1); Sodium 135 mmol/L (137-145); Total Bilirubin 0.5 mg/dL (0.2-1.3); Total Protein 4.5 g/dL (6.3-8.2)
[2024-10-25] MEDS: POTASSIUM CHLORIDE ER 20 MEQ TAB.ER PO SCH (11:36)
[2024-10-25] MEDS: POTASSIUM CHLORIDE 10 MEQ in WATER FOR INJECTION 1 100ML.BAG IVPB SCH (11:37)
[2024-10-25 11:53] LABS: Glucose,Whole Blood 184 mg/dL (70-110)
[2024-10-25] MEDS: 1: MVI, ADULT NO.4 WITH VIT K 10 ML, TRACE (CONC-1ML/DOSE) 1 ML, SODIUM PHOSPHATE 9 MMOL IV SCH (12:35)
[2024-10-25 14:20] VITALS: BMI 21.4
--- NOTE | 2024-10-25 16:12 | P.PN ---
Subjective Patient is seen for follow-up for acute kidney injury. Maintained on TPN and Ringer lactate. Renal function has improved with serum creatinine down to 1.1 mg/dL No significant complaints today. Serum potassium remains low and has required aggressive supplementation. Patient is noted to have polyuria with urine output of about 6.6 L, most likely from post ATN diuresis Objective - Vital Signs Vital signs: Vital Signs Temp 98.1 F 10/24/24 23:12 Pulse 74 10/25/24 03:27 Resp 16 10/25/24 03:27 BP 116/70 10/25/24 03:27 Pulse Ox 97 10/25/24 03:27 FiO2 40 10/18/24 11:01 Intake & Output 10/24/24 10/25/24 10/25/24 18:59 06:59 18:59 Intake Total 2150 200 Output Total 4000 2805 1200 Balance -1850 -2605 -1200 Weight 66 kg 66 kg Intake: IV 750 Lactated Ringers 1,000 ml 750 @ 75 mls/hr IV .[id number] [facility] Rx#:[id number] Intake, IV Titration 1400 Amount Ampicillin-Sulbactam 3 gm 100 In Sodium Chloride 0.9% 100 ml @ 200 mls/hr IVPB Q8HR [facility] Rx#:[id number] Magnesium Sulfate-D5w Pmx 300 1 gm In Dextrose/Water 1 100ml.bag @ 100 mls/hr IVPB Q1H [facility] Rx#: [id number] Mvi, Adult No.4 with Vit 1000 K 10 ml Trace (Conc-1Ml/ Dose) 1 ml Sodium Phosphate 9 mmol Potassium Chloride 20 meq Sodium Chloride 4Meq/ml Vial 34 meq Magnesium Sulfate gm 1 gm Calcium Gluconate 1 gm In Amino Acids 5 %/Dextrose 20 % 1 ,000 ml @ 80 mls/hr IV . BY DURATION [facility] Rx#: [id number] Oral 200 Output: Drainage 50 30 Medial Abdomen 50 30 Urine 3900 2775 1200 Stool 50 0 Other: Voiding Method Indwelling Catheter Indwelling Catheter - Exam Patient is awake, comfortable, no acute distress. Examination of the heart S1 and S2 Examination of the lungs bilateral breath sounds are heard Abdomen is soft, CORAZON drain and colostomy noted Examination lower extremities shows 1+ edema [employer] exam grossly intact - Labs CBC & Chem 7: 10/25/24 08:21 10/25/24 08:21 Labs: Abnormal Lab Results - Last 24 Hours (Table) 10/24/24 10/25/24 10/25/24 Range/Units 18:37 00:02 06:16 WBC (3.8-10.6) k/uL RBC (3.80-5.40) m/uL Hgb (11.4-16.0) gm/dL Hct (34.0-46.0) % MCV (80.0-100.0) fL RDW (11.5-15.5) % Neutrophils # (1.3-7.7) k/uL Sodium (137-145) mmol/L Potassium (3.5-5.1) mmol/L Carbon Dioxide (22-30) mmol/L BUN (7-17) mg/dL Glucose (74-99) mg/dL POC Glucose (mg/dL) 146 H 150 H 147 H (70-110) mg/dL Calcium (8.4-10.2) mg/dL AST (14-36) U/L ALT (4-34) U/L Alkaline Phosphatase (38-126) U/L Total Protein (6.3-8.2) g/dL Albumin (3.5-5.0) g/dL 10/25/24 10/25/24 10/25/24 Range/Units 08:21 08:21 11:51 WBC 16.5 H (3.8-10.6) k/uL RBC 2.39 L (3.80-5.40) m/uL Hgb 7.9 L (11.4-16.0) gm/dL Hct 24.2 L (34.0-46.0) % MCV 101.4 H (80.0-100.0) fL RDW 18.9 H (11.5-15.5) % Neutrophils # 14.1 H (1.3-7.7) k/uL Sodium 135 L (137-145) mmol/L Potassium 3.1 L (3.5-5.1) mmol/L Carbon Dioxide 33 H (22-30) mmol/L BUN 42 H (7-17) mg/dL Glucose 125 H (74-99) mg/dL POC Glucose (mg/dL) 184 H (70-110) mg/dL Calcium 7.9 L (8.4-10.2) mg/dL AST 105 H (14-36) U/L ALT 149 H (4-34) U/L Alkaline Phosphatase 160 H (38-126) U/L Total Protein 4.5 L (6.3-8.2) g/dL Albumin 2.2 L (3.5-5.0) g/dL Assessment and Plan Assessment: 1. Acute kidney injury secondary to ATN secondary to severe sepsis. Baseline creatinine near 1, improved. Nonoliguric. No hydronephrosis noted on CT. 2. Metabolic acidosis secondary to acute kidney injury and IV fluids. Improved. 3. Sepsis secondary to pneumoperitoneum and antibiotics. 4. Pneumoperitoneum status post exploratory laparotomy with sigmoid colectomy, end colostomy creation. 5. Acute blood loss anemia s/p prbc this admission. 6. Hypokalemia from post ATN diuresis and poor intake. Plan: DC Ringer lactate Continue with TPN with increased potassium Replace potassium aggressively Repeat labs in a.m.
[2024-10-25 16:43] LABS: Glucose,Whole Blood 162 mg/dL (70-110)
[2024-10-25] MEDS: DOCUSATE 100 MG CAP PO SCH (17:11)
--- NOTE | 2024-10-25 17:34 | P.PN ---
Subjective Progress Note Date: 10/25/24 Subjective: Patient seen and examined at bedside. No acute events overnight. Passing gas no bowel movement. Nausea but no vomiting. Pertinent positives and negatives as discussed above, a complete review of systems was performed and all other systems are negative. Vitals Signs Reviewed. General: Nontoxic, no distress, appears at stated age, Cooper catheter in place Derm: Warm, dry Head: Atraumatic, normocephalic, symmetric Eyes: EOMI, no lid lag, anicteric sclera Mouth: No lip lesion, mucus membranes moist Cardiovascular: S1S2 reg, no murmur Lungs: CTA bilateral, no rhonchi, no rales, no accessory muscle use, supplemental oxygen Abdominal: Soft, tender to palpation throughout, no guarding, no appreciable organomegaly, ostomy and CORAZON drain in place Ext: No gross muscle atrophy, no edema, no contractures Neuro: no focal neuro deficits Psych: Alert, oriented, appropriate affect Data Reviewed Today: Pertinent Labs: CBC and CMP significant WBC 16.5, RBC 2.39, Hg 7.9, Hct 24.2, MCV 101.4, Na 135, K 3.1, bicarb 33, BUN 42, glu 125, Ca 7.9, AST 105, ALT 149, alk phos 160, alb 2.2. Mag 1.9. Imaging: No new imaging Assessment and Plan: Active: Ruptured sigmoid colon secondary to possible stercoral ulcer status post sigmoid colectomy with end colostomy Pneumoperitoneum secondary to above Sepsis secondary to above Bandemia, resolved Microcytic anemia, likely acute blood loss, status post 1 unit of PRBCs, improving Mild thrombocytopenia, resolved -Surgery following, patient on TPN, also on full liquid -Pain control per surgery -continue IV Protonix increased to 40 twice daily -Pulmonology following, and ID following, on Unasyn 3 g IV every 8 hours -Patient previously on steroids, hydrocortisone decreased to 50 daily IV, continue with current dose 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 Do not hesitate to contact us with questions. Someone can be reached from the [facility] [place] hospitalist group all hours of the day at [phone] or via perfect serve. Objective - Vital Signs Vital signs: Vital Signs Temp 98.1 F 10/24/24 23:12 Pulse 74 10/25/24 03:27 Resp 16 10/25/24 03:27 BP 116/70 10/25/24 03:27 Pulse Ox 97 10/25/24 03:27 FiO2 40 10/18/24 11:01 Intake & Output 10/24/24 10/25/24 10/25/24 18:59 06:59 18:59 Intake Total 2150 200 Output Total 4000 2805 1200 Balance -1850 -2605 -1200 Weight 66 kg 66 kg Intake: IV 750 Lactated Ringers 1,000 ml 750 @ 75 mls/hr IV .[id number] [facility] Rx#:[id number] Intake, IV Titration 1400 Amount Ampicillin-Sulbactam 3 gm 100 In Sodium Chloride 0.9% 100 ml @ 200 mls/hr IVPB Q8HR [facility] Rx#:[id number] Magnesium Sulfate-D5w Pmx 300 1 gm In Dextrose/Water 1 100ml.bag @ 100 mls/hr IVPB Q1H [facility] Rx#: [id number] Mvi, Adult No.4 with Vit 1000 K 10 ml Trace (Conc-1Ml/ Dose) 1 ml Sodium Phosphate 9 mmol Potassium Chloride 20 meq Sodium Chloride 4Meq/ml Vial 34 meq Magnesium Sulfate gm 1 gm Calcium Gluconate 1 gm In Amino Acids 5 %/Dextrose 20 % 1 ,000 ml @ 80 mls/hr IV . BY DURATION [facility] Rx#: [id number] Oral 200 Output: Drainage 50 30 Medial Abdomen 50 30 Urine 3900 2775 1200 Stool 50 0 Other: Voiding Method Indwelling Catheter Indwelling Catheter - Labs CBC & Chem 7: 10/25/24 08:21 10/25/24 08:21 Labs: Abnormal Lab Results - Last 24 Hours (Table) 10/24/24 10/25/24 10/25/24 Range/Units 18:37 00:02 06:16 WBC (3.8-10.6) k/uL RBC (3.80-5.40) m/uL Hgb (11.4-16.0) gm/dL Hct (34.0-46.0) % MCV (80.0-100.0) fL RDW (11.5-15.5) % Neutrophils # (1.3-7.7) k/uL Sodium (137-145) mmol/L Potassium (3.5-5.1) mmol/L Carbon Dioxide (22-30) mmol/L BUN (7-17) mg/dL Glucose (74-99) mg/dL POC Glucose (mg/dL) 146 H 150 H 147 H (70-110) mg/dL Calcium (8.4-10.2) mg/dL AST (14-36) U/L ALT (4-34) U/L Alkaline Phosphatase (38-126) U/L Total Protein (6.3-8.2) g/dL Albumin (3.5-5.0) g/dL 10/25/24 10/25/24 10/25/24 Range/Units 08:21 08:21 11:51 WBC 16.5 H (3.8-10.6) k/uL RBC 2.39 L (3.80-5.40) m/uL Hgb 7.9 L (11.4-16.0) gm/dL Hct 24.2 L (34.0-46.0) % MCV 101.4 H (80.0-100.0) fL RDW 18.9 H (11.5-15.5) % Neutrophils # 14.1 H (1.3-7.7) k/uL Sodium 135 L (137-145) mmol/L Potassium 3.1 L (3.5-5.1) mmol/L Carbon Dioxide 33 H (22-30) mmol/L BUN 42 H (7-17) mg/dL Glucose 125 H (74-99) mg/dL POC Glucose (mg/dL) 184 H (70-110) mg/dL Calcium 7.9 L (8.4-10.2) mg/dL AST 105 H (14-36) U/L ALT 149 H (4-34) U/L Alkaline Phosphatase 160 H (38-126) U/L Total Protein 4.5 L (6.3-8.2) g/dL Albumin 2.2 L (3.5-5.0) g/dL 10/25/24 Range/Units 16:42 WBC (3.8-10.6) k/uL RBC (3.80-5.40) m/uL Hgb (11.4-16.0) gm/dL Hct (34.0-46.0) % MCV (80.0-100.0) fL RDW (11.5-15.5) % Neutrophils # (1.3-7.7) k/uL Sodium (137-145) mmol/L Potassium (3.5-5.1) mmol/L Carbon Dioxide (22-30) mmol/L BUN (7-17) mg/dL Glucose (74-99) mg/dL POC Glucose (mg/dL) 162 H (70-110) mg/dL Calcium (8.4-10.2) mg/dL AST (14-36) U/L ALT (4-34) U/L Alkaline Phosphatase (38-126) U/L Total Protein (6.3-8.2) g/dL Albumin (3.5-5.0) g/dL Microbiology - Last 24 Hours (Table) 10/24/24 19:24 Catheter Tip Culture - Preliminary Catheter Tip
--- NOTE | 2024-10-25 18:22 | P.PN ---
Subjective Progress Note Date: 10/25/24 Patient is a 74-year-old female with past medical history significant for hypothyroidism and lung cancer.. Patient is known to have a right upper lobe lung mass, she was seen at our facility May,, and transfered to [facility]. Reportedly, currently undergoing systemic chemotherapy. Patient is intubated and unable to provide information. No family present. Most recent PET scan done 10/05/2024 demonstrating a mixed response to therapy with decrease size and FDG activity of the right upper lobe pulmonary mass and mediastinal/right hilar adenopathy; however, there is a more prominent appearing opacity within the right lower lobe abutting the fissure with increasing FDG a ctivity. Possibly representing an infectious/inflammatory opacity, however, new metastasis was not excluded. Brain CT done back in May, showing a large area of vasogenic edema extending through the right proximal temporal lobe, right parietal lobe, and occipital lobe with effacement of the sulci and subfalcine herniation with 0.8 cm of midline shift to the left. Follow-up brain MRI done 09/18/2024 showing postsurgical changes with a small cystic cavity in the area of prior surgery. No new lesions were noted. Patient presents to the emergency department yesterday afternoon with a chief complaint of abdominal pain. Reportedly, persistent abdominal pain over the last 5 days with increasing intensity. Workup in the emergency department including a abdominal/pelvis CT which demonstrated small to moderate amount of free air scattered within the upper abdomen and within the mid pelvis. Small amount of free fluid within the pelvis. Dilated small bowel loops to at least the proximal ileum. Partial small bowel obstruction should be considered. Late last night, patient taken to the operating room for exploratory laparotomy, a ruptured sigmoid colon and possible stercoral ulcer was found. Patient underwent sigmoid colectomy with end colostomy. Following the procedure, she was transferred to the intensive care unit for recovery. Patient currently being evaluated in the ICU. She remains intubated to the mechanical ventilator, current ventilator settings assist-control, respiratory rate 16, tidal volume 400, FiO2 50%, PEEP of 5. ABG done on these settings and an FiO2 100%; show a PaO2 of 363, pCO2 of 45, pH of 7.28. Chest x-ray showing endotracheal tube 3 cm above the adriana, nasogastric tube coursing below the diaphragm, right mediastinal mass, right IJ central line catheter with tip near the cavoatrial junction. Patient is currently sedated and synchronous with mechanical ventilator. Nonresponsive. On propofol 15 mcg/kg/min. LR is infusing at 75 m L/h. Blood pressure soft at 96/66 mmHg. Mildly tachycardic. Urine output only 60 cc since OR exit. Postoperative labs including a CBC with a WBC count of 2, hemoglobin 10.8, hematocrit 33.6, platelets 107. CMP: Sodium 135, potassium 3.5, chloride 102, serum bicarb 23, BUN 34, creatinine 1.01, glucose 117. Lactic 1.7. Calcium 6.9. Patient is empirically covered on antibiotics in the form of Zosyn. Midline abdominal incision with postoperative dressing intact. Mild shadowing. CORAZON drain with serosanguineous fluid and needs to be emptied. Left upper quadrant stoma is pink. Progress note dated October 19, 2024. 74-year-old female seen today in room 251. She is postoperative day #2, status post exploratory laparotomy, sigmoid colectomy, with end colostomy. Currently, the patient was on 2 L of oxygen. She has an NG tube in place. She is getting lactated Ringer's at 130 cc an hour. She was extubated successfully yesterday, October 18. She continues on Zosyn. We did order an incentive spirometer for her. Current labs include a white count of 6.5, hemoglobin 6.5, hematocrit 20.2, and a platelet count of 114,000. Sodium 137, potassium 4, chlorides 109, CO2 18, BUN 42, and creatinine 1.71. Calcium is 6.9. Albumin 2.2. Cultures are thus far negative. Chest x-ray shows chronic changes, without an acute process. Progress note dated October 20, 2024. 74-year-old female who was seen in the ICU yesterday. She is postoperative day #3, status post exploratory laparotomy, sigmoid colectomy, with end colostomy. The patient is currently on room air. She is getting TPN at 30 cc an hour. She is also getting lactated Ringer's at 75 cc an hour. Current laboratory data includes a white count 8.7, hemoglobin 7.4, hematocrit 23.2, and a platelet count of 104,000. Sodium 138, potassium 3.1, chlorides 107, CO2 24, BUN 49, and creatinine 1.8. Glucose is 149. Magnesium 2.3. Clinically, the patient is doing well, and she states that she feels well. I encouraged her to use her incentive spirometer, hourly. Wound cultures of the abdomen were positive for Escherichia coli. Abdominal fluid cultures were positive for Para- b.acteroides species. The patient is currently on Zosyn. Progress note dated October 21, 2024. 74-year-old female seen in room 366. The patient was previously in the intensive care unit. Currently, the patient is on room air. She is receiving lactated Ringer's at 75 cc an hour, lipids at 21 cc, and TPN at 80 cc an hour. The patient appears not to be having any respiratory distress or difficulty. She has no specific complaints. She is awake and alert. She is laying flat in bed. Current laboratory data includes a sodium 131, potassium 3.1, chlorides 103, CO2 23, BUN 48, and creatinine 1.48. Glucose is 238. Calcium 6.9, phosphorus 2.3. Albumin 2.1. Wound cultures, revealed evidence of Escherichia coli. Abdominal fluid cultures are positive for parabacteroides species. Progress note dated October 22, 2024. 74-year-old female seen today in room 366. The patient is currently on room air. The patient does continue with lactated Ringer's at 75 cc an hour, saline at 10 cc an hour, and TPN at 80 cc an hour. She has no specific complaints today. She denies any chest pain or pressure. She denies any shortness of breath, cough, wheezing, chest tightness, or phlegm production. Laboratory data includes a white count of 14.2, hemoglobin 8.7, hematocrit 27.9, and platelet count of 158,000. Sodium 135, potassium 2.5, chlorides 102, CO2 27, BUN 45, creatinine 1.31. Glucose 149. Calcium 7.4. Albumin is 2. Abdominal cultures, reveal evidence of E. coli, Eggerthella species, and parabacteroides species. On 10/23/2024, the patient is being seen for a follow-up. The patient is currently postop day #6 following a expiratory laparotomy and sigmoid colectomy and end colostomy. The patient had a ruptured sigmoid colon with secondary pneumoperitoneum. The patient is recovering reasonably well for now. The patient has no significant respiratory difficulties. The patient is currently on room air oxygen with a pulse ox of 94%. The patient is taking some full liquid diet. She still on TPN for nutritional support. IV antibiotics are in the form of Unasyn and the intra-abdominal cultures were positive for E. coli and anaerobes. The colostomy is functional. Output from the CORAZON drain is being monitored and output is serosanguineous. The white cell count of 13.4 with a hemoglobin 7.9 and platelet count of 171. BUN is 43 with a creatinine of 1.1. Sodium levels at 134 and a potassium level is at 3. There is some elevation of the liver function test with an AST of 114, ALT of 158 and alkaline phosphatase of 192. Triglyceride level was at 241. General surgery remains on the case. Noted the patient has also history of non-small cell lung cancer/adenocarcinoma. The patient has completed 4 cycles of chemotherapy last being approximately 2 weeks ago. Most recent PET/CT from 10/05/2024 showed improvement in the patient's disease and the patient will continue with therapy once she is fully recovered from surgery. On 10/24/2024, the patient is being seen for a follow-up. The patient is postop day #7. She is complaining of excessive fatigue. Laying comfortably in bed. Colostomy is functional. Her oral intake remains minimal. She has been provided full liquid diet and she remains on TPN for nutritional support. The patient's white cell count is currently at 17.2 and this has not improved and the patient continues to have ongoing leukocytosis. White cell count is at 17.2 with a hemoglobin 8.4 and a platelet count of 174. BUN is 42 with a creatinine 1.1 and sodium is at 137. LFTs remain abnormal although improved compared to yesterday. Albumin level is at 2.1. Remains on a IV Unasyn and remains on IV hydrocortisone and TPN for nutritional support. In terms of respiratory status, she is on 2 L of oxygen by nasal cannula with a pulse ox of 94%. Colostomy site is intact and functional and she is positive bowel sounds. On 10/25/2024, the patient's oral intake remains quite minimal. She continues to have abdominal soreness. Her stoma is functional and there is positive output. The patient has no nausea. No emesis. No chest pain. No shortness of breath. She is quite weak and debilitated. She remains on TPN for nutritional support. She remains on room air oxygen. Labs from yesterday were noted. No new labs are available from today. He remains on IV Unasyn. He remains on Lovenox for DVT prophylaxis 40 mg subcu on a daily basis. She remains on hydrocortisone that can be essentially discontinued. No other significant events overnight for now. CORAZON drain is in place. Abdominal wound is dry clean and intact. The patient will need to advance her diet. She is currently postop day #8. Objective - Vital Signs Vital signs: Vital Signs Temp 98.1 F 10/24/24 23:12 Pulse 74 10/25/24 03:27 Resp 16 10/25/24 03:27 BP 116/70 10/25/24 03:27 Pulse Ox 97 10/25/24 03:27 FiO2 40 10/18/24 11:01 Intake & Output 10/24/24 10/25/24 10/25/24 18:59 06:59 18:59 Intake Total 2150 200 Output Total 4000 2805 1200 Balance -1850 -2605 -1200 Weight 66 kg Intake: IV 750 Lactated Ringers 1,000 ml 750 @ 75 mls/hr IV .[id number] [facility] Rx#:[id number] Intake, IV Titration 1400 Amount Ampicillin-Sulbactam 3 gm 100 In Sodium Chloride 0.9% 100 ml @ 200 mls/hr IVPB Q8HR [facility] Rx#:[id number] Magnesium Sulfate-D5w Pmx 300 1 gm In Dextrose/Water 1 100ml.bag @ 100 mls/hr IVPB Q1H [facility] Rx#: [id number] Mvi, Adult No.4 with Vit 1000 K 10 ml Trace (Conc-1Ml/ Dose) 1 ml Sodium Phosphate 9 mmol Potassium Chloride 20 meq Sodium Chloride 4Meq/ml Vial 34 meq Magnesium Sulfate gm 1 gm Calcium Gluconate 1 gm In Amino Acids 5 %/Dextrose 20 % 1 ,000 ml @ 80 mls/hr IV . BY DURATION [facility] Rx#: [id number] Oral 200 Output: Drainage 50 30 Medial Abdomen 50 30 Urine 3900 2775 1200 Stool 50 0 Other: Voiding Method Indwelling Catheter Indwelling Catheter - Exam GENERAL EXAM: Sedated 74-year-old female, awake and alert currently on room air O2. Awake and alert and communicating. HEAD: Normocephalic and atraumatic EYES: Normal reaction of pupils, equal size. No nystagmus. Nonicteric sclera. NOSE: Clear with pink turbinates. THROAT: No erythema or exudates. NECK: No masses, no JVD. Right IJ triple-lumen catheter. CHEST: No chest wall deformity. LUNGS: Equal air entry with no crackles, wheeze, rhonchi or dullness. CVS: S1 and S2 normal with no audible murmur, regular rhythm. No extra heart sounds ABDOMEN: CORAZON drain is still in place.. Left upper quadrant stoma is pink. Positive output in the colostomy bag and the patient's abdomen is soft. Boles rgical wound site is dry clean and intact. No direct tenderness, no rebound tenderness or guarding. SPINE: No scoliosis or deformity SKIN: No rashes CENTRAL NERVOUS SYSTEM: Neurologically, the patient is awake and alert and the patient does not have any focal neurological deficit. Cranial nerves are essentially intact. EXTREMITIES: There is no peripheral edema, clubbing, or cyanosis. Distal ext remities are cold, peripheral pulses are weak and thready. - Labs CBC & Chem 7: 10/25/24 08:21 10/25/24 08:21 Labs: Abnormal Lab Results - Last 24 Hours (Table) 10/24/24 10/25/24 10/25/24 Range/Units 18:37 00:02 06:16 WBC (3.8-10.6) k/uL RBC (3.80-5.40) m/uL Hgb (11.4-16.0) gm/dL Hct (34.0-46.0) % MCV (80.0-100.0) fL RDW (11.5-15.5) % Neutrophils # (1.3-7.7) k/uL Sodium (137-145) mmol/L Potassium (3.5-5.1) mmol/L Carbon Dioxide (22-30) mmol/L BUN (7-17) mg/dL Glucose (74-99) mg/dL POC Glucose (mg/dL) 146 H 150 H 147 H (70-110) mg/dL Calcium (8.4-10.2) mg/dL AST (14-36) U/L ALT (4-34) U/L Alkaline Phosphatase (38-126) U/L Total Protein (6.3-8.2) g/dL Albumin (3.5-5.0) g/dL 10/25/24 10/25/24 10/25/24 Range/Units 08:21 08:21 11:51 WBC 16.5 H (3.8-10.6) k/uL RBC 2.39 L (3.80-5.40) m/uL Hgb 7.9 L (11.4-16.0) gm/dL Hct 24.2 L (34.0-46.0) % MCV 101.4 H (80.0-100.0) fL RDW 18.9 H (11.5-15.5) % Neutrophils # 14.1 H (1.3-7.7) k/uL Sodium 135 L (137-145) mmol/L Potassium 3.1 L (3.5-5.1) mmol/L Carbon Dioxide 33 H (22-30) mmol/L BUN 42 H (7-17) mg/dL Glucose 125 H (74-99) mg/dL POC Glucose (mg/dL) 184 H (70-110) mg/dL Calcium 7.9 L (8.4-10.2) mg/dL AST 105 H (14-36) U/L ALT 149 H (4-34) U/L Alkaline Phosphatase 160 H (38-126) U/L Total Protein 4.5 L (6.3-8.2) g/dL Albumin 2.2 L (3.5-5.0) g/dL Assessment and Plan Plan: Acute abdomen/pneumoperitoneum secondary to a ruptured sigmoid colon and the patient is status post exploratory laparotomy with sigmoid colectomy and end colostomy, operative day # 8. Continues to have some abdominal tenderness. Colostomy is functional. Maintained on IV Unasyn. Maintained on TPN. Recovery has been slow. The colostomy is functional. Nevertheless, the patient's oral intake is minimal and the patient is essentially taking full liquid diet. Nancy ins on TPN for nutritional support. Abdominal sepsis with abdominal cultures being positive for E. coli and anaerobes, currently on IV Unasyn Acute hypoxic respiratory failure, recovered and the patient is currently on room air oxygen. The patient is S/P extubation on October 18, 2024. Pancytopenia, likely related to previous chemotherapy intake, improved Stage IV pulm adenocarcinoma. Initially presented in May 2024 due to recurrent falls over the prior month. CT of the brain showed a right occipital lobe lesion. CT CAP 05/22/2024 showed a 5.7 x 6.7 cm right upper lobe lung mass, mediastinal LAD, she was transferred to [facility]. MRI of the brain 05/25/2024 revealed a 3.3 cm mass in the right occipital lobe with associated vasogenic edema and midline shift. 05/29/2024 she underwent craniotomy and resection of the brain mass. Pathology positive metastatic adenocarcinoma, IHC consistent with lung primary, PD-L1 90%. Caris showed a K-tarik G12C mutation, TMB was high T p53 and IDH1 mutations. 06/30/2024 staging PET scan showed FDG avid 5.7 cm medial right upper lobe spiculated mass. This partially invaded into the media started him with abutment to the right brachiocephalic vein and trachea, metastasis with enlarging right pericarinal FDG avid lymph nodes, focal FDG avid focus within the medial right hepatic lobe. Patient was given time to recover from craniotomy, she will underwent SBRT. 07/28/2024 she started carbo/Alimta/Keytruda and completed 4 cycles 10/04/2024. Treatment follow-up PET scan 10/05/2024 showed improvement in her disease. History of hypothyroidism. Tobacco smoker. Plan: Patient currently on room air oxygen Continue TPN for nutritional support Advance diet and the patient is currently on full liquid diet Colostomy is functional Patient has a right IJ triple-lumen catheter Monitor CORAZON drain output IV Unasyn General Surgery follow-up Oncology follow-up Will involve physical therapy Will continue to follow
[2024-10-25] MEDS: SPIRONOLACTONE 25 MG TAB PO SCH (20:26)
[2024-10-25 21:38] LABS: Glucose,Whole Blood 123 mg/dL (70-110)
[2024-10-25] MEDS: ACETAMINOPHEN TAB 325 MG TAB PO PRN (22:36)
[2024-10-26 06:21] LABS: Glucose,Whole Blood 136 mg/dL (70-110)
[2024-10-26 06:49] LABS: African American GFR (CKD) 59 (>60 ml/min/1.73 sqM); Anion Gap 5 mmol/L; Blood Urea Nitrogen 37 mg/dL (7-17); Carbon Dioxide 32 mmol/L (22-30); Chloride 99 mmol/L (98-107); Glucose 108 mg/dL (74-99); Magnesium 1.8 mg/dL (1.6-2.3); Non-African American GFR(CKD) 51 (>60 ml/min/1.73 sqM); Phosphorus 4.1 mg/dL (2.5-4.5); Potassium 3.9 mmol/L (3.5-5.1); Sodium 136 mmol/L (137-145)
--- NOTE | 2024-10-26 08:33 | P.PN ---
Subjective Progress Note Date: 10/25/24 Principal diagnosis: Reason for follow-up is perforated sigmoid colon/peritonitis Patient is a 74-year-old female with a past medical history significant for metastatic lung cancer hypothyroidism has been brought into the hospital for evaluation of generalized abdominal pain patient has been diagnosed with perforated sigmoid colon status post laparotomy sigmoid colectomy diverting colostomy. On today's evaluation that is 10/25/2024,the patient denies any fever or any chills, patient is breathing comfortably on room air, the patient denies chest pain shortness of breath and no significant cough, patient abdominal pain is currently controlled still some nausea but no vomiting nursing staff mention some purulent drainage from the incision. Patient white count is down to 16.5 creatinine 0.94 catheter tip cultures currently pending Objective - Vital Signs Vital signs: Vital Signs Temp 98.1 F 10/24/24 23:12 Pulse 74 10/25/24 03:27 Resp 16 10/25/24 03:27 BP 116/70 10/25/24 03:27 Pulse Ox 97 10/25/24 03:27 FiO2 40 10/18/24 11:01 Intake & Output 10/24/24 10/25/24 10/25/24 18:59 06:59 18:59 Intake Total 2150 200 Output Total 4000 2805 1200 Balance -1850 -2605 -1200 Weight 66 kg Intake: IV 750 Lactated Ringers 1,000 ml 750 @ 75 mls/hr IV .[id number] [facility] Rx#:[id number] Intake, IV Titration 1400 Amount Ampicillin-Sulbactam 3 gm 100 In Sodium Chloride 0.9% 100 ml @ 200 mls/hr IVPB Q8HR [facility] Rx#:[id number] Magnesium Sulfate-D5w Pmx 300 1 gm In Dextrose/Water 1 100ml.bag @ 100 mls/hr IVPB Q1H [facility] Rx#: [id number] Mvi, Adult No.4 with Vit 1000 K 10 ml Trace (Conc-1Ml/ Dose) 1 ml Sodium Phosphate 9 mmol Potassium Chloride 20 meq Sodium Chloride 4Meq/ml Vial 34 meq Magnesium Sulfate gm 1 gm Calcium Gluconate 1 gm In Amino Acids 5 %/Dextrose 20 % 1 ,000 ml @ 80 mls/hr IV . BY DURATION [facility] Rx#: [id number] Oral 200 Output: Drainage 50 30 Medial Abdomen 50 30 Urine 3900 2775 1200 Stool 50 0 Other: Voiding Method Indwelling Catheter Indwelling Catheter - Exam GENERAL DESCRIPTION: An elderly female lying in bed in no distress RESPIRATORY SYSTEM: Unlabored breathing , decreased breath sounds at bases HEART: S1 S2 regular rate and rhythm , ABDOMEN: Soft , mild tenderness EXTREMITIES: No edema feet - Labs CBC & Chem 7: 10/25/24 08:21 10/26/24 05:52 Labs: Abnormal Lab Results - Last 24 Hours (Table) 10/24/24 10/25/24 10/25/24 Range/Units 18:37 00:02 06:16 WBC (3.8-10.6) k/uL RBC (3.80-5.40) m/uL Hgb (11.4-16.0) gm/dL Hct (34.0-46.0) % MCV (80.0-100.0) fL RDW (11.5-15.5) % Neutrophils # (1.3-7.7) k/uL Sodium (137-145) mmol/L Potassium (3.5-5.1) mmol/L Carbon Dioxide (22-30) mmol/L BUN (7-17) mg/dL Glucose (74-99) mg/dL POC Glucose (mg/dL) 146 H 150 H 147 H (70-110) mg/dL Calcium (8.4-10.2) mg/dL AST (14-36) U/L ALT (4-34) U/L Alkaline Phosphatase (38-126) U/L Total Protein (6.3-8.2) g/dL Albumin (3.5-5.0) g/dL 10/25/24 10/25/24 10/25/24 Range/Units 08:21 08:21 11:51 WBC 16.5 H (3.8-10.6) k/uL RBC 2.39 L (3.80-5.40) m/uL Hgb 7.9 L (11.4-16.0) gm/dL Hct 24.2 L (34.0-46.0) % MCV 101.4 H (80.0-100.0) fL RDW 18.9 H (11.5-15.5) % Neutrophils # 14.1 H (1.3-7.7) k/uL Sodium 135 L (137-145) mmol/L Potassium 3.1 L (3.5-5.1) mmol/L Carbon Dioxide 33 H (22-30) mmol/L BUN 42 H (7-17) mg/dL Glucose 125 H (74-99) mg/dL POC Glucose (mg/dL) 184 H (70-110) mg/dL Calcium 7.9 L (8.4-10.2) mg/dL AST 105 H (14-36) U/L ALT 149 H (4-34) U/L Alkaline Phosphatase 160 H (38-126) U/L Total Protein 4.5 L (6.3-8.2) g/dL Albumin 2.2 L (3.5-5.0) g/dL Assessment and Plan (1) Perforated sigmoid colon Current Visit: Yes Status: Acute Code(s): K63.1 - PERFORATION OF INTESTINE (NONTRAUMATIC) SNOMED Code(s): 401839282 (2) Leukopenia Current Visit: Yes Status: Acute Code(s): D72.819 - DECREASED WHITE BLOOD CELL COUNT, UNSPECIFIED SNOMED Code(s): 11385948 (3) Peritonitis Current Visit: Yes Status: Acute Code(s): K65.9 - PERITONITIS, UNSPECIFIED SNOMED Code(s): 07304198 Plan: 1patient presented to hospital with abdominal pain generalized nausea vomiting with evidence of free air on the CT in this patient with status post laparotomy with evidence of sigmoid colon perforation status post sigmoid colectomy and end colostomy we will need to cover for the enteric gram-negative both aerobes and anaerobes 2-patient blood culture which are negative abdominal cultures with Bacteroides and E. coli is a sensitive pathogen 3-patient noticed to have some drainage from the incision nursing staff to inform the surgical team if any of the stitches needs to come out and culture should be obtained for now continue with Unasyn and monitor clinical course closely Dictation was produced using [email or web address] dictation software. please excuse any grammatical, word or spelling errors. Time with Patient: Less than 30
--- NOTE | 2024-10-26 11:10 | P.PN ---
Subjective Progress Note Date: 10/26/24 Patient was seen and evaluated bedside today. Patient still reports some tenderness at incision site. Denies nausea, vomiting, fever, chills, shortness of breath or chest pain. Objective - Vital Signs Vital signs: Vital Signs Temp 97.5 F L 10/26/24 04:00 Pulse 80 10/26/24 04:00 Resp 16 10/26/24 04:00 BP 125/50 10/26/24 04:00 Pulse Ox 92 L 10/26/24 04:00 FiO2 40 10/18/24 11:01 Intake & Output 10/25/24 10/26/24 10/26/24 18:59 06:59 18:59 Intake Total 1054.5 Output Total 2210 4105 900 Balance -2210 -3050.5 -900 Weight 66 kg 66 kg 66 kg Intake: Intake, IV Titration 1054.5 Amount Mvi, Adult No.4 with Vit 1054.5 K 10 ml Trace (Conc-1Ml/ Dose) 1 ml Sodium Phosphate 9 mmol Potassium Chloride 40 meq Sodium Chloride 4Meq/ml Vial 34 meq Magnesium Sulfate gm 1 gm Calcium Gluconate 1 gm In Amino Acids 5 %/Dextrose 20 % 1 ,000 ml @ 80 mls/hr IV . BY DURATION [facility] Rx#: [id number] Output: Drainage 10 30 Medial Abdomen 10 30 Urine 2200 4075 900 Stool 0 Other: Voiding Method Indwelling Catheter Indwelling Catheter - Exam general no acute distress Cardiovascular regular in rhythm Pulmonary nonlabored breathing Abdomen is soft nondistended, tender to palpation at incision site, no guarding or rebound tenderness, functional ostomy producing small amount of stool - Labs CBC & Chem 7: 10/26/24 05:52 10/26/24 05:52 Labs: Abnormal Lab Results - Last 24 Hours (Table) 10/25/24 10/25/24 10/25/24 Range/Units 11:51 16:42 21:37 Sodium (137-145) mmol/L Carbon Dioxide (22-30) mmol/L BUN (7-17) mg/dL Creatinine (0.52-1.04) mg/dL Glucose (74-99) mg/dL POC Glucose (mg/dL) 184 H 162 H 123 H (70-110) mg/dL Calcium (8.4-10.2) mg/dL 10/26/24 10/26/24 Range/Units 05:52 06:20 Sodium 136 L (137-145) mmol/L Carbon Dioxide 32 H (22-30) mmol/L BUN 37 H (7-17) mg/dL Creatinine 1.08 H (0.52-1.04) mg/dL Glucose 108 H (74-99) mg/dL POC Glucose (mg/dL) 136 H (70-110) mg/dL Calcium 8.0 L (8.4-10.2) mg/dL Microbiology - Last 24 Hours (Table) 10/24/24 19:24 Catheter Tip Culture - Preliminary Catheter Tip Assessment and Plan Assessment: 74-year-old female status post colostomy creation Ostomy producing small amount of stool Advance diet to soft Continue to monitor for abdominal pain Time with Patient: Less than 30
[2024-10-26] MEDS: POTASSIUM CHLORIDE ER 20 MEQ TAB.ER PO STA (11:33)
[2024-10-26 11:35] LABS: Anisocytosis Slight; HCT 23.2 % (34.0-46.0); HGB 7.3 gm/dL (11.4-16.0); Hypochromasia Moderate; MCH 33.3 pg (25.0-35.0); MCHC 31.6 g/dL (31.0-37.0); MCV 105.4 fL (80.0-100.0); Macrocytosis Marked; Mean Platelet Volume 9.9; Platelet Count 237 k/uL (150-450); RDW 18.5 % (11.5-15.5); WBC 12.4 k/uL (3.8-10.6)
[2024-10-26 11:42] LABS: Glucose,Whole Blood 171 mg/dL (70-110)
--- NOTE | 2024-10-26 12:51 | P.PN ---
Subjective Patient is seen for follow-up for acute kidney injury. Maintained on TPN Renal function has improved with serum creatinine down to 1.0 mg/dL No significant complaints today. Serum potassium 3.9 today Patient is noted to have polyuria with urine output of about 6.6 L, most likely from post ATN diuresis Objective - Vital Signs Vital signs: Vital Signs Temp 97.3 F L 10/26/24 08:00 Pulse 85 10/26/24 08:00 Resp 16 10/26/24 08:00 BP 131/72 10/26/24 08:00 Pulse Ox 91 L 10/26/24 08:00 FiO2 40 10/18/24 11:01 Intake & Output 10/25/24 10/26/24 10/26/24 18:59 06:59 18:59 Intake Total 1054.5 Output Total 2210 4105 1750 Balance -2210 -3050.5 -1750 Weight 66 kg 66 kg 66 kg Intake: Intake, IV Titration 1054.5 Amount Mvi, Adult No.4 with Vit 1054.5 K 10 ml Trace (Conc-1Ml/ Dose) 1 ml Sodium Phosphate 9 mmol Potassium Chloride 40 meq Sodium Chloride 4Meq/ml Vial 34 meq Magnesium Sulfate gm 1 gm Calcium Gluconate 1 gm In Amino Acids 5 %/Dextrose 20 % 1 ,000 ml @ 80 mls/hr IV . BY DURATION [facility] Rx#: [id number] Output: Drainage 10 30 Medial Abdomen 10 30 Urine 2200 4075 1750 Stool 0 Other: Voiding Method Indwelling Catheter Indwelling Catheter Indwelling Catheter - Exam Patient is awake, comfortable, no acute distress. 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4 H (3.8-10.6) k/uL RBC 2.20 L (3.80-5.40) m/uL Hgb 7.3 L (11.4-16.0) gm/dL Hct 23.2 L (34.0-46.0) % MCV 105.4 H (80.0-100.0) fL RDW 18.5 H (11.5-15.5) % Macrocytosis Marked A Sodium (137-145) mmol/L Carbon Dioxide (22-30) mmol/L BUN (7-17) mg/dL Creatinine (0.52-1.04) mg/dL Glucose (74-99) mg/dL POC Glucose (mg/dL) 136 H 171 H (70-110) mg/dL Calcium (8.4-10.2) mg/dL Microbiology - Last 24 Hours (Table) 10/24/24 19:24 Catheter Tip Culture - Preliminary Catheter Tip Assessment and Plan Assessment: 1. Acute kidney injury secondary to ATN secondary to severe sepsis. Baseline creatinine near 1, improved. Nonoliguric. No hydronephrosis noted on CT. 2. Metabolic acidosis secondary to acute kidney injury and IV fluids. Improved. 3. Sepsis secondary to pneumoperitoneum and antibiotics. 4. Pneumoperitoneum status post exploratory laparotomy with sigmoid colectomy, end colostomy creation. 5. Acute blood loss anemia s/p prbc this admission. 6. Hypokalemia from post ATN diuresis and poor intake. Started on Aldactone Plan: Continue Aldactone Continue with TPN as per surgery Replace potassium aggressively Repeat labs in a.m.
--- NOTE | 2024-10-26 14:17 | P.PN ---
Subjective Progress Note Date: 10/26/24 Principal diagnosis: Reason for follow-up is perforated sigmoid colon/peritonitis Patient is a 74-year-old female with a past medical history significant for metastatic lung cancer hypothyroidism has been brought into the hospital for evaluation of generalized abdominal pain patient has been diagnosed with perforated sigmoid colon status post laparotomy sigmoid colectomy diverting colostomy. On today's evaluation that is 10/26/2024,the patient remains to be afebrile, patient is on room air not requiring supplemental oxygen and denies any shortness of breath no chest pain or cough.Patient denies having any nausea or vomiting, abdominal pain is currently controlled and did have output in her colostomy. Patient white count is down to 12.4, creatinine 1.08 catheter cultures so far negative Objective - Vital Signs Vital signs: Vital Signs Temp 97.3 F L 10/26/24 08:00 Pulse 85 10/26/24 08:00 Resp 16 10/26/24 08:00 BP 131/72 10/26/24 08:00 Pulse Ox 91 L 10/26/24 08:00 FiO2 40 10/18/24 11:01 Intake & Output 10/25/24 10/26/24 10/26/24 18:59 06:59 18:59 Intake Total 1054.5 Output Total 2210 4105 1750 Balance -2210 -3050.5 -1750 Weight 66 kg 66 kg 66 kg Intake: Intake, IV Titration 1054.5 Amount Mvi, Adult No.4 with Vit 1054.5 K 10 ml Trace (Conc-1Ml/ Dose) 1 ml Sodium Phosphate 9 mmol Potassium Chloride 40 meq Sodium Chloride 4Meq/ml Vial 34 meq Magnesium Sulfate gm 1 gm Calcium Gluconate 1 gm In Amino Acids 5 %/Dextrose 20 % 1 ,000 ml @ 80 mls/hr IV . BY DURATION [facility] Rx#: [id number] Output: Drainage 10 30 Medial Abdomen 10 30 Urine 2200 4075 1750 Stool 0 Other: Voiding Method Indwelling Catheter Indwelling Catheter Indwelling Catheter - Exam GENERAL DESCRIPTION: An elderly female lying in bed in no distress RESPIRATORY SYSTEM: Unlabored breathing , decreased breath sounds at bases HEART: S1 S2 regular rate and rhythm , ABDOMEN: Soft , mild tenderness EXTREMITIES: No edema feet - Labs CBC & Chem 7: 10/26/24 05:52 10/26/24 05:52 Labs: Abnormal Lab Results - Last 24 Hours (Table) 10/25/24 10/25/24 10/26/24 Range/Units 16:42 21:37 05:52 WBC (3.8-10.6) k/uL RBC (3.80-5.40) m/uL Hgb (11.4-16.0) gm/dL Hct (34.0-46.0) % MCV (80.0-100.0) fL RDW (11.5-15.5) % Macrocytosis Sodium 136 L (137-145) mmol/L Carbon Dioxide 32 H (22-30) mmol/L BUN 37 H (7-17) mg/dL Creatinine 1.08 H (0.52-1.04) mg/dL Glucose 108 H (74-99) mg/dL POC Glucose (mg/dL) 162 H 123 H (70-110) mg/dL Calcium 8.0 L (8.4-10.2) mg/dL 10/26/24 10/26/24 10/26/24 Range/Units 05:52 06:20 11:37 WBC 12.4 H (3.8-10.6) k/uL RBC 2.20 L (3.80-5.40) m/uL Hgb 7.3 L (11.4-16.0) gm/dL Hct 23.2 L (34.0-46.0) % MCV 105.4 H (80.0-100.0) fL RDW 18.5 H (11.5-15.5) % Macrocytosis Marked A Sodium (137-145) mmol/L Carbon Dioxide (22-30) mmol/L BUN (7-17) mg/dL Creatinine (0.52-1.04) mg/dL Glucose (74-99) mg/dL POC Glucose (mg/dL) 136 H 171 H (70-110) mg/dL Calcium (8.4-10.2) mg/dL Microbiology - Last 24 Hours (Table) 10/24/24 19:24 Catheter Tip Culture - Preliminary Catheter Tip Assessment and Plan (1) Perforated sigmoid colon Current Visit: Yes Status: Acute Code(s): K63.1 - PERFORATION OF INTESTINE (NONTRAUMATIC) SNOMED Code(s): 920309786 (2) Leukopenia Current Visit: Yes Status: Acute Code(s): D72.819 - DECREASED WHITE BLOOD CELL COUNT, UNSPECIFIED SNOMED Code(s): 63925203 (3) Peritonitis Current Visit: Yes Status: Acute Code(s): K65.9 - PERITONITIS, UNSPECIFIED SNOMED Code(s): 52857884 Plan: 1patient presented to hospital with abdominal pain generalized nausea vomiting with evidence of free air on the CT in this patient with status post laparotomy with evidence of sigmoid colon perforation status post sigmoid colectomy and end colostomy we will need to cover for the enteric gram-negative both aerobes and anaerobes 2-patient blood culture which are negative abdominal cultures with Bacteroides and E. coli is a sensitive pathogen 3-patient is afebrile patient white count is trending down, to continue with Unasyn while inpatient hopefully will transition to oral antibiotic on discharge Dictation was produced using [employer] dictation software. please excuse any grammatical, word or spelling errors. Time with Patient: Less than 30
[2024-10-26 16:38] LABS: Glucose,Whole Blood 109 mg/dL (70-110)
--- NOTE | 2024-10-26 16:40 | P.PN ---
Subjective Progress Note Date: 10/26/24 Subjective: Patient seen and examined at bedside. No acute events overnight. Pain 6-03/15. Pertinent positives and negatives as discussed above, a complete review of systems was performed and all other systems are negative. Vitals Signs Reviewed. General: Nontoxic, no distress, appears at stated age, Cooper catheter in place Derm: Warm, dry Head: Atraumatic, normocephalic, symmetric Eyes: EOMI, no lid lag, anicteric sclera Mouth: No lip lesion, mucus membranes moist Cardiovascular: S1S2 reg, no murmur Lungs: CTA bilateral, no rhonchi, no rales, no accessory muscle use, supplemental oxygen Abdominal: Soft, tender to palpation throughout, no guarding, no appreciable organomegaly, ostomy and CORAZON drain in place Ext: No gross muscle atrophy, no edema, no contractures Neuro: no focal neuro deficits Psych: Alert, oriented, appropriate affect Data Reviewed Today: Pertinent Labs: CBC and CMP significant WBC 12.4, RBC 2.2, Hg 7.3, Hct 23.2, MCV 105.4, Na 136, bicarb 32, BUN 37, Cr 1.08, glu 108, Ca 8. Mag 1.8. Imaging: No new imaging Assessment and Plan: Active: Ruptured sigmoid colon secondary to possible stercoral ulcer status post sigmoid colectomy with end colostomy Pneumoperitoneum secondary to above Sepsis secondary to above Bandemia, resolved Microcytic anemia, likely acute blood loss, status post 1 unit of PRBCs, improving Mild thrombocytopenia, resolved -Surgery following, patient on TPN, also on full liquid -Pain control per surgery -continue IV Protonix 40 twice daily -Pulmonology following, and ID following, on Unasyn 3 g IV every 8 hours -Patient previously on steroids, hydrocortisone decreased to 50 daily IV, continue with current dose 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 Do not hesitate to contact us with questions. Someone can be reached from the [facility] hospitalist group all hours of the day at [phone] or via perfect serve. Objective - Vital Signs Vital signs: Vital Signs Temp 97.3 F L 10/26/24 08:00 Pulse 99 10/26/24 14:00 Resp 16 10/26/24 14:00 BP 103/50 10/26/24 12:00 Pulse Ox 99 10/26/24 12:00 FiO2 40 10/18/24 11:01 Intake & Output 10/25/24 10/26/24 10/26/24 18:59 06:59 18:59 Intake Total 1054.5 Output Total 2210 4105 1750 Balance -2210 -3050.5 -1750 Weight 66 kg 66 kg 66 kg Intake: Intake, IV Titration 1054.5 Amount Mvi, Adult No.4 with Vit 1054.5 K 10 ml Trace (Conc-1Ml/ Dose) 1 ml Sodium Phosphate 9 mmol Potassium Chloride 40 meq Sodium Chloride 4Meq/ml Vial 34 meq Magnesium Sulfate gm 1 gm Calcium Gluconate 1 gm In Amino Acids 5 %/Dextrose 20 % 1 ,000 ml @ 80 mls/hr IV . BY DURATION [facility] Rx#: [id number] Output: Drainage 10 30 Medial Abdomen 10 30 Urine 2200 4075 1750 Stool 0 0 Other: Voiding Method Indwelling Catheter Indwelling Catheter Indwelling Catheter - Labs CBC & Chem 7: 10/26/24 05:52 10/26/24 05:52 Labs: Abnormal Lab Results - Last 24 Hours (Table) 10/25/24 10/25/24 10/26/24 Range/Units 16:42 21:37 05:52 WBC (3.8-10.6) k/uL RBC (3.80-5.40) m/uL Hgb (11.4-16.0) gm/dL Hct (34.0-46.0) % MCV (80.0-100.0) fL RDW (11.5-15.5) % Macrocytosis Sodium 136 L (137-145) mmol/L Carbon Dioxide 32 H (22-30) mmol/L BUN 37 H (7-17) mg/dL Creatinine 1.08 H (0.52-1.04) mg/dL Glucose 108 H (74-99) mg/dL POC Glucose (mg/dL) 162 H 123 H (70-110) mg/dL Calcium 8.0 L (8.4-10.2) mg/dL 10/26/24 10/26/24 10/26/24 Range/Units 05:52 06:20 11:37 WBC 12.4 H (3.8-10.6) k/uL RBC 2.20 L (3.80-5.40) m/uL Hgb 7.3 L (11.4-16.0) gm/dL Hct 23.2 L (34.0-46.0) % MCV 105.4 H (80.0-100.0) fL RDW 18.5 H (11.5-15.5) % Macrocytosis Marked A Sodium (137-145) mmol/L Carbon Dioxide (22-30) mmol/L BUN (7-17) mg/dL Creatinine (0.52-1.04) mg/dL Glucose (74-99) mg/dL POC Glucose (mg/dL) 136 H 171 H (70-110) mg/dL Calcium (8.4-10.2) mg/dL Microbiology - Last 24 Hours (Table) 10/24/24 19:24 Catheter Tip Culture - Preliminary Catheter Tip
--- NOTE | 2024-10-26 18:42 | P.PN ---
Subjective Progress Note Date: 10/26/24 Patient is a 74-year-old female with past medical history significant for hypothyroidism and lung cancer.. Patient is known to have a right upper lobe lung mass, she was seen at our facility May,, and transfered to [facility]. Reportedly, currently undergoing systemic chemotherapy. Patient is intubated and unable to provide information. No family present. Most recent PET scan done 10/05/2024 demonstrating a mixed response to therapy with decrease size and FDG activity of the right upper lobe pulmonary mass and mediastinal/right hilar adenopathy; however, there is a more prominent appearing opacity within the right lower lobe abutting the fissure with increasing FDG a ctivity. Possibly representing an infectious/inflammatory opacity, however, new metastasis was not excluded. Brain CT done back in May, showing a large area of vasogenic edema extending through the right proximal temporal lobe, right parietal lobe, and occipital lobe with effacement of the sulci and subfalcine herniation with 0.8 cm of midline shift to the left. Follow-up brain MRI done 09/18/2024 showing postsurgical changes with a small cystic cavity in the area of prior surgery. No new lesions were noted. Patient presents to the emergency department yesterday afternoon with a chief complaint of abdominal pain. Reportedly, persistent abdominal pain over the last 5 days with increasing intensity. Workup in the emergency department including a abdominal/pelvis CT which demonstrated small to moderate amount of free air scattered within the upper abdomen and within the mid pelvis. Small amount of free fluid within the pelvis. Dilated small bowel loops to at least the proximal ileum. Partial small bowel obstruction should be considered. Late last night, patient taken to the operating room for exploratory laparotomy, a ruptured sigmoid colon and possible stercoral ulcer was found. Patient underwent sigmoid colectomy with end colostomy. Following the procedure, she was transferred to the intensive care unit for recovery. Patient currently being evaluated in the ICU. She remains intubated to the mechanical ventilator, current ventilator settings assist-control, respiratory rate 16, tidal volume 400, FiO2 50%, PEEP of 5. ABG done on these settings and an FiO2 100%; show a PaO2 of 363, pCO2 of 45, pH of 7.28. Chest x-ray showing endotracheal tube 3 cm above the adriana, nasogastric tube coursing below the diaphragm, right mediastinal mass, right IJ central line catheter with tip near the cavoatrial junction. Patient is currently sedated and synchronous with mechanical ventilator. Nonresponsive. On propofol 15 mcg/kg/min. LR is infusing at 75 m L/h. Blood pressure soft at 96/66 mmHg. Mildly tachycardic. Urine output only 60 cc since OR exit. Postoperative labs including a CBC with a WBC count of 2, hemoglobin 10.8, hematocrit 33.6, platelets 107. CMP: Sodium 135, potassium 3.5, chloride 102, serum bicarb 23, BUN 34, creatinine 1.01, glucose 117. Lactic 1.7. Calcium 6.9. Patient is empirically covered on antibiotics in the form of Zosyn. Midline abdominal incision with postoperative dressing intact. Mild shadowing. CORAZON drain with serosanguineous fluid and needs to be emptied. Left upper quadrant stoma is pink. Progress note dated October 19, 2024. 74-year-old female seen today in room 251. She is postoperative day #2, status post exploratory laparotomy, sigmoid colectomy, with end colostomy. Currently, the patient was on 2 L of oxygen. She has an NG tube in place. She is getting lactated Ringer's at 130 cc an hour. She was extubated successfully yesterday, October 18. She continues on Zosyn. We did order an incentive spirometer for her. Current labs include a white count of 6.5, hemoglobin 6.5, hematocrit 20.2, and a platelet count of 114,000. Sodium 137, potassium 4, chlorides 109, CO2 18, BUN 42, and creatinine 1.71. Calcium is 6.9. Albumin 2.2. Cultures are thus far negative. Chest x-ray shows chronic changes, without an acute process. Progress note dated October 20, 2024. 74-year-old female who was seen in the ICU yesterday. She is postoperative day #3, status post exploratory laparotomy, sigmoid colectomy, with end colostomy. The patient is currently on room air. She is getting TPN at 30 cc an hour. She is also getting lactated Ringer's at 75 cc an hour. Current laboratory data includes a white count 8.7, hemoglobin 7.4, hematocrit 23.2, and a platelet count of 104,000. Sodium 138, potassium 3.1, chlorides 107, CO2 24, BUN 49, and creatinine 1.8. Glucose is 149. Magnesium 2.3. Clinically, the patient is doing well, and she states that she feels well. I encouraged her to use her incentive spirometer, hourly. Wound cultures of the abdomen were positive for Escherichia coli. Abdominal fluid cultures were positive for Para- b.acteroides species. The patient is currently on Zosyn. Progress note dated October 21, 2024. 74-year-old female seen in room 366. The patient was previously in the intensive care unit. Currently, the patient is on room air. She is receiving lactated Ringer's at 75 cc an hour, lipids at 21 cc, and TPN at 80 cc an hour. The patient appears not to be having any respiratory distress or difficulty. She has no specific complaints. She is awake and alert. She is laying flat in bed. Current laboratory data includes a sodium 131, potassium 3.1, chlorides 103, CO2 23, BUN 48, and creatinine 1.48. Glucose is 238. Calcium 6.9, phosphorus 2.3. Albumin 2.1. Wound cultures, revealed evidence of Escherichia coli. Abdominal fluid cultures are positive for parabacteroides species. Progress note dated October 22, 2024. 74-year-old female seen today in room 366. The patient is currently on room air. The patient does continue with lactated Ringer's at 75 cc an hour, saline at 10 cc an hour, and TPN at 80 cc an hour. She has no specific complaints today. She denies any chest pain or pressure. She denies any shortness of breath, cough, wheezing, chest tightness, or phlegm production. Laboratory data includes a white count of 14.2, hemoglobin 8.7, hematocrit 27.9, and platelet count of 158,000. Sodium 135, potassium 2.5, chlorides 102, CO2 27, BUN 45, creatinine 1.31. Glucose 149. Calcium 7.4. Albumin is 2. Abdominal cultures, reveal evidence of E. coli, Eggerthella species, and parabacteroides species. On 10/23/2024, the patient is being seen for a follow-up. The patient is currently postop day #6 following a expiratory laparotomy and sigmoid colectomy and end colostomy. The patient had a ruptured sigmoid colon with secondary pneumoperitoneum. The patient is recovering reasonably well for now. The patient has no significant respiratory difficulties. The patient is currently on room air oxygen with a pulse ox of 94%. The patient is taking some full liquid diet. She still on TPN for nutritional support. IV antibiotics are in the form of Unasyn and the intra-abdominal cultures were positive for E. coli and anaerobes. The colostomy is functional. Output from the CORAZON drain is being monitored and output is serosanguineous. The white cell count of 13.4 with a hemoglobin 7.9 and platelet count of 171. BUN is 43 with a creatinine of 1.1. Sodium levels at 134 and a potassium level is at 3. There is some elevation of the liver function test with an AST of 114, ALT of 158 and alkaline phosphatase of 192. Triglyceride level was at 241. General surgery remains on the case. Noted the patient has also history of non-small cell lung cancer/adenocarcinoma. The patient has completed 4 cycles of chemotherapy last being approximately 2 weeks ago. Most recent PET/CT from 10/05/2024 showed improvement in the patient's disease and the patient will continue with therapy once she is fully recovered from surgery. On 10/24/2024, the patient is being seen for a follow-up. The patient is postop day #7. She is complaining of excessive fatigue. Laying comfortably in bed. Colostomy is functional. Her oral intake remains minimal. She has been provided full liquid diet and she remains on TPN for nutritional support. The patient's white cell count is currently at 17.2 and this has not improved and the patient continues to have ongoing leukocytosis. White cell count is at 17.2 with a hemoglobin 8.4 and a platelet count of 174. BUN is 42 with a creatinine 1.1 and sodium is at 137. LFTs remain abnormal although improved compared to yesterday. Albumin level is at 2.1. Remains on a IV Unasyn and remains on IV hydrocortisone and TPN for nutritional support. In terms of respiratory status, she is on 2 L of oxygen by nasal cannula with a pulse ox of 94%. Colostomy site is intact and functional and she is positive bowel sounds. On 10/25/2024, the patient's oral intake remains quite minimal. She continues to have abdominal soreness. Her stoma is functional and there is positive output. The patient has no nausea. No emesis. No chest pain. No shortness of breath. She is quite weak and debilitated. She remains on TPN for nutritional support. She remains on room air oxygen. Labs from yesterday were noted. No new labs are available from today. He remains on IV Unasyn. He remains on Lovenox for DVT prophylaxis 40 mg subcu on a daily basis. She remains on hydrocortisone that can be essentially discontinued. No other significant events overnight for now. CORAZON drain is in place. Abdominal wound is dry clean and intact. The patient will need to advance her diet. She is currently postop day #8. 10/26/2024, the patient is f essentially the same. She is on full liquid diet. She started having issues with pain in her abdomen. Nevertheless, her colostomy is functional and the patient has adequate bowel sounds. Output from the CORAZON drain is minimal at this point in time. She does not look toxic at all. She is weak. She is quite debilitated. She remains on TPN for nutritional support. She remains on IV Unasyn. The blood work from today shows a white cell count of 12.4 with a heme of 7.3 and a platelet count of 237. BUN 37 with a creatinine of 1 and a sodium levels at 136. General surgery remains on the case. Physical therapy is on the case. Objective - Vital Signs Vital signs: Vital Signs Temp 97.5 F L 10/26/24 04:00 Pulse 80 10/26/24 04:00 Resp 16 10/26/24 04:00 BP 125/50 10/26/24 04:00 Pulse Ox 92 L 10/26/24 04:00 FiO2 40 10/18/24 11:01 Intake & Output 10/25/24 10/26/24 10/26/24 18:59 06:59 18:59 Intake Total 1054.5 Output Total 2210 4105 900 Balance -2210 -3050.5 -900 Weight 66 kg 66 kg 66 kg Intake: Intake, IV Titration 1054.5 Amount Mvi, Adult No.4 with Vit 1054.5 K 10 ml Trace (Conc-1Ml/ Dose) 1 ml Sodium Phosphate 9 mmol Potassium Chloride 40 meq Sodium Chloride 4Meq/ml Vial 34 meq Magnesium Sulfate gm 1 gm Calcium Gluconate 1 gm In Amino Acids 5 %/Dextrose 20 % 1 ,000 ml @ 80 mls/hr IV . BY [facility] Rx#: [id number] Output: Drainage 10 30 Medial Abdomen 10 30 Urine 2200 4075 900 Stool 0 Other: Voiding Method Indwelling Catheter Indwelling Catheter - Exam GENERAL EXAM: Sedated 74-year-old female, awake and alert currently on room air O2. Awake and alert and communicating. HEAD: Normocephalic and atraumatic EYES: Normal reaction of pupils, equal size. No nystagmus. Nonicteric sclera. NOSE: Clear with pink turbinates. THROAT: No erythema or exudates. NECK: No masses, no JVD. Right IJ triple-lumen catheter. CHEST: No chest wall deformity. LUNGS: Equal air entry with no crackles, wheeze, rhonchi or dullness. CVS: S1 and S2 normal with no audible murmur, regular rhythm. No extra heart sounds ABDOMEN: CORAZON drain is still in place.. Left upper quadrant stoma is pink. Pos itive output in the colostomy bag and the patient's abdomen is soft. Surgical wound site is dry clean and intact. No direct tenderness, no rebound tenderness or guarding. SPINE: No scoliosis or deformity SKIN: No rashes CENTRAL NERVOUS SYSTEM: Neurologically, the patient is awake and alert and the patient does not have any focal neurological deficit. Cranial nerves are essentially intact. EXTREMITIES: There is no peripheral edema, clubbing, or cyanosis. Distal extremities are cold, peripheral pulses are weak and thready. - Labs CBC & Chem 7: 10/26/24 05:52 10/26/24 05:52 Labs: Abnormal Lab Results - Last 24 Hours (Table) 10/25/24 10/25/24 10/25/24 Range/Units 11:51 16:42 21:37 Sodium (137-145) mmol/L Carbon Dioxide (22-30) mmol/L BUN (7-17) mg/dL Creatinine (0.52-1.04) mg/dL Glucose (74-99) mg/dL POC Glucose (mg/dL) 184 H 162 H 123 H (70-110) mg/dL Calcium (8.4-10.2) mg/dL 10/26/24 10/26/24 Range/Units 05:52 06:20 Sodium 136 L (137-145) mmol/L Carbon Dioxide 32 H (22-30) mmol/L BUN 37 H (7-17) mg/dL Creatinine 1.08 H (0.52-1.04) mg/dL Glucose 108 H (74-99) mg/dL POC Glucose (mg/dL) 136 H (70-110) mg/dL Calcium 8.0 L (8.4-10.2) mg/dL Microbiology - Last 24 Hours (Table) 10/24/24 19:24 Catheter Tip Culture - Preliminary Catheter Tip Assessment and Plan Plan: Acute abdomen/pneumoperitoneum secondary to a ruptured sigmoid colon and the patient is status post exploratory laparotomy with sigmoid colectomy and end col ostomy, operative day # 9. Continues to have some abdominal tenderness. Colostomy is functional. Maintained on IV Unasyn. Maintained on TPN. Recovery has been slow. The colostomy is functional. Nevertheless, the patient's oral intake is minimal and the patient is essentially taking full liquid diet. Remains on TPN for nutritional support. Oral intake remains quite diminished and the patient is not meeting caloric requirements and the patient remains on TPN. Abdominal sepsis with abdominal cultures being positive for E. coli and anaerobes, currently on IV Unasyn Acute hypoxic respiratory failure, recovered and the patient is currently on room air oxygen. The patient is S/P extubation on October 18, 2024. Pancytopenia, likely related to previous chemotherapy intake, improved Stage IV pulm adenocarcinoma. Initially presented in May 2024 due to recurrent falls over the prior month. CT of the brain showed a right occipital lobe lesion. CT CAP 05/22/2024 showed a 5.7 x 6.7 cm right upper lobe lung mass, mediastinal LAD, she was transferred to [facility]. MRI of the brain 05/25/2024 revealed a 3.3 cm mass in the right occipital lobe with associated vasogenic edema and midline shift. 05/29/2024 she underwent craniotomy and resection of the brain mass. Pathology positive metastatic adenocarcinoma, IHC consistent with lung primary, PD-L1 90%. Caris showed a K-tarik G12C mutation, TMB was high T p53 and IDH1 mutations. 06/30/2024 staging PET scan showed FDG avid 5.7 cm medial right upper lobe spiculated mass. This partially invaded into the media started him with abutment to the right brachiocephalic vein and trachea, metastasis with enlarging right pericarinal FDG avid lymph nodes, focal FDG avid focus within the medial right hepatic lobe. Patient was given time to recover from craniotomy, she will underwent SBRT. 07/28/2024 she started carbo/ Alimta/Keytruda and completed 4 cycles 10/04/2024. Treatment follow-up PET scan 10/05/2024 showed improvement in her disease. History of hypothyroidism. Tobacco smoker. Plan: Patient currently on room air oxygen Continue TPN for nutritional support Advance diet and the patient is currently on full liquid diet Colostomy is functional Patient has a right IJ triple-lumen catheter Monitor CORAZON drain output IV Unasyn Pain control General Surgery follow-up Oncology follow-up Will involve physical therapy Will continue to follow
[2024-10-26 20:18] LABS: Glucose,Whole Blood 92 mg/dL (70-110)
[2024-10-27 00:07] LABS: Glucose,Whole Blood 104 mg/dL (70-110)
[2024-10-27 05:36] LABS: ALT 162 U/L (4-34); AST 85 U/L (14-36); African American GFR (CKD) 55 (>60 ml/min/1.73 sqM); Albumin 2.1 g/dL (3.5-5.0); Albumin/Globulin Ratio 0.9; Alkaline Phosphatase 268 U/L (38-126); Anion Gap 7 mmol/L; Blood Urea Nitrogen 32 mg/dL (7-17); Calcium 7.9 mg/dL (8.4-10.2); Carbon Dioxide 31 mmol/L (22-30); Chloride 97 mmol/L (98-107); Globulin 2.3 g/dL; Glucose 121 mg/dL (74-99); Magnesium 1.5 mg/dL (1.6-2.3); Non-African American GFR(CKD) 48 (>60 ml/min/1.73 sqM); Phosphorus 4.7 mg/dL (2.5-4.5); Potassium 3.7 mmol/L (3.5-5.1); Sodium 135 mmol/L (137-145); Total Bilirubin 0.4 mg/dL (0.2-1.3); Total Protein 4.4 g/dL (6.3-8.2)
[2024-10-27 06:11] LABS: Glucose,Whole Blood 146 mg/dL (70-110)
[2024-10-27 10:52] LABS: Anisocytosis Slight; HCT 22.2 % (34.0-46.0); Hypochromasia Moderate; MCH 33.2 pg (25.0-35.0); MCHC 31.6 g/dL (31.0-37.0); MCV 104.9 fL (80.0-100.0); Macrocytosis Marked; Mean Platelet Volume 10.1; Platelet Count 285 k/uL (150-450); RBC 2.11 m/uL (3.80-5.40); RDW 18.6 % (11.5-15.5); WBC 12.2 k/uL (3.8-10.6)
--- NOTE | 2024-10-27 12:10 | P.PN ---
Subjective Patient is seen for follow-up for acute kidney injury. Renal function has improved with serum creatinine down to 1.1 mg/dL Complaining of leg swelling. No complaints of shortness of breath. Serum potassium 3.7 today Patient is noted to have polyuria with urine output of about 6.6 L, most likely from post ATN diuresis. This has improved and 1700 mL of urine was charted for last 24 hours. Objective - Vital Signs Vital signs: Vital Signs Temp 97.4 F L 10/27/24 08:00 Pulse 85 10/27/24 08:00 Resp 18 10/27/24 08:00 BP 132/68 10/27/24 08:00 Pulse Ox 95 10/27/24 08:00 FiO2 40 10/18/24 11:01 Intake & Output 10/26/24 10/27/24 10/27/24 18:59 06:59 18:59 Intake Total 1043.5 953.333 240 Output Total 2655 2710 1700 Balance -1611.5 -1756.667 -1460 Weight 66 kg Intake: Intake, IV Titration 1043.5 953.333 Amount Mvi, Adult No.4 with Vit 953.333 K 10 ml Trace (Conc-1Ml/ Dose) 1 ml Sodium Phosphate 9 mmol Potassium Chloride 40 meq Sodium Chloride 4Meq/ml Vial 34 meq Magnesium Sulfate gm 1 gm Calcium Gluconate 1 gm In Amino Acids 5 %/Dextrose 20 % 1 ,000 ml @ 80 mls/hr IV . [facility] Rx#: [id number] Sodium Phosphate 9 mmol 1043.5 Potassium Chloride 40 meq Sodium Chloride 4Meq/ml Vial 34 meq Magnesium Sulfate gm 1 gm Calcium Gluconate 1 gm In Amino Acids 5 %/Dextrose 20 % 1 ,000 ml @ 80 mls/hr IV . [facility] Rx#: [id number] Oral 240 Output: Drainage 5 10 Medial Abdomen 5 10 Urine 2650 2600 1700 Uretheral (Cooper) 100 Stool 0 100 Other: Voiding Method Indwelling Catheter Indwelling Catheter Diaper Indwelling Catheter - Exam Patient is awake, comfortable, no acute distress. Examination of the heart S1 and S2 Examination of the lungs bilateral breath sounds are heard Abdomen is soft, CORAZON drain and colostomy noted Examination lower extremities shows 1+ edema MIXER AND SCALER exam grossly intact - Labs CBC & Chem 7: 10/27/24 05:52 10/27/24 04:35 Labs: Abnormal Lab Results - Last 24 Hours (Table) 10/27/24 10/27/24 10/27/24 Range/Units 04:35 05:52 05:52 WBC 12.2 H (3.8-10.6) k/uL RBC 2.11 L (3.80-5.40) m/uL Hgb 7.0 L (11.4-16.0) gm/dL Hct 22.2 L (34.0-46.0) % MCV 104.9 H (80.0-100.0) fL RDW 18.6 H (11.5-15.5) % Macrocytosis Marked A Sodium 135 L (137-145) mmol/L Chloride 97 L (98-107) mmol/L Carbon Dioxide 31 H (22-30) mmol/L BUN 32 H (7-17) mg/dL Creatinine 1.14 H (0.52-1.04) mg/dL Glucose 121 H (74-99) mg/dL POC Glucose (mg/dL) 146 H (70-110) mg/dL Calcium 7.9 L (8.4-10.2) mg/dL Phosphorus 4.7 H (2.5-4.5) mg/dL Magnesium 1.5 L (1.6-2.3) mg/dL AST 85 H (14-36) U/L ALT 162 H (4-34) U/L Alkaline Phosphatase 268 H (38-126) U/L Total Protein 4.4 L (6.3-8.2) g/dL Albumin 2.1 L (3.5-5.0) g/dL Triglycerides 267.00 H (0.00-149.00) mg/dL Microbiology - Last 24 Hours (Table) 10/24/24 19:24 Catheter Tip Culture - Final Catheter Tip Jolie albicans Assessment and Plan Assessment: 1. Acute kidney injury secondary to ATN secondary to severe sepsis. Baseline creatinine near 1, improved. Nonoliguric. No hydronephrosis noted on CT. 2. Metabolic acidosis secondary to acute kidney injury and IV fluids. Improved. 3. Sepsis secondary to pneumoperitoneum and antibiotics. 4. Pneumoperitoneum status post exploratory laparotomy with sigmoid colectomy, end colostomy creation. 5. Acute blood loss anemia s/p prbc this admission. 6. Hypokalemia from post ATN diuresis and poor intake. Started on Aldactone Plan: Continue Aldactone Lasix x 1 for swelling Replace potassium aggressively Repeat labs in a.m.
--- NOTE | 2024-10-27 12:37 | P.PN ---
Subjective Progress Note Date: 10/27/24 Principal diagnosis: Reason for follow-up is perforated sigmoid colon/peritonitis Patient is a 74-year-old female with a past medical history significant for metastatic lung cancer hypothyroidism has been brought into the hospital for evaluation of generalized abdominal pain patient has been diagnosed with perforated sigmoid colon status post laparotomy sigmoid colectomy diverting colostomy. On today's evaluation that is 10/27/2024, the patient continues to be afebrile, the patient is on room air and breathing comfortably, the Pt denies having any chest pain, occasional cough, the patient still complains of some nausea but no vomiting abdominal pain is controlled and output in her colostomy. Patient white count is 12.2, creat is 1.14 catheter was positive for Jolie Objective - Vital Signs Vital signs: Vital Signs Temp 97.4 F L 10/27/24 08:00 Pulse 85 10/27/24 08:00 Resp 18 10/27/24 08:00 BP 132/68 10/27/24 08:00 Pulse Ox 95 10/27/24 08:00 FiO2 40 10/18/24 11:01 Intake & Output 10/26/24 10/27/24 10/27/24 18:59 06:59 18:59 Intake Total 1043.5 953.333 240 Output Total 2655 2710 100 Balance -1611.5 -1756.667 140 Weight 66 kg Intake: Intake, IV Titration 1043.5 953.333 Amount Mvi, Adult No.4 with Vit 953.333 K 10 ml Trace (Conc-1Ml/ Dose) 1 ml Sodium Phosphate 9 mmol Potassium Chloride 40 meq Sodium Chloride 4Meq/ml Vial 34 meq Magnesium Sulfate gm 1 gm Calcium Gluconate 1 gm In Amino Acids 5 %/Dextrose 20 % 1 ,000 ml @ 80 mls/hr IV . [facility] Rx#: [id number] Sodium Phosphate 9 mmol 1043.5 Potassium Chloride 40 meq Sodium Chloride 4Meq/ml Vial 34 meq Magnesium Sulfate gm 1 gm Calcium Gluconate 1 gm In Amino Acids 5 %/Dextrose 20 % 1 ,000 ml @ 80 mls/hr IV . [facility] Rx#: [id number] Oral 240 Output: Drainage 5 10 Medial Abdomen 5 10 Urine 2650 2600 100 Uretheral (Cooper) 100 Stool 0 100 Other: Voiding Method Indwelling Catheter Indwelling Catheter - Exam GENERAL DESCRIPTION: An elderly female lying in bed in no distress RESPIRATORY SYSTEM: Unlabored breathing , decreased breath sounds at bases HEART: S1 S2 regular rate and rhythm , ABDOMEN: Soft , abdominal incision is currently intact no drainage output in the colostomy EXTREMITIES: No edema feet - Labs CBC & Chem 7: 10/27/24 05:52 10/27/24 04:35 Labs: Abnormal Lab Results - Last 24 Hours (Table) 10/26/24 10/26/24 10/27/24 Range/Units 05:52 11:37 04:35 WBC 12.4 H (3.8-10.6) k/uL RBC 2.20 L (3.80-5.40) m/uL Hgb 7.3 L (11.4-16.0) gm/dL Hct 23.2 L (34.0-46.0) % MCV 105.4 H (80.0-100.0) fL RDW 18.5 H (11.5-15.5) % Macrocytosis Marked A Sodium 135 L (137-145) mmol/L Chloride 97 L (98-107) mmol/L Carbon Dioxide 31 H (22-30) mmol/L BUN 32 H (7-17) mg/dL Creatinine 1.14 H (0.52-1.04) mg/dL Glucose 121 H (74-99) mg/dL POC Glucose (mg/dL) 171 H (70-110) mg/dL Calcium 7.9 L (8.4-10.2) mg/dL Phosphorus 4.7 H (2.5-4.5) mg/dL Magnesium 1.5 L (1.6-2.3) mg/dL AST 85 H (14-36) U/L ALT 162 H (4-34) U/L Alkaline Phosphatase 268 H (38-126) U/L Total Protein 4.4 L (6.3-8.2) g/dL Albumin 2.1 L (3.5-5.0) g/dL 10/27/24 Range/Units 05:52 WBC (3.8-10.6) k/uL RBC (3.80-5.40) m/uL Hgb (11.4-16.0) gm/dL Hct (34.0-46.0) % MCV (80.0-100.0) fL RDW (11.5-15.5) % Macrocytosis Sodium (137-145) mmol/L Chloride (98-107) mmol/L Carbon Dioxide (22-30) mmol/L BUN (7-17) mg/dL Creatinine (0.52-1.04) mg/dL Glucose (74-99) mg/dL POC Glucose (mg/dL) 146 H (70-110) mg/dL Calcium (8.4-10.2) mg/dL Phosphorus (2.5-4.5) mg/dL Magnesium (1.6-2.3) mg/dL AST (14-36) U/L ALT (4-34) U/L Alkaline Phosphatase (38-126) U/L Total Protein (6.3-8.2) g/dL Albumin (3.5-5.0) g/dL Microbiology - Last 24 Hours (Table) 10/24/24 19:24 Catheter Tip Culture - Final Catheter Tip Jolie albicans Assessment and Plan (1) Perforated sigmoid colon Current Visit: Yes Status: Acute Code(s): K63.1 - PERFORATION OF INTESTINE (NONTRAUMATIC) SNOMED Code(s): 665024560 (2) Leukopenia Current Visit: Yes Status: Acute Code(s): D72.819 - DECREASED WHITE BLOOD CELL COUNT, UNSPECIFIED SNOMED Code(s): 73439545 (3) Peritonitis Current Visit: Yes Status: Acute Code(s): K65.9 - PERITONITIS, UNSPECIFIED SNOMED Code(s): 36356255 Plan: 1patient presented to hospital with abdominal pain generalized nausea vomiting with evidence of free air on the CT in this patient with status post laparotomy with evidence of sigmoid colon perforation status post sigmoid colectomy and end colostomy we will need to cover for the enteric gram-negative both aerobes and anaerobes 2-patient blood culture which are negative abdominal cultures with Bacteroides and E. coli is a sensitive pathogen, catheter culture with Jolie 3-patient is afebrile patient white count is still slightly up continue Unasyn add Diflucan and monitor clinical course closely Dictation was produced using [employer] dictation software. please excuse any gramma tical, word or spelling errors. Time with Patient: Less than 30
[2024-10-27 12:51] LABS: Glucose,Whole Blood 139 mg/dL (70-110)
[2024-10-27] MEDS: POTASSIUM CHLORIDE ER 20 MEQ TAB.ER PO ONE (13:08)
[2024-10-27] MEDS: FUROSEMIDE 10 MG/ML 2 ML VIAL IV ONE (13:09)
[2024-10-27] MEDS: MAGNESIUM SULFATE-D5W PMX 1 GM in DEXTROSE/WATER 1 100ML.BAG IVPB SCH (13:10)
[2024-10-27] MEDS: FLUCONAZOLE 100 MG TAB PO SCH (13:11)
[2024-10-27] MEDS: POTASSIUM CHLORIDE ER 20 MEQ TAB.ER PO SCH (14:20)
--- NOTE | 2024-10-27 14:22 | P.PN ---
Subjective Progress Note Date: 10/27/24 SURGICAL PROGRESS NOTE CHIEF COMPLAINT: Pneumoperitoneum HISTORY OF PRESENT ILLNESS: Patient is postop day #7 status post exploratory laparotomy, sigmoid colectomy with end colostomy for ruptured sigmoid colon, possible stercoral ulcer. Patient is lying in bed. She is going to be working with physical therapy. Ostomy is functioning. Afebrile. WBC is 12.2 Hgb 7.0 platelets 285 creatinine 1.14 Mg 1.5 mildly elevated LFTs PHYSICAL EXAM: VITAL SIGNS: Reviewed. GENERAL: Well-developed in no acute distress. ABDOMEN: Soft. Nondistended. Incisional dressing clean dry and intact. Ostomy with stool output CORAZON drain with serosanguineous output NEUROLOGIC: Alert and oriented. Cranial nerves II through XII grossly intact. ASSESSMENT: 1. Pneumoperitoneum with ruptured sigmoid colon, possible stercoral ulcer 2. History of lung cancer with brain mets and last chemotherapy about 2 weeks ago 3. Pancytopenia due to recent chemo PLAN: -Continue low fiber diet -Discontinue Cooper catheter -Decrease TPN by half -Continue to work with PT OT -Social work arranging ECF placement at discharge -Magnesium being replaced -Continue pain management -Continue antibiotics per ID service -Encourage patient to increase activity level -DVT prophylaxis Lovenox and GI prophylaxis Protonix Physician Appliance Line Assembler note has been reviewed by physician. Signing provider agrees with the documented findings, assessment, and plan of care. Objective - Vital Signs Vital signs: Vital Signs Temp 98 F 10/27/24 14:04 Pulse 91 10/27/24 14:04 Resp 18 10/27/24 14:04 BP 131/71 10/27/24 14:04 Pulse Ox 95 10/27/24 14:04 FiO2 40 10/18/24 11:01 Intake & Output 10/26/24 10/27/24 10/27/24 18:59 06:59 18:59 Intake Total 1043.5 953.333 240 Output Total 2655 2710 1700 Balance -1611.5 -1756.667 -1460 Weight 66 kg 66 kg Intake: Intake, IV Titration 1043.5 953.333 Amount Mvi, Adult No.4 with Vit 953.333 K 10 ml Trace (Conc-1Ml/ Dose) 1 ml Sodium Phosphate 9 mmol Potassium Chloride 40 meq Sodium Chloride 4Meq/ml Vial 34 meq Magnesium Sulfate gm 1 gm Calcium Gluconate 1 gm In Amino Acids 5 %/Dextrose 20 % 1 ,000 ml @ 80 mls/hr IV . BY DURATION [facility] Rx#: [id number] Sodium Phosphate 9 mmol 1043.5 Potassium Chloride 40 meq Sodium Chloride 4Meq/ml Vial 34 meq Magnesium Sulfate gm 1 gm Calcium Gluconate 1 gm In Amino Acids 5 %/Dextrose 20 % 1 ,000 ml @ 80 mls/hr IV . BY DURATION [facility] Rx#: [id number] Oral 240 Output: Drainage 5 10 Medial Abdomen 5 10 Urine 2650 2600 1700 Uretheral (Cooper) 100 Stool 0 100 Other: Voiding Method Indwelling Catheter Indwelling Catheter Diaper Indwelling Catheter - Labs CBC & Chem 7: 10/27/24 05:52 10/27/24 04:35 Labs: Abnormal Lab Results - Last 24 Hours (Table) 10/27/24 10/27/24 10/27/24 Range/Units 04:35 05:52 05:52 WBC 12.2 H (3.8-10.6) k/uL RBC 2.11 L (3.80-5.40) m/uL Hgb 7.0 L (11.4-16.0) gm/dL Hct 22.2 L (34.0-46.0) % MCV 104.9 H (80.0-100.0) fL RDW 18.6 H (11.5-15.5) % Macrocytosis Marked A Sodium 135 L (137-145) mmol/L Chloride 97 L (98-107) mmol/L Carbon Dioxide 31 H (22-30) mmol/L BUN 32 H (7-17) mg/dL Creatinine 1.14 H (0.52-1.04) mg/dL Glucose 121 H (74-99) mg/dL POC Glucose (mg/dL) 146 H (70-110) mg/dL Calcium 7.9 L (8.4-10.2) mg/dL Phosphorus 4.7 H (2.5-4.5) mg/dL Magnesium 1.5 L (1.6-2.3) mg/dL AST 85 H (14-36) U/L ALT 162 H (4-34) U/L Alkaline Phosphatase 268 H (38-126) U/L Total Protein 4.4 L (6.3-8.2) g/dL Albumin 2.1 L (3.5-5.0) g/dL Triglycerides 267.00 H (0.00-149.00) mg/dL 10/27/24 Range/Units 12:48 WBC (3.8-10.6) k/uL RBC (3.80-5.40) m/uL Hgb (11.4-16.0) gm/dL Hct (34.0-46.0) % MCV (80.0-100.0) fL RDW (11.5-15.5) % Macrocytosis Sodium (137-145) mmol/L Chloride (98-107) mmol/L Carbon Dioxide (22-30) mmol/L BUN (7-17) mg/dL Creatinine (0.52-1.04) mg/dL Glucose (74-99) mg/dL POC Glucose (mg/dL) 139 H (70-110) mg/dL Calcium (8.4-10.2) mg/dL Phosphorus (2.5-4.5) mg/dL Magnesium (1.6-2.3) mg/dL AST (14-36) U/L ALT (4-34) U/L Alkaline Phosphatase (38-126) U/L Total Protein (6.3-8.2) g/dL Albumin (3.5-5.0) g/dL Triglycerides (0.00-149.00) mg/dL Microbiology - Last 24 Hours (Table) 10/24/24 19:24 Catheter Tip Culture - Final Catheter Tip Jolie albicans Assessment and Plan Assessment: discharge planning, discuss w/ case management. Time with Patient: Less than 30
--- NOTE | 2024-10-27 16:21 | P.PN ---
Subjective Progress Note Date: 10/27/24 Patient is a 74-year-old female with past medical history significant for hypothyroidism and lung cancer.. Patient is known to have a right upper lobe lung mass, she was seen at our facility May,, and transfered to [facility]. Reportedly, currently undergoing systemic chemotherapy. Patient is intubated and unable to provide information. No family present. Most recent PET scan done 10/05/2024 demonstrating a mixed response to therapy with decrease size and FDG activity of the right upper lobe pulmonary mass and mediastinal/right hilar adenopathy; however, there is a more prominent appearing opacity within the right lower lobe abutting the fissure with increasing FDG a ctivity. Possibly representing an infectious/inflammatory opacity, however, new metastasis was not excluded. Brain CT done back in May, showing a large area of vasogenic edema extending through the right proximal temporal lobe, right parietal lobe, and occipital lobe with effacement of the sulci and subfalcine herniation with 0.8 cm of midline shift to the left. Follow-up brain MRI done 09/18/2024 showing postsurgical changes with a small cystic cavity in the area of prior surgery. No new lesions were noted. Patient presents to the emergency department yesterday afternoon with a chief complaint of abdominal pain. Reportedly, persistent abdominal pain over the last 5 days with increasing intensity. Workup in the emergency department including a abdominal/pelvis CT which demonstrated small to moderate amount of free air scattered within the upper abdomen and within the mid pelvis. Small amount of free fluid within the pelvis. Dilated small bowel loops to at least the proximal ileum. Partial small bowel obstruction should be considered. Late last night, patient taken to the operating room for exploratory laparotomy, a ruptured sigmoid colon and possible stercoral ulcer was found. Patient underwent sigmoid colectomy with end colostomy. Following the procedure, she was transferred to the intensive care unit for recovery. Patient currently being evaluated in the ICU. She remains intubated to the mechanical ventilator, current ventilator settings assist-control, respiratory rate 16, tidal volume 400, FiO2 50%, PEEP of 5. ABG done on these settings and an FiO2 100%; show a PaO2 of 363, pCO2 of 45, pH of 7.28. Chest x-ray showing endotracheal tube 3 cm above the adriana, nasogastric tube coursing below the diaphragm, right mediastinal mass, right IJ central line catheter with tip near the cavoatrial junction. Patient is currently sedated and synchronous with mechanical ventilator. Nonresponsive. On propofol 15 mcg/kg/min. LR is infusing at 75 m L/h. Blood pressure soft at 96/66 mmHg. Mildly tachycardic. Urine output only 60 cc since OR exit. Postoperative labs including a CBC with a WBC count of 2, hemoglobin 10.8, hematocrit 33.6, platelets 107. CMP: Sodium 135, potassium 3.5, chloride 102, serum bicarb 23, BUN 34, creatinine 1.01, glucose 117. Lactic 1.7. Calcium 6.9. Patient is empirically covered on antibiotics in the form of Zosyn. Midline abdominal incision with postoperative dressing intact. Mild shadowing. CORAZON drain with serosanguineous fluid and needs to be emptied. Left upper quadrant stoma is pink. Progress note dated October 19, 2024. 74-year-old female seen today in room 251. She is postoperative day #2, status post exploratory laparotomy, sigmoid colectomy, with end colostomy. Currently, the patient was on 2 L of oxygen. She has an NG tube in place. She is getting lactated Ringer's at 130 cc an hour. She was extubated successfully yesterday, October 18. She continues on Zosyn. We did order an incentive spirometer for her. Current labs include a white count of 6.5, hemoglobin 6.5, hematocrit 20.2, and a platelet count of 114,000. Sodium 137, potassium 4, chlorides 109, CO2 18, BUN 42, and creatinine 1.71. Calcium is 6.9. Albumin 2.2. Cultures are thus far negative. Chest x-ray shows chronic changes, without an acute process. Progress note dated October 20, 2024. 74-year-old female who was seen in the ICU yesterday. She is postoperative day #3, status post exploratory laparotomy, sigmoid colectomy, with end colostomy. The patient is currently on room air. She is getting TPN at 30 cc an hour. She is also getting lactated Ringer's at 75 cc an hour. Current laboratory data includes a white count 8.7, hemoglobin 7.4, hematocrit 23.2, and a platelet count of 104,000. Sodium 138, potassium 3.1, chlorides 107, CO2 24, BUN 49, and creatinine 1.8. Glucose is 149. Magnesium 2.3. Clinically, the patient is doing well, and she states that she feels well. I encouraged her to use her incentive spirometer, hourly. Wound cultures of the abdomen were positive for Escherichia coli. Abdominal fluid cultures were positive for Para- b.acteroides species. The patient is currently on Zosyn. Progress note dated October 21, 2024. 74-year-old female seen in room 366. The patient was previously in the intensive care unit. Currently, the patient is on room air. She is receiving lactated Ringer's at 75 cc an hour, lipids at 21 cc, and TPN at 80 cc an hour. The patient appears not to be having any respiratory distress or difficulty. She has no specific complaints. She is awake and alert. She is laying flat in bed. Current laboratory data includes a sodium 131, potassium 3.1, chlorides 103, CO2 23, BUN 48, and creatinine 1.48. Glucose is 238. Calcium 6.9, phosphorus 2.3. Albumin 2.1. Wound cultures, revealed evidence of Escherichia coli. Abdominal fluid cultures are positive for parabacteroides species. Progress note dated October 22, 2024. 74-year-old female seen today in room 366. The patient is currently on room air. The patient does continue with lactated Ringer's at 75 cc an hour, saline at 10 cc an hour, and TPN at 80 cc an hour. She has no specific complaints today. She denies any chest pain or pressure. She denies any shortness of breath, cough, wheezing, chest tightness, or phlegm production. Laboratory data includes a white count of 14.2, hemoglobin 8.7, hematocrit 27.9, and platelet count of 158,000. Sodium 135, potassium 2.5, chlorides 102, CO2 27, BUN 45, creatinine 1.31. Glucose 149. Calcium 7.4. Albumin is 2. Abdominal cultures, reveal evidence of E. coli, Eggerthella species, and parabacteroides species. On 10/23/2024, the patient is being seen for a follow-up. The patient is currently postop day #6 following a expiratory laparotomy and sigmoid colectomy and end colostomy. The patient had a ruptured sigmoid colon with secondary pneumoperitoneum. The patient is recovering reasonably well for now. The patient has no significant respiratory difficulties. The patient is currently on room air oxygen with a pulse ox of 94%. The patient is taking some full liquid diet. She still on TPN for nutritional support. IV antibiotics are in the form of Unasyn and the intra-abdominal cultures were positive for E. coli and anaerobes. The colostomy is functional. Output from the CORAZON drain is being monitored and output is serosanguineous. The white cell count of 13.4 with a hemoglobin 7.9 and platelet count of 171. BUN is 43 with a creatinine of 1.1. Sodium levels at 134 and a potassium level is at 3. There is some elevation of the liver function test with an AST of 114, ALT of 158 and alkaline phosphatase of 192. Triglyceride level was at 241. General surgery remains on the case. Noted the patient has also history of non-small cell lung cancer/adenocarcinoma. The patient has completed 4 cycles of chemotherapy last being approximately 2 weeks ago. Most recent PET/CT from 10/05/2024 showed improvement in the patient's disease and the patient will continue with therapy once she is fully recovered from surgery. On 10/24/2024, the patient is being seen for a follow-up. The patient is postop day #7. She is complaining of excessive fatigue. Laying comfortably in bed. Colostomy is functional. Her oral intake remains minimal. She has been provided full liquid diet and she remains on TPN for nutritional support. The patient's white cell count is currently at 17.2 and this has not improved and the patient continues to have ongoing leukocytosis. White cell count is at 17.2 with a hemoglobin 8.4 and a platelet count of 174. BUN is 42 with a creatinine 1.1 and sodium is at 137. LFTs remain abnormal although improved compared to yesterday. Albumin level is at 2.1. Remains on a IV Unasyn and remains on IV hydrocortisone and TPN for nutritional support. In terms of respiratory status, she is on 2 L of oxygen by nasal cannula with a pulse ox of 94%. Colostomy site is intact and functional and she is positive bowel sounds. On 10/25/2024, the patient's oral intake remains quite minimal. She continues to have abdominal soreness. Her stoma is functional and there is positive output. The patient has no nausea. No emesis. No chest pain. No shortness of breath. She is quite weak and debilitated. She remains on TPN for nutritional support. She remains on room air oxygen. Labs from yesterday were noted. No new labs are available from today. He remains on IV Unasyn. He remains on Lovenox for DVT prophylaxis 40 mg subcu on a daily basis. She remains on hydrocortisone that can be essentially discontinued. No other significant events overnight for now. CORAZON drain is in place. Abdominal wound is dry clean and intact. The patient will need to advance her diet. She is currently postop day #8. 10/26/2024, the patient is f essentially the same. She is on full liquid diet. She started having issues with pain in her abdomen. Nevertheless, her colostomy is functional and the patient has adequate bowel sounds. Output from the CORAZON drain is minimal at this point in time. She does not look toxic at all. She is weak. She is quite debilitated. She remains on TPN for nutritional support. She remains on IV Unasyn. The blood work from today shows a white cell count of 12.4 with a heme of 7.3 and a platelet count of 237. BUN 37 with a creatinine of 1 and a sodium levels at 136. General surgery remains on the case. Physical therapy is on the case. On 10/27/2024, the patient is being seen for a follow-up. She is currently on room air oxygen. No respiratory distress. No chest pain. No cough or sputum production. Abdomen remains tender. The patient remains on Unasyn. Remains on TPN for nutritional support. Oral intake is improved compared to yesterday. Colostomy is functional. Surgical wound site is dry clean and intact. WBC count is 12.2 with a hemoglobin of 7 and platelet count of 285. Electrolytes we re noted and the patient has a sodium level of 135, potassium level is 3.7, chloride is 97 and the bicarb level is at 31. BUN 32 with a creatinine of 1.1. She is resting comfortably in bed on room air oxygen. Objective - Vital Signs Vital signs: Vital Signs Temp 98.0 F 10/27/24 12:39 Pulse 84 10/27/24 12:39 Resp 16 10/27/24 12:39 BP 138/73 10/27/24 12:39 Pulse Ox 95 10/27/24 12:39 FiO2 40 10/18/24 11:01 Intake & Output 10/26/24 10/27/24 10/27/24 18:59 06:59 18:59 Intake Total 1043.5 953.333 240 Output Total 2655 2710 1700 Balance -1611.5 -1756.667 -1460 Weight 66 kg 66 kg Intake: Intake, IV Titration 1043.5 953.333 Amount Mvi, Adult No.4 with Vit 953.333 K 10 ml Trace (Conc-1Ml/ Dose) 1 ml Sodium Phosphate 9 mmol Potassium Chloride 40 meq Sodium Chloride 4Meq/ml Vial 34 meq Magnesium Sulfate gm 1 gm Calcium Gluconate 1 gm In Amino Acids 5 %/Dextrose 20 % 1 ,000 ml @ 80 mls/hr IV . BY DURATION [facility] Rx#: [id number] Sodium Phosphate 9 mmol 1043.5 Potassium Chloride 40 meq Sodium Chloride 4Meq/ml Vial 34 meq Magnesium Sulfate gm 1 gm Calcium Gluconate 1 gm In Amino Acids 5 %/Dextrose 20 % 1 ,000 ml @ 80 mls/hr IV . BY DURATION [facility] Rx#: [id number] Oral 240 Output: Drainage 5 10 Medial Abdomen 5 10 Urine 2650 2600 1700 Uretheral (Cooper) 100 Stool 0 100 Other: Voiding Method Indwelling Catheter Indwelling Catheter Diaper Indwelling Catheter - Exam GENERAL EXAM: Sedated 74-year-old female, awake and alert currently on room air O2. Awake and alert and communicating. HEAD: Normocephalic and atraumatic EYES: Normal reaction of pupils, equal size. No nystagmus. Nonicteric sclera. NOSE: Clear with pink turbinates. THROAT: No erythema or exudates. NECK: No masses, no JVD. Right IJ triple-lumen catheter. CHEST: No chest wall deformity. LUNGS: Equal air entry with no crackles, wheeze, rhonchi or dullness. CVS: S1 and S2 normal with no audible murmur, regular rhythm. No extra heart sounds ABDOMEN: CORAZON drain is still in place.. Left upper quadrant stoma is pink. Positive output in the colostomy bag and the patient's abdomen is soft. Surgical wound site is dry clean and intact. No direct tenderness, no rebound tenderness or guarding. SPINE: No scoliosis or deformity SKIN: No rashes CENTRAL NERVOUS SYSTEM: Neurologically, the patient is awake and alert and the patient does not have any focal neurological deficit. Cranial nerves are essentially intact. EXTREMITIES: There is no peripheral edema, clubbing, or cyanosis. Distal extremities are cold, peripheral pulses are weak and thready. - Labs CBC & Chem 7: 10/27/24 05:52 10/27/24 04:35 Labs: Abnormal Lab Results - Last 24 Hours (Table) 10/27/24 10/27/24 10/27/24 Range/Units 04:35 05:52 05:52 WBC 12.2 H (3.8-10.6) k/uL RBC 2.11 L (3.80-5.40) m/uL Hgb 7.0 L (11.4-16.0) gm/dL Hct 22.2 L (34.0-46.0) % MCV 104.9 H (80.0-100.0) fL RDW 18.6 H (11.5-15.5) % Macrocytosis Marked A Sodium 135 L (137-145) mmol/L Chloride 97 L (98-107) mmol/L Carbon Dioxide 31 H (22-30) mmol/L BUN 32 H (7-17) mg/dL Creatinine 1.14 H (0.52-1.04) mg/dL Glucose 121 H (74-99) mg/dL POC Glucose (mg/dL) 146 H (70-110) mg/dL Calcium 7.9 L (8.4-10.2) mg/dL Phosphorus 4.7 H (2.5-4.5) mg/dL Magnesium 1.5 L (1.6-2.3) mg/dL AST 85 H (14-36) U/L ALT 162 H (4-34) U/L Alkaline Phosphatase 268 H (38-126) U/L Total Protein 4.4 L (6.3-8.2) g/dL Albumin 2.1 L (3.5-5.0) g/dL Triglycerides 267.00 H (0.00-149.00) mg/dL 10/27/24 Range/Units 12:48 WBC (3.8-10.6) k/uL RBC (3.80-5.40) m/uL Hgb (11.4-16.0) gm/dL Hct (34.0-46.0) % MCV (80.0-100.0) fL RDW (11.5-15.5) % Macrocytosis Sodium (137-145) mmol/L Chloride (98-107) mmol/L Carbon Dioxide (22-30) mmol/L BUN (7-17) mg/dL Creatinine (0.52-1.04) mg/dL Glucose (74-99) mg/dL POC Glucose (mg/dL) 139 H (70-110) mg/dL Calcium (8.4-10.2) mg/dL Phosphorus (2.5-4.5) mg/dL Magnesium (1.6-2.3) mg/dL AST (14-36) U/L ALT (4-34) U/L Alkaline Phosphatase (38-126) U/L Total Protein (6.3-8.2) g/dL Albumin (3.5-5.0) g/dL Triglycerides (0.00-149.00) mg/dL Microbiology - Last 24 Hours (Table) 10/24/24 19:24 Catheter Tip Culture - Final Catheter Tip Jolie albicans Assessment and Plan Plan: Acute abdomen/pneumoperitoneum secondary to a ruptured sigmoid colon and the patient is status post exploratory laparotomy with sigmoid colectomy and end colostomy, operative day # 10. Continues to have some abdominal tenderness. Colostomy is functional. Maintained on IV Unasyn. Maintained on TPN. Recovery has been slow. The colostomy is functional. Nevertheless, the patient's oral intake is minimal and the patient is essentially taking full liquid diet. Remains on TPN for nutritional support. Oral intake is improving and the patient is not meeting caloric requirements and the patient remains on TPN. Abdominal sepsis with abdominal cultures being positive for E. coli and anaerobes, currently on IV Unasyn Acute hypoxic respiratory failure, recovered and the patient is currently on room air oxygen. The patient is S/P extubation on October 18, 2024. Pancytopenia, likely related to previous chemotherapy intake, improved Stage IV pulm adenocarcinoma. Initially presented in May 2024 due to recurrent falls over the prior month. CT of the brain showed a right occipital lobe lesion. CT CAP 05/22/2024 showed a 5.7 x 6.7 cm right upper lobe lung mass, mediastinal LAD, she was transferred to [facility]. MRI of the brain 05/25/2024 revealed a 3.3 cm mass in the right occipital lobe with associated vasogenic edema and midline shift. 05/29/2024 she underwent craniotomy and resection of the brain mass. Pathology positive metastatic adenocarcinoma, IHC consistent with lung primary, PD-L1 90%. Caris showed a K-tarik G12C mutation, TMB was high T p53 and IDH1 mutations. 06/30/2024 staging PET scan showed FDG avid 5.7 cm medial right upper lobe spiculated mass. This partially invaded into the media started him with abutment to the right brachiocephalic vein and trachea, metastasis with enlarging right pericarinal FDG avid lymph nodes, focal FDG avid focus within the medial right hepatic lobe. Patient was given time to recover from craniotomy, she will underwent SBRT. 07/28/2024 she started carbo/Alimta/Keytruda and completed 4 cycles 10/04/2024. Treatment follow-up PET scan 10/05/2024 showed improvement in her disease. History of hypothyroidism. Tobacco smoker. Plan: Patient currently on room air oxygen Continue TPN for nutritional support Advance diet oral intake is also improving Colostomy is functional Patient has a right IJ triple-lumen catheter Monitor CORAZON drain output IV Unasyn Pain control General Surgery follow-up Oncology follow-up Will involve physical therapy Will continue to follow
--- NOTE | 2024-10-27 17:01 | P.PN ---
Subjective Progress Note Date: 10/27/24 Subjective: Patient seen and examined at bedside. No acute events overnight. Complains of moderate pain at the site on incision. Pertinent positives and negatives as discussed above, a complete review of systems was performed and all other systems are negative. Vitals Signs Reviewed. General: Nontoxic, no distress, appears at stated age, Cooper catheter in place Derm: Warm, dry Head: Atraumatic, normocephalic, symmetric Eyes: EOMI, no lid lag, anicteric sclera Mouth: No lip lesion, mucus membranes moist Cardiovascular: S1S2 reg, no murmur Lungs: CTA bilateral, no rhonchi, no rales, no accessory muscle use, supplemental oxygen Abdominal: Soft, tender to palpation throughout, no guarding, no appreciable organomegaly, ostomy and CORAZON drain in place Ext: No gross muscle atrophy, no edema, no contractures Neuro: no focal neuro deficits Psych: Alert, oriented, appropriate affect Data Reviewed Today: Pertinent Labs: CBC and CMP significant WBC 12.2, RBC 2.11, Hg 7, Hct 22.2, MCV 104.9, Na 135, Cl 97, bicarb 31, BUN 32, Cr 1.14, glu 121, Ca 7.9, AST 85, ALT 162, alk phos 268, alb 2.1. Mag 1.5. Phos 4.7. TG 267. Catheter tip Cx jolie albicans. Imaging: No new imaging Assessment and Plan: Active: Ruptured sigmoid colon secondary to possible stercoral ulcer status post sigmoid colectomy with end colostomy Pneumoperitoneum secondary to above Sepsis secondary to above Bandemia, resolved Microcytic anemia, likely acute blood loss, status post 1 unit of PRBCs, improving Mild thrombocytopenia, resolved -Surgery following, patient on TPN, also on low fiber diet -Pain control per surgery -continue IV Protonix 40 twice daily -Pulmonology following, and ID following, on Unasyn 3 g IV every 8 hours, Diflucan 200 mg PO QD added 10/27 -Patient previously on steroids, hydrocortisone decreased to 50 daily IV, continue with current dose 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 Do not hesitate to contact us with questions. Someone can be reached from the [facility] hospitalist group all hours of the day at [phone] or via perfect serve. Objective - Vital Signs Vital signs: Vital Signs Temp 98 F 10/27/24 14:04 Pulse 91 10/27/24 14:04 Resp 18 10/27/24 14:04 BP 131/71 10/27/24 14:04 Pulse Ox 95 10/27/24 14:04 FiO2 40 10/18/24 11:01 Intake & Output 10/26/24 10/27/24 10/27/24 18:59 06:59 18:59 Intake Total 1043.5 770.430 6910 Output Total 2655 2710 3320 Balance -1611.5 -1756.667 -1760 Weight 66 kg 66 kg Intake: Intake, IV Titration 1043.5 953.333 Amount Mvi, Adult No.4 with Vit 953.333 K 10 ml Trace (Conc-1Ml/ Dose) 1 ml Sodium Phosphate 9 mmol Potassium Chloride 40 meq Sodium Chloride 4Meq/ml Vial 34 meq Magnesium Sulfate gm 1 gm Calcium Gluconate 1 gm In Amino Acids 5 %/Dextrose 20 % 1 ,000 ml @ 80 mls/hr IV . BY DURATION [facility] Rx#: [id number] Sodium Phosphate 9 mmol 1043.5 Potassium Chloride 40 meq Sodium Chloride 4Meq/ml Vial 34 meq Magnesium Sulfate gm 1 gm Calcium Gluconate 1 gm In Amino Acids 5 %/Dextrose 20 % 1 ,000 ml @ 80 mls/hr IV . BY DURATION [facility] Rx#: [id number] Oral 1560 Output: Drainage 5 10 20 Medial Abdomen 5 10 20 Urine 2650 2600 3300 Uretheral (Cooper) 1000 Stool 0 100 Other: Voiding Method Indwelling Catheter Indwelling Catheter Diaper Indwelling Catheter # Voids 1 - Labs CBC & Chem 7: 10/27/24 05:52 10/27/24 04:35 Labs: Abnormal Lab Results - Last 24 Hours (Table) 10/27/24 10/27/24 10/27/24 Range/Units 04:35 05:52 05:52 WBC 12.2 H (3.8-10.6) k/uL RBC 2.11 L (3.80-5.40) m/uL Hgb 7.0 L (11.4-16.0) gm/dL Hct 22.2 L (34.0-46.0) % MCV 104.9 H (80.0-100.0) fL RDW 18.6 H (11.5-15.5) % Macrocytosis Marked A Sodium 135 L (137-145) mmol/L Chloride 97 L (98-107) mmol/L Carbon Dioxide 31 H (22-30) mmol/L BUN 32 H (7-17) mg/dL Creatinine 1.14 H (0.52-1.04) mg/dL Glucose 121 H (74-99) mg/dL POC Glucose (mg/dL) 146 H (70-110) mg/dL Calcium 7.9 L (8.4-10.2) mg/dL Phosphorus 4.7 H (2.5-4.5) mg/dL Magnesium 1.5 L (1.6-2.3) mg/dL AST 85 H (14-36) U/L ALT 162 H (4-34) U/L Alkaline Phosphatase 268 H (38-126) U/L Total Protein 4.4 L (6.3-8.2) g/dL Albumin 2.1 L (3.5-5.0) g/dL Triglycerides 267.00 H (0.00-149.00) mg/dL 10/27/24 Range/Units 12:48 WBC (3.8-10.6) k/uL RBC (3.80-5.40) m/uL Hgb (11.4-16.0) gm/dL Hct (34.0-46.0) % MCV (80.0-100.0) fL RDW (11.5-15.5) % Macrocytosis Sodium (137-145) mmol/L Chloride (98-107) mmol/L Carbon Dioxide (22-30) mmol/L BUN (7-17) mg/dL Creatinine (0.52-1.04) mg/dL Glucose (74-99) mg/dL POC Glucose (mg/dL) 139 H (70-110) mg/dL Calcium (8.4-10.2) mg/dL Phosphorus (2.5-4.5) mg/dL Magnesium (1.6-2.3) mg/dL AST (14-36) U/L ALT (4-34) U/L Alkaline Phosphatase (38-126) U/L Total Protein (6.3-8.2) g/dL Albumin (3.5-5.0) g/dL Triglycerides (0.00-149.00) mg/dL Microbiology - Last 24 Hours (Table) 10/24/24 19:24 Catheter Tip Culture - Final Catheter Tip Jolie albicans
[2024-10-27 17:11] LABS: Glucose,Whole Blood 128 mg/dL (70-110)
[2024-10-27] MEDS: [UNRECOGNIZED DRUG - REMARK] IV SCH (18:03)
[2024-10-27 21:15] LABS: Glucose,Whole Blood 177 mg/dL (70-110)
[2024-10-28 06:41] LABS: African American GFR (CKD) 58 (>60 ml/min/1.73 sqM); Anion Gap 6 mmol/L; Blood Urea Nitrogen 31 mg/dL (7-17); Calcium 7.8 mg/dL (8.4-10.2); Carbon Dioxide 30 mmol/L (22-30); Chloride 99 mmol/L (98-107); Glucose 97 mg/dL (74-99); Magnesium 1.9 mg/dL (1.6-2.3); Non-African American GFR(CKD) 50 (>60 ml/min/1.73 sqM); Phosphorus 4.4 mg/dL (2.5-4.5); Potassium 4.3 mmol/L (3.5-5.1); Sodium 135 mmol/L (137-145)
[2024-10-28 07:23] LABS: Glucose,Whole Blood 152 mg/dL (70-110)
[2024-10-28 10:30] LABS: Basophils # (A) 0.03 X 10*3/uL (0.00-0.10); Basophils % (A) 0.2 %; Eosinophils # (A) 0.03 X 10*3/uL (0.04-0.35); Eosinophils % (A) 0.2 %; HCT 21.5 % (37.2-46.3); HGB 6.7 g/dL (12.0-15.0); Lymphocytes # (A) 1.45 X 10*3/uL (0.90-5.00); Lymphocytes % (A) 11.8 %; MCH 33.8 pg (27.0-32.0); MCHC 31.2 g/dL (32.0-37.0); MCV 108.6 FL (80.0-97.0); Macrocytosis (M) 2+ (None Seen); Mean Platelet Volume 11.1 FL (9.5-12.2); Monocytes # (A) 1.56 X 10*3/uL (0.20-1.00); Monocytes % (A) 12.7 %; NRBC Per 100 WBC 0 X 10*3/uL (0.00-0.01); Neutrophils # (A) 9.07 X 10*3/uL (1.80-7.70); Platelet Count 325 X 10*3/uL (140-440); RBC 1.98 X 10*6/uL (4.10-5.20); RDW 19.8 % (11.5-14.5); WBC 12.28 X 10*3/uL (4.50-10.00)
[2024-10-28 12:12] LABS: Glucose,Whole Blood 167 mg/dL (70-110)
--- NOTE | 2024-10-28 12:28 | P.PN ---
Subjective Progress Note Date: 10/28/24 Principal diagnosis: Reason for follow-up is perforated sigmoid colon/peritonitis Patient is a 74-year-old female with a past medical history significant for metastatic lung cancer hypothyroidism has been brought into the hospital for evaluation of generalized abdominal pain patient has been diagnosed with perforated sigmoid colon status post laparotomy sigmoid colectomy diverting colostomy. On today's evaluation that is 10/28/2024, patient did not have any fever and denies any chills, patient is breathing comfortably on room air, patient with no chest pain or cough patient abdominal pain is currently controlled; some heartburn and is complaining of insomnia no sleep at night. Patient white count is 12.28 hemoglobin is down to 6.7, creatinine 1.09 Objective - Vital Signs Vital signs: Vital Signs Temp 98.0 F 10/28/24 07:23 Pulse 82 10/28/24 07:23 Resp 16 10/28/24 07:23 BP 118/65 10/28/24 07:23 Pulse Ox 94 L 10/28/24 07:23 FiO2 40 10/18/24 11:01 Intake & Output 10/27/24 10/28/24 10/28/24 18:59 06:59 18:59 Intake Total 1634.667 240 Output Total 3330 1810 Balance -1695.333 -1810 240 Weight 66 kg 55 kg Intake: Intake, IV Titration 74.667 Amount Mvi, Adult No.4 with Vit 74.667 K 10 ml Trace (Conc-1Ml/ Dose) 1 ml Sodium Phosphate 3 mmol Potassium Chloride 50 meq Sodium Chloride 4Meq/ml Vial 48 meq Magnesium Sulfate gm 1.5 gm Calcium Gluconate 1 gm In Amino Acids 5 %/Dextrose 20 % 1 ,000 ml @ 40 mls/hr IV . BY DURATION [facility] Rx#: [id number] Oral 1560 240 Output: Drainage 30 10 Medial Abdomen 30 10 Urine 3300 1800 Uretheral (Cooper) 1000 Other: Voiding Method Diaper Diaper Indwelling Catheter External Catheter # Voids 1 1 - Exam GENERAL DESCRIPTION: An elderly female lying in bed in no distress RESPIRATORY SYSTEM: Unlabored breathing , decreased breath sounds at bases HEART: S1 S2 regular rate and rhythm , ABDOMEN: Soft , abdominal incision is currently intact no drainage output in the colostomy EXTREMITIES: No edema feet - Labs CBC & Chem 7: 10/28/24 05:25 10/28/24 05:25 Labs: Abnormal Lab Results - Last 24 Hours (Table) 10/27/24 10/27/24 10/27/24 Range/Units 05:52 12:48 17:10 WBC 12.2 H (3.8-10.6) k/uL RBC 2.11 L (3.80-5.40) m/uL Hgb 7.0 L (11.4-16.0) gm/dL Hct 22.2 L (34.0-46.0) % MCV 104.9 H (80.0-100.0) fL MCH (27.0-32.0) pg MCHC (32.0-37.0) g/dL RDW 18.6 H (11.5-15.5) % Immature Gran # (0.00-0.04) X 10*3/uL Neutrophils # (1.80-7.70) X 10*3/uL Monocytes # (0.20-1.00) X 10*3/uL Eosinophils # (0.04-0.35) X 10*3/uL Macrocytosis Marked A Macrocytosis (manual) (None Seen) Sodium (137-145) mmol/L BUN (7-17) mg/dL Creatinine (0.52-1.04) mg/dL POC Glucose (mg/dL) 139 H 128 H (70-110) mg/dL Calcium (8.4-10.2) mg/dL 10/27/24 10/28/24 10/28/24 Range/Units 21:13 05:25 05:25 WBC 12.28 H (3.8-10.6) k/uL RBC 1.98 L (3.80-5.40) m/uL Hgb 6.7 A* (11.4-16.0) gm/dL Hct 21.5 L (34.0-46.0) % MCV 108.6 H (80.0-100.0) fL MCH 33.8 H (27.0-32.0) pg MCHC 31.2 L (32.0-37.0) g/dL RDW 19.8 H (11.5-15.5) % Immature Gran # 0.14 H (0.00-0.04) X 10*3/uL Neutrophils # 9.07 H (1.80-7.70) X 10*3/uL Monocytes # 1.56 H (0.20-1.00) X 10*3/uL Eosinophils # 0.03 L (0.04-0.35) X 10*3/uL Macrocytosis Macrocytosis (manual) 2+ A (None Seen) Sodium 135 L (137-145) mmol/L BUN 31 H (7-17) mg/dL Creatinine 1.09 H (0.52-1.04) mg/dL POC Glucose (mg/dL) 177 H (70-110) mg/dL Calcium 7.8 L (8.4-10.2) mg/dL 10/28/24 Range/Units 07:22 WBC (3.8-10.6) k/uL RBC (3.80-5.40) m/uL Hgb (11.4-16.0) gm/dL Hct (34.0-46.0) % MCV (80.0-100.0) fL MCH (27.0-32.0) pg MCHC (32.0-37.0) g/dL RDW (11.5-15.5) % Immature Gran # (0.00-0.04) X 10*3/uL Neutrophils # (1.80-7.70) X 10*3/uL Monocytes # (0.20-1.00) X 10*3/uL Eosinophils # (0.04-0.35) X 10*3/uL Macrocytosis Macrocytosis (manual) (None Seen) Sodium (137-145) mmol/L BUN (7-17) mg/dL Creatinine (0.52-1.04) mg/dL POC Glucose (mg/dL) 152 H (70-110) mg/dL Calcium (8.4-10.2) mg/dL Assessment and Plan (1) Perforated sigmoid colon Current Visit: Yes Status: Acute Code(s): K63.1 - PERFORATION OF INTESTINE (NONTRAUMATIC) SNOMED Code(s): 115156708 (2) Leukopenia Current Visit: Yes Status: Acute Code(s): D72.819 - DECREASED WHITE BLOOD CELL COUNT, UNSPECIFIED SNOMED Code(s): 19418026 (3) Peritonitis Current Visit: Yes Status: Acute Code(s): K65.9 - PERITONITIS, UNSPECIFIED SNOMED Code(s): 45002965 Plan: 1patient presented to hospital with abdominal pain generalized nausea vomiting with evidence of free air on the CT in this patient with status post laparotomy with evidence of sigmoid colon perforation status post sigmoid colectomy and end colostomy we will need to cover for the enteric gram-negative both aerobes and anaerobes 2-patient blood culture which are negative abdominal cultures with Bacteroides and E. coli is a sensitive pathogen, catheter culture with Jolie 3-patient is afebrile patient white count is about the same as yesterday also noted drop in the hemoglobin surgery following the patient, will continue with Unasyn and Diflucan and monitor clinical course closely Dictation was produced using [employer] dictation software. please excuse any grammatical, word or spelling errors.
--- NOTE | 2024-10-28 15:15 | P.PN ---
Subjective Progress Note Date: 10/28/24 Patient is a 74-year-old female with past medical history significant for hypothyroidism and lung cancer.. Patient is known to have a right upper lobe lung mass, she was seen at our facility May,, and transfered to [facility]. Reportedly, currently undergoing systemic chemotherapy. Patient is intubated and unable to provide information. No family present. Most recent PET scan done 10/05/2024 demonstrating a mixed response to therapy with decrease size and FDG activity of the right upper lobe pulmonary mass and mediastinal/right hilar adenopathy; however, there is a more prominent appearing opacity within the right lower lobe abutting the fissure with increasing FDG a ctivity. Possibly representing an infectious/inflammatory opacity, however, new metastasis was not excluded. Brain CT done back in May, showing a large area of vasogenic edema extending through the right proximal temporal lobe, right parietal lobe, and occipital lobe with effacement of the sulci and subfalcine herniation with 0.8 cm of midline shift to the left. Follow-up brain MRI done 09/18/2024 showing postsurgical changes with a small cystic cavity in the area of prior surgery. No new lesions were noted. Patient presents to the emergency department yesterday afternoon with a chief complaint of abdominal pain. Reportedly, persistent abdominal pain over the last 5 days with increasing intensity. Workup in the emergency department including a abdominal/pelvis CT which demonstrated small to moderate amount of free air scattered within the upper abdomen and within the mid pelvis. Small amount of free fluid within the pelvis. Dilated small bowel loops to at least the proximal ileum. Partial small bowel obstruction should be considered. Late last night, patient taken to the operating room for exploratory laparotomy, a ruptured sigmoid colon and possible stercoral ulcer was found. Patient underwent sigmoid colectomy with end colostomy. Following the procedure, she was transferred to the intensive care unit for recovery. Patient currently being evaluated in the ICU. She remains intubated to the mechanical ventilator, current ventilator settings assist-control, respiratory rate 16, tidal volume 400, FiO2 50%, PEEP of 5. ABG done on these settings and an FiO2 100%; show a PaO2 of 363, pCO2 of 45, pH of 7.28. Chest x-ray showing endotracheal tube 3 cm above the adriana, nasogastric tube coursing below the diaphragm, right mediastinal mass, right IJ central line catheter with tip near the cavoatrial junction. Patient is currently sedated and synchronous with mechanical ventilator. Nonresponsive. On propofol 15 mcg/kg/min. LR is infusing at 75 m L/h. Blood pressure soft at 96/66 mmHg. Mildly tachycardic. Urine output only 60 cc since OR exit. Postoperative labs including a CBC with a WBC count of 2, hemoglobin 10.8, hematocrit 33.6, platelets 107. CMP: Sodium 135, potassium 3.5, chloride 102, serum bicarb 23, BUN 34, creatinine 1.01, glucose 117. Lactic 1.7. Calcium 6.9. Patient is empirically covered on antibiotics in the form of Zosyn. Midline abdominal incision with postoperative dressing intact. Mild shadowing. CORAZON drain with serosanguineous fluid and needs to be emptied. Left upper quadrant stoma is pink. Progress note dated October 19, 2024. 74-year-old female seen today in room 251. She is postoperative day #2, status post exploratory laparotomy, sigmoid colectomy, with end colostomy. Currently, the patient was on 2 L of oxygen. She has an NG tube in place. She is getting lactated Ringer's at 130 cc an hour. She was extubated successfully yesterday, October 18. She continues on Zosyn. We did order an incentive spirometer for her. Current labs include a white count of 6.5, hemoglobin 6.5, hematocrit 20.2, and a platelet count of 114,000. Sodium 137, potassium 4, chlorides 109, CO2 18, BUN 42, and creatinine 1.71. Calcium is 6.9. Albumin 2.2. Cultures are thus far negative. Chest x-ray shows chronic changes, without an acute process. Progress note dated October 20, 2024. 74-year-old female who was seen in the ICU yesterday. She is postoperative day #3, status post exploratory laparotomy, sigmoid colectomy, with end colostomy. The patient is currently on room air. She is getting TPN at 30 cc an hour. She is also getting lactated Ringer's at 75 cc an hour. Current laboratory data includes a white count 8.7, hemoglobin 7.4, hematocrit 23.2, and a platelet count of 104,000. Sodium 138, potassium 3.1, chlorides 107, CO2 24, BUN 49, and creatinine 1.8. Glucose is 149. Magnesium 2.3. Clinically, the patient is doing well, and she states that she feels well. I encouraged her to use her incentive spirometer, hourly. Wound cultures of the abdomen were positive for Escherichia coli. Abdominal fluid cultures were positive for Para- b.acteroides species. The patient is currently on Zosyn. Progress note dated October 21, 2024. 74-year-old female seen in room 366. The patient was previously in the intensive care unit. Currently, the patient is on room air. She is receiving lactated Ringer's at 75 cc an hour, lipids at 21 cc, and TPN at 80 cc an hour. The patient appears not to be having any respiratory distress or difficulty. She has no specific complaints. She is awake and alert. She is laying flat in bed. Current laboratory data includes a sodium 131, potassium 3.1, chlorides 103, CO2 23, BUN 48, and creatinine 1.48. Glucose is 238. Calcium 6.9, phosphorus 2.3. Albumin 2.1. Wound cultures, revealed evidence of Escherichia coli. Abdominal fluid cultures are positive for parabacteroides species. Progress note dated October 22, 2024. 74-year-old female seen today in room 366. The patient is currently on room air. The patient does continue with lactated Ringer's at 75 cc an hour, saline at 10 cc an hour, and TPN at 80 cc an hour. She has no specific complaints today. She denies any chest pain or pressure. She denies any shortness of breath, cough, wheezing, chest tightness, or phlegm production. Laboratory data includes a white count of 14.2, hemoglobin 8.7, hematocrit 27.9, and platelet count of 158,000. Sodium 135, potassium 2.5, chlorides 102, CO2 27, BUN 45, creatinine 1.31. Glucose 149. Calcium 7.4. Albumin is 2. Abdominal cultures, reveal evidence of E. coli, Eggerthella species, and parabacteroides species. On 10/23/2024, the patient is being seen for a follow-up. The patient is currently postop day #6 following a expiratory laparotomy and sigmoid colectomy and end colostomy. The patient had a ruptured sigmoid colon with secondary pneumoperitoneum. The patient is recovering reasonably well for now. The patient has no significant respiratory difficulties. The patient is currently on room air oxygen with a pulse ox of 94%. The patient is taking some full liquid diet. She still on TPN for nutritional support. IV antibiotics are in the form of Unasyn and the intra-abdominal cultures were positive for E. coli and anaerobes. The colostomy is functional. Output from the CORAZON drain is being monitored and output is serosanguineous. The white cell count of 13.4 with a hemoglobin 7.9 and platelet count of 171. BUN is 43 with a creatinine of 1.1. Sodium levels at 134 and a potassium level is at 3. There is some elevation of the liver function test with an AST of 114, ALT of 158 and alkaline phosphatase of 192. Triglyceride level was at 241. General surgery remains on the case. Noted the patient has also history of non-small cell lung cancer/adenocarcinoma. The patient has completed 4 cycles of chemotherapy last being approximately 2 weeks ago. Most recent PET/CT from 10/05/2024 showed improvement in the patient's disease and the patient will continue with therapy once she is fully recovered from surgery. On 10/24/2024, the patient is being seen for a follow-up. The patient is postop day #7. She is complaining of excessive fatigue. Laying comfortably in bed. Colostomy is functional. Her oral intake remains minimal. She has been provided full liquid diet and she remains on TPN for nutritional support. The patient's white cell count is currently at 17.2 and this has not improved and the patient continues to have ongoing leukocytosis. White cell count is at 17.2 with a hemoglobin 8.4 and a platelet count of 174. BUN is 42 with a creatinine 1.1 and sodium is at 137. LFTs remain abnormal although improved compared to yesterday. Albumin level is at 2.1. Remains on a IV Unasyn and remains on IV hydrocortisone and TPN for nutritional support. In terms of respiratory status, she is on 2 L of oxygen by nasal cannula with a pulse ox of 94%. Colostomy site is intact and functional and she is positive bowel sounds. On 10/25/2024, the patient's oral intake remains quite minimal. She continues to have abdominal soreness. Her stoma is functional and there is positive output. The patient has no nausea. No emesis. No chest pain. No shortness of breath. She is quite weak and debilitated. She remains on TPN for nutritional support. She remains on room air oxygen. Labs from yesterday were noted. No new labs are available from today. He remains on IV Unasyn. He remains on Lovenox for DVT prophylaxis 40 mg subcu on a daily basis. She remains on hydrocortisone that can be essentially discontinued. No other significant events overnight for now. CORAZON drain is in place. Abdominal wound is dry clean and intact. The patient will need to advance her diet. She is currently postop day #8. 10/26/2024, the patient is f essentially the same. She is on full liquid diet. She started having issues with pain in her abdomen. Nevertheless, her colostomy is functional and the patient has adequate bowel sounds. Output from the CORAZON drain is minimal at this point in time. She does not look toxic at all. She is weak. She is quite debilitated. She remains on TPN for nutritional support. She remains on IV Unasyn. The blood work from today shows a white cell count of 12.4 with a heme of 7.3 and a platelet count of 237. BUN 37 with a creatinine of 1 and a sodium levels at 136. General surgery remains on the case. Physical therapy is on the case. On 10/27/2024, the patient is being seen for a follow-up. She is currently on room air oxygen. No respiratory distress. No chest pain. No cough or sputum production. Abdomen remains tender. The patient remains on Unasyn. Remains on TPN for nutritional support. Oral intake is improved compared to yesterday. Colostomy is functional. Surgical wound site is dry clean and intact. WBC count is 12.2 with a hemoglobin of 7 and platelet count of 285. Electrolytes we re noted and the patient has a sodium level of 135, potassium level is 3.7, chloride is 97 and the bicarb level is at 31. BUN 32 with a creatinine of 1.1. She is resting comfortably in bed on room air oxygen. 10/28/2024, the patient remains on room air oxygen. Advancing her diet as tolerated. Abdominal pain is less compared to yesterday. No nausea or emesis. Remains on TPN for nutritional support. Hemoglobin is at 6.7 and I ordered a unit of packed RBC for this patient. The white cell count is at 12. Electrolytes are all within normal limits with a sodium level of 135, potassium of 4.3, BUN 31 with a creatinine 1.09. The patient remains on TPN for nutritional support. The patient remains on IV Unasyn and oral Diflucan. Remains on Lovenox for DVT prophylaxis. Dilaudid for pain control. Using incentive spirometer. Overall, remains weak. Objective - Vital Signs Vital signs: Vital Signs Temp 98.0 F 10/28/24 07:23 Pulse 82 10/28/24 07:23 Resp 16 10/28/24 07:23 BP 118/65 10/28/24 07:23 Pulse Ox 94 L 10/28/24 07:23 FiO2 40 10/18/24 11:01 Intake & Output 10/27/24 10/28/24 10/28/24 18:59 06:59 18:59 Intake Total 1634.667 240 Output Total 3330 1810 Balance -1695.333 -1810 240 Weight 66 kg 55 kg Intake: Intake, IV Titration 74.667 Amount Mvi, Adult No.4 with Vit 74.667 K 10 ml Trace (Conc-1Ml/ Dose) 1 ml Sodium Phosphate 3 mmol Potassium Chloride 50 meq Sodium Chloride 4Meq/ml Vial 48 meq Magnesium Sulfate gm 1.5 gm Calcium Gluconate 1 gm In Amino Acids 5 %/Dextrose 20 % 1 ,000 ml @ 40 mls/hr IV . BY DURATION [facility] Rx#: [id number] Oral 1560 240 Output: Drainage 30 10 Medial Abdomen 30 10 Urine 3300 1800 Uretheral (Cooper) 1000 Other: Voiding Method Diaper Diaper Diaper Indwelling Catheter External Catheter External Catheter # Voids 1 1 - Exam GENERAL EXAM: Sedated 74-year-old female, awake and alert currently on room air O2. Awake and alert and communicating. HEAD: Normocephalic and atraumatic EYES: Normal reaction of pupils, equal size. No nystagmus. Nonicteric sclera. NOSE: Clear with pink turbinates. THROAT: No erythema or exudates. NECK: No masses, no JVD. Right IJ triple-lumen catheter. CHEST: No chest wall deformity. LUNGS: Equal air entry with no crackles, wheeze, rhonchi or dullness. CVS: S1 and S2 normal with no audible murmur, regular rhythm. No extra heart sounds ABDOMEN: CORAZON drain is still in place.. Left upper quadrant stoma is pink. Positive output in the colostomy bag and the patient's abdomen is soft. Surgical wound site is dry clean and intact. No direct tenderness, no rebound tenderness or guarding. SPINE: No scoliosis or deformity SKIN: No rashes CENTRAL NERVOUS SYSTEM: Neurologically, the patient is awake and alert and the patient does not have any focal neurological deficit. Cranial nerves are ess entially intact. EXTREMITIES: There is no peripheral edema, clubbing, or cyanosis. Distal extremities are cold, peripheral pulses are weak and thready. - Labs CBC & Chem 7: 10/28/24 05:25 10/28/24 05:25 Labs: Abnormal Lab Results - Last 24 Hours (Table) 10/27/24 10/27/24 10/27/24 Range/Units 12:48 17:10 21:13 WBC (4.50-10.00) X 10*3/uL RBC (4.10-5.20) X 10*6/uL Hgb (12.0-15.0) g/dL Hct (37.2-46.3) % MCV (80.0-97.0) FL MCH (27.0-32.0) pg MCHC (32.0-37.0) g/dL RDW (11.5-14.5) % Immature Gran # (0.00-0.04) X 10*3/uL Neutrophils # (1.80-7.70) X 10*3/uL Monocytes # (0.20-1.00) X 10*3/uL Eosinophils # (0.04-0.35) X 10*3/uL Macrocytosis (manual) (None Seen) Sodium (137-145) mmol/L BUN (7-17) mg/dL Creatinine (0.52-1.04) mg/dL POC Glucose (mg/dL) 139 H 128 H 177 H (70-110) mg/dL Calcium (8.4-10.2) mg/dL 10/28/24 10/28/24 10/28/24 Range/Units 05:25 05:25 07:22 WBC 12.28 H (4.50-10.00) X 10*3/uL RBC 1.98 L (4.10-5.20) X 10*6/uL Hgb 6.7 A* (12.0-15.0) g/dL Hct 21.5 L (37.2-46.3) % MCV 108.6 H (80.0-97.0) FL MCH 33.8 H (27.0-32.0) pg MCHC 31.2 L (32.0-37.0) g/dL RDW 19.8 H (11.5-14.5) % Immature Gran # 0.14 H (0.00-0.04) X 10*3/uL Neutrophils # 9.07 H (1.80-7.70) X 10*3/uL Monocytes # 1.56 H (0.20-1.00) X 10*3/uL Eosinophils # 0.03 L (0.04-0.35) X 10*3/uL Macrocytosis (manual) 2+ A (None Seen) Sodium 135 L (137-145) mmol/L BUN 31 H (7-17) mg/dL Creatinine 1.09 H (0.52-1.04) mg/dL POC Glucose (mg/dL) 152 H (70-110) mg/dL Calcium 7.8 L (8.4-10.2) mg/dL 10/28/24 Range/Units 12:10 WBC (4.50-10.00) X 10*3/uL RBC (4.10-5.20) X 10*6/uL Hgb (12.0-15.0) g/dL Hct (37.2-46.3) % MCV (80.0-97.0) FL MCH (27.0-32.0) pg MCHC (32.0-37.0) g/dL RDW (11.5-14.5) % Immature Gran # (0.00-0.04) X 10*3/uL Neutrophils # (1.80-7.70) X 10*3/uL Monocytes # (0.20-1.00) X 10*3/uL Eosinophils # (0.04-0.35) X 10*3/uL Macrocytosis (manual) (None Seen) Sodium (137-145) mmol/L BUN (7-17) mg/dL Creatinine (0.52-1.04) mg/dL POC Glucose (mg/dL) 167 H (70-110) mg/dL Calcium (8.4-10.2) mg/dL Assessment and Plan Plan: Acute abdomen/pneumoperitoneum secondary to a ruptured sigmoid colon and the patient is status post exploratory laparotomy with sigmoid colectomy and end colostomy, operative day # 11. Continues to have some abdominal tenderness. Colostomy is functional. Maintained on IV Unasyn. Maintained on TPN. Recovery has been slow. The colostomy is functional. Nevertheless, the patient's oral intake is minimal and the patient is essentially taking full liquid diet. Remains on TPN for nutritional support. Oral intake is improving and the patient is not meeting caloric requirements and the patient remains on TPN. Abdominal sepsis with abdominal cultures being positive for E. coli and anaerobes, currently on IV Unasyn. Catheter tip is also positive for Jolie and the patient is on Diflucan Acute hypoxic respiratory failure, recovered and the patient is currently on room air oxygen. The patient is S/P extubation on October 18, 2024. Pancytopenia, likely related to previous chemotherapy intake, improved Stage IV pulm adenocarcinoma. Initially presented in May 2024 due to recurrent falls over the prior month. CT of the brain showed a right occipital lobe lesion. CT CAP 05/22/2024 showed a 5.7 x 6.7 cm right upper lobe lung mass, mediastinal LAD, she was transferred to [facility]. MRI of the brain 05/25/2024 revealed a 3.3 cm mass in the right occipital lobe with associated vasogenic edema and midline shift. 05/29/2024 she underwent craniotomy and resection of the brain mass. Pathology positive metastatic adenocarcinoma, IHC consistent with lung primary, PD-L1 90%. Caris showed a K-tarik G12C mutation, TMB was high T p53 and IDH1 mutations. 06/30/2024 staging PET scan showed FDG avid 5.7 cm medial right upper lobe spiculated mass. This partially invaded into the media started him with abutment to the right brachiocephalic vein and trachea, metastasis with enlarging right pericarinal FDG avid lymph nodes, focal FDG avid focus within the medial right hepatic lobe. Patient was given time to recover from craniotomy, she will underwent SBRT. 07/28/2024 she started carbo/Alimta/Keytruda and completed 4 cycles 10/04/2024. Treatment follow-up PET scan 10/05/2024 showed improvement in her disease. History of hypothyroidism. Tobacco smoker. Plan: Patient currently on room air oxygen Continue TPN for nutritional support Advance diet oral intake is also improving Colostomy is functional Patient has a right IJ triple-lumen catheter Monitor CORAZON drain output IV Unasyn and Diflucan Pain control General Surgery follow-up Oncology follow-up Will involve physical therapy No active pulmonary critical care issues
[2024-10-28 17:03] LABS: Glucose,Whole Blood 171 mg/dL (70-110)
--- NOTE | 2024-10-28 17:03 | P.PN ---
Subjective Progress Note Date: 10/28/24 Subjective: Patient seen and examined at bedside. Quite emotional. Does not want to go to SNF. Prefers to go home. Pertinent positives and negatives as discussed above, a complete review of sys tems was performed and all other systems are negative. Vitals Signs Reviewed. General: Nontoxic, no distress, appears at stated age, Cooper catheter in place Derm: Warm, dry Head: Atraumatic, normocephalic, symmetric Eyes: EOMI, no lid lag, anicteric sclera Mouth: No lip lesion, mucus membranes moist Cardiovascular: S1S2 reg, no murmur Lungs: CTA bilateral, no rhonchi, no rales, no accessory muscle use, supplemental oxygen Abdominal: Soft, tender to palpation throughout, no guarding, no appreciable organomegaly, ostomy and CORAZON drain in place Ext: No gross muscle atrophy, no edema, no contractures Neuro: no focal neuro deficits Psych: Alert, oriented, appropriate affect Data Reviewed Today: Pertinent Labs: CBC and CMP significant WBC 12.28, RBC 1.98, Hg 6.7, Hct 21.5, MCV 108.6, Na 135, BUN 31, Cr 1.09, glu 167, Ca 7.8. Mag 1.9. Phos 4.4. Imaging: No new imaging Assessment and Plan: Active: Ruptured sigmoid colon secondary to possible stercoral ulcer status post sigmoid colectomy with end colostomy Pneumoperitoneum secondary to above Sepsis secondary to above Macrocytic anemia, likely acute blood loss, status post 1 unit of PRBCs Mild thrombocytopenia, resolved -Surgery following, patient on TPN, also on low fiber diet -Pain control per surgery -continue IV Protonix 40 twice daily -Transfuse 1 PRBC today and obtain iron studies/B12/Folate -Pulmonology following, and ID following, on Unasyn 3 g IV every 8 hours, Diflucan 200 mg PO QD added 10/27 -Patient previously on steroids, hydrocortisone decreased to 50 daily IV, continue with current dose Lung cancer with metastatic brain disease on active chemotherapy -Oncology following -Continue Keppra IV 500 every 12 hours Nonoliguric FRANK, likely prerenal, resolving Mild non-anion gap metabolic acidosis, resolved Hypokalemia, resolved Hyponatremia Hypomagnesemia, resolved -Nephrology following -Repeat BMP tomorrow Transaminitis, stable, improving -No acute process on liver ultrasound -Hep panel neg Mild hyperkalemia, resolved Thank you for allowing us to participate in the care of this pleasant patient. Do not hesitate to contact us with questions. Someone can be reached from the [facility] hospitalist group all hours of the day at [phone] or via perfect serve. Objective - Vital Signs Vital signs: Vital Signs Temp 98.5 F 10/28/24 12:33 Pulse 73 10/28/24 12:33 Resp 16 10/28/24 12:33 BP 123/64 10/28/24 12:33 Pulse Ox 95 10/28/24 12:33 FiO2 40 10/18/24 11:01 Intake & Output 10/27/24 10/28/24 10/28/24 18:59 06:59 18:59 Intake Total 1634.667 720 Output Total 3330 1810 5 Balance -1695.333 -1810 715 Weight 66 kg 55 kg Intake: Intake, IV Titration 74.667 Amount Mvi, Adult No.4 with Vit 74.667 K 10 ml Trace (Conc-1Ml/ Dose) 1 ml Sodium Phosphate 3 mmol Potassium Chloride 50 meq Sodium Chloride 4Meq/ml Vial 48 meq Magnesium Sulfate gm 1.5 gm Calcium Gluconate 1 gm In Amino Acids 5 %/Dextrose 20 % 1 ,000 ml @ 40 mls/hr IV . BY DURATION [facility] Rx#: [id number] Oral 1560 720 Output: Drainage 30 10 5 Medial Abdomen 30 10 5 Urine 3300 1800 Uretheral (Cooper) 1000 Other: Voiding Method Diaper Diaper Diaper Indwelling Catheter External Catheter External Catheter # Voids 1 1 - Labs CBC & Chem 7: 10/28/24 05:25 10/28/24 05:25 Labs: Abnormal Lab Results - Last 24 Hours (Table) 10/27/24 10/27/24 10/28/24 Range/Units 17:10 21:13 05:25 WBC (4.50-10.00) X 10*3/uL RBC (4.10-5.20) X 10*6/uL Hgb (12.0-15.0) g/dL Hct (37.2-46.3) % MCV (80.0-97.0) FL MCH (27.0-32.0) pg MCHC (32.0-37.0) g/dL RDW (11.5-14.5) % Immature Gran # (0.00-0.04) X 10*3/uL Neutrophils # (1.80-7.70) X 10*3/uL Monocytes # (0.20-1.00) X 10*3/uL Eosinophils # (0.04-0.35) X 10*3/uL Macrocytosis (manual) (None Seen) Sodium 135 L (137-145) mmol/L BUN 31 H (7-17) mg/dL Creatinine 1.09 H (0.52-1.04) mg/dL POC Glucose (mg/dL) 128 H 177 H (70-110) mg/dL Calcium 7.8 L (8.4-10.2) mg/dL Crossmatch 10/28/24 10/28/24 10/28/24 Range/Units 05:25 07:22 12:10 WBC 12.28 H (4.50-10.00) X 10*3/uL RBC 1.98 L (4.10-5.20) X 10*6/uL Hgb 6.7 A* (12.0-15.0) g/dL Hct 21.5 L (37.2-46.3) % MCV 108.6 H (80.0-97.0) FL MCH 33.8 H (27.0-32.0) pg MCHC 31.2 L (32.0-37.0) g/dL RDW 19.8 H (11.5-14.5) % Immature Gran # 0.14 H (0.00-0.04) X 10*3/uL Neutrophils # 9.07 H (1.80-7.70) X 10*3/uL Monocytes # 1.56 H (0.20-1.00) X 10*3/uL Eosinophils # 0.03 L (0.04-0.35) X 10*3/uL Macrocytosis (manual) 2+ A (None Seen) Sodium (137-145) mmol/L BUN (7-17) mg/dL Creatinine (0.52-1.04) mg/dL POC Glucose (mg/dL) 152 H 167 H (70-110) mg/dL Calcium (8.4-10.2) mg/dL Crossmatch 10/28/24 Range/Units 14:03 WBC (4.50-10.00) X 10*3/uL RBC (4.10-5.20) X 10*6/uL Hgb (12.0-15.0) g/dL Hct (37.2-46.3) % MCV (80.0-97.0) FL MCH (27.0-32.0) pg MCHC (32.0-37.0) g/dL RDW (11.5-14.5) % Immature Gran # (0.00-0.04) X 10*3/uL Neutrophils # (1.80-7.70) X 10*3/uL Monocytes # (0.20-1.00) X 10*3/uL Eosinophils # (0.04-0.35) X 10*3/uL Macrocytosis (manual) (None Seen) Sodium (137-145) mmol/L BUN (7-17) mg/dL Creatinine (0.52-1.04) mg/dL POC Glucose (mg/dL) (70-110) mg/dL Calcium (8.4-10.2) mg/dL Crossmatch See Detail
[2024-10-28 20:36] LABS: Glucose,Whole Blood 97 mg/dL (70-110)
--- NOTE | 2024-10-28 22:13 | P.PN ---
Subjective Patient seen and evaluated at bedside. Patient admits to abdominal pain, denies n/v/f/sob/cp. Objective - Vital Signs Vital signs: Vital Signs Temp 97.6 F 10/28/24 19:54 Pulse 77 10/28/24 19:54 Resp 17 10/28/24 19:54 BP 132/69 10/28/24 19:54 Pulse Ox 96 10/28/24 19:54 FiO2 40 10/18/24 11:01 Intake & Output 10/28/24 10/28/24 10/29/24 06:59 18:59 06:59 Intake Total 1800 310 Output Total 1810 1815 0 Balance -1810 -15 310 Weight 55 kg Intake: Oral 1800 Blood Product 0 310 Rc As-1 Unit 0 310 [id number] Output: Drainage 10 15 0 Medial Abdomen 10 15 0 Urine 1800 1800 Other: Voiding Method Diaper Diaper Diaper External Catheter External Catheter External Catheter # Voids 1 - Exam general no acute distress Cardiovascular regular in rhythm Pulmonary nonlabored breathing Abdomen is soft nondistended tender to palpation no guarding or rebound tenderness ostomy producing a small amount of stool - Labs CBC & Chem 7: 10/28/24 05:25 10/28/24 05:25 Labs: Abnormal Lab Results - Last 24 Hours (Table) 10/28/24 10/28/24 10/28/24 Range/Units 05:25 05:25 07:22 WBC 12.28 H (4.50-10.00) X 10*3/uL RBC 1.98 L (4.10-5.20) X 10*6/uL Hgb 6.7 A* (12.0-15.0) g/dL Hct 21.5 L (37.2-46.3) % MCV 108.6 H (80.0-97.0) FL MCH 33.8 H (27.0-32.0) pg MCHC 31.2 L (32.0-37.0) g/dL RDW 19.8 H (11.5-14.5) % Immature Gran # 0.14 H (0.00-0.04) X 10*3/uL Neutrophils # 9.07 H (1.80-7.70) X 10*3/uL Monocytes # 1.56 H (0.20-1.00) X 10*3/uL Eosinophils # 0.03 L (0.04-0.35) X 10*3/uL Macrocytosis (manual) 2+ A (None Seen) Sodium 135 L (137-145) mmol/L BUN 31 H (7-17) mg/dL Creatinine 1.09 H (0.52-1.04) mg/dL POC Glucose (mg/dL) 152 H (70-110) mg/dL Calcium 7.8 L (8.4-10.2) mg/dL Crossmatch 10/28/24 10/28/24 10/28/24 Range/Units 12:10 14:03 17:01 WBC (4.50-10.00) X 10*3/uL RBC (4.10-5.20) X 10*6/uL Hgb (12.0-15.0) g/dL Hct (37.2-46.3) % MCV (80.0-97.0) FL MCH (27.0-32.0) pg MCHC (32.0-37.0) g/dL RDW (11.5-14.5) % Immature Gran # (0.00-0.04) X 10*3/uL Neutrophils # (1.80-7.70) X 10*3/uL Monocytes # (0.20-1.00) X 10*3/uL Eosinophils # (0.04-0.35) X 10*3/uL Macrocytosis (manual) (None Seen) Sodium (137-145) mmol/L BUN (7-17) mg/dL Creatinine (0.52-1.04) mg/dL POC Glucose (mg/dL) 167 H 171 H (70-110) mg/dL Calcium (8.4-10.2) mg/dL Crossmatch See Detail Assessment and Plan Assessment: discharge planning, discuss w/ case management.
[2024-10-29 06:11] LABS: African American GFR (CKD) 53 (>60 ml/min/1.73 sqM); Anion Gap 6 mmol/L; Blood Urea Nitrogen 31 mg/dL (7-17); Calcium 7.8 mg/dL (8.4-10.2); Carbon Dioxide 28 mmol/L (22-30); Chloride 101 mmol/L (98-107); Glucose 106 mg/dL (74-99); Magnesium 1.8 mg/dL (1.6-2.3); Non-African American GFR(CKD) 46 (>60 ml/min/1.73 sqM); Potassium 3.9 mmol/L (3.5-5.1); Sodium 135 mmol/L (137-145)
[2024-10-29 07:13] LABS: Glucose,Whole Blood 123 mg/dL (70-110)
[2024-10-29 08:42] LABS: % Iron Saturation 26.09 (12.00-45.00)
[2024-10-29] MEDS ORDERED: [UNRECOGNIZED DRUG - REMARK] IV SCH (09:00)
[2024-10-29 09:58] LABS: Anisocytosis Slight; HCT 28.7 % (34.0-46.0); Hypochromasia Slight; MCH 32.1 pg (25.0-35.0); MCV 100.3 fL (80.0-100.0); Macrocytosis Moderate; Mean Platelet Volume 9.5; Platelet Count 408 k/uL (150-450); RBC 2.86 m/uL (3.80-5.40); RDW 19.1 % (11.5-15.5); WBC 11.3 k/uL (3.8-10.6)
[2024-10-29 10:03] LABS: HGB 9.2 gm/dL (11.4-16.0)
[2024-10-29] MEDS: POTASSIUM CHLORIDE ER 20 MEQ TAB.ER PO STA (10:24)
--- NOTE | 2024-10-29 11:43 | P.PN ---
Subjective Patient is seen for follow-up for acute kidney injury. Renal function has improved with serum creatinine down to 1.1 mg/dL Complaining of abdominal pain No complaints of shortness of breath. Serum potassium 3.9 today Patient is noted to have polyuria with urine output of about 6.6 L, most likely from post ATN diuresis. This has improved and 390 0 mL of urine was charted for last 24 hours. Objective - Vital Signs Vital signs: Vital Signs Temp 97.5 F L 10/29/24 07:09 Pulse 77 10/29/24 07:09 Resp 15 10/29/24 07:09 BP 136/73 10/29/24 07:09 Pulse Ox 95 10/29/24 07:09 FiO2 40 10/18/24 11:01 Intake & Output 10/28/24 10/29/24 10/29/24 18:59 06:59 18:59 Intake Total 1800 1537.333 Output Total 1815 2100 Balance -15 -562.667 Weight 52.5 kg Intake: Intake, IV Titration 987.333 Amount Mvi, Adult No.4 with Vit 987.333 K 10 ml Trace (Conc-1Ml/ Dose) 1 ml Sodium Phosphate 3 mmol Potassium Chloride 50 meq Sodium Chloride 4Meq/ml Vial 48 meq Magnesium Sulfate gm 1.5 gm Calcium Gluconate 1 gm In Amino Acids 5 %/Dextrose 20 % 1 ,000 ml @ 40 mls/hr IV . BY DURATION [facility] Rx#: [id number] Oral 1800 240 Blood Product 0 310 Rc As-1 Unit 0 310 [id number] Output: Drainage 15 0 Medial Abdomen 15 0 Urine 1800 2100 Other: Voiding Method Diaper Diaper External Catheter External Catheter - Exam Patient is awake, comfortable, no acute distress. 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 - Labs CBC & Chem 7: 10/29/24 05:27 10/29/24 05:27 Labs: Abnormal Lab Results - Last 24 Hours (Table) 10/28/24 10/28/24 10/28/24 Range/Units 05:25 12:10 14:03 WBC (3.8-10.6) k/uL RBC (3.80-5.40) m/uL Hgb (11.4-16.0) gm/dL Hct (34.0-46.0) % MCV (80.0-100.0) fL RDW (11.5-15.5) % Sodium (137-145) mmol/L BUN (7-17) mg/dL Creatinine (0.52-1.04) mg/dL Glucose (74-99) mg/dL POC Glucose (mg/dL) 167 H (70-110) mg/dL Calcium (8.4-10.2) mg/dL Transferrin 181.0 L (204.0-354.0) mg/dL Ferritin 1526.0 H (10.0-291.0) ng/mL Vitamin B12 1295.0 H (200.0-944.0) pg/mL Crossmatch See Detail 10/28/24 10/29/24 10/29/24 Range/Units 17:01 05:27 05:27 WBC 11.3 H (3.8-10.6) k/uL RBC 2.86 L (3.80-5.40) m/uL Hgb 9.2 L D (11.4-16.0) gm/dL Hct 28.7 L (34.0-46.0) % MCV 100.3 H (80.0-100.0) fL RDW 19.1 H (11.5-15.5) % Sodium 135 L (137-145) mmol/L BUN 31 H (7-17) mg/dL Creatinine 1.17 H (0.52-1.04) mg/dL Glucose 106 H (74-99) mg/dL POC Glucose (mg/dL) 171 H (70-110) mg/dL Calcium 7.8 L (8.4-10.2) mg/dL Transferrin (204.0-354.0) mg/dL Ferritin (10.0-291.0) ng/mL Vitamin B12 (200.0-944.0) pg/mL Crossmatch 10/29/24 Range/Units 07:11 WBC (3.8-10.6) k/uL RBC (3.80-5.40) m/uL Hgb (11.4-16.0) gm/dL Hct (34.0-46.0) % MCV (80.0-100.0) fL RDW (11.5-15.5) % Sodium (137-145) mmol/L BUN (7-17) mg/dL Creatinine (0.52-1.04) mg/dL Glucose (74-99) mg/dL POC Glucose (mg/dL) 123 H (70-110) mg/dL Calcium (8.4-10.2) mg/dL Transferrin (204.0-354.0) mg/dL Ferritin (10.0-291.0) ng/mL Vitamin B12 (200.0-944.0) pg/mL Crossmatch Assessment and Plan Assessment: 1. Acute kidney injury secondary to ATN secondary to severe sepsis. Baseline creatinine near 1, improved. Nonoliguric. No hydronephrosis noted on CT. 2. Metabolic acidosis secondary to acute kidney injury and IV fluids. Improved. 3. Sepsis secondary to pneumoperitoneum and antibiotics. 4. Pneumoperitoneum status post exploratory laparotomy with sigmoid colectomy, end colostomy creation. 5. Acute blood loss anemia s/p prbc this admission. 6. Hypokalemia from post ATN diuresis and poor intake. Started on Aldactone Plan: Continue Aldactone Replace potassium aggressively Repeat labs in a.m. Replace magnesium
[2024-10-29 12:21] LABS: Glucose,Whole Blood 144 mg/dL (70-110)
[2024-10-29] MEDS: MAGNESIUM SULFATE-D5W PMX 1 GM in DEXTROSE/WATER 1 100ML.BAG IVPB SCH (12:33)
--- NOTE | 2024-10-29 13:44 | P.PN ---
Subjective Progress Note Date: 10/29/24 Patient seen and examined at bedside. Pain well controlled. Quite emotional. Does not want to go to SNF. Prefers to go home. Hg was 6.7 yesterday requiring 1 PRBC. Vitals Signs Reviewed. General: Nontoxic, no distress, appears at stated age, Cooper catheter in place Derm: Warm, dry Head: Atraumatic, normocephalic, symmetric Eyes: EOMI, no lid lag, anicteric sclera Mouth: No lip lesion, mucus membranes moist Cardiovascular: S1S2 reg, no murmur Lungs: CTA bilateral, no rhonchi, no rales, no accessory muscle use, supplemental oxygen Abdominal: Soft, tender to palpation throughout, no guarding, no appreciable organomegaly, ostomy and CORAZON drain in place Ext: No gross muscle atrophy, no edema, no contractures Neuro: no focal neuro deficits Psych: Alert, oriented, appropriate affect Data Reviewed Today: Pertinent Labs: CBC and CMP significant WBC 11.3, RBC 2.86, Hg 9.2, Hct 28.7, MCV 100.3, Na 135, BUN 31, Cr 1.17, glu 106, Ca 7.8. Mag 1.8. Imaging: No new imaging Based on my assessment of this patient, this patient meets a high complexity level of care. Ruptured sigmoid colon secondary to possible stercoral ulcer status post sigmoid colectomy with end colostomy on 10/17: Tolerating low fiber diet. Continue Unasyn 3g IV TID and Diflucan 200 mg PO QD per ID recommendations. Protonix 40 mg IV BID to PO QD. TPN for additional nutrition. Surgery on board. Pneumoperitoneum and Sepsis secondary to above Acute blood loss anemia: 1 PRBC yesterday for Hg 6.7. Repeat CBC in the AM. Iron studies showing Fe 66 and Ferritin 1526 consistent with AOCD. Transfuse if Hg < 7. Lung cancer with metastatic brain disease on active chemotherapy: Keppra 500 mg IV to PO BID. Hydrocortisone 50 mg IV QD switched to Prednisone 10 mg PO QD. Nonoliguric FRANK: Likely prerenal. Encourage hydration by mouth. Transaminitis: Stable. CODE STATUS: FULL CODE. DVT Prophylaxis: Lovenox SQ. GI Prophylaxis: Protonix. Designated medical POA if patient is not able to make medical decisions for themselves: I have reviewed the following it infrastructure consultant notes: Surgery I have reviewed the results of the following tests: CBC, BMP, Iron studies. I have ordered the following tests: I have discussed the care of this patient with the following independent historian: SHAYLA. I have independently interpreted the following test below: I have discussed the management of this patient with the following physician: Thank you for allowing us to participate in the care of this pleasant patient. Do not hesitate to contact us with questions. Someone can be reached from the [facility] hospitalist group all hours of the day at [phone] or via perfect serve. Objective - Vital Signs Vital signs: Vital Signs Temp 97.5 F L 10/29/24 07:09 Pulse 77 10/29/24 07:09 Resp 15 10/29/24 07:09 BP 136/73 10/29/24 07:09 Pulse Ox 95 10/29/24 07:09 FiO2 40 10/18/24 11:01 Intake & Output 10/28/24 10/29/24 10/29/24 18:59 06:59 18:59 Intake Total 1800 1537.333 Output Total 1815 2100 0 Balance -15 -562.667 0 Weight 52.5 kg Intake: Intake, IV Titration 987.333 Amount Mvi, Adult No.4 with Vit 987.333 K 10 ml Trace (Conc-1Ml/ Dose) 1 ml Sodium Phosphate 3 mmol Potassium Chloride 50 meq Sodium Chloride 4Meq/ml Vial 48 meq Magnesium Sulfate gm 1.5 gm Calcium Gluconate 1 gm In Amino Acids 5 %/Dextrose 20 % 1 ,000 ml @ 40 mls/hr IV . BY DURATION [facility] Rx#: [id number] Oral 1800 240 Blood Product 0 310 Rc As-1 Unit 0 310 [id number] Output: Drainage 15 0 0 Medial Abdomen 15 0 0 Urine 1800 2100 Other: Voiding Method Diaper Diaper External Catheter External Catheter - Labs CBC & Chem 7: 10/29/24 05:27 10/29/24 05:27 Labs: Abnormal Lab Results - Last 24 Hours (Table) 10/28/24 10/28/24 10/28/24 Range/Units 05:25 14:03 17:01 WBC (3.8-10.6) k/uL RBC (3.80-5.40) m/uL Hgb (11.4-16.0) gm/dL Hct (34.0-46.0) % MCV (80.0-100.0) fL RDW (11.5-15.5) % Sodium (137-145) mmol/L BUN (7-17) mg/dL Creatinine (0.52-1.04) mg/dL Glucose (74-99) mg/dL POC Glucose (mg/dL) 171 H (70-110) mg/dL Calcium (8.4-10.2) mg/dL Transferrin 181.0 L (204.0-354.0) mg/dL Ferritin 1526.0 H (10.0-291.0) ng/mL Vitamin B12 1295.0 H (200.0-944.0) pg/mL Crossmatch See Detail 10/29/24 10/29/24 10/29/24 Range/Units 05:27 05:27 07:11 WBC 11.3 H (3.8-10.6) k/uL RBC 2.86 L (3.80-5.40) m/uL Hgb 9.2 L D (11.4-16.0) gm/dL Hct 28.7 L (34.0-46.0) % MCV 100.3 H (80.0-100.0) fL RDW 19.1 H (11.5-15.5) % Sodium 135 L (137-145) mmol/L BUN 31 H (7-17) mg/dL Creatinine 1.17 H (0.52-1.04) mg/dL Glucose 106 H (74-99) mg/dL POC Glucose (mg/dL) 123 H (70-110) mg/dL Calcium 7.8 L (8.4-10.2) mg/dL Transferrin (204.0-354.0) mg/dL Ferritin (10.0-291.0) ng/mL Vitamin B12 (200.0-944.0) pg/mL Crossmatch 10/29/24 Range/Units 12:19 WBC (3.8-10.6) k/uL RBC (3.80-5.40) m/uL Hgb (11.4-16.0) gm/dL Hct (34.0-46.0) % MCV (80.0-100.0) fL RDW (11.5-15.5) % Sodium (137-145) mmol/L BUN (7-17) mg/dL Creatinine (0.52-1.04) mg/dL Glucose (74-99) mg/dL POC Glucose (mg/dL) 144 H (70-110) mg/dL Calcium (8.4-10.2) mg/dL Transferrin (204.0-354.0) mg/dL Ferritin (10.0-291.0) ng/mL Vitamin B12 (200.0-944.0) pg/mL Crossmatch
--- NOTE | 2024-10-29 15:13 | P.PN ---
Subjective Progress Note Date: 10/29/24 Principal diagnosis: Reason for follow-up is perforated sigmoid colon/peritonitis Patient is a 74-year-old female with a past medical history significant for metastatic lung cancer hypothyroidism has been brought into the hospital for evaluation of generalized abdominal pain patient has been diagnosed with perforated sigmoid colon status post laparotomy sigmoid colectomy diverting colostomy. On today's evaluation that is 10/29/2024, Patient is afebrile patient is c urrently on room air and denies having any shortness of breath, the patient denies any chest pain or cough, the patient denies any nausea vomiting abdominal pain is currently controlled to have output in her colostomy. Patient white count of 11.3, creatinine is 1.17 Objective - Vital Signs Vital signs: Vital Signs Temp 97.6 F 10/29/24 14:00 Pulse 70 10/29/24 14:00 Resp 18 10/29/24 14:00 BP 137/73 10/29/24 14:00 Pulse Ox 96 10/29/24 14:00 FiO2 40 10/18/24 11:01 Intake & Output 10/28/24 10/29/24 10/29/24 18:59 06:59 18:59 Intake Total 1800 1537.333 Output Total 1815 2100 5 Balance -15 -562.667 -5 Weight 52.5 kg Intake: Intake, IV Titration 987.333 Amount Mvi, Adult No.4 with Vit 987.333 K 10 ml Trace (Conc-1Ml/ Dose) 1 ml Sodium Phosphate 3 mmol Potassium Chloride 50 meq Sodium Chloride 4Meq/ml Vial 48 meq Magnesium Sulfate gm 1.5 gm Calcium Gluconate 1 gm In Amino Acids 5 %/Dextrose 20 % 1 ,000 ml @ 40 mls/hr IV . BY DURATION [facility] Rx#: [id number] Oral 1800 240 Blood Product 0 310 Rc As-1 Unit 0 310 [id number] Output: Drainage 15 0 5 Medial Abdomen 15 0 5 Urine 1800 2100 Other: Voiding Method Diaper Diaper Diaper External Catheter External Catheter External Catheter - Exam GENERAL DESCRIPTION: An elderly female lying in bed in no distress RESPIRATORY SYSTEM: Unlabored breathing , decreased breath sounds at bases HEART: S1 S2 regular rate and rhythm , ABDOMEN: Soft , abdominal incision is currently intact no drainage output in the colostomy EXTREMITIES: No edema feet - Labs CBC & Chem 7: 10/29/24 05:27 10/29/24 05:27 Labs: Abnormal Lab Results - Last 24 Hours (Table) 10/28/24 10/28/24 10/28/24 Range/Units 05:25 14:03 17:01 WBC (3.8-10.6) k/uL RBC (3.80-5.40) m/uL Hgb (11.4-16.0) gm/dL Hct (34.0-46.0) % MCV (80.0-100.0) fL RDW (11.5-15.5) % Sodium (137-145) mmol/L BUN (7-17) mg/dL Creatinine (0.52-1.04) mg/dL Glucose (74-99) mg/dL POC Glucose (mg/dL) 171 H (70-110) mg/dL Calcium (8.4-10.2) mg/dL Transferrin 181.0 L (204.0-354.0) mg/dL Ferritin 1526.0 H (10.0-291.0) ng/mL Vitamin B12 1295.0 H (200.0-944.0) pg/mL Crossmatch See Detail 10/29/24 10/29/24 10/29/24 Range/Units 05:27 05:27 07:11 WBC 11.3 H (3.8-10.6) k/uL RBC 2.86 L (3.80-5.40) m/uL Hgb 9.2 L D (11.4-16.0) gm/dL Hct 28.7 L (34.0-46.0) % MCV 100.3 H (80.0-100.0) fL RDW 19.1 H (11.5-15.5) % Sodium 135 L (137-145) mmol/L BUN 31 H (7-17) mg/dL Creatinine 1.17 H (0.52-1.04) mg/dL Glucose 106 H (74-99) mg/dL POC Glucose (mg/dL) 123 H (70-110) mg/dL Calcium 7.8 L (8.4-10.2) mg/dL Transferrin (204.0-354.0) mg/dL Ferritin (10.0-291.0) ng/mL Vitamin B12 (200.0-944.0) pg/mL Crossmatch 10/29/24 Range/Units 12:19 WBC (3.8-10.6) k/uL RBC (3.80-5.40) m/uL Hgb (11.4-16.0) gm/dL Hct (34.0-46.0) % MCV (80.0-100.0) fL RDW (11.5-15.5) % Sodium (137-145) mmol/L BUN (7-17) mg/dL Creatinine (0.52-1.04) mg/dL Glucose (74-99) mg/dL POC Glucose (mg/dL) 144 H (70-110) mg/dL Calcium (8.4-10.2) mg/dL Transferrin (204.0-354.0) mg/dL Ferritin (10.0-291.0) ng/mL Vitamin B12 (200.0-944.0) pg/mL Crossmatch Assessment and Plan (1) Perforated sigmoid colon Current Visit: Yes Status: Acute Code(s): K63.1 - PERFORATION OF INTESTINE (NONTRAUMATIC) SNOMED Code(s): 248260759 (2) Leukopenia Current Visit: Yes Status: Acute Code(s): D72.819 - DECREASED WHITE BLOOD CELL COUNT, UNSPECIFIED SNOMED Code(s): 55985847 (3) Peritonitis Current Visit: Yes Status: Acute Code(s): K65.9 - PERITONITIS, UNSPECIFIED SNOMED Code(s): 45824096 Plan: 1patient presented to hospital with abdominal pain generalized nausea vomiting with evidence of free air on the CT in this patient with status post laparotomy with evidence of sigmoid colon perforation status post sigmoid colectomy and end colostomy we will need to cover for the enteric gram-negative both aerobes and anaerobes 2-patient blood culture which are negative abdominal cultures with Bacteroides and E. coli is a sensitive pathogen, catheter culture with Jolie 3-patient is afebrile patient white count is trending down will continue with Unasyn and Diflucan while inpatient and monitor clinical course closely Dictation was produced using [employer] dictation software. please excuse any grammatical, word or spelling errors. Time with Patient: Less than 30
[2024-10-29 17:20] LABS: Glucose,Whole Blood 156 mg/dL (70-110)
--- NOTE | 2024-10-29 18:10 | P.PN ---
Subjective Patient seen and evaluated at bedside. Patient admits to abdominal pain, denies n/v/f/sob/cp. Objective - Vital Signs Vital signs: Vital Signs Temp 97.6 F 10/29/24 14:00 Pulse 70 10/29/24 14:00 Resp 18 10/29/24 14:00 BP 137/73 10/29/24 14:00 Pulse Ox 96 10/29/24 14:00 FiO2 40 10/18/24 11:01 Intake & Output 10/28/24 10/29/24 10/29/24 18:59 06:59 18:59 Intake Total 1800 1537.333 Output Total 1815 2100 5 Balance -15 -562.667 -5 Weight 52.5 kg Intake: Intake, IV Titration 987.333 Amount Mvi, Adult No.4 with Vit 987.333 K 10 ml Trace (Conc-1Ml/ Dose) 1 ml Sodium Phosphate 3 mmol Potassium Chloride 50 meq Sodium Chloride 4Meq/ml Vial 48 meq Magnesium Sulfate gm 1.5 gm Calcium Gluconate 1 gm In Amino Acids 5 %/Dextrose 20 % 1 ,000 ml @ 40 mls/hr IV . BY DURATION [facility] Rx#: [id number] Oral 1800 240 Blood Product 0 310 Rc As-1 Unit 0 310 [id number] Output: Drainage 15 0 5 Medial Abdomen 15 0 5 Urine 1800 2100 Other: Voiding Method Diaper Diaper Diaper External Catheter External Catheter External Catheter - Exam general no acute distress Cardiovascular regular in rhythm Pulmonary nonlabored breathing Abdomen is soft nondistended tender to palpation no guarding or rebound tenderness ostomy producing a small amount of stool - Labs CBC & Chem 7: 10/29/24 05:27 10/29/24 05:27 Labs: Abnormal Lab Results - Last 24 Hours (Table) 10/28/24 10/28/24 10/29/24 Range/Units 05:25 14:03 05:27 WBC (3.8-10.6) k/uL RBC (3.80-5.40) m/uL Hgb (11.4-16.0) gm/dL Hct (34.0-46.0) % MCV (80.0-100.0) fL RDW (11.5-15.5) % Sodium 135 L (137-145) mmol/L BUN 31 H (7-17) mg/dL Creatinine 1.17 H (0.52-1.04) mg/dL Glucose 106 H (74-99) mg/dL POC Glucose (mg/dL) (70-110) mg/dL Calcium 7.8 L (8.4-10.2) mg/dL Transferrin 181.0 L (204.0-354.0) mg/dL Ferritin 1526.0 H (10.0-291.0) ng/mL Vitamin B12 1295.0 H (200.0-944.0) pg/mL Crossmatch See Detail 10/29/24 10/29/24 10/29/24 Range/Units 05:27 07:11 12:19 WBC 11.3 H (3.8-10.6) k/uL RBC 2.86 L (3.80-5.40) m/uL Hgb 9.2 L D (11.4-16.0) gm/dL Hct 28.7 L (34.0-46.0) % MCV 100.3 H (80.0-100.0) fL RDW 19.1 H (11.5-15.5) % Sodium (137-145) mmol/L BUN (7-17) mg/dL Creatinine (0.52-1.04) mg/dL Glucose (74-99) mg/dL POC Glucose (mg/dL) 123 H 144 H (70-110) mg/dL Calcium (8.4-10.2) mg/dL Transferrin (204.0-354.0) mg/dL Ferritin (10.0-291.0) ng/mL Vitamin B12 (200.0-944.0) pg/mL Crossmatch 10/29/24 Range/Units 17:17 WBC (3.8-10.6) k/uL RBC (3.80-5.40) m/uL Hgb (11.4-16.0) gm/dL Hct (34.0-46.0) % MCV (80.0-100.0) fL RDW (11.5-15.5) % Sodium (137-145) mmol/L BUN (7-17) mg/dL Creatinine (0.52-1.04) mg/dL Glucose (74-99) mg/dL POC Glucose (mg/dL) 156 H (70-110) mg/dL Calcium (8.4-10.2) mg/dL Transferrin (204.0-354.0) mg/dL Ferritin (10.0-291.0) ng/mL Vitamin B12 (200.0-944.0) pg/mL Crossmatch Assessment and Plan Assessment: discharge planning, discuss w/ case management. Time with Patient: Less than 30
[2024-10-29 19:59] LABS: Glucose,Whole Blood 96 mg/dL (70-110)
[2024-10-29] MEDS: [UNRECOGNIZED DRUG - REMARK] IV SCH (20:36)
[2024-10-29] MEDS: levETIRAcetam 500 MG TAB PO SCH (20:36)
[2024-10-30 06:03] LABS: African American GFR (CKD) 56 (>60 ml/min/1.73 sqM); Anion Gap 5 mmol/L; Blood Urea Nitrogen 27 mg/dL (7-17); Calcium 7.7 mg/dL (8.4-10.2); Carbon Dioxide 26 mmol/L (22-30); Chloride 103 mmol/L (98-107); Glucose 98 mg/dL (74-99); Magnesium 2.2 mg/dL (1.6-2.3); Non-African American GFR(CKD) 49 (>60 ml/min/1.73 sqM); Phosphorus 3.9 mg/dL (2.5-4.5); Potassium 4.2 mmol/L (3.5-5.1); Sodium 134 mmol/L (137-145)
[2024-10-30 07:10] LABS: Glucose,Whole Blood 109 mg/dL (70-110)
[2024-10-30] MEDS: predniSONE 10 MG TAB PO SCH (08:30)
[2024-10-30] MEDS: PANTOPRAZOLE 40 MG TABLET PO SCH (08:30)
--- NOTE | 2024-10-30 08:58 | P.PN ---
Subjective Patient is seen in follow-up for acute kidney injury. Renal function stable. P.o. intake just fair. Receiving TPN. Has been voiding. Vital signs are stable. General: No acute distress. HEENT: Head exam is unremarkable. LUNGS: Lungs are clear to auscultation and percussion. HEART: Rate and Rhythm are regular. ABDOMEN: Ostomy and CORAZON drain noted. EXTREMITITES: No edema. Objective - Vital Signs Vital signs: Vital Signs Temp 98.4 F 10/30/24 06:12 Pulse 73 10/30/24 06:12 Resp 18 10/30/24 06:12 BP 115/60 10/30/24 06:12 Pulse Ox 96 10/30/24 06:12 FiO2 40 10/18/24 11:01 Intake & Output 10/29/24 10/30/24 10/30/24 18:59 06:59 18:59 Intake Total 540 760 Output Total 1805 1810 Balance -1265 -1050 Weight 54 kg Intake: IV 200 .9@ 20 #2 200 Intake, IV Titration 560 Amount Ampicillin-Sulbactam 3 gm 100 In Sodium Chloride 0.9% 100 ml @ 200 mls/hr IVPB Q8HR [facility] Rx#:[id number] Fat Emulsion 20% 250 ml 60 In Empty Bag 1 bag @ 21 mls/hr IV Q72H [facility] Rx#: [id number] Mvi, Adult No.4 with Vit 400 K 10 ml Trace (Conc-1Ml/ Dose) 1 ml Sodium Phosphate 3 mmol Potassium Chloride 50 meq Sodium Chloride 4Meq/ml Vial 60 meq Magnesium Sulfate gm 1.5 gm Calcium Gluconate 1 gm In Amino Acids 5 %/Dextrose 20 % 1 ,000 ml @ 40 mls/hr IV . Q24H [facility] Rx#:[id number] Oral 540 Output: Drainage 5 10 Medial Abdomen 5 10 Urine 1800 1800 Other: Voiding Method Diaper Diaper Bedside Commode External Catheter External Catheter Diaper Incontinent - Labs CBC & Chem 7: 10/29/24 05:27 10/30/24 04:54 Labs: Abnormal Lab Results - Last 24 Hours (Table) 10/29/24 10/29/24 10/29/24 Range/Units 05:27 12:19 17:17 WBC 11.3 H (3.8-10.6) k/uL RBC 2.86 L (3.80-5.40) m/uL Hgb 9.2 L D (11.4-16.0) gm/dL Hct 28.7 L (34.0-46.0) % MCV 100.3 H (80.0-100.0) fL RDW 19.1 H (11.5-15.5) % Sodium (137-145) mmol/L BUN (7-17) mg/dL Creatinine (0.52-1.04) mg/dL POC Glucose (mg/dL) 144 H 156 H (70-110) mg/dL Calcium (8.4-10.2) mg/dL 10/30/24 Range/Units 04:54 WBC (3.8-10.6) k/uL RBC (3.80-5.40) m/uL Hgb (11.4-16.0) gm/dL Hct (34.0-46.0) % MCV (80.0-100.0) fL RDW (11.5-15.5) % Sodium 134 L (137-145) mmol/L BUN 27 H (7-17) mg/dL Creatinine 1.12 H (0.52-1.04) mg/dL POC Glucose (mg/dL) (70-110) mg/dL Calcium 7.7 L (8.4-10.2) mg/dL Assessment and Plan Plan: Assessment: 1. Acute kidney injury secondary to ATN secondary to severe sepsis. Baseline creatinine near 1 and is up to 1.8 today. Peaked at 1.8 this admission -now staying in the range of 1.1-1.2. 2. Metabolic acidosis secondary to acute kidney injury and IV fluids. Improved. 3. Sepsis secondary to pneumoperitoneum and antibiotics. 4. Pneumoperitoneum status post exploratory laparotomy with sigmoid colectomy, end colostomy creation. 5. Acute blood loss anemia s/p prbc this admission. 6. Hypokalemia from poor intake. Plan: Encouraged oral intake. TPN per surgery. Avoid nephrotoxins. Continue to monitor renal function and urine output. Follow-up outpatient 1 to 2 weeks postdischarge.
[2024-10-30 12:19] LABS: Glucose,Whole Blood 131 mg/dL (70-110)
[2024-10-30 12:20] LABS: Anisocytosis Slight; HCT 27.3 % (34.0-46.0); HGB 8.4 gm/dL (11.4-16.0); Hypochromasia Marked; MCH 32.1 pg (25.0-35.0); MCHC 30.8 g/dL (31.0-37.0); MCV 104.2 fL (80.0-100.0); Macrocytosis Marked; Mean Platelet Volume 10.1; Platelet Count 375 k/uL (150-450); RBC 2.62 m/uL (3.80-5.40); RDW 18.5 % (11.5-15.5); WBC 11.3 k/uL (3.8-10.6)
--- NOTE | 2024-10-30 13:07 | P.PN ---
Subjective Progress Note Date: 10/30/24 10/26/2024, the patient is f essentially the same. She is on full liquid diet. She started having issues with pain in her abdomen. Nevertheless, her colostomy is functional and the patient has adequate bowel sounds. Output from the CORAZON drain is minimal at this point in time. She does not look toxic at all. She is weak. She is quite debilitated. She remains on TPN for nutritional support. She remains on IV Unasyn. The blood work from today shows a white cell count of 12.4 with a heme of 7.3 and a platelet count of 237. BUN 37 with a creatinine of 1 and a sodium levels at 136. General surgery remains on the case. Physical therapy is on the case. On 10/27/2024, the patient is being seen for a follow-up. She is currently on room air oxygen. No respiratory distress. No chest pain. No cough or sputum production. Abdomen remains tender. The patient remains on Unasyn. Remains on TPN for nutritional support. Oral intake is improved compared to yesterday. Colostomy is functional. Surgical wound site is dry clean and intact. WBC count is 12.2 with a hemoglobin of 7 and platelet count of 285. Electrolytes were noted and the patient has a sodium level of 135, potassium level is 3.7, chloride is 97 and the bicarb level is at 31. BUN 32 with a creatinine of 1.1. She is resting comfortably in bed on room air oxygen. 10/28/2024, the patient remains on room air oxygen. Advancing her diet as tolerated. Abdominal pain is less compared to yesterday. No nausea or emesis. Remains on TPN for nutritional support. Hemoglobin is at 6.7 and I ordered a unit of packed RBC for this patient. The white cell count is at 12. Electrolytes are all within normal limits with a sodium level of 135, potassium of 4.3, BUN 31 with a creatinine 1.09. The patient remains on TPN for nutr itional support. The patient remains on IV Unasyn and oral Diflucan. Remains on Lovenox for DVT prophylaxis. Dilaudid for pain control. Using incentive spirometer. Overall, remains weak. The patient is seen today October 30, 2024 in follow-up on the regular medical floor. She is currently sitting up in bed. Awake and alert in no acute distress. She is still having some abdominal discomfort. Her nurse is at the bedside. She is maintaining good O2 saturations in the 90s on room air. She is afebrile. Hemodynamically stable. She is being nourished with TPN at 40 mL/h. She is tolerating a low fiber diet. Ostomy is functional. Abdominal dressing is dry and intact. White count 11.3. Hemoglobin 8.4. Platelets 375. Sodium 134. Potassium 4.2. Bicarb 26. BUN 27. Creatinine 1.12. Glucose 98. She remains on Unasyn. Lovenox for DVT prophylaxis. Continued on prednisone. Objective - Vital Signs Vital signs: Vital Signs Temp 98.4 F 10/30/24 06:12 Pulse 73 10/30/24 06:12 Resp 18 10/30/24 06:12 BP 115/60 10/30/24 06:12 Pulse Ox 96 10/30/24 06:12 FiO2 40 10/18/24 11:01 Intake & Output 10/29/24 10/30/24 10/30/24 18:59 06:59 18:59 Intake Total 540 760 Output Total 1805 1810 Balance -1265 -1050 Weight 54 kg Intake: IV 200 .9@ 20 #2 200 Intake, IV Titration 560 Amount Ampicillin-Sulbactam 3 gm 100 In Sodium Chloride 0.9% 100 ml @ 200 mls/hr IVPB Q8HR [facility] Rx#:[id number] Fat Emulsion 20% 250 ml 60 In Empty Bag 1 bag @ 21 mls/hr IV Q72H [facility] Rx#: [id number] Mvi, Adult No.4 with Vit 400 K 10 ml Trace (Conc-1Ml/ Dose) 1 ml Sodium Phosphate 3 mmol Potassium Chloride 50 meq Sodium Chloride 4Meq/ml Vial 60 meq Magnesium Sulfate gm 1.5 gm Calcium Gluconate 1 gm In Amino Acids 5 %/Dextrose 20 % 1 ,000 ml @ 40 mls/hr IV . Q24H [facility] Rx#:[id number] Oral 540 Output: Drainage 5 10 Medial Abdomen 5 10 Urine 1800 1800 Other: Voiding Method Diaper Diaper Bedside Commode External Catheter External Catheter Diaper Incontinent - Exam GENERAL EXAM: Awake, alert 74-year-old female, on room air O2. HEAD: Normocephalic and atraumatic EYES: Normal reaction of pupils, equal size. No nystagmus. Nonicteric sclera. NOSE: Clear with pink turbinates. THROAT: No erythema or exudates. NECK: No masses, no JVD. CHEST: No chest wall deformity. LUNGS: Equal air entry with no crackles, wheeze, rhonchi or dullness. CVS: S1 and S2 normal with no audible murmur, regular rhythm. No extra heart sounds ABDOMEN: CORAZON drain in place. Left upper quadrant stoma is pink. Positive output in the colostomy bag and the patient's abdomen is soft. Surgical wound site is dry clean and intact. SPINE: No scoliosis or deformity SKIN: No rashes CENTRAL NERVOUS SYSTEM: Neurologically, the patient does not have any focal neurological deficit. Cranial nerves are essentially intact. EXTREMITIES: There is no peripheral edema, clubbing, or cyanosis. Distal extremities are cold, peripheral pulses are weak and thready. - Labs CBC & Chem 7: 10/30/24 04:54 10/30/24 04:54 Labs: Abnormal Lab Results - Last 24 Hours (Table) 10/29/24 10/30/24 10/30/24 Range/Units 17:17 04:54 04:54 WBC 11.3 H (3.8-10.6) k/uL RBC 2.62 L (3.80-5.40) m/uL Hgb 8.4 L (11.4-16.0) gm/dL Hct 27.3 L (34.0-46.0) % MCV 104.2 H (80.0-100.0) fL MCHC 30.8 L (31.0-37.0) g/dL RDW 18.5 H (11.5-15.5) % Macrocytosis Marked A Sodium 134 L (137-145) mmol/L BUN 27 H (7-17) mg/dL Creatinine 1.12 H (0.52-1.04) mg/dL POC Glucose (mg/dL) 156 H (70-110) mg/dL Calcium 7.7 L (8.4-10.2) mg/dL 10/30/24 Range/Units 12:12 WBC (3.8-10.6) k/uL RBC (3.80-5.40) m/uL Hgb (11.4-16.0) gm/dL Hct (34.0-46.0) % MCV (80.0-100.0) fL MCHC (31.0-37.0) g/dL RDW (11.5-15.5) % Macrocytosis Sodium (137-145) mmol/L BUN (7-17) mg/dL Creatinine (0.52-1.04) mg/dL POC Glucose (mg/dL) 131 H (70-110) mg/dL Calcium (8.4-10.2) mg/dL Assessment and Plan Assessment: Acute abdomen/pneumoperitoneum secondary to a ruptured sigmoid colon and the patient is status post exploratory laparotomy with sigmoid colectomy and end colostomy, operative day # 13. Continues to have some abdominal tenderness. Colostomy is functional. Maintained on IV Unasyn. Maintained on TPN. Recovery has been slow. Tolerating a low fiber diet. Abdominal sepsis with abdominal cultures being positive for E. coli and anaerobes, currently on IV Unasyn. Catheter tip is also positive for Jolie and the patient is on Diflucan Acute hypoxic respiratory failure, recovered and the patient is currently on room air oxygen. The patient is S/P extubation on October 18, 2024. Pancytopenia, likely related to previous chemotherapy intake, improved Stage IV pulm adenocarcinoma. Initially presented in May 2024 due to recurrent falls over the prior month. CT of the brain showed a right occipital lobe lesion. CT CAP 05/22/2024 showed a 5.7 x 6.7 cm right upper lobe lung mass, mediastinal LAD, she was transferred to [facility]. MRI of the brain 05/25/2024 revealed a 3.3 cm mass in the right occipital lobe with associated vasogenic edema and midline shift. 05/29/2024 she underwent craniotomy and resection of the brain mass. Pathology positive metastatic adenocarcinoma, IHC consistent with lung primary, PD-L1 90%. Caris showed a K-tarik G12C mutation, TMB was high T p53 and IDH1 mutations. 06/30/2024 staging PET scan showed FDG avid 5.7 cm medial right upper lobe spiculated mass. This partially invaded into the media started him with abutment to the right brachiocephalic vein and trachea, metastasis with enlarging right pericarinal FDG avid lymph nodes, focal FDG avid focus within the medial right hepatic lobe. Patient was given time to recover from craniotomy, she will underwent SBRT. 07/28/2024 she started carbo/Alimta/Keytruda and completed 4 cycles 10/04/2024. Treatment follow-up PET scan 10/05/2024 showed improvement in her disease. History of hypothyroidism. Tobacco smoker. Plan: The patient was seen and evaluated Labs and medications reviewed Remains stable and on room air Tolerating a low fiber diet TPN remains for now Increase as her activity as tolerated Plan is for [facility] at discharge I have personally seen and examined the patient, performed the documentation and the assessment and plan as written. Number of minutes spent on the visit: 24 Dictation was produced using [employer] dictation software. Please excuse any grammatical, word or spelling errors.
--- NOTE | 2024-10-30 13:47 | P.DS ---
Providers Date of admission: 10/17/24 18:28 Expected date of discharge: 10/30/24 Attending physician: Lalo Rojas DO Consults: 10/17/24 22:08 Consult Physician Routine Consulting Provider: Surekha Rockwell Consult Reason/Comments: Bowel perforation Do you want consulting provider notified?: Yes 10/17/24 22:09 Consult Physician Routine Consulting Provider: Julian Licona Consult Reason/Comments: ICU mgmt Do you want consulting provider notified?: Already Contacted 10/17/24 22:10 Consult Physician Routine Consulting Provider: Etta Sullivan Consult Reason/Comments: med mgmt Do you want consulting provider notified?: Yes 10/17/24 22:11 Consult Physician Routine Consulting Provider: David Frank Consult Reason/Comments: lung ca, on chemo Do you want consulting provider notified?: Yes 10/19/24 07:52 Consult Physician Routine Consulting Provider: Andrew Flores Consult Reason/Comments: nivia Do you want consulting provider notified?: Yes Primary care physician: Stated None Hospital Course: Discharge diagnosis 1. Pneumoperitoneum with ruptured sigmoid colon, possible stercoral ulcer 2. History of lung cancer with brain mets 3. Pancytopenia due to recent chemo Hospital course This is a 74-year-old female with a prolonged hospitalization. She presented with abdominal pain and pneumoperitoneum. She was found to have a ruptured sigmoid colon. She is status post exploratory laparotomy, sigmoid colectomy with end colostomy for ruptured sigmoid colon possible stercoral ulcer. Patient had been in the ICU after surgery. Patient was able to be transferred out of the ICU. Patient's ostomy is functioning. Her pain is controlled. She is tolerating diet. She is afebrile. She has worked with physical therapy and they are recommending ECF at discharge. Patient is now agreeable to ECF placement. Patient denies any difficulty urinating. Infectious disease is recommending 1 more week of oral antibiotics. Patient is stable for discharge. Please refer to chart for any further details. Physician Campground Caretaker note has been reviewed by physician. Signing provider agrees with the documented findings, assessment, and plan of care. Attestation Patient seen and examined at bedside. Presented with chief complaint of abdominal pain and found to have pneumoperitoneum. Secondary to ruptured sigmoid colon she did undergo Parada's procedure. She has progressed well and transferred out of ICU. Ostomy is functioning. She is tolerating diet. ECF was recommended and patient is agreeable to this plan. Continue on oral antibiotics for 1 week per ID. Surgically stable for discharge. Lalo Rojas DO Patient Condition at Discharge: Stable Plan - Discharge Summary New Discharge Prescriptions: New Amoxic-Pot Clav 875-125Mg [Augmentin 875-125] 1 tab PO Q12HR 7 Days #14 tab Fluconazole [Diflucan] 100 mg PO DAILY 7 Days #7 tablet HYDROcodone/APAP 5-325MG [Emery 5-325] 1 tab PO Q6HR PRN 3 Days #12 tab PRN Reason: Pain Spironolactone [Aldactone] 25 mg PO BID #60 tab Pantoprazole [Protonix] 40 mg PO AC-BRKFST tab Continue predniSONE 5 mg PO DAILY levETIRAcetam [Keppra] 500 mg PO Q12HR Folic Acid 1 mg PO DAILY Discharge Medication List Folic Acid 1 mg PO DAILY 10/18/24 [History] levETIRAcetam [Keppra] 500 mg PO Q12HR 10/18/24 [History] predniSONE 5 mg PO DAILY 10/18/24 [History] Amoxic-Pot Clav 875-125Mg [Augmentin 875-125] 1 tab PO Q12HR 7 Days #14 tab 10/30/24 [Rx] Fluconazole [Diflucan] 100 mg PO DAILY 7 Days #7 tablet 10/30/24 [Rx] HYDROcodone/APAP 5-325MG [Emery 5-325] 1 tab PO Q6HR PRN 3 Days #12 tab 10/30/24 [Rx] Pantoprazole [Protonix] 40 mg PO AC-BRKFST tab 10/30/24 [Rx] Spironolactone [Aldactone] 25 mg PO BID #60 tab 10/30/24 [Rx] Follow up Appointment(s)/Referral(s): None,Stated [Primary Care Provider] - 1-2 days [facility] [NON-STAFF] - 1 Week David Frank MD [STAFF PHYSICIAN] - 11/20/24 2:30 pm Lalo Rojas DO [Doctor of Osteopathic Medicine] - 1 Week Flores,Andrew, DO [STAFF PHYSICIAN] - 1 Week Activity/Diet/Wound Care/Special Instructions: Colostomy: Magali #[id number]; change every 3 to 5 days and as needed for leaking Last changed: 10/27/[address] while taking Emery No lifting over 10 pounds You may shower. No soaking or tub baths for 2 weeks Discharge Disposition: TRANSFER TO SNF/ECF
--- NOTE | 2024-10-30 13:50 | P.PN ---
Subjective Progress Note Date: 10/30/24 Patient seen and examined at bedside. Pain well controlled. Agreeable for SNF today. Med rec completed. Discussed with Sharlene DASILVA and Dr. Rojas plans for discharge today. CBC and BMP significant for WBC 11.3, RBC 2.62, Hg 8.4, Hct 27.3, MCV 104.2, Na 134, BUN 27, Cr 1.12, Ca 7.7. Mag 2.2. B12 1295, Folate 8.6. Vitals Signs Reviewed. General: Nontoxic, no distress, appears at stated age, Cooper catheter in place Derm: Warm, dry Head: Atraumatic, normocephalic, symmetric Eyes: EOMI, no lid lag, anicteric sclera Mouth: No lip lesion, mucus membranes moist Cardiovascular: S1S2 reg, no murmur Lungs: CTA bilateral, no rhonchi, no rales, no accessory muscle use, supplemental oxygen Abdominal: Soft, tender to palpation throughout, no guarding, no appreciable organomegaly, ostomy and CORAZON drain in place Ext: No gross muscle atrophy, no edema, no contractures Neuro: no focal neuro deficits Psych: Alert, oriented, appropriate affect Data Reviewed Today: Pertinent Labs: CBC and CMP significant WBC 11.3, RBC 2.86, Hg 9.2, Hct 28.7, MCV 100.3, Na 135, BUN 31, Cr 1.17, glu 106, Ca 7.8. Mag 1.8. Imaging: No new imaging Based on my assessment of this patient, this patient meets a high complexity level of care. Ruptured sigmoid colon secondary to possible stercoral ulcer status post sigmoid colectomy with end colostomy on 10/17: Tolerating low fiber diet. Augmentin x 7 days and Diflucan x 7 days per ID recommendations. Protonix 40 mg PO QD. Surgery on board. Pneumoperitoneum and Sepsis secondary to above Acute blood loss anemia: 1 PRBC 10/28 for Hg 6.7. Hg 8.4 on discharge. Iron studies showing Fe 66 and Ferritin 1526 consistent with AOCD. B12 1295, Folate 8.6. Transfuse if Hg < 7. Recommend outpatient montoring of Hg after discharge. Lung cancer with metastatic brain disease on active chemotherapy: Keppra 500 mg IV to PO BID. Continue home dose of Prednisone 5 mg PO QD. Nonoliguric FRANK: Likely prerenal. Encourage hydration by mouth. Nephrology on board. Transaminitis: Stable. CODE STATUS: FULL CODE. DVT Prophylaxis: Lovenox SQ. GI Prophylaxis: Protonix. Designated medical POA if patient is not able to make medical decisions for themselves: I have reviewed the following network relations consultant notes: Surgery, Nephro I have reviewed the results of the following tests: CBC, BMP, Mag, B12, Folate. I have ordered the following tests: I have discussed the care of this patient with the following independent historian: RN. Case management. I have independently interpreted the following test below: I have discussed the management of this patient with the following physician: Sharlene DASILVA and Dr. Rojas. Thank you for allowing us to participate in the care of this pleasant patient. Do not hesitate to contact us with questions. Someone can be reached from the [facility] hospitalist group all hours of the day at [phone] or via [employer]. Objective - Vital Signs Vital signs: Vital Signs Temp 98.4 F 10/30/24 06:12 Pulse 73 10/30/24 06:12 Resp 18 10/30/24 06:12 BP 115/60 10/30/24 06:12 Pulse Ox 96 10/30/24 06:12 FiO2 40 10/18/24 11:01 Intake & Output 10/29/24 10/30/24 10/30/24 18:59 06:59 18:59 Intake Total 540 760 Output Total 1805 1810 Balance -1265 -1050 Weight 54 kg Intake: IV 200 .9@ 20 #2 200 Intake, IV Titration 560 Amount Ampicillin-Sulbactam 3 gm 100 In Sodium Chloride 0.9% 100 ml @ 200 mls/hr IVPB Q8HR [facility] Rx#:[id number] Fat Emulsion 20% 250 ml 60 In Empty Bag 1 bag @ 21 mls/hr IV Q72H [facility] Rx#: [id number] Mvi, Adult No.4 with Vit 400 K 10 ml Trace (Conc-1Ml/ Dose) 1 ml Sodium Phosphate 3 mmol Potassium Chloride 50 meq Sodium Chloride 4Meq/ml Vial 60 meq Magnesium Sulfate gm 1.5 gm Calcium Gluconate 1 gm In Amino Acids 5 %/Dextrose 20 % 1 ,000 ml @ 40 mls/hr IV . Q24H [facility] Rx#:[id number] Oral 540 Output: Drainage 5 10 Medial Abdomen 5 10 Urine 1800 1800 Other: Voiding Method Diaper Diaper Bedside Commode External Catheter External Catheter Diaper Incontinent - Labs CBC & Chem 7: 10/30/24 04:54 10/30/24 04:54 Labs: Abnormal Lab Results - Last 24 Hours (Table) 10/29/24 10/30/24 10/30/24 Range/Units 17:17 04:54 04:54 WBC 11.3 H (3.8-10.6) k/uL RBC 2.62 L (3.80-5.40) m/uL Hgb 8.4 L (11.4-16.0) gm/dL Hct 27.3 L (34.0-46.0) % MCV 104.2 H (80.0-100.0) fL MCHC 30.8 L (31.0-37.0) g/dL RDW 18.5 H (11.5-15.5) % Macrocytosis Marked A Sodium 134 L (137-145) mmol/L BUN 27 H (7-17) mg/dL Creatinine 1.12 H (0.52-1.04) mg/dL POC Glucose (mg/dL) 156 H (70-110) mg/dL Calcium 7.7 L (8.4-10.2) mg/dL 10/30/24 Range/Units 12:12 WBC (3.8-10.6) k/uL RBC (3.80-5.40) m/uL Hgb (11.4-16.0) gm/dL Hct (34.0-46.0) % MCV (80.0-100.0) fL MCHC (31.0-37.0) g/dL RDW (11.5-15.5) % Macrocytosis Sodium (137-145) mmol/L BUN (7-17) mg/dL Creatinine (0.52-1.04) mg/dL POC Glucose (mg/dL) 131 H (70-110) mg/dL Calcium (8.4-10.2) mg/dL
[2024-10-30 17:26] LABS: Glucose,Whole Blood 89 mg/dL (70-110)
[2024-10-30 20:03] LABS: Glucose,Whole Blood 132 mg/dL (70-110)
[2024-10-31 07:19] LABS: Glucose,Whole Blood 85 mg/dL (70-110)
[2024-10-31 07:47] VITALS: BP 135/69; PULSE 94; TEMP 97.1
--- NOTE | 2024-10-31 07:52 | P.PN ---
Subjective Progress Note Date: 10/30/24 Principal diagnosis: Reason for follow-up is perforated sigmoid colon/peritonitis Patient is a 74-year-old female with a past medical history significant for metastatic lung cancer hypothyroidism has been brought into the hospital for evaluation of generalized abdominal pain patient has been diagnosed with perforated sigmoid colon status post laparotomy sigmoid colectomy diverting colostomy. On today's evaluation that is 10/30/2024, patient has been afebrile, patient is breathing comfortably and is currently on room air, patient denies having any significant cough no chest pain, patient denies nausea vomiting or diarrhea and no abdominal pain. Patient white count is 11.3 creatinine is 1.12 Objective - Vital Signs Vital signs: Vital Signs Temp 98.4 F 10/30/24 06:12 Pulse 73 10/30/24 06:12 Resp 18 10/30/24 06:12 BP 115/60 10/30/24 06:12 Pulse Ox 96 10/30/24 06:12 FiO2 40 10/18/24 11:01 Intake & Output 10/29/24 10/30/24 10/30/24 18:59 06:59 18:59 Intake Total 540 760 Output Total 1805 1810 Balance -1265 -1050 Weight 54 kg Intake: IV 200 .9@ 20 #2 200 Intake, IV Titration 560 Amount Ampicillin-Sulbactam 3 gm 100 In Sodium Chloride 0.9% 100 ml @ 200 mls/hr IVPB Q8HR [facility] Rx#:[id number] Fat Emulsion 20% 250 ml 60 In Empty Bag 1 bag @ 21 mls/hr IV Q72H [facility] Rx#: [id number] Mvi, Adult No.4 with Vit 400 K 10 ml Trace (Conc-1Ml/ Dose) 1 ml Sodium Phosphate 3 mmol Potassium Chloride 50 meq Sodium Chloride 4Meq/ml Vial 60 meq Magnesium Sulfate gm 1.5 gm Calcium Gluconate 1 gm In Amino Acids 5 %/Dextrose 20 % 1 ,000 ml @ 40 mls/hr IV . Q24H [facility] Rx#:[id number] Oral 540 Output: Drainage 5 10 Medial Abdomen 5 10 Urine 1800 1800 Other: Voiding Method Diaper Diaper Bedside Commode External Catheter External Catheter Diaper Incontinent - Exam GENERAL DESCRIPTION: An elderly female lying in bed in no distress RESPIRATORY SYSTEM: Unlabored breathing , decreased breath sounds at bases HEART: S1 S2 regular rate and rhythm , ABDOMEN: Soft , abdominal incision is currently intact no drainage output in the colostomy EXTREMITIES: No edema feet - Labs CBC & Chem 7: 10/30/24 04:54 10/30/24 04:54 Labs: Abnormal Lab Results - Last 24 Hours (Table) 10/29/24 10/30/24 10/30/24 Range/Units 17:17 04:54 04:54 WBC 11.3 H (3.8-10.6) k/uL RBC 2.62 L (3.80-5.40) m/uL Hgb 8.4 L (11.4-16.0) gm/dL Hct 27.3 L (34.0-46.0) % MCV 104.2 H (80.0-100.0) fL MCHC 30.8 L (31.0-37.0) g/dL RDW 18.5 H (11.5-15.5) % Macrocytosis Marked A Sodium 134 L (137-145) mmol/L BUN 27 H (7-17) mg/dL Creatinine 1.12 H (0.52-1.04) mg/dL POC Glucose (mg/dL) 156 H (70-110) mg/dL Calcium 7.7 L (8.4-10.2) mg/dL 10/30/24 Range/Units 12:12 WBC (3.8-10.6) k/uL RBC (3.80-5.40) m/uL Hgb (11.4-16.0) gm/dL Hct (34.0-46.0) % MCV (80.0-100.0) fL MCHC (31.0-37.0) g/dL RDW (11.5-15.5) % Macrocytosis Sodium (137-145) mmol/L BUN (7-17) mg/dL Creatinine (0.52-1.04) mg/dL POC Glucose (mg/dL) 131 H (70-110) mg/dL Calcium (8.4-10.2) mg/dL Assessment and Plan (1) Perforated sigmoid colon Current Visit: Yes Status: Acute Code(s): K63.1 - PERFORATION OF INTESTINE (NONTRAUMATIC) SNOMED Code(s): 275208473 (2) Leukopenia Current Visit: Yes Status: Acute Code(s): D72.819 - DECREASED WHITE BLOOD CELL COUNT, UNSPECIFIED SNOMED Code(s): 99025233 (3) Peritonitis Current Visit: Yes Status: Acute Code(s): K65.9 - PERITONITIS, UNSPECIFIED SNOMED Code(s): 00240232 Plan: 1patient presented to hospital with abdominal pain generalized nausea vomiting with evidence of free air on the CT in this patient with status post laparotomy with evidence of sigmoid colon perforation status post sigmoid colectomy and end colostomy we will need to cover for the enteric gram-negative both aerobes and anaerobes 2-patient blood culture which are negative abdominal cultures with Bacteroides and E. coli is a sensitive pathogen, catheter culture with Jolie 3-patient is afebrile patient white count is 11.3, currently being treated with Unasyn and Diflucan, with a plan to finish therapy with oral Augmentin Diflucan x 7 days on discharge discussed with the surgical PLASTER HELPER Dictation was produced using [employer] dictation software. please excuse any grammatical, word or spelling errors.
[2024-10-31 09:38] VITALS: RESP 18
--- NOTE | 2024-10-31 09:57 | P.PN ---
Subjective Patient is seen in follow-up for acute kidney injury. Renal function stable as of yesterday. P.o. intake better. TPN discontinued. Has been voiding. Vital signs are stable. General: No acute distress. HEENT: Head exam is unremarkable. LUNGS: Lungs are clear to auscultation and percussion. HEART: Rate and Rhythm are regular. ABDOMEN: Ostomy and CORAZON drain noted. EXTREMITITES: No edema. Objective - Vital Signs Vital signs: Vital Signs Temp 97.1 F L 10/31/24 07:46 Pulse 94 10/31/24 07:46 Resp 18 10/31/24 07:46 BP 135/69 10/31/24 07:46 Pulse Ox 95 10/31/24 08:01 FiO2 21 10/31/24 08:01 Intake & Output 10/30/24 10/31/24 10/31/24 18:59 06:59 18:59 Intake Total 660 300 Output Total 400 700 Balance 660 -100 -700 Weight 53.2 kg Intake: IV 200 .9@ 20 #2 200 Intake, IV Titration 100 Amount Ampicillin-Sulbactam 3 gm 100 In Sodium Chloride 0.9% 100 ml @ 200 mls/hr IVPB Q8HR [facility] Rx#:[id number] Oral 660 Output: Urine 400 700 Other: Voiding Method Bedside Commode Bedside Commode Diaper Diaper Incontinent External Catheter # Voids 3 # Bowel Movements 1 - Labs CBC & Chem 7: 10/30/24 04:54 10/30/24 04:54 Labs: Abnormal Lab Results - Last 24 Hours (Table) 10/30/24 10/30/24 10/30/24 Range/Units 04:54 12:12 19:54 WBC 11.3 H (3.8-10.6) k/uL RBC 2.62 L (3.80-5.40) m/uL Hgb 8.4 L (11.4-16.0) gm/dL Hct 27.3 L (34.0-46.0) % MCV 104.2 H (80.0-100.0) fL MCHC 30.8 L (31.0-37.0) g/dL RDW 18.5 H (11.5-15.5) % Macrocytosis Marked A POC Glucose (mg/dL) 131 H 132 H (70-110) mg/dL Assessment and Plan Plan: Assessment: 1. Acute kidney injury secondary to ATN secondary to severe sepsis. Baseline creatinine near 1 and peaked at 1.8 this admission -now staying in the range of 1.1-1.2. 2. Metabolic acidosis secondary to acute kidney injury and IV fluids. Improved. 3. Sepsis secondary to pneumoperitoneum and antibiotics. 4. Pneumoperitoneum status post exploratory laparotomy with sigmoid colectomy, end colostomy creation. 5. Acute blood loss anemia s/p prbc this admission. 6. Hypokalemia from poor intake. Replaced. Better. Plan: Encouraged oral intake. Avoid nephrotoxins. Continue to monitor renal function and urine output. Follow-up outpatient 1 to 2 weeks postdischarge.
--- NOTE | 2024-10-31 11:20 | P.DS ---
Providers Date of admission: 10/17/24 18:28 Expected date of discharge: 10/31/24 Attending physician: Lalo Rojas DO Consults: 10/17/24 22:08 Consult Physician Routine Consulting Provider: Surekha Rockwell Consult Reason/Comments: Bowel perforation Do you want consulting provider notified?: Yes 10/17/24 22:09 Consult Physician Routine Consulting Provider: Julian Licona Consult Reason/Comments: ICU mgmt Do you want consulting provider notified?: Already Contacted 10/17/24 22:10 Consult Physician Routine Consulting Provider: Etta Sullivan Consult Reason/Comments: med mgmt Do you want consulting provider notified?: Yes 10/17/24 22:11 Consult Physician Routine Consulting Provider: David Frank Consult Reason/Comments: lung ca, on chemo Do you want consulting provider notified?: Yes 10/19/24 07:52 Consult Physician Routine Consulting Provider: Andrew Flores Consult Reason/Comments: nivia Do you want consulting provider notified?: Yes Primary care physician: Stated None Hospital Course: Discharge diagnosis 1. Pneumoperitoneum with ruptured sigmoid colon, possible stercoral ulcer 2. History of lung cancer with brain mets 3. Pancytopenia due to recent chemo Hospital course This is a 74-year-old female with a prolonged hospitalization. She presented with abdominal pain and pneumoperitoneum. She was found to have a ruptured sigmoid colon. She is status post exploratory laparotomy, sigmoid colectomy with end colostomy for ruptured sigmoid colon possible stercoral ulcer. Patient had been in the ICU after surgery. Patient was able to be transferred out of the ICU. Patient's ostomy is functioning. Her pain is controlled. She is tolerating diet. She is afebrile. She has worked with physical therapy and they are recommending ECF at discharge. Patient is now agreeable to ECF placement. Patient denies any difficulty urinating. Infectious disease is recommending 1 more week of oral antibiotics. Patient is stable for discharge. Please refer to chart for any further details. Patient remained stable for discharge. Discharge held yesterday due to issues of transportation to ECF. Patient can be discharge from surgical standpoint. Patient is being discharged to ECF today. Physician [employer] An[employer] note has been reviewed by physician. Signing provider agrees with the documented findings, assessment, and plan of care. Patient Condition at Discharge: Stable Plan - Discharge Summary New Discharge Prescriptions: New Amoxic-Pot Clav 875-125Mg [Augmentin 875-125] 1 tab PO Q12HR 7 Days #14 tab Fluconazole [Diflucan] 100 mg PO DAILY 7 Days #7 tablet HYDROcodone/APAP 5-325MG [Iuka 5-325] 1 tab PO Q6HR PRN 3 Days #12 tab PRN Reason: Pain Spironolactone [Aldactone] 25 mg PO BID #60 tab Pantoprazole [Protonix] 40 mg PO AC-BRKFST tab Continue predniSONE 5 mg PO DAILY levETIRAcetam [Keppra] 500 mg PO Q12HR Folic Acid 1 mg PO DAILY Discharge Medication List Folic Acid 1 mg PO DAILY 10/18/24 [History] levETIRAcetam [Keppra] 500 mg PO Q12HR 10/18/24 [History] predniSONE 5 mg PO DAILY 10/18/24 [History] Amoxic-Pot Clav 875-125Mg [Augmentin 875-125] 1 tab PO Q12HR 7 Days #14 tab 10/30/24 [Rx] Fluconazole [Diflucan] 100 mg PO DAILY 7 Days #7 tablet 10/30/24 [Rx] HYDROcodone/APAP 5-325MG [Iuka 5-325] 1 tab PO Q6HR PRN 3 Days #12 tab 10/30/24 [Rx] Pantoprazole [Protonix] 40 mg PO AC-BRKFST tab 10/30/24 [Rx] Spironolactone [Aldactone] 25 mg PO BID #60 tab 10/30/24 [Rx] Follow up Appointment(s)/Referral(s): None,Stated [Primary Care Provider] - 1-2 days [facility] [NON-STAFF] - 1 Week Andrew Flores DO [STAFF PHYSICIAN] - 1 Week Lalo Rojas DO [Doctor of Osteopathic Medicine] - 1 Week David Frank MD [STAFF PHYSICIAN] - 11/20/24 2:30 pm Activity/Diet/Wound Care/Special Instructions: Colostomy: Magali #[id number]; change every 3 to 5 days and as needed for leaking Last changed: 10/27/[address] while taking Iuka No lifting over 10 pounds You may shower. No soaking or tub baths for 2 weeks Discharge Disposition: TRANSFER TO SNF/ECF
--- NOTE | 2024-10-31 12:28 | P.PN ---
Subjective Progress Note Date: 10/31/24 10/26/2024, the patient is f essentially the same. She is on full liquid diet. She started having issues with pain in her abdomen. Nevertheless, her colostomy is functional and the patient has adequate bowel sounds. Output from the CORAZON drain is minimal at this point in time. She does not look toxic at all. She is weak. She is quite debilitated. She remains on TPN for nutritional support. She remains on IV Unasyn. The blood work from today shows a white cell count of 12.4 with a heme of 7.3 and a platelet count of 237. BUN 37 with a creatinine of 1 and a sodium levels at 136. General surgery remains on the case. Physical therapy is on the case. On 10/27/2024, the patient is being seen for a follow-up. She is currently on room air oxygen. No respiratory distress. No chest pain. No cough or sputum production. Abdomen remains tender. The patient remains on Unasyn. Remains on TPN for nutritional support. Oral intake is improved compared to yesterday. Colostomy is functional. Surgical wound site is dry clean and intact. WBC count is 12.2 with a hemoglobin of 7 and platelet count of 285. Electrolytes were noted and the patient has a sodium level of 135, potassium level is 3.7, chloride is 97 and the bicarb level is at 31. BUN 32 with a creatinine of 1.1. She is resting comfortably in bed on room air oxygen. 10/28/2024, the patient remains on room air oxygen. Advancing her diet as tolerated. Abdominal pain is less compared to yesterday. No nausea or emesis. Remains on TPN for nutritional support. Hemoglobin is at 6.7 and I ordered a unit of packed RBC for this patient. The white cell count is at 12. Electrolytes are all within normal limits with a sodium level of 135, potassium of 4.3, BUN 31 with a creatinine 1.09. The patient remains on TPN for nutr itional support. The patient remains on IV Unasyn and oral Diflucan. Remains on Lovenox for DVT prophylaxis. Dilaudid for pain control. Using incentive spirometer. Overall, remains weak. The patient is seen today October 30, 2024 in follow-up on the regular medical floor. She is currently sitting up in bed. Awake and alert in no acute distress. She is still having some abdominal discomfort. Her nurse is at the bedside. She is maintaining good O2 saturations in the 90s on room air. She is afebrile. Hemodynamically stable. She is being nourished with TPN at 40 mL/h. She is tolerating a low fiber diet. Ostomy is functional. Abdominal dressing is dry and intact. White count 11.3. Hemoglobin 8.4. Platelets 375. Sodium 134. Potassium 4.2. Bicarb 26. BUN 27. Creatinine 1.12. Glucose 98. She remains on Unasyn. Lovenox for DVT prophylaxis. Continued on prednisone. The patient is seen today October 31, 2024 in follow-up on the regular medical floor. Awake, alert in no acute distress. Sitting up in bed. Maintaining good O2 saturations in the 90s on room air. Glucose 85. She is continued on Unasyn. Lovenox for DVT prophylaxis. Alternating Dilaudid and [place] for pain control. Remains on prednisone. Objective - Vital Signs Vital signs: Vital Signs Temp 97.1 F L 10/31/24 07:46 Pulse 94 10/31/24 07:46 Resp 18 10/31/24 07:46 BP 135/69 10/31/24 07:46 Pulse Ox 95 10/31/24 08:01 FiO2 21 10/31/24 08:01 Intake & Output 10/30/24 10/31/24 10/31/24 18:59 06:59 18:59 Intake Total 660 300 Output Total 400 1200 Balance 660 -100 -1200 Weight 53.2 kg Intake: IV 200 .9@ 20 #2 200 Intake, IV Titration 100 Amount Ampicillin-Sulbactam 3 gm 100 In Sodium Chloride 0.9% 100 ml @ 200 mls/hr IVPB Q8HR [facility] Rx#:[id number] Oral 660 Output: Urine 400 1200 Other: Voiding Method Bedside Commode Bedside Commode Bedside Commode Diaper Diaper Diaper Incontinent External Catheter External Catheter # Voids 3 # Bowel Movements 1 1 - Exam GENERAL EXAM: Awake, alert 74-year-old female, sitting up in bed, no acute distress, on room air oxygen. HEAD: Normocephalic and atraumatic EYES: Normal reaction of pupils, equal size. No nystagmus. Nonicteric sclera. NOSE: Clear with pink turbinates. THROAT: No erythema or exudates. NECK: No masses, no JVD. CHEST: No chest wall deformity. LUNGS: Equal air entry with no crackles, wheeze, rhonchi or dullness. CVS: S1 and S2 normal with no audible murmur, regular rhythm. No extra heart sounds ABDOMEN: CORAZON drain in place. Left upper quadrant stoma is pink. Positive output in the colostomy bag, abdomen is soft. Surgical wound site is dry clean and intact. SPINE: No scoliosis or deformity SKIN: No rashes CENTRAL NERVOUS SYSTEM: Neurologically, the patient does not have any focal neurological deficit. Cranial nerves are essentially intact. EXTREMITIES: There is no peripheral edema, clubbing, or cyanosis. Distal extremities are cold, peripheral pulses are weak and thready. - Labs CBC & Chem 7: 10/30/24 04:54 10/30/24 04:54 Labs: Abnormal Lab Results - Last 24 Hours (Table) 10/30/24 10/30/24 Range/Units 04:54 19:54 WBC 11.3 H (3.8-10.6) k/uL RBC 2.62 L (3.80-5.40) m/uL Hgb 8.4 L (11.4-16.0) gm/dL Hct 27.3 L (34.0-46.0) % MCV 104.2 H (80.0-100.0) fL MCHC 30.8 L (31.0-37.0) g/dL RDW 18.5 H (11.5-15.5) % Macrocytosis Marked A POC Glucose (mg/dL) 132 H (70-110) mg/dL Assessment and Plan Assessment: Acute abdomen/pneumoperitoneum secondary to a ruptured sigmoid colon and the patient is status post exploratory laparotomy with sigmoid colectomy and end colostomy on October 17, 2024. Colostomy is functional. Maintained on IV Unasyn. Maintained on TPN. Recovery has been slow. Tolerating a low fiber diet Abdominal sepsis with abdominal cultures being positive for E. coli and anaerobes, currently on IV Unasyn. Catheter tip is also positive for Jolie and the patient is on Diflucan Acute hypoxic respiratory failure, recovered and the patient is currently on room air oxygen. The patient is S/P extubation on October 18. Pancytopenia, likely related to previous chemotherapy intake, improved Stage IV pulm adenocarcinoma. Initially presented in May 2024 due to recurrent falls over the prior month. CT of the brain showed a right occipital lobe lesion. CT CAP 05/22/2024 showed a 5.7 x 6.7 cm right upper lobe lung mass, mediastinal LAD, she was transferred to [facility]. MRI of the brain 05/25/2024 revealed a 3.3 cm mass in the right occipital lobe with associated vasogenic edema and midline shift. 05/29/2024 she underwent craniotomy and rese ction of the brain mass. Pathology positive metastatic adenocarcinoma, IHC consistent with lung primary, PD-L1 90%. Caris showed a K-tarik G12C mutation, TMB was high T p53 and IDH1 mutations. 06/30/2024 staging PET scan showed FDG avid 5.7 cm medial right upper lobe spiculated mass. This partially invaded into the media started him with abutment to the right brachiocephalic vein and trachea, metastasis with enlarging right pericarinal FDG avid lymph nodes, focal FDG avid focus within the medial right hepatic lobe. Patient was given time to recover from craniotomy, she will underwent SBRT. 07/28/2024 she started carbo/Alimta/Keytruda and completed 4 cycles 10/04/2024. Treatment follow-up PET scan 10/05/2024 showed improvement in her disease History of hypothyroidism Tobacco smoker Plan: The patient was seen and evaluated Labs and medications reviewed Remains stable and on room air Tolerating a low fiber diet Plan is for [facility] today This patient was seen independently by the pulmonary nurse practitioner addressing pulmonary issues I have personally seen and examined the patient, performed the documentation and the assessment and plan as written. Number of minutes spent on the visit: 23 Dictation was produced using [employer] software. Please excuse any grammatical, word or spelling errors.
--- NOTE | 2024-11-01 14:10 | CDI ---
Documentation Clarification Form Date: 11/01/2024 01:50:20 PM From: Alyce Corcoran Phone: Admit Date: 10/17/2024 06:28:00 PM Patient Name: Nona Farr Visit Number: [id number] Discharge Date: 10/31/2024 11:40:00 AM ATTENTION: The Clinical Documentation Specialists (CDI) and [facility] Coding Staff appreciate your assistance in clarifying documentation. Please respond to the clarification below the line at the bottom and electronically sign. The CDI & [facility] Coding staff will review the response and follow-up if needed. Please note: Queries are made part of the Legal Health Record. If you have any questions, please contact the author of this message via ITS. Doctor/Provider: Lalo Rojas Your patient has Catheter TipCandidaalbicans per Progress Notes 10/27- 10/31. Please clarify if there is an additional diagnosis and/or clinical significance related to this result. History/Risk Factors: 74yo F, Pneumoperitoneumwithrupturedsigmoid colon, stercoral ulcer sp colostomy, RUL Cx wbrain mets, pancytopeniadue to recentchemo, thrombocytopenia, ATN w polyuria d/t diuresis, severe PCM on TPN, Hypokalemia, Hyponatremia, Hypomagnesemia, smoker Clinical indicators: catheter was positive forCandida Treatment: Diflucan 200 mg PO QD added 10/27 Is there an additional diagnosis and/or clinical significance related to the above diagnostic/radiology result? [ ] Candidaalbicans of [ ] Cooper Catheter (Urethral) [ ] Other catheter (please specify): [ ] CVC/PICC catheter [ ] Result is not clinically significant (no additional diagnosis) [ ] Other, please specify [ X ] Unable to determine (Template Last Reviewed: October 2020) MTDD
== END 2024-10-31 11:40 | DRG 853 ==
LOC: EC 14:37 → 3SCARD 18:28 → 2SICU 20:53 → 3SCARD 10-19 18:52 → 5NMEDONC 10-26 18:49
PROVIDERS: ADMIT Surgery; ATTEND Surgery
PROC: 0D1N0Z4 Bypass Sigmoid Colon to Cutaneous, Open Approach (ICD-10-PCS; 2024-10-17)
PROC: 0DTN0ZZ Resection of Sigmoid Colon, Open Approach (ICD-10-PCS; principal; 2024-10-17 19:01)
PROC: 30233N1 Transfusion of Nonautologous Red Blood Cells into Peripheral Vein, Percutaneous Approach (ICD-10-PCS; 2024-10-19)
PROC: 3E0436Z Introduction of Nutritional Substance into Central Vein, Percutaneous Approach (ICD-10-PCS; 2024-10-19)
PROC: [UNRECOGNIZED PROCEDURE] (2024-10-19)
PROC: 02HV33Z Insertion of Infusion Device into Superior Vena Cava, Percutaneous Approach (ICD-10-PCS; 2024-10-24)
DX: A41.4 Sepsis due to anaerobes (principal); D61.810 Antineoplastic chemotherapy induced pancytopenia; K63.1 Perforation of intestine (nontraumatic); K65.9 Peritonitis, unspecified; N17.0 Acute kidney failure with tubular necrosis; E43 Unspecified severe protein-calorie malnutrition; J96.01 Acute respiratory failure with hypoxia; B37.89 Other sites of candidiasis; C79.31 Secondary malignant neoplasm of brain; K56.600 Partial intestinal obstruction, unspecified as to cause; C34.11 Malignant neoplasm of upper lobe, right bronchus or lung; R65.20 Severe sepsis without septic shock; E03.9 Hypothyroidism, unspecified; D63.8 Anemia in other chronic diseases classified elsewhere; E87.20 Acidosis, unspecified; D62 Acute posthemorrhagic anemia; E87.1 Hypo-osmolality and hyponatremia; Z68.1 Body mass index [BMI] 19.9 or less, adult; T85.79XA Infection and inflammatory reaction due to other internal prosthetic devices, implants and grafts, initial encounter; K66.8 Other specified disorders of peritoneum; E83.51 Hypocalcemia; F17.210 Nicotine dependence, cigarettes, uncomplicated; E87.5 Hyperkalemia; T45.1X5A Adverse effect of antineoplastic and immunosuppressive drugs, initial encounter; N28.1 Cyst of kidney, acquired; E87.6 Hypokalemia; E83.42 Hypomagnesemia; B96.6 Bacteroides fragilis [B. fragilis] as the cause of diseases classified elsewhere; B96.20 Unspecified Escherichia coli [E. coli] as the cause of diseases classified elsewhere; R53.81 Other malaise; R74.01 Elevation of levels of liver transaminase levels; Z79.52 Long term (current) use of systemic steroids; Z79.899 Other long term (current) drug therapy; Z91.81 History of falling; Y82.9 Unspecified medical devices associated with adverse incidents
CPT/HCPCS: 36573; 36600; 71045; 74176; 76705; 80048; 80053; 80074; 81001; 82330; 82607; 82728; 82746; 82805; 83036; 83540; 83550; 83605; 83690; 83735; 84100; 84478; 85025; 85027; 85610; 85730; 86850; 86900; 86901; 86920; 87070; 87075; 87077; 87186; 87205; 88307; 94002; 94003; 94760; 96361; 96365; 96366; 96375; 96376; 99291

== ENCOUNTER → 2024-12-18 | Outpatient (CLI) | payer MEDICARE, OTHER ==
--- NOTE | 2024-12-18 15:48 | MR ---
INDICATION: Patient age:Female; 74 years old; Reason for study: C79.31 SECONDARY MALIGNANT NEOPLASM OF BRAIN; [facility]. COMPARISON: PET CT 10/05/2024, 06/30/2024, MRI brain 09/18/2024, 07/03/2024, CT brain 05/22/2024. TECHNIQUE: Multi planar, multi sequence imaging was performed through the brain. The patient was then given 5 cc of Gadobutrol intravenously and multi planar, T1 fat-saturation images were obtained. FINDINGS: Postsurgical changes to the right posterior cerebrum are unchanged from prior MR. This is i n the right occipital temporoparietal region. There is cystic CSF signal cavity present measuring 22 x 16 mm, previously 25 x 17 mm. No residual postcontrast enhancement identified. No new suspicious en hancing lesions. Hemosiderin deposition on susceptibility weighted imaging is demonstrated again. The re is similar increased FLAIR signal around this region, likely postsurgical in etiology. Diffusion-weighted imaging shows no evidence of restricted diffusion to suggest acute/subacute infarc t. Intracranial arterial flow voids are maintained. Midline structures show no abnormality. Similar s cattered foci of high T2/FLAIR signal intensity are seen within the periventricular and subcortical w ramon matter. Additional similar hyperintense T2/FLAIR signal intensity within the central javier. The bone marrow signal is within normal limits. Postsurgical changes to the surgical bed in the right posterior skull. Paranasal sinuses and mastoid air cells: No significant paranasal sinus disease. Visualized orbits: Bilateral aphakia. IMPRESSION: 1. Post surgical changes with small cystic cavity in the area of prior surgery. No residual enhancem ent identified. No new suspicious enhancing lesions. 2. Similar nonspecific white matter changes, likely related to small vessel ischemic disease versus demyelinating process. No enhancement to suggest active demyelination. [facility], , 12/18/2024 3:46 PM
== END | disposition home or self-care (01) ==
LOC: RADMRIMAIN 13:06
PROVIDERS: ATTEND Radiology Radiation Oncology
DX: C79.31 Secondary malignant neoplasm of brain (principal); C77.1 Secondary and unspecified malignant neoplasm of intrathoracic lymph nodes; C34.11 Malignant neoplasm of upper lobe, right bronchus or lung; Z98.890 Other specified postprocedural states; H27.03 Aphakia, bilateral
CPT/HCPCS: 70553; A9585

== ENCOUNTER → 2025-03-23 | Outpatient (CLI) | payer MEDICARE, OTHER ==
--- NOTE | 2025-03-23 13:49 | PE ---
EXAMINATION TYPE: PET CT fusion skull to thigh DATE OF EXAM: 03/23/2025 CLINICAL INDICATION:Female, 74 years old with history of C34.11 Lung ca; TECHNIQUE: Following the intravenous administration of 9.71 mCi of F-18 FDG, whole body images are performed from the skull base to the Mid thigh. Images are reviewed on the computer in the coronal, axial, and sagittal planes. Reconstructed rotating images are created on independent workstation and reviewed on the computer. A non-contrast CT is performed in conjunction with the PET scan. Glucose level 102 mg/dL CT DLP: 369 mGycm, Automated exposure control for dose reduction was used. COMPARISON: CT 01/26/2025, PET/CT 10/05/2024, MRI: None FINDINGS: Mediastinal SUV mean is 2.2 Hepatic parenchyma SUV mean is 2.4. SKULL BASE AND NECK: No suspicious radiotracer activity. CHEST, MEDIASTINUM, AND HILAR REGION: * Decrease in FDG activity of right superior hilar mass now measuring Max SUV 2.8 previously 4.3. * Right lower lobe anterior spiculated nodule now measuring Max SUV 1.0 previously 5.6. * Perihilar lymph nodes maximally 3.4, previously 3.8. * No FDG avid mediastinal lymph nodes definitively visualized. ABDOMEN AND PELVIS: No suspicious radiotracer activity. Previously seen radiotracer activity within the medial right hepatic lobe/right adrenal gland region is remains not visualized. Intense radiotracer activity within the/terminal ileum in the right lower quadrant with circumferenti al wall thickening present. MUSCULOSKELETAL STRUCTURES: No suspicious radiotracer activity. OTHER CT: Postsurgical changes from right occipital craniotomy defect with wedge-shaped low attenuati on region identified. No focal FDG activity in this region. Remainder of the cerebral parenchyma demo nstrates symmetric FDG activity. Bilateral aphakia. Bilateral carotid bulb calcifications. Mild centr ilobular emphysematous changes. Dependent right mid to lower lung atelectatic change. Atherosclerotic calcification of the aorta and its branches. Redemonstration of right exophytic 4.6 cm cyst. IMPRESSION: 1. Continued Positive response to therapy with decreased size and FDG activity of right upper lobe p ulmonary mass with no FDG avid mediastinal/right hilar adenopathy identified. Additionally there is d ecrease in FDG activity of the pulmonary nodule abutting the fissure. 2. No other new suspicious regions of radiotracer uptake identified. 3. Diffuse uptake within the what is thought to be the right lower quadrant terminal ileum abdi wit h circumferential wall thickening correlate for terminal ileitis/Crohn's disease/versus other. [facility], , 03/23/2025 1:47 PM
== END | disposition home or self-care (01) ==
LOC: RADPETMAIN 10:15
PROVIDERS: ATTEND Internal Medicine Hematology & Oncology
DX: C34.11 Malignant neoplasm of upper lobe, right bronchus or lung (principal); R91.8 Other nonspecific abnormal finding of lung field
CPT/HCPCS: 78815; A9552

== ENCOUNTER → 2025-04-04 | Outpatient (CLI) | payer MEDICARE, OTHER ==
--- NOTE | 2025-04-05 14:46 | MR ---
INDICATION: Patient age:Female; 74 years old; Reason for study: C79.31, C77.1; [facility]. COMPARISON: MR brain 12/18/2024, 09/18/2024, 07/03/2024, CT brain 05/22/2024. TECHNIQUE: Multi planar, multi sequence imaging was performed through the brain. The patient was then given 5 cc of Gadobutrol intravenously and multi planar, T1 fat-saturation images were obtained. FINDINGS: Postsurgical changes to the right posterior cerebrum are unchanged involving the right occi pital temporoparietal region from prior MRI. There is an unchanged cystic CSF signal cavity present 2 .0 x 1.5 cm. No residual postcontrast enhancement identified. No new suspicious enhancing lesions. He mosiderin deposition on susceptibility weighted imaging is demonstrated again. There is similar incre ased FLAIR signal around this region, likely postsurgical in etiology. There is adjacent ex vacuo dil atation of the posterior horn of the right lateral ventricle. Diffusion-weighted imaging shows no evidence of restricted diffusion to suggest acute/subacute infarc t. Intracranial arterial flow voids are maintained. Midline structures show no abnormality. Similar s cattered foci of high T2/FLAIR signal intensity are seen within the periventricular and subcortical w ramon matter. Additional similar hyperintense T2/FLAIR signal intensity within the central javier. Post surgical osseous changes within the right occipital region. No significant paranasal sinus disease. Bilateral aphakia. IMPRESSION: 1. Post surgical changes with unchanged small cystic cavity in the area of prior surgery. No residua l enhancement identified. No new suspicious enhancing lesions to suggest active recurrence/metastasis . 2. Similar nonspecific white matter changes, likely related to small vessel ischemic disease. [facility], , 04/05/2025 2:44 PM
== END | disposition home or self-care (01) ==
LOC: RADMRIMAIN 19:45
PROVIDERS: ATTEND Radiology Radiation Oncology
DX: C79.31 Secondary malignant neoplasm of brain (principal); C77.1 Secondary and unspecified malignant neoplasm of intrathoracic lymph nodes; C34.11 Malignant neoplasm of upper lobe, right bronchus or lung
CPT/HCPCS: 70553; A9585